=== PATIENT | female | born 1950 | race Caucasian/White ===

== ENCOUNTER → 2017-08-07 07:01 | Outpatient (CLI) | payer MEDICARE, OTHER, SELFPAY ==
[2017-08-07 10:13] LABS: Absolute Lymphocyte Count 1.34 X10^3/ul (0.83-4.51); Absolute Neutrophil Count 2.5 X10^3/uL (2.0-7.7); Eosinophil# 0.11 X10^3/uL; Eosinophils% 2.5 % (0-5); Hematocrit 37.8 % (37-47); Lymphocyte # 1.34 X10^3/ul (4.0); Lymphocyte % 30.6 % (19-41); Mean Corp Hgb Conc 31.7 g/gl (32-36); Mean Corpuscular Hgb 31.1 pg (27.0-32.0); Mean Corpuscular Volume 97.9 fL (81-99); Mean Platelet Vol. 10.4 fl (6.2-12.0); Monocyte# 0.38 X10^3/uL; Monocyte% 8.7 % (0-10); Neutrophil # 2.54 X10^3/uL (2.7-7.7); Platelet Count 283 K/mm3 (150-450); RBC Distribution Width CV 13.1 % (11.6-14.6); RBC Distribution Width SD 46.8 fl (35.1-43.9); Red Blood Count 3.86 M/mm3 (4.2-5.4); White Blood Count 4.4 K/mm3 (4.4-11.0)
[2017-08-07 10:14] LABS: POSITIVE COUNT NO; POSITIVE DIFFERENTIAL NO; POSITIVE MORPHOLOGY NO
[2017-08-07 10:44] LABS: ALB/GLOB Ratio 1.1 RATIO (0.9-2.4); AST(SGOT) 32 U/L (15-37); Alanine Aminotransfer ALT/SGPT 46 U/L (13-56); Albumin, Serum 3.7 g/dL (3.2-5.0); Alkaline Phosphatase 96 U/L (45-117); Anion Gap 9 (5-15); BUN 21 mg/dL (7-18); BUN/Creat Ratio 23.9 RATIO (10-20); Calcium,Total 9.4 mg/dL (8.5-10.1); Chloride 104 mmol/L (98-107); Creatinine, Serum 0.88 mg/dL (0.55-1.02); EST Glomerular Filtration Rate 68 mL/min (>60); Est Glom Filt Rate - Afr Amer 82 mL/min (>60); Globulin 3.4 g/dL (2.2-4.2); Glucose 82 mg/dL (74-106); Potassium 3.5 mmol/L (3.5-5.1); Protein, Total 7.1 g/dL (6.4-8.2); Sodium Level 140 mmol/L (136-145)
== END ==
PROVIDERS: Family Provider Internal Medicine; PCP Internal Medicine; Visit Provider Internal Medicine Rheumatology
DX: M06.4 Inflammatory polyarthropathy (principal); M79.7 Fibromyalgia; M15.9 Polyosteoarthritis, unspecified; K21.0 Gastro-esophageal reflux disease with esophagitis
CPT/HCPCS: 36415; 80053; 85025

== ENCOUNTER → 2018-01-29 07:09 | Outpatient (CLI) | payer MEDICARE, OTHER, SELFPAY ==
[2018-01-29 10:18] LABS: Absolute Lymphocyte Count 1.32 X10^3/ul (0.83-4.51); Absolute Neutrophil Count 1.8 X10^3/uL (2.0-7.7); Eosinophil# 0.22 X10^3/uL; Hemoglobin 11.2 g/dl (12.0-15.0); Lymphocyte # 1.32 X10^3/ul (4.0); Lymphocyte % 35.9 % (19-41); Mean Corpuscular Hgb 30.9 pg (27.0-32.0); Mean Corpuscular Volume 96.7 fL (81-99); Mean Platelet Vol. 10.6 fl (6.2-12.0); Monocyte# 0.39 X10^3/uL; Monocyte% 10.6 % (0-10); Neutrophil # 1.75 X10^3/uL (2.7-7.7); Neutrophil % 47.5 % (47-70); Platelet Count 286 K/mm3 (150-450); RBC Distribution Width CV 13.2 % (11.6-14.6); RBC Distribution Width SD 46.7 fl (35.1-43.9); Red Blood Count 3.62 M/mm3 (4.2-5.4); White Blood Count 3.7 K/mm3 (4.4-11.0)
[2018-01-29 10:29] LABS: POSITIVE COUNT NO; POSITIVE DIFFERENTIAL NO; POSITIVE MORPHOLOGY NO
[2018-01-29 10:30] LABS: ALB/GLOB Ratio 1.2 RATIO (0.9-2.4); AST(SGOT) 39 U/L (15-37); Alanine Aminotransfer ALT/SGPT 47 U/L (13-56); Albumin, Serum 3.9 g/dL (3.2-5.0); Alkaline Phosphatase 79 U/L (45-117); Anion Gap 6 (5-15); BUN 29 mg/dL (7-18); BUN/Creat Ratio 37.3 RATIO (10-20); Calcium,Total 9.2 mg/dL (8.5-10.1); Chloride 109 mmol/L (98-107); Creatinine, Serum 0.78 mg/dL (0.55-1.02); EST Glomerular Filtration Rate 78 mL/min (>60); Est Glom Filt Rate - Afr Amer 95 mL/min (>60); Globulin 3.2 g/dL (2.2-4.2); Glucose 86 mg/dL (74-106); Potassium 3.4 mmol/L (3.5-5.1); Protein, Total 7.1 g/dL (6.4-8.2); Sodium Level 142 mmol/L (136-145)
== END ==
PROVIDERS: Family Provider Internal Medicine; PCP Internal Medicine; Visit Provider Internal Medicine Rheumatology
DX: M06.4 Inflammatory polyarthropathy (principal); M79.7 Fibromyalgia; M15.9 Polyosteoarthritis, unspecified; K21.0 Gastro-esophageal reflux disease with esophagitis
CPT/HCPCS: 36415; 80053; 85025

== ENCOUNTER → 2018-05-26 12:42 | Outpatient (CLI) | payer MEDICARE, OTHER, SELFPAY ==
--- NOTE | 2018-05-26 12:45 | BI_ITS ---
MAMMOGRAPHY - BILATERAL SCREENING REASON FOR EXAM: Female, 67 years old. Routine annual screening examination. PERTINENT HISTORY: Non-contributory. TECHNIQUE: Digital bilateral breast radha (3D mammographic acquisition) in the CC and MLO projections. 2-D mediolateral oblique (MLO) and craniocaudad (CC) views of both breasts were obtained. CAD: Full Field Digital Mammography with Computer Added Detection was performed. COMPARISON: Comparison is made with prior examination dated April 30, 2017 and October 07, 2016. FINDINGS: Breast Composition: There are scattered areas of fibroglandular density. There are no dominant masses or suspicious calcifications. Stable 6.2 mm x 5.6 mm well-defined nodule in the central aspect of the left breast at the plane of the nipple. This is unchanged. Prior sonogram demonstrated this to be a small cyst. No other significant abnormalities are identified. There has been no significant change since the prior study. BI/SCREENING MAMM (CAD), BILAT IMPRESSION: Stable bilateral screening mammogram. Yearly follow-up mammogram recommended. (A) ASSESSMENT CATEGORY: BIRADS Category 2: Benign. A letter regarding these results will be sent to the patient by the facility within 30 days. Approximately 10% of breast cancers are not detected by mammography. A normal mammogram should not delay biopsy of a clinically suspicious abnormality. [id number] Electronically Signed: Marquise Peterson MD at 13:50 EST Tel [phone], Service support ,
--- OUTSIDE RECORDS SUMMARY | 2018-07-21 21:41 | XMS RPT_ITS ---
:1950 Author Organization OHIP Care Team Providers Name Role Phone ASIA GIORDANO Attending Unavailable GANTA, ASIA Referring Unavailable GANTA, ASIA Referring Unavailable GANTA, ASIA Attending Unavailable GANTA, ASIA Referring Unavailable Vellanki, Suzi Attending Unavailable Vellanki, Suzi Referring Unavailable Ganta, Asia Primary Care Unavailable Vellanki, Suzi Attending Unavailable Vellanki, Suzi Referring Unavailable Ganta, Asia Primary Care Unavailable Willem, Graciela Attending Unavailable Ganta, Asia Primary Care Unavailable WillemEmerald coopery Attending Unavailable Ganta, Asia Referring Unavailable PROBLEMS PROBLEMS DATE TYPE CONDITION / CODE ATTENDING STATUS SOURCE 06/03/2018 Unknown Z01.419 - Encounter Graciela Bangura Active [facility] for gynecological Community examination (general) Hospital (routine) without Repository abnormal findings / Z01.419(ICD-10) 02/05/2018 Active Hypokalemia / NA Active Page E87.6(ICD-10) Clinic Main [place] Repository 03/19/2018 Unknown M06.4 - Inflammatory Vellanki, 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 / Community M06.4(ICD-10) Hospital Repository 05/07/2012 Active Vitamin D deficiency, NA Active Page unspecified / Clinic Main E55.9(ICD-10) [place] Repository 10/10/2017 Active Encounter for NA Active [facility] screening for lipoid Clinic Main disorders / [place] Z13.220(ICD-10) Repository PROCEDURES PROCEDURES No Procedure Records FoundRESULTS RESULTS FOUNDATION RELATIONS DIRECTOR OFFICE VISIT Observed: 06/03/2018 Status: F Source: [place] RE[facility] 1:49 PM [facility] REPOSITORY [facility] [address] [place] [address] OFFICE VISIT Date of Service: 06/03/18 MR#: [id number] Acct: [id number] Name: ERNESTINA GANNON Lizette Rep #: [id number] : 1950 Provider: PATRIC Bangura Age/Sex: 68/F Location: [facility] Status: Signed Intake Vital Signs06/03/18 Height 5 ft 1 in 06/03/18 Weight: 153 lb 8 oz 06/03/18 Body Mass Index (BMI) 29.0 06/03/18 Blood Pressure 114/72 Intake Visit Reasons: est annual last seen 04/09/17 Telecom Network Manager Required: No Is patient in pain?: No Allergies Iodinated Contrast- Oral and IV Dye Adverse Reaction (Verified 06/03/18 13:28) sick Medications calcium carbonate 500 mg calcium (1,250 mg) tablet 500 mg PO BID tab 06/03/18 [History Confirmed 06/03/18] gabapentin 100 mg capsule 100 mg PO DAILY 06/03/18 [History Confirmed 06/03/18] hydroxychloroquine 200 mg tablet 200 mg PO BID tab 06/03/18 [History Confirmed 06/03/18] multivitamin tablet 1 tab PO DAILY 06/03/18 [History Confirmed 06/03/18] Is last menstrual period known: No Post menopausal: No Patient : No : No PFSH Social History number of children: 2 current occupational status: employed current occupation: [employer] Smoking Status: Never smoker alcohol intake: never substance use type: does not use seatbelt use: always do you feel safe at home: Yes additional social history: [employer] i on call medical assistant maintenance Pregancy History 3 Elective abortions Hx Para 2 Spontaneous abortions Past Pregnancies Del. DateName GA/Weeks Outcome Route Bth WeighInfant GeLabor LgtAnesthesiDel LocatProvider FOB t n h a n Unknown 1972 Male HPI est annual last seen 04/09/17: Details: ERNESTINA WEBB is a 68 year old who presents for annual exam. History of abnormal PAP: no Last mammogram: 04/2018 History of abnormal mammogram: no Colon cancer screenin ROS Const Constitutional: Denies fatigue, weight gain or weight loss Cardio Card: Denies chest pain Resp Resp: Denies cough or shortness of breath with activity GI GI: Denies abdominal pain, constipation, change in stools, vomiting or bloating : Reports as per HPI; denies urinary frequency, pelvic pain, urinary urgency, vaginal discharge, vaginal itching, urinary incontinence or difficulty urinating Exam Const General: cooperative, healthy appearing, no acute distress, well developed Orientation: alert, oriented to person, oriented to place HENMT Head: normal to inspection Neck Neck: normal visual inspection Thyroid: thyroid normal Lymphatic: no lymphadenopathy noted Chest Breast inspection: normal inspection of the breasts, normal inspection of the axillae Breast palpation: normal palpation of the breasts, normal palpation of the axillae, no axillary lymphadenopathy Resp Effort AND Inspection: normal respiratory effort GI Palpation: soft, nontender, no masses Rectal Exam: deferred External Female Exam: normal external appearance, normal appearance of the urethra Urethra: normal appearance of the urethra, normal palpation Speculum Exam - Vagina: normal appearance of the vagina, normal vaginal discharge Speculum Exam - Cervix: normal appearance of the cervix Bimanual Exam- Vagina AND Uterus: normal bimanual exam, uterine size normal, uterine shape normal, uterus non-tender Bimanual Exam- Adnexa, other: normal adnexae, no adnexal masses, adnexae non-tender, pelvic support normal Pelvic Support: normal Neuro General: alert, oriented x3 Psych Affect: normal affect Assessment AND Plan Problems 1. Encounter for gynecological examination without abnormal finding Z01.419 Plan Completed breast and pelvic exam Reviewed diet and exercise Pap NA Mammogram recent Colonoscopy up to date Bone density scheduled RTO 1 year, prn with problems Graciela Bangura TRAFFIC CONTROL FLAGGER Coding Level of Care Code MC Pelvic/Breast Diagnoses Encounter for gynecological examination without abnormal finding Z01.419 Gynecological examination findings: abnormal findings ABSENT 06/03/18 1349 <Electronically signed by Graciela VALENCIA> Date Graciela VALENCIA Cosigner Signature: Date (if applicable) CC: SCREENING MAMM (CAD), Observed: 05/26/2018 Status: F Source: [facility] 12:45 PM [facility] REPOSITORY [facility] Imaging Services [address] [place] [id number] SCREENING MAMM (CAD), [facility] MR#: [id number] Acct: [id number] Name: ERNESTINA WEBB Rep #: [id number] : 1950 F 67 From: Marquise Peterson MD PCP: Asia Giordano MD Status: REG [facility] Study: SCREENING MAMM (CAD), BIL Date of Exam: 05/26/18 Exam# [id number] Ordering Dr: Graciela Bangura MAMMOGRAPHY - BILATERAL SCREENING REASON FOR EXAM: Female, 67 years old. Routine annual screening examination. PERTINENT HISTORY: Non-contributory. TECHNIQUE: Digital bilateral breast radha (3D mammographic acquisition) in the CC and MLO projections. 2-D mediolateral oblique (MLO) and craniocaudad (CC) views of both breasts were obtained. CAD: Full Field Digital Mammography with Computer Added Detection was performed. COMPARISON: Comparison is made with prior examination dated April 30, 2017 and October 07, 2016. FINDINGS: Breast Composition: There are scattered areas of fibroglandular density. There are no dominant masses or suspicious calcifications. Stable 6.2 mm x 5.6 mm well-defined nodule in the central aspect of the left breast at the plane of the nipple. This is unchanged. Prior sonogram demonstrated this to be a small cyst. No other significant abnormalities are identified. There has been no significant change since the prior study. BI/SCREENING MAMM (CAD), BILAT IMPRESSION: Stable bilateral screening mammogram. Yearly follow-up mammogram recommended. (A) ASSESSMENT CATEGORY: BIRADS Category 2: Benign. A letter regarding these results will be sent to the patient by the facility within 30 days. Approximately 10% of breast cancers are not detected by mammography. A normal mammogram should not delay biopsy of a clinically suspicious abnormality. [id number] Electronically Signed: Marquise Peterson MD at 13:50 EST Tel [phone], Service support , CC: PATRIC Bangura; Asia Giordano MD Nurse Monitoring: Signed PROGRESS Observed: 04/07/2018 Status: COMPLETED Source: [facility] 1:11 PM [facility] REPOSITORY O ID: [id number] Author: Asia Giordano Service: (none) Author Type: Physician Type: Progress Notes Filed: 04/07/2018 8:59 PM Note Text: Reason for Visit Patient presents with: Established Patient: 6 month follow up- questions about vitamin Ernestina Webb is a 67 year old female who presents here today for Above Complaints.. Health Maintenance HEPATITIS C SCREENING PAP EVERY 3 YEARS (65-80 YEARS OLD) MAMMOGRAM HPI Osteoporosis Vit d levels in 2018 were 77, takes calcium 500 cc daily and vit d, weight bearing by exercising daily. Dietary source of calcium is from milk, nuts,cheese. bmd was done in 2015, has osteoporosis in the lumbar spine. Notes that sister took the medication and she did not do very well with it so she does not want to take It, finance seems an issue too. Vitamin d deficiency Vit d levels in 2018 were 77, she is taking supplement. She has poly inflammatory arthritis and fibromyalgia, was dx by rheum. On plaquenil her eye were tested last year , f/u is coming up. Cont the gabapentin, no side effects. Cbc and cmp are normal. Mammogram needs to be done Graciela takes care of her pap and pelvic. Had her cmp done in 2018 and glucose was normal. 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 - PMH - PAST MEDICAL HISTORY OF hx of dehydration - Syncope 07/30/2009 PAST SURGICAL HISTORY Procedure Laterality Date - COLONOSCOP W/ OR W/O BRSH SPEC 12/18/09 - EGD W/O BRSH SPECIMEN W/BX 12/18/09 - REMOVAL GALLBLADDER Cholecystectomy - REMOVAL OF OVARY/TUBE(S) ??RIGHT - IN HER 30'S FAMILY HISTORY Problem Relation Age of Onset - Cancer Mother 55 face - Breast Cancer Maternal Aunt 52 - Hypertension Mother - Stroke Mother plaque - Heart Father - Diabetes Maternal Aunt with amputation - Diabetes Maternal Aunt with amputation Social History Substance Use Topics - Smoking status: Never Smoker - Smokeless tobacco: Never Used - Alcohol use No Past medical history, appointments, medications, allergies reviewed. Pertinent Lab/Diagnostic Studies are reviewed and discussed today Current Outpatient Prescriptions: - VITAMIN D 50,000 unit capsule - gabapentin (NEURONTIN) 100 mg capsule - hydroxychloroquine (PLAQUENIL) 200 mg tablet - OTC NUTRITIONAL SUPPLEMENT - CALCIUM OYSTER SHELL ORAL Review of Systems CONSTITUTIONAL: No fevers, chills night sweats, unintended weight loss CARDIOVASCULAR: No chest pain, dyspnea, palpitations, orthopnea, PND, ankle edema. PULM: No dyspnea, unexplained cough. GI: No dysphagia/odynophagia, problematic reflux, constipation, diarrhea, changes in stool habits, hematochezia, melena. : No new urinary complaints, including dysuria, gross hematuria or pyuria. NEURO: No new balance problems, peripheral weakness/paresthesias or numbness of concern. Physical Exam BP 120/64 (BP Site: Left Arm, BP Position: Sitting, BP Cuff Size: Regular Adult) Pulse 74 Resp 12 Ht 154.9 cm (5' 1) Wt 67.6 kg (149 lb) SpO2 98% BMI 28.15 kg/m? General appearance: Well appearing, alert, in no acute distress, well nourished. Skin: Skin color, texture, turgor normal, no suspicious rashes or lesions Head: Normocephalic, no masses, lesions, tenderness or abnormalities Eyes: Anicteric sclera. Pupils are equally round and reactive to light. Extraocular movements are intact. Hands have a herbedens nodules, in all the distal and proximal phalanges. Lungs: Lungs clear to auscultation. No wheezing, rhonchi, rales Heart: RRR without murmur, gallop, or rubs. Extremities: No deformities, edema, skin discoloration, clubbing or cyanosis. Good capillary refill. ASSESSMENT/PLAN: 1. Breast cancer screening by mammogram - ICD9: V76.12, ICD10: Z12.31 (primary diagnosis) - Follow up for annual exam in one year. - VLADIMIR SCREENING 2. Osteoporosis without current pathological fracture, unspecified osteoporosis type - ICD9: 733.00, ICD10: M81.0 - Reviewed the need for Calcium and Vitamin D supplements and weight bearing exercise as tolerated - DXA-AXIAL SKELETON 3. Vitamin D deficiency - ICD9: 268.9, ICD10: E55.9 Will recheck her levels 4. Hypertriglyceridemia - ICD9: 272.1, ICD10: E78.1 - good control - Continue current medication. - LIPID PANEL BASIC ASIA GIORDANO MD CNOV Observed: 04/07/2018 Status: COMPLETED Source: [facility] 1:00 PM [facility] REPOSITORY Office Visit (INTMWS) ERNESTINA WEBB ([id number]) 1950 F Date Time Provider Department 04/07/18 1:00 PM GANTA, ASIA INTMWS During your visit today, we recorded the following information about you: Pulse Respiration Blood pressure Weight 74/minute 12/minute 120/64 67.6 kg Height 1.549 m ASIA GIORDANO MD 04/07/2018 8:59 PM Signed Reason for Visit Patient presents with: Established Patient: 6 month follow up- questions about vitamin Ernestina Webb is a 67 year old female who presents here today for Above Complaints.. Health Maintenance HEPATITIS C SCREENING PAP EVERY 3 YEARS (65-80 YEARS OLD) MAMMOGRAM HPI Osteoporosis Vit d levels in 2018 were 77, takes calcium 500 cc daily and vit d, weight bearing by exercising daily. Dietary source of calcium is from milk, nuts,cheese. bmd was done in 2015, has osteoporosis in the lumbar spine. Notes that sister took the medication and she did not do very well with it so she does not want to take It, finance seems an issue too. Vitamin d deficiency Vit d levels in 2018 were 77, she is taking supplement. She has poly inflammatory arthritis and fibromyalgia, was dx by rheum. On plaquenil her eye were tested last year , f/u is coming up. Cont the gabapentin, no side effects. Cbc and cmp are normal. Mammogram needs to be done Graciela takes care of her pap and pelvic. Had her cmp done in 2018 and glucose was normal. 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 - PMH - PAST MEDICAL HISTORY OF hx of dehydration - Syncope 07/30/2009 PAST SURGICAL HISTORY Procedure Laterality Date - COLONOSCOP W/ OR W/O BRSH SPEC 12/18/09 - EGD W/O BRSH SPECIMEN W/BX 12/18/09 - REMOVAL GALLBLADDER Cholecystectomy - REMOVAL OF OVARY/TUBE(S) ??RIGHT - IN HER 30'S FAMILY HISTORY Problem Relation Age of Onset - Cancer Mother 55 face - Breast Cancer Maternal Aunt 52 - Hypertension Mother - Stroke Mother plaque - Heart Father - Diabetes Maternal Aunt with amputation - Diabetes Maternal Aunt with amputation Social History Substance Use Topics - Smoking status: Never Smoker - Smokeless tobacco: Never Used - Alcohol use No Past medical history, appointments, medications, allergies reviewed. Pertinent Lab/Diagnostic Studies are reviewed and discussed today Current Outpatient Prescriptions: - VITAMIN D 50,000 unit capsule - gabapentin (NEURONTIN) 100 mg capsule - hydroxychloroquine (PLAQUENIL) 200 mg tablet - OTC NUTRITIONAL SUPPLEMENT - CALCIUM OYSTER SHELL ORAL Review of Systems CONSTITUTIONAL: No fevers, chills night sweats, unintended weight loss CARDIOVASCULAR: No chest pain, dyspnea, palpitations, orthopnea, PND, ankle edema. PULM: No dyspnea, unexplained cough. GI: No dysphagia/odynophagia, problematic reflux, constipation, diarrhea, changes in stool habits, hematochezia, melena. : No new urinary complaints, including dysuria, gross hematuria or pyuria. NEURO: No new balance problems, peripheral weakness/paresthesias or numbness of concern. Physical Exam BP 120/64 (BP Site: Left Arm, BP Position: Sitting, BP Cuff Size: Regular Adult) Pulse 74 Resp 12 Ht 154.9 cm (5' 1) Wt 67.6 kg (149 lb) SpO2 98% BMI 28.15 kg/m? General appearance: Well appearing, alert, in no acute distress, well nourished. Skin: Skin color, texture, turgor normal, no suspicious rashes or lesions Head: Normocephalic, no masses, lesions, tenderness or abnormalities Eyes: Anicteric sclera. Pupils are equally round and reactive to light. Extraocular movements are intact. Hands have a herbedens nodules, in all the distal and proximal phalanges. Lungs: Lungs clear to auscultation. No wheezing, rhonchi, rales Heart: RRR without murmur, gallop, or rubs. Extremities: No deformities, edema, skin discoloration, clubbing or cyanosis. Good capillary refill. ASSESSMENT/PLAN: 1. Breast cancer screening by mammogram - ICD9: V76.12, ICD10: Z12.31 (primary diagnosis) - Follow up for annual exam in one year. - VLADIMIR SCREENING 2. Osteoporosis without current pathological fracture, unspecified osteoporosis type - ICD9: 733.00, ICD10: M81.0 - Reviewed the need for Calcium and Vitamin D supplements and weight bearing exercise as tolerated - DXA-AXIAL SKELETON 3. Vitamin D deficiency - ICD9: 268.9, ICD10: E55.9 Will recheck her levels 4. Hypertriglyceridemia - ICD9: 272.1, ICD10: E78.1 - good control - Continue current medication. - LIPID PANEL BASIC MD ASIA MCKINNON MD 04/07/2018 1:19 PM Edited Vit d levels in 2018 were 77, takes calcium 500 cc daily and vit d, weight bearing by exercising daily. Dietary source of calcium is from milk, nuts,cheese. ASIA GIORDANO MD 04/07/2018 1:18 PM Written Vit d levels in 2018 were 77, she is taking supplement Referring Provider: ASIA GIORDANO [[id number]] Allergies As of Date: 04/07/2018 Noted Allergy Reaction MRI DYE (CONTRAST DYE) 08/21/2009 Date Reviewed: 04/07/2018 Reviewed by: Treva Davila LPN - Fully Assessed Reason for Visit: Established Patient [175] Cmt: 6 month follow up- questions about vitamin Primary Visit Diagnosis:Breast cancer screening by mammogram [Z12.31] Other Visit Diagnoses:Osteoporosis without current pathological fracture, unspecified osteoporosis type [M81.0] Vitamin D deficiency [E55.9] Hypertriglyceridemia [E78.1] Iron deficiency anemia, unspecified iron deficiency anemia type [D50.9] Order(s):DXA-AXIAL SKELETON [[id number]] Order #: [id number] FUTURE VLADIMIR SCREENING [[id number]] Order #: [id number] FUTURE LIPID PANEL BASIC [SQLIPB] Order #: [id number] FUTURE CBC + DIFF [SQCBCDIF] Order #: [id number] FUTURE IRON + TIBC [SQIRON] Order #: [id number] FUTURE FERRITIN BLD [SQFERR] Order #: [id number] FUTURE Prescriptions as of 04/07/2018 Sig: VITAMIN D2 50,000 UNIT CAPSULE TAKE 1 CAPSULE BY MOUTH EACH * GABAPENTIN 100 MG CAPSULE Take 1 capsule by mouth once * HYDROXYCHLOROQUINE 200 MG TAB* Take 1 tablet by mouth twice * * OTC NUTRITIONAL SUPPLEMENT one time only. Alive, Women's* * CALCIUM OYSTER SHELL ORAL Take 500 mg by mouth twice da* Medication notes this encounter GABAPENTIN 100 MG CAPSULE >> Treva Davila LPN 04/07/2018 12:45 PM >> TREVA DAVILA LPN ThuApr 07, 2018 12:45 PM duplicate Problem List As Of Date 04/07/2018 Noted Resolved GERD (Gastroesophageal Reflux Disease) [K21.9] INVALID FOR* More... Anxiety [F41.9] INVALID FOR* Anemia [D64.9] INVALID FOR*05/06/2013 Epigastric pain [R10.13] INVALID FOR*05/12/2012 Syncope [R55] INVALID FOR*05/06/2013 Arthritis [M19.90] INVALID FOR*05/06/2013 Osteoporosis [M81.0] INVALID FOR* More... Vitamin d deficiency [E55.9] INVALID FOR* More... Inflammatory polyarthropathy [M06.4] INVALID FOR* More... Fibromyalgia [M79.7] INVALID FOR* More... [place] node [M15.1] INVALID FOR* More... Chronic bilateral low back pain without sciatic*INVALID FOR* Osteopenia of multiple sites [M85.89] INVALID FOR* More... Medications Discontinued During This Encounter gabapentin (NEURONTIN) 100 mg capsule 90 c* 3 10/05/2017 04/07/2018 Route: ORAL Sig: Take 1 capsule by mouth once daily for 90 days. at bedtime Disc: Reason for discontinue is not on file. pantoprazole DR (PROTONIX) 40 mg tab* 08/11/2016 04/07/2018 Class: Med Update Route: ORAL Sig: Take 1 tablet by mouth once daily as needed. Disc: Reason for discontinue is not on file. Encounter Status:Closed by ASIA GIORDANO MD on 04/07/18 POTASSIUM Collected: 02/05/2018 Status: F Source: [facility] 1:08 PM [facility] REPOSITORY TYPE CODE TESTS RESULT OUT OF REFERENCE UNITS RANGE LAB K 3.7-5.1 mmol/L Potassium 4.1 Performed By: #### K1 #### [facility] [address] [place], [place] [address] CBC W/DIFF, AUTOMATED Collected: 01/29/2018 Status: F Source: [facility] 7:16 AM [facility] REPOSITORY TYPE CODE TESTS RESULT OUT OF RANGE REFERENCE UNITS LAB L100.1000 4.4-11.0 K/mm3 Low WBC 3.7 LAB L100.1200 4.2-5.4 M/mm3 Low RBC 3.62 LAB L100.1300 12.0-15.0 g/dl Low HGB 11.2 LAB L100.1400 37-47 % Low HCT 35.0 LAB L100.1500 81-99 fL Normal MCV 96.7 LAB L100.1600 27.0-32.0 pg Normal MCH 30.9 LAB L100.1700 32-36 g/gl Normal MCHC 32.0 LAB L100.1810 11.6-14.6 % Normal RDW CV 13.2 LAB L100.1820 35.1-43.9 fl High RDW SD 46.7 LAB L100.1900 150-450 K/mm3 Normal PLT 286 LAB L100.2000 6.2-12.0 fl Normal MPV 10.6 LAB L100.2100 47-70 % Normal NEUT% 47.5 LAB L100.2200 19-41 % Normal LY% 35.9 LAB L100.2300 0-10 % High MONO% 10.6 LAB L100.2400 0-5 % High EO% 6.0 LAB L100.2500 0-1 % Normal BASO% 0.0 LAB L100.2550 0.0-0.9 % Normal IM GRAN % 0.000 Result Comment: IG% - Immature Granulocytes (promyelocytes, myelocytes and metamyelocytes) > 1% indicates that a LEFT SHIFT is Present. LAB L100.2620 2.0-7.7 X10 3/uL Low Absolute Neut 1.8 LAB L100.2720 0.83-4.51 X10 3/ul Normal Absolute Lymph 1.32 Performed By: #### L100.0100 #### [facility] [address] [place] [address]. [place], [address] COMPREHENSIVE METABOLIC Collected: 01/29/2018 Status: F Source: [facility] 7:16 AM [facility] REPOSITORY TYPE CODE TESTS RESULT OUT OF RANGE REFERENCE UNITS LAB L501.0100 74-106 mg/dL Normal GLU 86 Result Comment: Please note revised GLUCOSE reference range effective 2017. LAB L501.1000 7-18 mg/dL High BUN 29 LAB L501.1100 0.55-1.02 mg/dL Normal CREAT,SERUM 0.78 Result Comment: The validity of the calculated GFR AND GFRAA in patients over 70 years has not been determined. Clinical correlation is essential. LAB L501.1110 >60 mL/min Normal EST GFR 78 Result Comment: Non- GFR Calc LAB L501.1115 >60 mL/min Normal EST GFR - AA 95 Result Comment: GFR Calc LAB L501.1300 10-20 RATIO High BUN/CRE 37.3 LAB L501.1500 6.4-8.2 g/dL T Normal PROT 7.1 LAB L501.1800 3.2-5.0 g/dL Normal ALB 3.9 LAB L501.1950 2.2-4.2 g/dL Normal GLOB 3.2 LAB L501.2000 0.9-2.4 RATIO Normal A/G 1.2 LAB L501.2200 8.5-10.1 mg/dL CA Normal 9.2 LAB L501.4100 15-37 U/L High AST 39 LAB L501.4305 45-117 U/L Normal ALK P 79 LAB L501.4405 13-56 U/L Normal ALT 47 LAB L501.4600 0.20-1.00 mg/dL T Normal BILI 0.40 LAB L501.5300 136-145 mmol/L NA Normal 142 LAB L501.5600 3.5-5.1 mmol/L Low K 3.4 LAB L501.5900 98-107 mmol/L High CL 109 LAB L501.6100 21.0-32.0 mmol/L Normal CO2 27.0 LAB L501.6200 5-15 Normal GAP 6 Performed By: #### L500.4050 #### [facility] [address] [place], [place], [address] LIPID PANEL, BASIC Collected: 10/10/2017 Status: F Source: [facility] 7:42 AM [facility] REPOSITORY TYPE CODE TESTS RESULT OUT OF REFERENCE UNITS RANGE LAB CHOL <200 mg/dL Cholesterol 198 Result Comment: <200 mg/dL, Desirable 200-239 mg/dL, Borderline high >239 mg/dL, High LAB TRIGLY <150 mg/dL Triglyceride High 176 Result Comment: <150 mg/dL, Normal 150-199 mg/dL, Borderline high 200-499 mg/dL, High >499 mg/dL, Very high LAB HDL >39 mg/dL HDL-Cholesterol 78 Result Comment: 40-59 mg/dL, Acceptable >59 mg/dL, High: Negative risk factor for coronary heart disease <40 mg/dL, Low: Positive risk factor for coronary heart disease LAB LDL <100 mg/dL LDL-Cholesterol 85 Result Comment: <100 mg/dL, Optimal 100-129 mg/dL, Near optimal/above optimal 130-159 mg/dL, Borderline high 160-189 mg/dL, High >189 mg/dL, Very high Secondary prevention optimal LDL Cholesterol levels are recommended to be < 70 mg/dL LAB NONHDL <130 mg/dL Non HDL Cholesterol 120 Result Comment: <130 mg/dL, Optimal 130-159 mg/dL, Near optimal/above optimal 160-189 mg/dL, Borderline high 190-219 mg/dL, High >219 mg/dL, Very high Secondary prevention optimal non HDL Cholesterol levels are recommended to be < 100 mg/dL LAB FT hrs Fasting Time 12 LAB VLDL <30 mg/dL High VLDL Cholesterol 35 LAB TCHDL <5.10 TC:HDL Ratio 2.54 LAB LDLHDL <2.54 LDL:HDL Ratio 1.09 Result Comment: Reference: 1. National Cholesterol Education Program ATP III Guideline At-A-Glance Quick Desk Reference: National Heart, Lung, and Blood Meservey. National Institutes of Health. 2001: NIH Publication No. 01-3305. 2. An International Atherosclerosis Society position paper: global recommendations for the management of dyslipidemia: executive summary, Atherosclerosis. 2014: 232(2):410-413. Performed By: #### LIPB, VITD #### [facility] Scope [address] [place], [place] [address] VITAMIN D 25 HYDROXY Collected: 10/10/2017 Status: F Source: [facility] 7:42 AM [facility] [place] REPOSITORY TYPE CODE TESTS RESULT OUT OF REFERENCE UNITS RANGE LAB VITD 31.0-80.0 ng/mL Vitamin D 25 77.0 Hydroxy Result Comment: Classification of 25 [place] Vitamin D status: Insufficiency/Moderate Deficiency: < or = 30 ng/mL Sufficiency/Optimal Levels: 31 to 80 ng/mL Toxicity: > 100 ng/mL Test performed by chemiluminescent immunoassay. Performed By: #### LIPB, VITD #### [facility] [address] [place], [place] [address] PROGRESS Observed: 10/05/2017 Status: COMPLETED Source: [facility] 2:22 PM [facility] REPOSITORY HNO ID: [id number] Author: Asia Giordano Service: (none) Author Type: Physician Type: Progress Notes Filed: 10/05/2017 5:30 PM Note Text: Reason for Visit No chief complaint on file. Ernestina Webb is a 67 year old female who presents here today for Above Complaints.. Health Maintenance HEPATITIS C SCREENING HPI Her screening glucose is normal. cmp and cbc are normal. Fibro and arthritis is well controlled On plaquenil for poly arthritis and is upto date with her liver and eye monitoring We need to check her lipid and vit d levels. She gets good exercise where ever she works. Once in a while she gets a wooshing sound in the ears, no hearing loss or dizziness No problem-specific Assessment AND Plan notes found for this encounter. PAST MEDICAL HISTORY Diagnosis Date - Abdominal pain, epigastric - Acute gastritis without mention of hemorrhage - Anemia - Fibromyalgia 05/12/2012 - Gastritis - Inflammatory polyarthropathy (HCC) 05/12/2012 - PMH - PAST MEDICAL HISTORY OF hx of dehydration - Syncope 07/30/2009 PAST SURGICAL HISTORY Procedure Laterality Date - COLONOSCOP W/ OR W/O [facility] SPEC 12/18/09 - EGD W/O [facility] SPECIMEN W/BX 12/18/09 - REMOVAL GALLBLADDER Cholecystectomy - REMOVAL OF OVARY/TUBE(S) ??RIGHT - IN HER 30'S FAMILY HISTORY Problem Relation Age of Onset - Cancer Mother 55 face - Breast Cancer Maternal Aunt 52 - Hypertension Mother - Stroke Mother plaque - Heart Father - Diabetes Maternal Aunt with amputation - Diabetes Maternal Aunt with amputation Social History Substance Use Topics - Smoking status: Never Smoker - Smokeless tobacco: Never Used - Alcohol use No Past medical history, appointments, medications, allergies reviewed. Pertinent Lab/Diagnostic Studies are reviewed and discussed today Current Outpatient Prescriptions: - gabapentin (NEURONTIN) 100 mg capsule - ergocalciferol, vitamin D2, (DRISDOL) 50,000 unit capsule - pantoprazole DR (PROTONIX) 40 mg tablet - hydroxychloroquine (PLAQUENIL) 200 mg tablet - OTC NUTRITIONAL SUPPLEMENT - CALCIUM OYSTER SHELL ORAL Review of Systems CONSTITUTIONAL: No fevers, chills night sweats, unintended weight loss CARDIOVASCULAR: No chest pain, dyspnea, palpitations, orthopnea, PND, ankle edema. PULM: No dyspnea, unexplained cough. GI: No dysphagia/odynophagia, problematic reflux, constipation, diarrhea, changes in stool habits, hematochezia, melena. : No new urinary complaints, including dysuria, gross hematuria or pyuria. NEURO: No new balance problems, peripheral weakness/paresthesias or numbness of concern. Physical Exam BP 120/60 (BP Site: Left Arm, BP Position: Sitting, BP Cuff Size: Regular Adult) Pulse 80 Resp 12 Ht 154.9 cm (5' 1) Wt 69.4 kg (153 lb) SpO2 100% BMI 28.91 kg/m2 General appearance: Well appearing, alert, in no acute distress, well nourished. Skin: Skin color, texture, turgor normal, no suspicious rashes or lesions Head: Normocephalic, no masses, lesions, tenderness or abnormalities Eyes: Anicteric sclera. Pupils are equally round and reactive to light. Extraocular movements are intact. Lungs: Lungs clear to auscultation. No wheezing, rhonchi, rales Heart: RRR without murmur, gallop, or rubs. Extremities: No deformities, edema, skin discoloration, clubbing or cyanosis. Good capillary refill. ASSESSMENT/PLAN: 1. Lipid screening - ICD9: V77.91, ICD10: Z13.220 (primary diagnosis) - LIPID PANEL BASIC 2. Inflammatory polyarthropathy (HCC) - ICD9: 714.9, ICD10: M06.4 Getting eye checked next months. - GABAPENTIN 100 MG CAPSULE 3. Fibromyalgia - ICD9: 729.1, ICD10: M79.7 Refilled - GABAPENTIN 100 MG CAPSULE 4. Vitamin D deficiency - ICD9: 268.9, ICD10: E55.9 - VITAMIN D 25 HYDROXY ASIA GIORDANO MD CNOV Observed: 10/05/2017 Status: COMPLETED Source: [place] [facility] 2:00 PM [facility] REPOSITORY Office Visit (INTMWS) ERNESTINA WEBB ([id number]) 1950 F Date Time Provider Department 10/05/17 2:00 PM ASIA GIORDANO During your visit today, we recorded the following information about you: Pulse Respiration Blood pressure Weight 80/minute 12/minute 120/60 69.4 kg Height 1.549 m ASIA GIORDANO MD 10/05/2017 5:30 PM Signed Reason for Visit No chief complaint on file. Ernestina Webb is a 67 year old female who presents here today for Above Complaints.. Health Maintenance HEPATITIS C SCREENING HPI Her screening glucose is normal. cmp and cbc are normal. Fibro and arthritis is well controlled On plaquenil for poly arthritis and is upto date with her liver and eye monitoring We need to check her lipid and vit d levels. She gets good exercise where ever she works. Once in a while she gets a wooshing sound in the ears, no hearing loss or dizziness No problem-specific Assessment ANDamp; Plan notes found for this encounter. PAST MEDICAL HISTORY Diagnosis Date - Abdominal pain, epigastric - Acute gastritis without mention of hemorrhage - Anemia - Fibromyalgia 05/12/2012 - Gastritis - Inflammatory polyarthropathy (HCC) 05/12/2012 - PMH - PAST MEDICAL HISTORY OF hx of dehydration - Syncope 07/30/2009 PAST SURGICAL HISTORY Procedure Laterality Date - COLONOSCOP W/ OR W/O [facility] SPEC 12/18/09 - EGD W/O [facility] SPECIMEN W/BX 12/18/09 - REMOVAL GALLBLADDER Cholecystectomy - REMOVAL OF OVARY/TUBE(S) ??RIGHT - IN HER 30'S FAMILY HISTORY Problem Relation Age of Onset - Cancer Mother 55 face - Breast Cancer Maternal Aunt 52 - Hypertension Mother - Stroke Mother plaque - Heart Father - Diabetes Maternal Aunt with amputation - Diabetes Maternal Aunt with amputation Social History Substance Use Topics - Smoking status: Never Smoker - Smokeless tobacco: Never Used - Alcohol use No Past medical history, appointments, medications, allergies reviewed. Pertinent Lab/Diagnostic Studies are reviewed and discussed today Current Outpatient Prescriptions: - gabapentin (NEURONTIN) 100 mg capsule - ergocalciferol, vitamin D2, (DRISDOL) 50,000 unit capsule - pantoprazole DR (PROTONIX) 40 mg tablet - hydroxychloroquine (PLAQUENIL) 200 mg tablet - OTC NUTRITIONAL SUPPLEMENT - CALCIUM OYSTER SHELL ORAL Review of Systems CONSTITUTIONAL: No fevers, chills night sweats, unintended weight loss CARDIOVASCULAR: No chest pain, dyspnea, palpitations, orthopnea, PND, ankle edema. PULM: No dyspnea, unexplained cough. GI: No dysphagia/odynophagia, problematic reflux, constipation, diarrhea, changes in stool habits, hematochezia, melena. : No new urinary complaints, including dysuria, gross hematuria or pyuria. NEURO: No new balance problems, peripheral weakness/paresthesias or numbness of concern. Physical Exam BP 120/60 (BP Site: Left Arm, BP Position: Sitting, BP Cuff Size: Regular Adult) Pulse 80 Resp 12 Ht 154.9 cm (5' 1ANDquot;) Wt 69.4 kg (153 lb) SpO2 100% BMI 28.91 kg/m2 General appearance: Well appearing, alert, in no acute distress, well nourished. Skin: Skin color, texture, turgor normal, no suspicious rashes or lesions Head: Normocephalic, no masses, lesions, tenderness or abnormalities Eyes: Anicteric sclera. Pupils are equally round and reactive to light. Extraocular movements are intact. Lungs: Lungs clear to auscultation. No wheezing, rhonchi, rales Heart: RRR without murmur, gallop, or rubs. Extremities: No deformities, edema, skin discoloration, clubbing or cyanosis. Good capillary refill. ASSESSMENT/PLAN: 1. Lipid screening - ICD9: V77.91, ICD10: Z13.220 (primary diagnosis) - LIPID PANEL BASIC 2. Inflammatory polyarthropathy (HCC) - ICD9: 714.9, ICD10: M06.4 Getting eye checked next months. - GABAPENTIN 100 MG CAPSULE 3. Fibromyalgia - ICD9: 729.1, ICD10: M79.7 Refilled - GABAPENTIN 100 MG CAPSULE 4. Vitamin D deficiency - ICD9: 268.9, ICD10: E55.9 - VITAMIN D 25 HYDROXY ASIA GIORDANO MD Referring Provider: SELF [200] Allergies As of Date: 10/05/2017 Noted Allergy Reaction MRI DYE (CONTRAST DYE) 08/21/2009 Date Reviewed: 10/05/2017 Reviewed by: Treva Davila LPN - Fully Assessed Primary Visit Diagnosis:Lipid screening [Z13.220] Other Visit Diagnoses:Inflammatory polyarthropathy (HCC) [M06.4] Fibromyalgia [M79.7] Vitamin D deficiency [E55.9] Order(s):gabapentin (NEURONTIN) 100 mg capsuleTake 1 capsule by mouth once daily for 90 days. at bedtimeDisp: 90 capsuleRfl: 3 ergocalciferol, vitamin D2, (DRISDOL) 50,000 unit capsuleTake 1 capsule by mouth once each week. On ThursdayDisp: 12 capsuleRfl: 1 LIPID PANEL BASIC [SQLIPB] Order #: [id number] FUTURE VITAMIN D 25 HYDROXY [SQVITD] Order #: [id number] FUTURE Prescriptions as of 10/05/2017 Sig: GABAPENTIN 100 MG CAPSULE Take 1 capsule by mouth once * ERGOCALCIFEROL (VITAMIN D2) 5* Take 1 capsule by mouth once * PANTOPRAZOLE 40 MG TABLET,DEL* Take 1 tablet by mouth once d* HYDROXYCHLOROQUINE 200 MG TAB* Take 1 tablet by mouth twice * * OTC NUTRITIONAL SUPPLEMENT one time only. Alive, Women's* * CALCIUM OYSTER SHELL ORAL Take 500 mg by mouth twice da* Problem List As Of Date 10/05/2017 Noted Resolved GERD (Gastroesophageal Reflux Disease) [K21.9] INVALID FOR* More... Anxiety [F41.9] INVALID FOR* Anemia [D64.9] INVALID FOR*05/06/2013 Epigastric pain [R10.13] INVALID FOR*05/12/2012 Syncope [R55] INVALID FOR*05/06/2013 Arthritis [M19.90] INVALID FOR*05/06/2013 Osteoporosis [M81.0] INVALID FOR* Vitamin d deficiency [E55.9] INVALID FOR* Inflammatory polyarthropathy [M06.4] INVALID FOR* More... Fibromyalgia [M79.7] INVALID FOR* More... [place] node [M15.1] INVALID FOR* More... Chronic bilateral low back pain without sciatic*INVALID FOR* Osteopenia of multiple sites [M85.89] INVALID FOR* More... Prescriptions ordered this encounter Disp Refills Start End GABAPENTIN 100 MG CAPSULE 90 c* 3 10/05/2017 01/03/2018 Route: ORAL Sig: Take 1 capsule by mouth once daily for 90 days. at bedtime ERGOCALCIFEROL (VITAMIN D2) 50,000 U* 12 c* 1 10/05/2017 Route: ORAL Sig: Take 1 capsule by mouth once each week. On Thursday Medications Discontinued During This Encounter gabapentin (NEURONTIN) 100 mg capsule 90 c* 3 12/10/2016 10/05/2017 Route: ORAL Sig: Take 1 capsule by mouth once daily. at bedtime Disc: Reason for discontinue is not on file. ergocalciferol, vitamin D2, (DRISDOL* 4 ca* 11 12/10/2016 10/05/2017 Route: ORAL Sig: Take 1 capsule by mouth once each week. On Thursday Disc: Reason for discontinue is not on file. Encounter Status:Closed by ASIA GIORDANO MD on 10/05/17 CBC W/DIFF, AUTOMATED Collected: 08/07/2017 Status: F Source: [place] 7:13 AM [facility] REPOSITORY TYPE CODE TESTS RESULT OUT OF RANGE REFERENCE UNITS LAB L100.1000 4.4-11.0 K/mm3 Normal WBC 4.4 LAB L100.1200 4.2-5.4 M/mm3 Low RBC 3.86 LAB L100.1300 12.0-15.0 g/dl Normal HGB 12.0 LAB L100.1400 37-47 % Normal HCT 37.8 LAB L100.1500 81-99 fL Normal MCV 97.9 LAB L100.1600 27.0-32.0 pg Normal MCH 31.1 LAB L100.1700 32-36 g/gl Low MCHC 31.7 LAB L100.1810 11.6-14.6 % Normal RDW CV 13.1 LAB L100.1820 35.1-43.9 fl High RDW SD 46.8 LAB L100.1900 150-450 K/mm3 Normal PLT 283 LAB L100.2000 6.2-12.0 fl Normal MPV 10.4 LAB L100.2100 47-70 % Normal NEUT% 58.0 LAB L100.2200 19-41 % Normal LY% 30.6 LAB L100.2300 0-10 % Normal MONO% 8.7 LAB L100.2400 0-5 % Normal EO% 2.5 LAB L100.2500 0-1 % Normal BASO% 0.0 LAB L100.2550 0.0-0.9 % Normal IM GRAN % 0.200 Result Comment: IG% - Immature Granulocytes (promyelocytes, myelocytes and metamyelocytes) > 1% indicates that a LEFT SHIFT is Present. LAB L100.2620 2.0-7.7 X10 3/uL Normal Absolute Neut 2.5 LAB L100.2720 0.83-4.51 X10 3/ul Normal Absolute Lymph 1.34 Performed By: #### L100.0100 #### [facility] [address] [place], [address] COMPREHENSIVE METABOLIC Collected: 08/07/2017 Status: F Source: [facility] 7:13 AM [facility] REPOSITORY TYPE CODE TESTS RESULT OUT OF RANGE REFERENCE UNITS LAB L501.0100 74-106 mg/dL Normal GLU 82 Result Comment: Please note revised GLUCOSE reference range effective 2017. LAB L501.1000 7-18 mg/dL High BUN 21 LAB L501.1100 0.55-1.02 mg/dL Normal CREAT,SERUM 0.88 Result Comment: The validity of the calculated GFR AND GFRAA in patients over 70 years has not been determined. Clinical correlation is essential. LAB L501.1110 >60 mL/min Normal EST GFR 68 Result Comment: Non- GFR Calc LAB L501.1115 >60 mL/min Normal EST GFR - AA 82 Result Comment: GFR Calc LAB L501.1300 10-20 RATIO High BUN/CRE 23.9 LAB L501.1500 6.4-8.2 g/dL T Normal PROT 7.1 LAB L501.1800 3.2-5.0 g/dL Normal ALB 3.7 LAB L501.1950 2.2-4.2 g/dL Normal GLOB 3.4 LAB L501.2000 0.9-2.4 RATIO Normal A/G 1.1 LAB L501.2200 8.5-10.1 mg/dL CA Normal 9.4 LAB L501.4100 15-37 U/L Normal AST 32 LAB L501.4305 45-117 U/L Normal ALK P 96 LAB L501.4405 13-56 U/L Normal ALT 46 Result Comment: Please note revised ALT reference range effective 2017. LAB L501.4600 0.20-1.00 mg/dL Normal T BILI 0.40 LAB L501.5300 136-145 mmol/L Normal NA 140 LAB L501.5600 3.5-5.1 mmol/L Normal K 3.5 LAB L501.5900 98-107 mmol/L Normal CL 104 LAB L501.6100 21.0-32.0 mmol/L Normal CO2 27.0 LAB L501.6200 5-15 Normal GAP 9 Performed By: #### L500.4050 #### [facility] [address] [place], [address] ALLERGIES ALLERGIES DATE TYPE / CODE NAME / CODE REACTION SEVERITY SOURCE 06/03/2018 Drug Iodinated SICK Unknown [facility] Allergy/[facility]- [facility] [id number](SNOM and IV Repository ED CT) Dye/[id number](R XNORM) 08/21/2009 DRUG CONTRAST DYE [facility] INGREDI/[address] [facility] [id number](SNOM Repository ED CT) ENCOUNTERS ENCOUNTERS ADMIT/DISCHARGE ACCOUNT ADMITTING ENCOUNTER LOCATION SOURCE NUMBER CLASS 06/03/2018/06/03/20 [id number] Ambulatory BMSBuilding:B [place] [address] MD.[facility] Repository 05/26/2018 [id number] Ambulatory [facility] ing:OPBI Repository 04/07/2018/04/08/20 [id number] Ambulatory [address] Repository 02/05/2018/02/06/20 [id number] Ambulatory [address] Repository 01/29/2018 [id number] Ambulatory [facility] ing:MTLAB Repository 10/10/2017/10/11/19 [id number] Ambulatory [address] Repository 10/05/2017/10/07/19 [id number] Ambulatory [address] Repository 08/07/2017 [id number] Ambulatory [facility] ing:MTLAB Repository PAYERS PAYERS ENCOUNTER GUARANTOR PAYER SUBSCRIBER SOURCE 06/03/2018 CHIVO CRUZ: [place] [id number] BACK Insurance[id number] Number: Repository [id number]: [phone] [id number] [phone] (HP) Date:2018-04-13 06/03/2018 Secondary ERNESTINA FATIMAB: [place] Insurance:PHYSICIAN [id number] Number: Repository [id number] Date:0988-53-69[address], [place] [address]DI: 06/03/2018 Tertiary NOT GIVENUNK [place] Insurance:SELF PAY [facility] Number: Effective Repository Date:2018-06-01 05/26/2018 CHIVO Willingham Primary ERNESTINA Bauer ABERDOB: [place] [id number] BACK Insurance:MEDICARE [id number] [place] Number: Repository [id number]: 330 [id number] [phone] (HP) Date:2018-04-13 05/26/2018 Secondary ERNESTINA FATIMAB: [place] Insurance:PHYSICIAN [id number] Number: Repository [id number] Date:4055-82-26II [address] [address]ZN: 05/26/2018 Tertiary NOT GIVENUNK [place] Insurance:SELF PAY [facility] Number: Effective Repository Date:2018-04-13 01/29/2018 CHIVO Willingham Primary ERNESTINA Bauer ABERDOB: [place] [id number] BACK Insurance:MEDICARE [id number] [place] Number: Repository [id number]: 330 [id number] [phone] (HP) Date:2018-01-29 01/29/2018 Secondary ERNESTINA FATIMAB: [place] Insurance:PHYSICIAN [id number] [facility] Center Number: Repository [id number] Date:3803-68-13AY [address] [address]XG: 01/29/2018 Tertiary NOT GIVENUNK [place] Insurance:SELF PAY [facility] Number: Effective Repository Date:2018-01-29 08/07/2017 CHIVO Willingham Primary ERNESTINA FATIMAB: [place] [id number] BACK Insurance:MEDICARE [id number] [facility] [place] Number: Repository [id number]: [phone] [id number] [phone] () Date:2017-08-07 08/07/2017 Secondary ERNESTINA CRUZ: [place] Insurance:PHYSICIAN [id number] Number: Repository [id number] Date:[id number] BOX [facility] [place][note 2]OSBALDO CIPRIANO [address]BG: 08/07/2017 Tertiary NOT GIVENUNK [place] Insurance:SELF PAY [facility] Number: Effective Repository Date:2017-08-07
== END ==
PROVIDERS: Family Provider Internal Medicine; PCP Internal Medicine; Visit Provider Nurse Practitioner Women's Health
DX: Z12.31 Encounter for screening mammogram for malignant neoplasm of breast (principal)
CPT/HCPCS: 77063; 77067

== ENCOUNTER → 2018-07-26 07:19 | Outpatient (CLI) | payer MEDICARE, OTHER, SELFPAY ==
[2018-06-03 13:26] VITALS: BMI 29.0
[2018-07-26 10:18] LABS: Absolute Lymphocyte Count 1.11 X10^3/ul (0.83-4.51); Absolute Neutrophil Count 2.4 X10^3/uL (2.0-7.7); Eosinophil# 0.14 X10^3/uL; Eosinophils% 3.4 % (0-5); Hematocrit 36.7 % (37-47); Hemoglobin 11.7 g/dl (12.0-15.0); Lymphocyte # 1.11 X10^3/ul (4.0); Lymphocyte % 26.9 % (19-41); Mean Corp Hgb Conc 31.9 g/gl (32-36); Mean Corpuscular Hgb 31.3 pg (27.0-32.0); Mean Corpuscular Volume 98.1 fL (81-99); Mean Platelet Vol. 10.3 fl (6.2-12.0); Monocyte# 0.47 X10^3/uL; Monocyte% 11.4 % (0-10); Neutrophil % 58.1 % (47-70); Platelet Count 269 K/mm3 (150-450); RBC Distribution Width CV 13.2 % (11.6-14.6); RBC Distribution Width SD 47.1 fl (35.1-43.9); Red Blood Count 3.74 M/mm3 (4.2-5.4); White Blood Count 4.1 K/mm3 (4.4-11.0)
[2018-07-26 10:20] LABS: POSITIVE COUNT NO; POSITIVE DIFFERENTIAL NO; POSITIVE MORPHOLOGY NO
[2018-07-26 10:53] LABS: ALB/GLOB Ratio 1.2 RATIO (0.9-2.4); AST(SGOT) 28 U/L (15-37); Alanine Aminotransfer ALT/SGPT 41 U/L (13-56); Albumin, Serum 3.8 g/dL (3.2-5.0); Alkaline Phosphatase 97 U/L (45-117); Anion Gap 10 (5-15); BUN 27 mg/dL (7-18); Calcium,Total 9.2 mg/dL (8.5-10.1); Chloride 109 mmol/L (98-107); Creatinine, Serum 0.82 mg/dL (0.55-1.02); EST Glomerular Filtration Rate 74 mL/min (>60); Est Glom Filt Rate - Afr Amer 89 mL/min (>60); Globulin 3.3 g/dL (2.2-4.2); Glucose 83 mg/dL (74-106); Potassium 3.7 mmol/L (3.5-5.1); Protein, Total 7.1 g/dL (6.4-8.2); Sodium Level 144 mmol/L (136-145)
== END ==
PROVIDERS: Family Provider Internal Medicine; PCP Internal Medicine; Referring Provider Internal Medicine Rheumatology; Visit Provider Internal Medicine Rheumatology
DX: M06.4 Inflammatory polyarthropathy (principal); M79.7 Fibromyalgia; M15.9 Polyosteoarthritis, unspecified; K21.0 Gastro-esophageal reflux disease with esophagitis
CPT/HCPCS: 36415; 80053; 85025

== ENCOUNTER → 2019-01-17 07:21 | Outpatient (CLI) | payer MEDICARE, OTHER, SELFPAY ==
[2018-06-03 13:26] VITALS: BMI 29.0
[2019-01-17 09:50] LABS: Absolute Lymphocyte Count 1.19 X10^3/uL (0.83-4.51); Absolute Neutrophil Count 2.2 X10^3/uL (2.0-7.7); Basophil# 0.01 X10^3/uL; Basophil% 0.3 % (0-1); Eosinophil# 0.15 X10^3/uL; Eosinophils% 3.8 % (0-5); Hematocrit 35.6 % (37-47); Hemoglobin 11.7 g/dL (12.0-15.0); Lymphocyte # 1.19 X10^3/ul (4.0); Lymphocyte % 30.5 % (19-41); Mean Corp Hgb Conc 32.9 g/dL (32-36); Mean Corpuscular Volume 97.3 fL (81-99); Mean Platelet Vol. 10.4 fl (6.2-12.0); Monocyte# 0.31 X10^3/uL; Monocyte% 7.9 % (0-10); NRBC Flagged by Analyzer 0 % (0-5); Neutrophil # 2.22 X10^3/uL (2.7-7.7); Platelet Count 264 K/mm3 (150-450); RBC Distribution Width CV 12.5 % (11.6-14.6); RBC Distribution Width SD 44.8 fl (35.1-43.9); Red Blood Count 3.66 M/mm3 (4.2-5.4); White Blood Count 3.9 K/mm3 (4.4-11.0)
[2019-01-17 10:00] LABS: ALB/GLOB Ratio 1.2 RATIO (0.9-2.4); AST(SGOT) 33 U/L (15-37); Alanine Aminotransfer ALT/SGPT 40 U/L (13-56); Albumin, Serum 3.8 g/dL (3.2-5.0); Alkaline Phosphatase 82 U/L (45-117); Anion Gap 8 (5-15); BUN 31 mg/dL (7-18); BUN/Creat Ratio 34.3 RATIO (10-20); Calcium,Total 9.5 mg/dL (8.5-10.1); Chloride 105 mmol/L (98-107); EST Glomerular Filtration Rate 66 mL/min (>60); Est Glom Filt Rate - Afr Amer 79 mL/min (>60); Globulin 3.1 g/dL (2.2-4.2); Glucose 85 mg/dL (74-106); Potassium 3.7 mmol/L (3.5-5.1); Protein, Total 6.9 g/dL (6.4-8.2); Sodium Level 141 mmol/L (136-145)
== END ==
PROVIDERS: Family Provider Internal Medicine; PCP Internal Medicine; Referring Provider Internal Medicine Rheumatology; Visit Provider Internal Medicine Rheumatology
DX: M06.4 Inflammatory polyarthropathy (principal); M79.7 Fibromyalgia; M15.9 Polyosteoarthritis, unspecified; K21.0 Gastro-esophageal reflux disease with esophagitis
CPT/HCPCS: 36415; 80053; 85025

== ENCOUNTER → 2019-06-27 07:37 | Outpatient (CLI) | payer MEDICARE, OTHER, SELFPAY ==
[2018-06-03 13:26] VITALS: BMI 29.0
--- NOTE | 2019-06-27 07:39 | BI_ITS ---
MAMMOGRAPHY - BILATERAL SCREENING 3-D TOMOSYNTHESIS REASON FOR EXAM: Female, 69 years old. FAM HX MAT AUNT AGE 45-50 -- NO SX PERTINENT HISTORY: No significant family history. TECHNIQUE: 2-D mammograms and 3-D Tomosynthesis of the breast (s) were performed. CAD was performed. COMPARISON: May 26, 2018. FINDINGS: The breast composition is composed of scattered fibroglandular density. Scattered benign calcifications are seen. No dense spiculated masses or suspicious microcalcifications are identified. No architectural distortion is identified. There is no skin thickening or retraction. There has been no significant change since the prior study. BI/SCREEN MAMM (CAD) W/MARIO BILAT IMPRESSION: No mammographic signs of malignancy. Routine yearly mammograms recommended. ASSESSMENT CATEGORY: BIRADS Category 2: Benign. A letter regarding these results will be sent to the patient by the facility within 30 days. FOLLOW UP RECOMMENDATION: Yearly follow up mammogram recommended. (A) Approximately 10% of breast cancers are not detected by mammography. A normal mammogram should not delay biopsy of a clinically suspicious abnormality. Electronically Signed: Christiano La MD at 11:14 EST , Service support ,
== END ==
PROVIDERS: Family Provider Internal Medicine; PCP Internal Medicine; Referring Provider Nurse Practitioner Women's Health; Visit Provider Nurse Practitioner Women's Health
DX: Z12.31 Encounter for screening mammogram for malignant neoplasm of breast (principal)
CPT/HCPCS: 77063; 77067

== ENCOUNTER → 2019-07-22 07:39 | Outpatient (CLI) | payer MEDICARE, OTHER, SELFPAY ==
[2018-06-03 13:26] VITALS: BMI 29.0
[2019-07-22 10:19] LABS: Absolute Lymphocyte Count 1.39 X10^3/uL (0.83-4.51); Absolute Neutrophil Count 2.4 X10^3/uL (2.0-7.7); Eosinophil# 0.12 X10^3/uL; Eosinophils% 2.8 % (0-5); Hematocrit 38.1 % (37-47); Lymphocyte # 1.39 X10^3/ul (4.0); Lymphocyte % 32.9 % (19-41); Mean Corp Hgb Conc 31.5 g/dL (32-36); Mean Corpuscular Hgb 31.3 pg (27.0-32.0); Mean Corpuscular Volume 99.2 fL (81-99); Mean Platelet Vol. 10.8 fl (6.2-12.0); Monocyte# 0.35 X10^3/uL; Monocyte% 8.3 % (0-10); NRBC Flagged by Analyzer 0 % (0-5); Neutrophil # 2.36 X10^3/uL (2.7-7.7); Platelet Count 289 K/mm3 (150-450); RBC Distribution Width SD 46.7 fl (35.1-43.9); Red Blood Count 3.84 M/mm3 (4.2-5.4); White Blood Count 4.2 K/mm3 (4.4-11.0)
[2019-07-22 10:40] LABS: ALB/GLOB Ratio 1.2 RATIO (0.9-2.4); AST(SGOT) 32 U/L (15-37); Alanine Aminotransfer ALT/SGPT 45 U/L (13-56); Alkaline Phosphatase 91 U/L (45-117); Anion Gap 3 (5-15); BUN 17 mg/dL (7-18); BUN/Creat Ratio 19.7 RATIO (10-20); Calcium,Total 9.9 mg/dL (8.5-10.1); Chloride 106 mmol/L (98-107); Creatinine, Serum 0.86 mg/dL (0.55-1.02); EST Glomerular Filtration Rate 69 mL/min (>60); Est Glom Filt Rate - Afr Amer 84 mL/min (>60); Globulin 3.4 g/dL (2.2-4.2); Glucose 78 mg/dL (74-106); Potassium 3.8 mmol/L (3.5-5.1); Protein, Total 7.4 g/dL (6.4-8.2); Sodium Level 140 mmol/L (136-145)
== END ==
LOC: MTLAB 07:41
PROVIDERS: PCP Internal Medicine; Referring Provider Internal Medicine Rheumatology; Visit Provider Internal Medicine Rheumatology
DX: M06.4 Inflammatory polyarthropathy (principal); M79.7 Fibromyalgia; M15.9 Polyosteoarthritis, unspecified; K21.0 Gastro-esophageal reflux disease with esophagitis
CPT/HCPCS: 36415; 80053; 85025

== ENCOUNTER → 2019-12-23 07:31 | Outpatient (CLI) | payer MEDICARE, OTHER, SELFPAY ==
[2018-06-03 13:26] VITALS: BMI 29.0
[2019-12-23 09:53] LABS: Absolute Lymphocyte Count 1.32 X10^3/uL (0.83-4.51); Absolute Neutrophil Count 2.8 X10^3/uL (2.0-7.7); Basophil# 0.01 X10^3/uL; Basophil% 0.2 % (0-1); Eosinophil# 0.15 X10^3/uL; Eosinophils% 3.2 % (0-5); Hematocrit 36.9 % (37-47); Hemoglobin 11.7 g/dL (12.0-15.0); Lymphocyte # 1.32 X10^3/ul (4.0); Lymphocyte % 28.4 % (19-41); Mean Corp Hgb Conc 31.7 g/dL (32-36); Mean Corpuscular Hgb 31.9 pg (27.0-32.0); Mean Corpuscular Volume 100.5 fL (81-99); Monocyte% 8.6 % (0-10); NRBC Flagged by Analyzer 0 % (0-5); Neutrophil # 2.76 X10^3/uL (2.7-7.7); Neutrophil % 59.4 % (47-70); Platelet Count 297 K/mm3 (150-450); RBC Distribution Width CV 12.9 % (11.6-14.6); RBC Distribution Width SD 48.1 fl (35.1-43.9); Red Blood Count 3.67 M/mm3 (4.2-5.4); White Blood Count 4.7 K/mm3 (4.4-11.0)
[2019-12-23 10:14] LABS: ALB/GLOB Ratio 1.1 RATIO (0.9-2.4); AST(SGOT) 27 U/L (15-37); Alanine Aminotransfer ALT/SGPT 37 U/L (13-56); Albumin, Serum 3.8 g/dL (3.2-5.0); Alkaline Phosphatase 84 U/L (45-117); Anion Gap 5 (5-15); BUN 21 mg/dL (7-18); BUN/Creat Ratio 24.6 RATIO (10-20); Calcium,Total 9.6 mg/dL (8.5-10.1); Chloride 104 mmol/L (98-107); Creatinine, Serum 0.86 mg/dL (0.55-1.02); EST Glomerular Filtration Rate 70 mL/min (>60); Est Glom Filt Rate - Afr Amer 84 mL/min (>60); Globulin 3.5 g/dL (2.2-4.2); Glucose 86 mg/dL (74-106); Potassium 3.5 mmol/L (3.5-5.1); Protein, Total 7.3 g/dL (6.4-8.2); Sodium Level 137 mmol/L (136-145)
== END ==
PROVIDERS: PCP Internal Medicine; Referring Provider Internal Medicine Rheumatology; Visit Provider Internal Medicine Rheumatology
DX: M06.4 Inflammatory polyarthropathy (principal); M79.7 Fibromyalgia; M15.9 Polyosteoarthritis, unspecified; K21.0 Gastro-esophageal reflux disease with esophagitis
CPT/HCPCS: 36415; 80053; 85025

== ENCOUNTER → 2020-06-18 07:24 | Outpatient (CLI) | payer MEDICARE, OTHER, SELFPAY ==
[2018-06-03 13:26] VITALS: BMI 29.0
[2020-06-18 09:51] LABS: Absolute Lymphocyte Count 1.65 X10^3/uL (0.83-4.51); Absolute Neutrophil Count 2.3 X10^3/uL (2.0-7.7); Basophil# 0.01 X10^3/uL; Basophil% 0.2 % (0-1); Eosinophil# 0.19 X10^3/uL; Eosinophils% 4.2 % (0-5); Hematocrit 37.5 % (37-47); Lymphocyte # 1.65 X10^3/ul (4.0); Lymphocyte % 36.8 % (19-41); Mean Corpuscular Hgb 30.7 pg (27.0-32.0); Mean Corpuscular Volume 95.9 fL (81-99); Mean Platelet Vol. 10.1 fl (6.2-12.0); Monocyte# 0.36 X10^3/uL; NRBC Flagged by Analyzer 0 % (0-5); Neutrophil # 2.26 X10^3/uL (2.7-7.7); Neutrophil % 50.6 % (47-70); Platelet Count 290 K/mm3 (150-450); RBC Distribution Width CV 13.5 % (11.6-14.6); RBC Distribution Width SD 47.2 fl (35.1-43.9); Red Blood Count 3.91 M/mm3 (4.2-5.4); White Blood Count 4.5 K/mm3 (4.4-11.0)
[2020-06-18 10:11] LABS: ALB/GLOB Ratio 1.1 RATIO (0.9-2.4); AST(SGOT) 38 U/L (15-37); Alanine Aminotransfer ALT/SGPT 63 U/L (13-56); Albumin, Serum 3.8 g/dL (3.2-5.0); Alkaline Phosphatase 116 U/L (45-117); Anion Gap 6 (5-15); BUN 16 mg/dL (7-18); BUN/Creat Ratio 18.2 RATIO (10-20); Calcium,Total 9.6 mg/dL (8.5-10.1); Chloride 105 mmol/L (98-107); Creatinine, Serum 0.88 mg/dL (0.55-1.02); EST Glomerular Filtration Rate 68 mL/min (>60); Est Glom Filt Rate - Afr Amer 82 mL/min (>60); Globulin 3.4 g/dL (2.2-4.2); Glucose 80 mg/dL (74-106); Potassium 3.5 mmol/L (3.5-5.1); Protein, Total 7.2 g/dL (6.4-8.2); Sodium Level 139 mmol/L (136-145)
== END ==
PROVIDERS: PCP Internal Medicine; Referring Provider Internal Medicine Rheumatology; Visit Provider Internal Medicine Rheumatology
DX: M06.4 Inflammatory polyarthropathy (principal); M79.7 Fibromyalgia; M15.9 Polyosteoarthritis, unspecified; K21.00 Gastro-esophageal reflux disease with esophagitis, without bleeding
CPT/HCPCS: 36415; 80053; 85025

== ENCOUNTER → 2020-07-11 08:39 | Outpatient (CLI) | payer MEDICARE, OTHER, SELFPAY ==
[2018-06-03 13:26] VITALS: BMI 29.0
--- NOTE | 2020-07-11 08:43 | US_ITS ---
STUDY: ABDOMINAL ULTRASOUND - RIGHT UPPER QUADRANT REASON FOR VISIT: Female, 70 years old ELEVATED LIVER ENZYMES TECHNIQUE: Ultrasound evaluation of the right upper quadrant was performed with real-time and static kern-scale imaging. TECHNICAL QUALITY: Adequate. COMPARISON: None. FINDINGS: Liver: The liver measures 13.4 cm. There is normal echogenicity of the liver. The bile ducts are within normal limits. There is hepatic color flow. The direction of portal flow is hepatopetal. There is no demonstrated mass lesion. Gallbladder: The gallbladder is not visualized. Most likely secondary to prior cholecystectomy. Common Bile Duct (C.B.D.): The common bile duct measures 4 mm. Pancreas: Normal size of the head, body and tail of the pancreas. There is normal echogenicity of the pancreas. There is no demonstrated pancreatic mass or cyst. Right Kidney: Normal size of the right kidney. The right kidney measures 10 cm x 3.8 cm x 4.4 cm. Normal renal cortex. The right cortex measures 1.1 cm. There is no demonstrated renal mass or cyst. The patient has a dual right collecting system. The lower moiety shows evidence of mild renal pelvic dilatation US/Liver IMPRESSION: Nonvisualization of the gallbladder most likely secondary to prior cholecystectomy. Minimal fullness of the right renal pelvis of the lower pole moiety collecting system. Electronically Signed: Marquise Peterson, at 14:33 EST , Service support ,
== END ==
PROVIDERS: PCP Internal Medicine; Referring Provider Internal Medicine Rheumatology; Visit Provider Internal Medicine Rheumatology
DX: M06.4 Inflammatory polyarthropathy (principal); M79.7 Fibromyalgia; M15.9 Polyosteoarthritis, unspecified; K21.00 Gastro-esophageal reflux disease with esophagitis, without bleeding
CPT/HCPCS: 76705

== ENCOUNTER → 2020-10-12 07:09 | Outpatient (CLI) | payer MEDICARE, OTHER, SELFPAY ==
[2018-06-03 13:26] VITALS: BMI 29.0
[2020-10-12 10:04] LABS: Absolute Lymphocyte Count 1.27 X10^3/uL (0.83-4.51); Basophil# 0.01 X10^3/uL; Basophil% 0.3 % (0-1); Eosinophil# 0.16 X10^3/uL; Eosinophils% 4.2 % (0-5); Hematocrit 37.5 % (37-47); Hemoglobin 11.9 g/dL (12.0-15.0); Lymphocyte # 1.27 X10^3/ul (0.83-4.51); Lymphocyte % 33.4 % (19-41); Mean Corp Hgb Conc 31.7 g/dL (32-36); Mean Corpuscular Hgb 31.7 pg (27.0-32.0); Mean Platelet Vol. 10.5 fl (6.2-12.0); Monocyte# 0.36 X10^3/uL; Monocyte% 9.5 % (0-10); NRBC Flagged by Analyzer 0 % (0-5); Neutrophil # 1.99 X10^3/uL (2.7-7.7); Neutrophil % 52.3 % (47-70); Platelet Count 288 K/mm3 (150-450); RBC Distribution Width CV 12.8 % (11.6-14.6); RBC Distribution Width SD 46.7 fl (35.1-43.9); Red Blood Count 3.75 M/mm3 (4.2-5.4); White Blood Count 3.8 K/mm3 (4.4-11.0)
[2020-10-12 10:29] LABS: ALB/GLOB Ratio 1.1 RATIO (0.9-2.4); AST(SGOT) 41 U/L (15-37); Alanine Aminotransfer ALT/SGPT 56 U/L (13-56); Albumin, Serum 3.7 g/dL (3.2-5.0); Alkaline Phosphatase 96 U/L (45-117); Anion Gap 5 (5-15); BUN 17 mg/dL (7-18); Calcium,Total 9.7 mg/dL (8.5-10.1); Chloride 106 mmol/L (98-107); Creatinine, Serum 0.81 mg/dL (0.55-1.02); EST Glomerular Filtration Rate 74 mL/min (>60); Est Glom Filt Rate - Afr Amer 90 mL/min (>60); Globulin 3.5 g/dL (2.2-4.2); Glucose 93 mg/dL (74-106); Potassium 3.7 mmol/L (3.5-5.1); Protein, Total 7.2 g/dL (6.4-8.2); Sodium Level 140 mmol/L (136-145)
== END ==
PROVIDERS: PCP Internal Medicine; Referring Provider Internal Medicine Rheumatology; Visit Provider Internal Medicine Rheumatology
DX: M79.7 Fibromyalgia (principal); M06.4 Inflammatory polyarthropathy; K21.00 Gastro-esophageal reflux disease with esophagitis, without bleeding
CPT/HCPCS: 36415; 80053; 85025

== ENCOUNTER → 2021-02-13 06:59 | Outpatient (CLI) | payer MEDICARE, OTHER, SELFPAY ==
[2018-06-03 13:26] VITALS: BMI 29.0
--- NOTE | 2021-02-13 07:02 | BI_ITS ---
MAMMOGRAPHY - BILATERAL SCREENING REASON FOR EXAM: Female, 70 years old. Routine annual screening examination. PERTINENT HISTORY: Aunt with breast cancer. TECHNIQUE: Digital bilateral breast mario (3D mammographic acquisition) in the CC and MLO projections. 2-D mediolateral oblique (MLO) and craniocaudad (CC) views of both breasts were obtained. CAD: Full Field Digital Mammography with Computer Added Detection was performed. COMPARISON: Comparison is made with prior study dated 06/27/2019 and 05/26/2018. FINDINGS: Breast Composition: There are scattered areas of fibroglandular density. There are no dominant masses or suspicious calcifications. Stable 5 mm x 6 mm well-defined nodule in the central aspect of the left breast. This was demonstrated to be a small cyst on the prior sonogram. Stable benign appearing bilateral axillary lymph nodes. No other significant abnormalities are identified. There has been no significant change since the prior study. BI/SCRN MAMM (CAD)W/MARIO BILAT IMPRESSION: Stable bilateral screening mammogram. Yearly follow-up mammogram recommended. (A) ASSESSMENT CATEGORY: BIRADS Category 2: Benign. A letter regarding these results will be sent to the patient by the facility within 30 days. Approximately 10% of breast cancers are not detected by mammography. A normal mammogram should not delay biopsy of a clinically suspicious abnormality. [id number] Electronically Signed: Marquise Peterson MD at 8:18 EDT , Service support ,
== END ==
PROVIDERS: PCP Internal Medicine; Referring Provider Internal Medicine; Visit Provider Internal Medicine
DX: Z12.31 Encounter for screening mammogram for malignant neoplasm of breast (principal)
CPT/HCPCS: 77063; 77067

== ENCOUNTER → 2021-04-04 07:02 | Outpatient (CLI) | payer MEDICARE, OTHER, SELFPAY ==
[2021-04-04 10:09] LABS: Absolute Lymphocyte Count 1.56 X10^3/uL (0.83-4.51); Absolute Neutrophil Count 2.2 X10^3/uL (2.0-7.7); Basophil# 0.01 X10^3/uL; Basophil% 0.2 % (0-1); Eosinophil# 0.15 X10^3/uL; Eosinophils% 3.5 % (0-5); Hemoglobin 11.9 g/dL (12.0-15.0); Lymphocyte # 1.56 X10^3/ul (0.83-4.51); Lymphocyte % 35.9 % (19-41); Mean Corp Hgb Conc 32.2 g/dL (32-36); Mean Corpuscular Hgb 32.2 pg (27.0-32.0); Mean Platelet Vol. 10.8 fl (6.2-12.0); Monocyte# 0.39 X10^3/uL; NRBC Flagged by Analyzer 0 % (0-5); Neutrophil # 2.22 X10^3/uL (2.7-7.7); Neutrophil % 51.2 % (47-70); Platelet Count 268 K/mm3 (150-450); RBC Distribution Width CV 12.8 % (11.6-14.6); RBC Distribution Width SD 46.8 fl (35.1-43.9); White Blood Count 4.3 K/mm3 (4.4-11.0)
[2021-04-04 10:49] LABS: AST(SGOT) 29 U/L (15-37); Alanine Aminotransfer ALT/SGPT 33 U/L (13-56); Albumin, Serum 3.6 g/dL (3.2-5.0); Alkaline Phosphatase 85 U/L (45-117); Anion Gap 7 (5-15); BUN 16 mg/dL (7-18); BUN/Creat Ratio 18.1 RATIO (10-20); Calcium,Total 9.8 mg/dL (8.5-10.1); Chloride 104 mmol/L (98-107); Creatinine, Serum 0.88 mg/dL (0.55-1.02); EST Glomerular Filtration Rate 67 mL/min (>60); Est Glom Filt Rate - Afr Amer 81 mL/min (>60); Globulin 3.7 g/dL (2.2-4.2); Glucose 86 mg/dL (74-106); Potassium 3.6 mmol/L (3.5-5.1); Protein, Total 7.3 g/dL (6.4-8.2); Sodium Level 139 mmol/L (136-145)
== END ==
PROVIDERS: PCP Internal Medicine; Referring Provider Internal Medicine Rheumatology; Visit Provider Internal Medicine Rheumatology
DX: M06.4 Inflammatory polyarthropathy (principal); M79.7 Fibromyalgia; K21.00 Gastro-esophageal reflux disease with esophagitis, without bleeding; M15.9 Polyosteoarthritis, unspecified
CPT/HCPCS: 36415; 80053; 85025

== ENCOUNTER → 2021-04-25 08:13 | Outpatient (CLI) | payer MEDICARE, OTHER, SELFPAY ==
--- NOTE | 2021-04-25 08:20 | BD_ITS ---
STUDY: DUAL ENERGY X-RAY ABSORPTIOMETRY / DXA REASON FOR EXAM: Female, 70 years old. History of osteopenia, postmenopausal TECHNIQUE: Bone Mineral Density (BMD) measurements of lumbar spine and bilateral hips were obtained. COMPARISON: Comparison is made with prior study dated 04/30/2017. FINDINGS: Lumbar Spine (L1-L4): g/cm2 (0.743) / T-score (-2.5) / Z-score (0.3) Findings are suggestive of osteopenia with a high fracture risk. Left Femur Total: g/cm2 (0.659) / T-score (-2.3) / Z-score (-0.7) Left Femoral Neck: g/cm2 (0.567) / T-score (-2.5) / Z-score (-0.6) Right Femur Total: g/cm2 (0.658) / T-score (-2.3) / Z-score (-0.7) Right Femoral Neck: g/cm2 (0.603) / T-score (-2.2) / Z-score (-0.3) The T-Scores on the most recent prior examination were: Lumbar Spine (L1-L4): There has been worsening of bone density since the previous examination. Left Femur Total: which represents a worsening of 9.5%. Right Femur Total: which represents a worsening of 2.1%. BD/Dexa Bone Density Study IMPRESSION: The patient is considered osteopenic as outlined below according to World Preston Organization (WHO) criteria with a high fracture risk. There has been worsening of bone density since the previous examination. Reference Information: The T-score is the number of standard deviations above or below the standard which is normal for young adults at their peak bone mineral density. The World Health Organization (WHO) interprets the T-scores as follows: Above -1 Normal bone density Between -1 and -2.5 Osteopenia Equal to / or below -2.5 Osteoporosis As a practical clinical guideline, osteopenia may be graded as follows: Mild -1 through -1.5 Moderate -1.6 through -2.0 Severe -2.1 through -2.4 The Z-score is the number of standard deviations above or below age-matched controls. A Z-score of less than -1.5 would be considered abnormal. References: 1. NIH Osteoporosis and Related Bone Diseases www osteo.org 2. International Society for Clinical Densitometry www iscd.org 3. National Osteoporosis Foundation www nof.org Electronically Signed: Marquise Peterson MD at 14:30 EDT , Service support ,
== END ==
PROVIDERS: PCP Internal Medicine; Visit Provider Nurse Practitioner Women's Health
DX: Z78.0 Asymptomatic menopausal state (principal)
CPT/HCPCS: 77080

== ENCOUNTER 2021-10-11 07:09 | Outpatient (CLI) | payer MEDICARE, OTHER, SELFPAY ==
[2021-10-11 10:04] LABS: Absolute Lymphocyte Count 1.47 X10^3/uL (0.83-4.51); Absolute Neutrophil Count 1.6 X10^3/uL (2.0-7.7); Basophil# 0.01 X10^3/uL; Basophil% 0.3 % (0-1); Eosinophil# 0.13 X10^3/uL; Eosinophils% 3.6 % (0-5); Hematocrit 34.7 % (37-47); Hemoglobin 11.4 g/dL (12.0-15.0); Lymphocyte # 1.47 X10^3/ul (0.83-4.51); Lymphocyte % 40.6 % (19-41); Mean Corp Hgb Conc 32.9 g/dL (32-36); Mean Corpuscular Hgb 31.4 pg (27.0-32.0); Mean Corpuscular Volume 95.6 fL (81-99); Mean Platelet Vol. 10.1 fl (6.2-12.0); Monocyte# 0.46 X10^3/uL; Monocyte% 12.7 % (0-10); NRBC Flagged by Analyzer 0 % (0-5); Neutrophil # 1.55 X10^3/uL (2.7-7.7); Neutrophil % 42.8 % (47-70); Platelet Count 263 K/mm3 (150-450); RBC Distribution Width SD 45.8 fl (35.1-43.9); Red Blood Count 3.63 M/mm3 (4.2-5.4); White Blood Count 3.6 K/mm3 (4.4-11.0)
[2021-10-11 10:46] LABS: ALB/GLOB Ratio 1.1 RATIO (0.9-2.4); AST(SGOT) 35 U/L (15-37); Alanine Aminotransfer ALT/SGPT 40 U/L (13-56); Albumin, Serum 3.5 g/dL (3.2-5.0); Alkaline Phosphatase 59 U/L (45-117); Anion Gap 5 (5-15); BUN 18 mg/dL (7-18); BUN/Creat Ratio 20.9 RATIO (10-20); Calcium,Total 8.9 mg/dL (8.5-10.1); Chloride 106 mmol/L (98-107); Creatinine, Serum 0.86 mg/dL (0.55-1.02); EST Glomerular Filtration Rate 69 mL/min (>60); Est Glom Filt Rate - Afr Amer 83 mL/min (>60); Globulin 3.1 g/dL (2.2-4.2); Glucose 88 mg/dL (74-106); Potassium 3.5 mmol/L (3.5-5.1); Protein, Total 6.6 g/dL (6.4-8.2); Sodium Level 139 mmol/L (136-145); Uric Acid 5.3 mg/dL (2.6-6.0)
== END 2021-10-11 23:59 | disposition home or self-care (01) ==
LOC: MTLAB 07:11
PROVIDERS: PCP Internal Medicine; Referring Provider Internal Medicine Rheumatology; Visit Provider Internal Medicine Rheumatology
DX: M06.4 Inflammatory polyarthropathy (principal); M79.7 Fibromyalgia; M15.9 Polyosteoarthritis, unspecified; K21.00 Gastro-esophageal reflux disease with esophagitis, without bleeding
CPT/HCPCS: 36415; 80053; 84550; 85025

== ENCOUNTER → 2022-03-17 | Outpatient (CLI) | payer MEDICARE, OTHER, SELFPAY ==
[2022-03-17 10:08] LABS: Absolute Lymphocyte Count 1.39 X10^3/uL (0.83-4.51); Basophil# 0.01 X10^3/uL; Basophil% 0.2 % (0-1); Eosinophil# 0.09 X10^3/uL; Eosinophils% 1.8 % (0-5); Hematocrit 35.8 % (37-47); Hemoglobin 11.5 g/dL (12.0-15.0); Lymphocyte # 1.39 X10^3/ul (0.83-4.51); Mean Corp Hgb Conc 32.1 g/dL (32-36); Mean Corpuscular Hgb 31.9 pg (27.0-32.0); Mean Corpuscular Volume 99.4 fL (81-99); Mean Platelet Vol. 10.5 fl (6.2-12.0); Monocyte# 0.46 X10^3/uL; Monocyte% 9.3 % (0-10); NRBC Flagged by Analyzer 0 % (0-5); Neutrophil # 3.01 X10^3/uL (2.7-7.7); Neutrophil % 60.5 % (47-70); Platelet Count 289 K/mm3 (150-450); RBC Distribution Width CV 13.4 % (11.6-14.6); RBC Distribution Width SD 49.1 fl (35.1-43.9)
[2022-03-17 10:52] LABS: ALB/GLOB Ratio 1.1 RATIO (0.9-2.4); AST(SGOT) 30 U/L (15-37); Alanine Aminotransfer ALT/SGPT 38 U/L (13-56); Albumin, Serum 3.6 g/dL (3.2-5.0); Alkaline Phosphatase 65 U/L (45-117); Anion Gap 8 (5-15); BUN 21 mg/dL (7-18); BUN/Creat Ratio 27.9 RATIO (10-20); Calcium,Total 9.4 mg/dL (8.5-10.1); Chloride 107 mmol/L (98-107); Creatinine, Serum 0.75 mg/dL (0.55-1.02); EST Glomerular Filtration Rate 80 mL/min (>60); Est Glom Filt Rate - Afr Amer 97 mL/min (>60); Globulin 3.3 g/dL (2.2-4.2); Glucose 87 mg/dL (74-106); Potassium 3.4 mmol/L (3.5-5.1); Protein, Total 6.9 g/dL (6.4-8.2); Sodium Level 142 mmol/L (136-145); Uric Acid 5.5 mg/dL (2.6-6.0)
== END | disposition home or self-care (01) ==
LOC: MTLAB 07:07
PROVIDERS: PCP Internal Medicine; Referring Provider Internal Medicine Rheumatology; Visit Provider Internal Medicine Rheumatology
DX: M06.4 Inflammatory polyarthropathy (principal); M79.7 Fibromyalgia; M15.9 Polyosteoarthritis, unspecified; K21.00 Gastro-esophageal reflux disease with esophagitis, without bleeding
CPT/HCPCS: 36415; 80053; 84550; 85025

== ENCOUNTER → 2022-05-16 | Outpatient (CLI) | payer MEDICARE, OTHER, SELFPAY ==
--- NOTE | 2022-05-16 07:32 | BI_ITS ---
MAMMOGRAPHY - BILATERAL SCREENING REASON FOR EXAM: Female, 71 years old. Routine annual screening examination. PERTINENT HISTORY: Aunt with breast cancer. TECHNIQUE: Digital bilateral breast mario (3D mammographic acquisition) in the CC and MLO projections. 2-D mediolateral oblique (MLO) and craniocaudad (CC) views of both breasts were obtained. CAD: Full Field Digital Mammography with Computer Added Detection was performed. COMPARISON: Comparison is made with prior study 02/13/2021 and 06/27/2019. FINDINGS: Breast Composition: There are scattered areas of fibroglandular density. There are no dominant masses or suspicious calcifications. There is a stable 5 mm x 6 mm well-defined nodule in the central aspect of the left breast. This was demonstrated to be a cyst on prior sonogram. No other significant abnormalities are identified. There has been no significant change since the prior study. BI/SCRN MAMM (CAD)W/MARIO BILAT IMPRESSION: Stable bilateral screening mammogram. Yearly follow-up mammogram recommended. (A) ASSESSMENT CATEGORY: BIRADS Category 2: Benign. A letter regarding these results will be sent to the patient by the facility within 30 days. Approximately 10% of breast cancers are not detected by mammography. A normal mammogram should not delay biopsy of a clinically suspicious abnormality. [id number] Electronically Signed: Marquise Peterson MD at 8:38 EST ,
== END | disposition home or self-care (01) ==
LOC: OPBI 07:32
PROVIDERS: PCP Internal Medicine; Visit Provider Nurse Practitioner Women's Health
DX: Z12.31 Encounter for screening mammogram for malignant neoplasm of breast (principal); Z80.3 Family history of malignant neoplasm of breast
CPT/HCPCS: 77063; 77067

== ENCOUNTER 2022-06-24 07:37 | Day surgery (SDC) | payer MEDICARE, OTHER, SELFPAY ==
--- NOTE | 2022-06-24 07:50 | HP.PCM_ITS ---
[facility] - General General Date of Service: 06/24/22 Chief Complaint: Screening for intestinal cancer [facility] Narrative NIELS WEBB, is a 72 F who presents for screening colonoscopy today. Her previous one was perhaps greater than 10 years ago. She denies any personal history of colon cancer or colon polyps. She denies any abdominal pain. [facility] Medical History (Updated 06/20/22 @ 10:50 by Alexia Pickering) Anemia Anxiety Arthritis Fibromyalgia Gastric reflux [place] node History of edema History of pain when walking Hyperlipidemia Leg cramps Low back pain Non-smoker Osteopenia Osteoporosis Post-menopausal Restless legs Vertigo Vitamin D deficiency Wears glasses Home Medications gabapentin 100 mg capsule 100 mg PO QHS 06/03/18 [History Last Taken Unknown] hydroxychloroquine 200 mg tablet 200 mg PO QHS 06/03/18 [History Last Taken Unknown] calcium carbonate 500 mg calcium (1,250 mg) tablet (Oyster Shell Calcium) 500 mg PO QHS 04/22/21 [History Last Taken Unknown] meloxicam 15 mg tablet 15 mg PO DAILY PRN Pain 04/22/21 [History Last Taken Unknown] furosemide 20 mg tablet (Lasix) 20 mg PO Q OTHER DAY 05/12/22 [History Last Taken Unknown] potassium chloride 10 mEq capsule,extended release 10 meq PO Q OTHER DAY 05/12/22 [History Last Taken Unknown] alendronate 70 mg tablet 70 mg PO ARTHUR 06/05/22 [History Last Taken Unknown] hydroxychloroquine 200 mg tablet (Plaquenil) 100 mg PO DAILY 06/20/22 [History Last Taken Unknown] twjsgkva-[id number]-wxirs acid 80 mcg-herbal no.293 66.7 mg chewable tablet (Alive Premium Women's) 1 tab PO DAILY 06/20/22 [History Last Taken Unknown] Allergy/AdvReac Type Severity Reaction Status Date / Time pneumococcal vaccine Allergy Intermediate Chest Verified 06/20/22 10:31 tightness Iodinated Contrast Media AdvReac sick Verified 06/20/22 10:31 [Iodinated Contrast- Oral and IV Dye] Family History (Updated 06/05/22 @ 09:11 by Khadijah Camacho) Sister Colon polyps Surgical History (Updated 06/20/22 @ 10:50 by Alexia Pickering) History of colonoscopy Hx of cholecystectomy Hx of unilateral oophorectomy Social History number of children: 2 current occupational status: retired Smoking Status: Never smoker alcohol intake: never substance use type: does not use seatbelt use: always do you feel safe at home: Yes 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 Constitutional Constitutional: Reports systems reviewed and no addt'l complaints, except as documented Cardiovascular Cardiovascular: Denies chest pain Respiratory/Chest Respiratory/Chest: Denies shortness of breath at rest Gastrointestinal Gastrointestinal: Denies abdominal pain, change in bowel habits, hematochezia or melena Physical Exam Const alert, oriented x3 and no apparent distress General Appearance: cooperative and comfortable Eyes General Eye: normal appearance of both eyes Neck General: normal visual inspection Chest inspection of chest normal Resp Effort and Inspection: able to speak in complete sentences and symmetric chest movement Auscultation: clear to auscultation bilaterally Cardio regular rate and regular rhythm GI soft to palpation, non-tender and non-distended Extremity no calf tenderness Neuro oriented x3 Psych thought process normal Assessment & Plan Assessment/Plan (1) Encounter for screening for malignant neoplasm of colon: PLAN: 72-year-old female presents for screening colonoscopy today with possible biopsy or polypectomy as indicated. She presents via open access. She has had an opportunity to ask and have questions answered. We will proceed as noted. Hiro Acosta M.D., F.A.C.S.
[2022-06-24] MEDS: Lactated Ringers 1,000 ML 15 ML IV (07:55)
[2022-06-24 08:09] VITALS: BP 133/57; PULSE 81; RESP 16; TEMP 36.7; O2SAT 100; BMI 26.4
--- NOTE | 2022-06-24 09:21 | OP.COLON_ITS ---
Patient Name: Ernestina Lemus Procedure Date: 06/24/2022 8:49 AM Date of : 1950 Age: 72 Procedure: Colonoscopy Indications: Screening for colorectal malignant neoplasm Providers: Hiro Acosta MD Medicines: See the Anesthesia note for documentation of the administered medications Patient Profile: Last Colonoscopy: more than 10 years ago. Complications: No immediate complications. Procedure: Pre-Anesthesia Assessment: - Prior to the procedure, a History and Physical was performed, and patient medications and allergies were reviewed. The patient's tolerance of previous anesthesia was also reviewed. The risks and benefits of the procedure and the sedation options and risks were discussed with the patient. All questions were answered, and informed consent was obtained. Prior Anticoagulants: The patient has taken no previous anticoagulant or antiplatelet agents. ASA Grade Assessment: II - A patient with mild systemic disease. After reviewing the risks and benefits, the patient was deemed in satisfactory condition to undergo the procedure. After I obtained informed consent, the scope was passed under direct vision. Throughout the procedure, the patient's blood pressure, pulse, and oxygen saturations were monitored continuously. The colonoscope was introduced through the anus and advanced to the cecum, identified by appendiceal orifice and ileocecal valve. The colonoscopy was somewhat difficult due to a tortuous colon. The patient tolerated the procedure well. The quality of the bowel preparation was good. The ileocecal valve and the appendiceal orifice were photographed. Scope In: 9:00:21 AM Scope Withdrawal Time 0 hours 6 minutes 44 seconds Scope Out: 9:16:47 AM Total Procedure Duration Time 0 hours 16 minutes 26 seconds Findings: The perianal and digital rectal examinations were normal. The colon (entire examined portion) was moderately tortuous. Advancing the scope required using manual pressure. The exam was otherwise without abnormality. Impression: - Tortuous colon. - The examination was otherwise normal. - No specimens collected. Recommendation: - Discharge patient to home. - Resume previous diet. - Continue present medications. - Repeat colonoscopy is not recommended due to current age (66 years or older) for screening purposes. Procedure Code(s): --- Professional --- 14463, Colonoscopy, flexible; diagnostic, including collection of specimen(s) by brushing or washing, when performed (separate procedure) Diagnosis Code(s): --- Professional --- Z12.11, Encounter for screening for malignant neoplasm of colon Q43.8, Other specified congenital malformations of intestine CPT copyright 2017 [employer]. All rights reserved. The codes documented in this report are preliminary and upon housekeeper/laundry assistant review may be revised to meet current compliance requirements. Hiro Acosta MD 06/24/2022 9:20:51 AM This report has been signed electronically. Number of Addenda: 0 Note Initiated On: 06/24/2022 8:49 AM
--- NOTE | 2022-06-24 09:22 | OP.CCLET_ITS ---
06/24/2022 Asia Rice [id number] [id number] Re : Colonoscopy procedure for Ernestina Lemus Dear Dr. Rice This procedure was performed on Friday, June 24, 2022. My impressions and recommendations are as follows: Impressions : - Tortuous colon. - The examination was otherwise normal. - No specimens collected. Recommendations : - Discharge patient to home. - Resume previous diet. - Continue present medications. - Repeat colonoscopy is not recommended due to current age (66 years or older) for screening purposes. My findings are described in the full procedure note, which is enclosed. If I can be of further assistance, please feel free to contact me at Doctor phone number(s): Work: . Sincerely, Hiro Acosta MD 06/24/2022 9:20:51 AM This report has been signed electronically.
[2022-06-24 09:25] VITALS: BP 102/55; BP 108/53; BP 133/57; PULSE 63; PULSE 66; RESP 16; RESP 18; TEMP 36.2; O2SAT 94; O2SAT 96
[2022-06-24 09:30] VITALS: BP 108/59; BP 133/57; PULSE 70; RESP 16; O2SAT 99
[2022-06-24 09:35] VITALS: BP 111/53; BP 133/57; PULSE 72; RESP 18; O2SAT 100
[2022-06-24 09:39] VITALS: BP 110/58; BP 133/57; PULSE 77; RESP 16; TEMP 36.2; O2SAT 100
[2022-06-24 09:50] VITALS: BP 133/57
== END 2022-06-24 09:59 | disposition home or self-care (01) ==
LOC: EN 07:38 → AC 07:39
PROVIDERS: PCP Internal Medicine; Referring Provider Surgery; Visit Provider Surgery
PROC: 0DJD8ZZ Inspection of Lower Intestinal Tract, Via Natural or Artificial Opening Endoscopic (ICD-10-PCS; CPT 45378; principal; 2022-06-24 08:40)
DX: Z12.11 Encounter for screening for malignant neoplasm of colon (principal); E78.5 Hyperlipidemia, unspecified; Q43.8 Other specified congenital malformations of intestine
CPT/HCPCS: 45378; J7120; J2405

== ENCOUNTER → 2022-08-19 | Outpatient (CLI) | payer MEDICARE, OTHER, SELFPAY ==
[2022-08-19 09:55] LABS: Absolute Lymphocyte Count 1.25 X10^3/uL (0.83-4.51); Basophil# 0.01 X10^3/uL; Basophil% 0.3 % (0-1); Eosinophil# 0.11 X10^3/uL; Eosinophils% 2.9 % (0-5); Hematocrit 38.1 % (37-47); Hemoglobin 12.5 g/dL (12.0-15.0); Lymphocyte # 1.25 X10^3/ul (0.83-4.51); Lymphocyte % 33.2 % (19-41); Mean Corp Hgb Conc 32.8 g/dL (32-36); Mean Corpuscular Hgb 32.3 pg (27.0-32.0); Mean Corpuscular Volume 98.4 fL (81-99); Mean Platelet Vol. 10.2 fl (6.2-12.0); Monocyte# 0.37 X10^3/uL; Monocyte% 9.8 % (0-10); NRBC Flagged by Analyzer 0 % (0-5); Neutrophil # 2.02 X10^3/uL (2.7-7.7); Neutrophil % 53.5 % (47-70); Platelet Count 284 K/mm3 (150-450); RBC Distribution Width SD 46.9 fl (35.1-43.9); Red Blood Count 3.87 M/mm3 (4.2-5.4); White Blood Count 3.8 K/mm3 (4.4-11.0)
[2022-08-19 10:13] LABS: ALB/GLOB Ratio 1.1 RATIO (0.9-2.4); AST(SGOT) 34 U/L (15-37); Alanine Aminotransfer ALT/SGPT 37 U/L (13-56); Albumin, Serum 3.8 g/dL (3.2-5.0); Alkaline Phosphatase 68 U/L (45-117); Anion Gap 7 (5-15); BUN 15 mg/dL (7-18); BUN/Creat Ratio 16.1 RATIO (10-20); Calcium,Total 9.9 mg/dL (8.5-10.1); Chloride 104 mmol/L (98-107); Creatinine, Serum 0.93 mg/dL (0.55-1.02); EST Glomerular Filtration Rate 63 mL/min (>60); Est Glom Filt Rate - Afr Amer 76 mL/min (>60); Globulin 3.4 g/dL (2.2-4.2); Glucose 84 mg/dL (74-106); Potassium 3.7 mmol/L (3.5-5.1); Protein, Total 7.2 g/dL (6.4-8.2); Sodium Level 139 mmol/L (136-145); Uric Acid 5.3 mg/dL (2.6-6.0)
== END | disposition home or self-care (01) ==
LOC: MTLAB 07:08
PROVIDERS: PCP Internal Medicine; Referring Provider Internal Medicine Rheumatology; Visit Provider Internal Medicine Rheumatology
DX: M06.4 Inflammatory polyarthropathy (principal); M79.7 Fibromyalgia; M19.041 Primary osteoarthritis, right hand
CPT/HCPCS: 36415; 80053; 84550; 85025

== ENCOUNTER 2022-08-28 15:13 | Emergency (ER) | payer MEDICARE, OTHER, SELFPAY ==
[2022-08-28 15:13] VITALS: BP 146/80; PULSE 103; RESP 18; TEMP 36.2; O2SAT 99; BMI 29.0
--- NOTE | 2022-08-28 15:20 | EKG12_ITS ---
Test Reason : CP Blood Pressure : / mmHG Vent. Rate : 094 BPM Atrial Rate : 094 BPM P-R Int : 128 ms QRS Dur : 076 ms QT Int : 372 ms P-R-T Axes : 055 023 063 degrees QTc Int : 465 ms Normal sinus rhythm Nonspecific ST and T wave abnormality Abnormal ECG Confirmed by FITO GONSALVES, TIMUR ([id number]), videotape editor LEROY LYLE ([id number]) on 09/01/2022 11:19:08 AM Referred By: BB Confirmed By:TIMUR PAYTON MD
--- NOTE | 2022-08-28 15:34 | RAD_ITS ---
STUDY: X-RAY CHEST REASON FOR EXAM: Female, 72 years old. Chest pain TECHNIQUE: Single AP portable view of the chest. COMPARISON: None. FINDINGS: The lungs are clear and expanded. There is no demonstrated pleural abnormality. Normal size heart. Normal mediastinum and alireza. Normal visualized pulmonary arteries. There is atherosclerotic calcification of the aortic arch with tortuosity. There are degenerative changes of the visualized thoracic spine. Normal visualized ribs, clavicles, and shoulders. There is no demonstrated abnormality of the visualized soft tissue structures of the upper abdomen. RAD/Chest 1 View (Portable) IMPRESSION: No acute abnormality is seen. Electronically Signed: Marquise Peterson MD at 15:44 EST ,
[2022-08-28 15:45] LABS: Absolute Lymphocyte Count 1.52 X10^3/uL (0.83-4.51); Absolute Neutrophil Count 6.3 X10^3/uL (2.0-7.7); Basophil# 0.01 X10^3/uL; Basophil% 0.1 % (0-1); Eosinophil# 0.01 X10^3/uL; Eosinophils% 0.1 % (0-5); Hematocrit 39.7 % (37-47); Hemoglobin 12.9 g/dL (12.0-15.0); Lymphocyte # 1.52 X10^3/ul (0.83-4.51); Lymphocyte % 18.1 % (19-41); Mean Corp Hgb Conc 32.5 g/dL (32-36); Mean Corpuscular Hgb 32.3 pg (27.0-32.0); Mean Corpuscular Volume 99.3 fL (81-99); Mean Platelet Vol. 10.3 fl (6.2-12.0); Monocyte# 0.59 X10^3/uL; NRBC Flagged by Analyzer 0 % (0-5); Neutrophil # 6.26 X10^3/uL (2.7-7.7); Neutrophil % 74.3 % (47-70); Platelet Count 318 K/mm3 (150-450); RBC Distribution Width CV 13.1 % (11.6-14.6); RBC Distribution Width SD 47.8 fl (35.1-43.9); White Blood Count 8.4 K/mm3 (4.4-11.0)
[2022-08-28 16:04] LABS: Anion Gap 10 (5-15); BUN 21 mg/dL (7-18); BUN/Creat Ratio 21.4 RATIO (10-20); Calcium,Total 10.5 mg/dL (8.5-10.1); Chloride 105 mmol/L (98-107); Creatinine, Serum 0.98 mg/dL (0.55-1.02); EST Glomerular Filtration Rate 59 mL/min (>60); Est Glom Filt Rate - Afr Amer 71 mL/min (>60); Estimated Creatinine Clearance 52.61 ml/min; Glucose 83 mg/dL (74-106); Potassium 4.4 mmol/L (3.5-5.1); Sodium Level 140 mmol/L (136-145); Troponin-I HS 7 pg/mL (3.0-54.0)
[2022-08-28 16:21] VITALS: BP 151/79; PULSE 85; RESP 16; O2SAT 99
[2022-08-28 16:26] VITALS: O2SAT 99
[2022-08-28 17:00] VITALS: BP 147/72; PULSE 78; RESP 15; O2SAT 98
--- NOTE | 2022-08-28 17:02 | ED.VIS.CHEST ---
HPI History of Present Illness Chief Complaint: Chest Pain Narrative Narrative: Patient wishes to be evaluated for back pain which has radiated around to her chest. Yesterday she states she woke up with a little bit of pain in the right hip which slowly ascended into the right side of her back and across to the left side of her back. She was not short of breath, lightheaded, weak, nauseous. She states she took 325 mg of aspirin and over the course of the day the pain relieved itself. This morning she woke up with similar symptoms although the pain did not stop on the left side it radiated around to the front of her chest. She still does not have any other symptoms. No cardiac history. No DVT/PE history. Has not had fevers, chills, cough. She does state that she has fibromyalgia. [facility] Medical History Anemia Anxiety Arthritis Fibromyalgia Gastric reflux [place] node History of edema History of pain when walking Hyperlipidemia Leg cramps Low back pain Non-smoker Osteopenia Osteoporosis Post-menopausal Restless legs Vertigo Vitamin D deficiency Wears glasses Home Medications gabapentin 100 mg capsule 100 mg PO QHS 06/03/18 [History Last Taken Unknown] hydroxychloroquine 200 mg tablet 200 mg PO QHS 06/03/18 [History Last Taken Unknown] calcium carbonate 500 mg calcium (1,250 mg) tablet (Oyster Shell Calcium) 500 mg PO QHS 04/22/21 [History Last Taken Unknown] meloxicam 15 mg tablet 15 mg PO DAILY PRN Pain 04/22/21 [History Last Taken Unknown] furosemide 20 mg tablet (Lasix) 20 mg PO Q OTHER DAY 05/12/22 [History Last Taken Unknown] potassium chloride 10 mEq capsule,extended release 10 meq PO Q OTHER DAY 05/12/22 [History Last Taken Unknown] alendronate 70 mg tablet 70 mg PO ARTHUR 06/05/22 [History Last Taken Unknown] hydroxychloroquine 200 mg tablet (Plaquenil) 100 mg PO DAILY 06/20/22 [History Last Taken Unknown] kfsjqfbf-qlby-jhjca acid 80 mcg-herbal no.293 66.7 mg chewable tablet (Alive Premium Women's) 1 tab PO DAILY 06/20/22 [History Last Taken Unknown] Allergy/AdvReac Type Severity Reaction Status Date / Time pneumococcal vaccine Allergy Intermediate Chest Verified 08/28/22 15:16 tightness Iodinated Contrast Media AdvReac sick Verified 08/28/22 15:16 [Iodinated Contrast- Oral and IV Dye] Family History Sister Colon polyps Surgical History History of colonoscopy Hx of cholecystectomy Hx of unilateral oophorectomy Social History number of children: 2 current occupational status: retired Smoking Status: Never smoker alcohol intake: never substance use type: does not use seatbelt use: always do you feel safe at home: Yes 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 ED Constitutional Constitutional ED: Denies chills, fever(s) or sweats Eyes Eyes: Denies blurry vision or change in vision ENT ENT ED: Denies ear pain or sore throat Cardiovascular Cardiovascular: Reports as per HPI; Denies palpitations or racing heartbeat Respiratory/Chest Respiratory/Chest: Denies cough, dyspnea or sputum Gastrointestinal Gastrointestinal: Denies abdominal pain, constipation, diarrhea, nausea or vomiting Genitourinary Genitourinary ED: Denies dysuria, hematuria or urinary frequency Musculoskeletal Musculoskeletal: Reports back pain; Denies arthralgias, myalgias or neck pain Integumentary Denies abscess, Abrasions or rash Neurologic Neurologic: Denies headache(s), paresthesias or weakness Psychiatric Psychiatric: Denies anxiety, depression, suicidal ideation or suicidal thoughts Endocrine Endocrinology: Denies polydipsia or polyuria EXAM Physical Exam Const Vital Signs: 08/28/22 15:13 08/28/22 16:21 08/28/22 16:26 Temperature 97.1 F L Temperature Source Temporal Pulse Rate 103 H 85 Respiratory Rate 18 16 Blood Pressure 146/80 H 151/79 H Blood Pressure Mean 102 103 Pulse Ox 99 99 99 Oxygen Delivery Method Room Air Room Air Room Air 08/28/22 17:00 08/28/22 18:51 Temperature Temperature Source Pulse Rate 78 81 Respiratory Rate 15 18 Blood Pressure 147/72 H 139/75 H Blood Pressure Mean 97 Pulse Ox 98 98 Oxygen Delivery Method Room Air Positive well nourished General Appearance ED: NAD; Negative for pallor HEENT normocephalic and atraumatic Eyes PERRL and EOMs intact bilaterally Chest Wall inspection of chest normal Resp normal respiratory effort and clear to auscultation bilaterally Cardio regular rate and regular rhythm GI normal to inspection, nondistended, normoactive bowel sounds Extremity normal to inspection Neuro oriented x3 and CN's II-XII intact bilaterally Sensorium / Orientation: awake and alert Psych mental status grossly normal Mood & Affect: depressed and anxious Skin no rashes or lesions noted General Skin Exam: Negative for jaundice or pallor Heart Score History: Slightly/Non-Suspicious ECG: Normal Age: >/= 65 years Risk Factors: No Risk Factors Troponin: </= Normal Limit Score: 2 MDM MDM MDM Narrative Medical decision making narrative: 72-year-old female presenting with chest pain. HEART score of 2 which is for age. She does not have any cardiac risk factors. She does not have any PE risk factors. Differential includes but is not limited to ACS, PE, aortic dissection, pneumonia, pneumothorax, muscle strain, costochondritis. Unlikely to be dissection as she is not having ripping tearing pain does not radiate to the back. Her blood pressures not significantly elevated. She is a non-smoker. Patient has equal symmetric breath sounds and chest wall rise unable to suspicion for pneumothorax. The way of this pain that she had in her lower back radiate up to the upper back and to the left makes me think this is more musculoskeletal in nature. We will obtain an EKG, high-sensitivity troponin. Chest x-ray as well. CBC for white blood cell count, liver differential. BMP for renal function electrolytes. D-dimer to rule out PE. EKG on my interpretation is normal sinus rhythm with a ventricular rate of 94 bpm without sign of ischemic change or dysrhythmia. Chest x-ray my interpretation shows no acute cardiopulmonary process. Radiologist are persistent agrees. CBC shows a normal white blood cell count 8.4. Hemoglobin 12.9. Platelets 318. Patient's GFR is slightly lower than previous. Her BUN/creatinine ratio is slightly elevated. She was given a liter of IV fluids. Initial high-sensitivity troponin came back at 7 and her delta troponin is 8. I do not believe this is ACS based on this. D-dimer was negative. Patient is well-appearing. I do believe this is most likely musculoskeletal. I counseled her of such. Patient was given a gram of Tylenol. Return precautions discussed. Impression: 1. Chest pain 2. Back pain 3. History of fibromyalgia Lab Data Attestation: I reviewed the patient's lab results. Labs: Laboratory Results - last 24 hr 08/28/22 08/28/22 08/28/22 15:29 15:29 16:50 WBC 8.4 RBC 4.00 L Hgb 12.9 Hct 39.7 MCV 99.3 H MCH 32.3 H MCHC 32.5 RDW Std Deviation 47.8 H RDW Coeff of Jayne 13.1 Plt Count 318 MPV 10.3 Immature Gran % (Auto) 0.400 Neut % (Auto) 74.3 H Lymph % (Auto) 18.1 L [place] % (Auto) 7.0 Eos % (Auto) 0.1 Baso % (Auto) 0.1 Absolute Neuts (auto) 6.3 Absolute Lymphs (auto) 1.52 Nucleated RBC % 0 D-Dimer Quant (PE/DVT) 0.43 Sodium 140 Potassium 4.4 Chloride 105 Carbon Dioxide 25.0 Anion Gap 10 BUN 21 H Creatinine 0.98 Estim Creat Clear Calc 52.61 Est GFR (MDRD) Af Amer 71 Est GFR (MDRD) Non-Af 59 L BUN/Creatinine Ratio 21.4 H Glucose 83 Calcium 10.5 H Troponin I High Sens 7 08/28/22 17:29 WBC RBC Hgb Hct MCV MCH MCHC RDW Std Deviation RDW Coeff of Jayne Plt Count MPV Immature Gran % (Auto) Neut % (Auto) Lymph % (Auto) [place] % (Auto) Eos % (Auto) Baso % (Auto) Absolute Neuts (auto) Absolute Lymphs (auto) Nucleated RBC % D-Dimer Quant (PE/DVT) Sodium Potassium Chloride Carbon Dioxide Anion Gap BUN Creatinine Estim Creat Clear Calc Est GFR (MDRD) Af Amer Est GFR (MDRD) Non-Af BUN/Creatinine Ratio Glucose Calcium Troponin I High Sens 8 Radiography Diagnostic Testing: Clinical Impression(s) from Imaging Studies Chest X-Ray 08/28/22 15:34 IMPRESSION: No acute abnormality is seen. Electronically Signed: Marquise Peterson MD at 15:44 EST , Discharge Plan Triage Chief Complaint: Chest Pain ED Provider: Alex Benoit Dx/Rx/DC Orders Instructions: ED Chest Pain, Noncardiac Prescriptions: No Action gabapentin 100 mg capsule 100 mg PO QHS hydroxychloroquine 200 mg tablet 200 mg PO QHS calcium carbonate [Oyster Shell Calcium] 500 mg calcium (1,250 mg) tablet 500 mg PO QHS meloxicam 15 mg tablet 15 mg PO DAILY PRN (Reason: Pain) furosemide [Lasix] 20 mg tablet 20 mg PO Q OTHER DAY potassium chloride 10 mEq capsule, extended release 10 meq PO Q OTHER DAY alendronate 70 mg tablet 70 mg PO ARTHUR hydroxychloroquine [Plaquenil] 200 mg Tablet 100 mg PO DAILY Alive Premium Women's 80 mcg- 66.7 mg Tablet,Chewable 1 tab PO DAILY Primary Care Provider: Asia Rice Referrals: Asia Rice MD [Primary Care Provider] - Disposition Disposition: Home, Self Care Discharge Date/Time: 08/28/22 18:56
[2022-08-28] MEDS: Acetaminophen 500 MG Tablet 1000 MG PO (17:06)
[2022-08-28] MEDS: 0.9% Normal Saline 1,000 ML 999 ML IV (17:11)
[2022-08-28 17:16] LABS: D-Dimer Quantitative (DVT/PE) 0.43 FEU/ug/m (0.27-0.49)
[2022-08-28 18:06] LABS: Troponin-I HS 8 pg/mL (3.0-54.0)
[2022-08-28 18:51] VITALS: BP 139/75; PULSE 81; RESP 18; O2SAT 98
== END 2022-08-28 18:56 | disposition home or self-care (01) ==
PROVIDERS: Emergency Provider Student in an Organized Health Care Education/Training Program; PCP Internal Medicine; Visit Provider Student in an Organized Health Care Education/Training Program
DX: R07.9 Chest pain, unspecified (principal); M79.7 Fibromyalgia; E78.5 Hyperlipidemia, unspecified; M54.9 Dorsalgia, unspecified; Z79.82 Long term (current) use of aspirin
CPT/HCPCS: 71045; 80048; 84484; 85025; 85379; 93005; 96360; 99285; J7030; A4216

== ENCOUNTER → 2023-02-17 | Outpatient (CLI) | payer MEDICARE, OTHER, SELFPAY ==
[2023-02-17 10:10] LABS: Absolute Lymphocyte Count 1.44 X10^3/uL (0.83-4.51); Absolute Neutrophil Count 2.5 X10^3/uL (2.0-7.7); Basophil# 0.01 X10^3/uL; Basophil% 0.2 % (0-1); Eosinophil# 0.13 X10^3/uL; Eosinophils% 2.8 % (0-5); Hemoglobin 11.9 g/dL (12.0-15.0); Lymphocyte # 1.44 X10^3/ul (0.83-4.51); Lymphocyte % 31.2 % (19-41); Mean Corp Hgb Conc 32.2 g/dL (32-36); Mean Corpuscular Hgb 31.8 pg (27.0-32.0); Mean Corpuscular Volume 98.9 fL (81-99); Mean Platelet Vol. 10.1 fl (6.2-12.0); Monocyte# 0.49 X10^3/uL; Monocyte% 10.6 % (0-10); NRBC Flagged by Analyzer 0 % (0-5); Neutrophil # 2.54 X10^3/uL (2.7-7.7); Platelet Count 255 K/mm3 (150-450); RBC Distribution Width CV 12.9 % (11.6-14.6); RBC Distribution Width SD 46.6 fl (35.1-43.9); Red Blood Count 3.74 M/mm3 (4.2-5.4); White Blood Count 4.6 K/mm3 (4.4-11.0)
[2023-02-17 11:03] LABS: AST(SGOT) 28 U/L (15-37); Alanine Aminotransfer ALT/SGPT 39 U/L (13-56); Albumin, Serum 3.6 g/dL (3.2-5.0); Alkaline Phosphatase 61 U/L (45-117); Anion Gap 8 (5-15); BUN 28 mg/dL (7-18); BUN/Creat Ratio 30.2 RATIO (10-20); Calcium,Total 9.4 mg/dL (8.5-10.1); Chloride 105 mmol/L (98-107); Creatinine, Serum 0.93 mg/dL (0.55-1.02); EST Glomerular Filtration Rate 63 mL/min (>60); Est Glom Filt Rate - Afr Amer 76 mL/min (>60); Globulin 3.6 g/dL (2.2-4.2); Glucose 92 mg/dL (74-106); Potassium 4.2 mmol/L (3.5-5.1); Protein, Total 7.2 g/dL (6.4-8.2); Sodium Level 138 mmol/L (136-145)
== END | disposition home or self-care (01) ==
LOC: MTLAB 07:17
PROVIDERS: PCP Internal Medicine; Referring Provider Internal Medicine Rheumatology; Visit Provider Internal Medicine Rheumatology
DX: M06.4 Inflammatory polyarthropathy (principal); M79.7 Fibromyalgia
CPT/HCPCS: 36415; 80053; 85025

== ENCOUNTER → 2023-08-11 | Outpatient (CLI) | payer MEDICARE, OTHER, SELFPAY ==
--- OUTSIDE RECORDS SUMMARY | 2023-08-11 07:10 | XMS RPT_ITS | CCD ---
Author Name Unknown Address [address] [place] [address] Organization [facility] Care Team Providers Care Acds Block 1 Operator Name Role Phone Brunson AREA SECRETARY, Graciela S Unavailable FELIX Norman RN, Alba Carrington Unavailable Unavailabl e FELIX Norman RN, Alba Charissa Unavailable Unavailabl e Camp, Bladimiremanuel Xavier Unavailable Vellanki, Suzi L Unavailable Asia Giordano MD Primary Care Provider [place], Bladimir Duc Unavailable Vellanki, Suzi L Unavailable Asia Giordano MD Primary Care Provider [place], Bladimiremanuel Xavier Unavailable Vellanki, Suzi L Unavailable Camp, Bladimir Duc Unavailable Vellanki, Suzi L Unavailable Asia Giordano MD Primary Care Provider [phone] GANTA, ASIA Primary Care Unavailable GANTA, ASIA Referring Unavailable GANTA, ASIA Primary Care Unavailable GANTA, ASIA Referring Unavailable GANTA, ASIA Primary Care Unavailable GANTA, ASIA Attending Unavailable GANTA, ASIA Primary Care Unavailable GANTA, ASIA Attending Unavailable OLDER, KIARA Referring Unavailable GANTA, ASIA Primary Care Unavailable OLDER, KIARA Attending Unavailable GANTA, ASIA Primary Care Unavailable OLDER, KIARA Referring Unavailable GANTA, ASIA Primary Care Unavailable GANTA, ASIA Primary Care Unavailable OLDER, KIARA Referring Unavailable GANTA, ASIA Primary Care Unavailable OLDER, KIARA Attending Unavailable Allergies Allergy Classification Reported Allergen(s) Allergy Type Date of Onset Reaction(s) Facility (5 sources) VACCINE PNEUMONIA 23 drug allergy 04-09-20 17 bad reaction [facility] (5 sources) MRI DYE drug allergy 04-09-20 17 [facility] (20 sources) Contrast media; Translations: [CONTRAST DYE] Propensity to adverse reactions 08-21-19 10 [facility] Work Phone: (20 sources) Streptococcus pneumoniae type 1 capsular polysaccharide antigen / Streptococcus pneumoniae type 10A capsular polysaccharide antigen / Streptococcus pneumoniae type 11A capsular polysaccharide antigen / Streptococcus pneumoniae type 12F capsular polysaccharide antigen / Streptococcus pneumoniae type 14 capsular polysaccharide antigen / Streptococcus pneumoniae type 15B capsular polysaccharide antigen / Streptococcus pneumoniae type 17F capsular polysaccharide antigen / Streptococcus pneumoniae type 18C capsular polysaccharide antigen / Streptococcus pneumoniae type 19A capsular polysaccharide antigen / Streptococcus pneumoniae type 19F capsular polysaccharide antigen / Streptococcus pneumoniae type 2 capsular polysaccharide antigen / Streptococcus pneumoniae type 20 capsular polysaccharide antigen / Streptococcus pneumoniae type 22F capsular polysaccharide antigen / Streptococcus pneumoniae type 23F capsular polysaccharide antigen / Streptococcus pneumoniae type 3 capsular polysaccharide antigen / Streptococcus pneumoniae type 33F capsular polysaccharide antigen / Streptococcus pneumoniae type 4 capsular polysaccharide antigen / Streptococcus pneumoniae type 5 capsular polysaccharide antigen / Streptococcus pneumoniae type 6B capsular polysaccharide antigen / Streptococcus pneumoniae type 7F capsular polysaccharide antigen / Streptococcus pneumoniae type 8 capsular polysaccharide antigen / Streptococcus pneumoniae type 9N capsular polysaccharide antigen / Streptococcus pneumoniae type 9V capsular polysaccharide antigen; Translations: [PNEUMOCOCCAL 23-SUGEY PS VACCINE] Drug Allergy 10-31-19 22 Other: See Comments [facility] Work Phone: Medications Current Medications Medication Drug Class(es) Dates Sig (Normalized) Sig (Original) calcium carbonate 1250 mg oral tablet (20 sources) Start: 07-02-2023 End: 08-05-2023 take 1 tablet by mouth once daily OYSTER SHELL CALCIUM 500 500 mg calcium (1,250 mg) tablet Take 1 tablet by mouth once daily. 90 tablet 3 07/02/2023 08/05/2023 Discontinued Completed/Discontinued Medications Medication Drug Class(es) Dates Sig (Normalized) Sig (Original) alendronic acid 70 mg oral tablet (20 sources) Bisphosphonate Start: 07-02-2023 take 6-8 [oz_av] by mouth every week alendronate (FOSAMAX) 70 mg tablet Indications: Osteoporosis without current pathological fracture, unspecified osteoporosis type take 1 tablet by mouth every week ON AN EMPTY STOMACH WITH 6-8 OZ OF WATER. NO FOOD / MEDS FOR 30 MIN. REMAIN UPRIGHT 12 tablet 3 07/02/2023 Active Problems Active Problems Problem Classification Problem Date Documented Date Episodic/Chronic Anxiety disorders (20 sources) Anxiety; Translations: [Anxiety disorder, unspecified] Onset: 06-09-2009 06-09-2009 Chronic Congestive heart failure; nonhypertensive (7 sources) Acute on chronic diastolic heart failure; Translations: [Acute on chronic diastolic (congestive) heart failure] Onset: 06-09-2023 Chronic Diseases of white blood cells (2 sources) Leukopenia; Translations: [Decreased white blood cell count, unspecified] Onset: 12-10-2022 Chronic Disorders of lipid metabolism (20 sources) Mixed hyperlipidemia; Translations: [Mixed hyperlipidemia] Onset: 03-29-2020 03-29-2020 Chronic Esophageal disorders (20 sources) Gastroesophageal reflux disease; Translations: [Gastro-esophageal reflux disease without esophagitis] Onset: 06-09-2009 06-09-2009 Chronic Immunizations and screening for infectious disease (1 source) Viral screening status; Translations: [Encounter for screening for other viral diseases] Episodic Malaise and fatigue (2 sources) Fatigue; Translations: [Other fatigue] Onset: 06-15-2023 Episodic Nausea and vomiting (1 source) Nausea, vomiting and diarrhea; Translations: [Nausea with vomiting, unspecified] Episodic Nutritional deficiencies (20 sources) Vitamin D deficiency; Translations: [Vitamin D deficiency, unspecified] Onset: 05-07-2012 05-07-2012 Chronic Osteoarthritis (20 sources) Heberden node; 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)] Onset: 10-10-2015 06-24-2021 Chronic Osteoporosis (20 sources) Osteoporosis; Translations: [Age-related osteoporosis without current pathological fracture] Onset: 04-29-2012 04-07-2018 Chronic Other acquired deformities (1 source) Lumbar spondylolisthesis; Translations: [Spondylolisthesis, lumbar region] Episodic Other aftercare (1 source) Follow-up status; Translations: [Encounter for follow-up examination after completed treatment for conditions other than malignant neoplasm] Episodic Other bone disease and musculoskeletal deformities (20 sources) Osteopenia; Translations: [Other specified disorders of bone density and structure, multiple sites] Onset: 05-11-2017 05-11-2017 Episodic Other connective tissue disease (1 source) Pain of left lower leg; Translations: [Pain in left lower leg] Episodic Other connective tissue disease (1 source) Swelling of limb; Translations: [Other specified soft tissue disorders] Episodic Other diseases of veins and lymphatics (1 source) Peripheral venous insufficiency; Translations: [Venous insufficiency (chronic) (peripheral)] Episodic Other lower respiratory disease (2 sources) Dyspnea; Translations: [Shortness of breath] Episodic Other nervous system disorders (1 source) Chronic pain; Translations: [Other chronic pain] Chronic Other non-traumatic joint disorders (2 sources) Hip pain; Translations: [Pain in right hip] Episodic Other nutritional; endocrine; and metabolic disorders (2 sources) Hypercalcemia; Translations: [Hypercalcemia] 06-18-2023 Chronic Other nutritional; endocrine; and metabolic disorders (1 source) Hypercalcemia; Translations: [Hypercalcemia] Onset: 07-23-2023 Chronic Residual codes; unclassified (2 sources) Edema of foot; Translations: [Localized edema] Episodic Residual codes; unclassified (1 source) Edema; Translations: [Edema, unspecified] Episodic Residual codes; unclassified (2 sources) Postmenopausal state; Translations: [Asymptomatic menopausal state] 08-05-2023 Episodic Rheumatoid arthritis and related disease (20 sources) Inflammatory polyarthropathy; Translations: [Inflammatory polyarthropathy] Onset: 05-12-2012 06-24-2021 Chronic Spondylosis; intervertebral disc disorders; other back problems (20 sources) Lumbar spondylosis; Translations: [Spondylosis without myelopathy or radiculopathy, lumbar region] Onset: 12-12-2021 Chronic Unclassified (7 sources) Mammography abnormal; Translations: [Patient encounter status] Onset: 04-30-2017 04-30-2017 Episodic Unclassified (6 sources) Asymptomatic menopausal state; Translations: [Asymptomatic menopausal state] Onset: 04-09-2017 04-09-2017 Episodic Unclassified (5 sources) Screening mammography ; Translations: [Encounter for screening mammogram for malignant neoplasm of breast] Onset: 04-09-2017 04-09-2017 Unclassified (5 sources) Gynecologic examination ; Translations: [Encounter for gynecological examination (general) (routine) without abnormal findings] Onset: 04-09-2017 04-09-2017 Past or Other Problems Problem Classification Problem Date Documented Date Episodic/Chronic Other acquired deformities (20 sources) Spondylolisthesis L5/S1 level; Translations: [Spondylolisthesis, lumbosacral region] Onset: 2 Episodic Other aftercare (1 source) Encounter for follow-up examination after completed treatment for conditions other than malignant neoplasm; Translations: [Follow-up exam] Onset: 3 Episodic Other bone disease and musculoskeletal deformities (1 source) Other specified disorders of bone density and structure, multiple sites; Translations: [Osteopenia of multiple sites] Onset: 7 Episodic Other connective tissue disease (20 sources) Fibromyalgia; Translations: [Fibromyalgia] Onset: 2 06-24-2021 Episodic Other connective tissue disease (20 sources) Trochanteric bursitis; Translations: [Trochanteric bursitis, right hip] Onset: 2 Episodic Other connective tissue disease (1 source) Fibromyalgia; Translations: [Fibromyalgia] Onset: 1 Episodic Spondylosis; intervertebral disc disorders; other back problems (20 sources) Chronic low back pain; Translations: [Chronic bilateral low back pain without sciatica] Onset: 6 03-10-2016 Episodic Results Test Name Value Interpretation Reference Range Facil ity Vital Signs Date Time Vital Sign Value Performing Clinician Facility 08-05-2023 08:09-0500 Body weight 65.77 kg Kiara Older HUNTER GUIDE.MARKETING SECRETARY Work Phone: [facility] 08-05-2023 08:09-0500 Diastolic blood pressure 70 mm[Hg] Kiara Older HUNTER GUIDE.MARKETING SECRETARY Work Phone: [facility] 08-05-2023 08:09-0500 Heart rate 84 /min Kiara Older HUNTER GUIDE.MARKETING SECRETARY Work Phone: [facility] 08-05-2023 08:09-0500 Respiratory rate 16 /min Kiara Older HUNTER GUIDE.MARKETING SECRETARY Work Phone: [facility] 08-05-2023 08:09-0500 SaO2% (BldA) [Mass fraction] 98 % Kiara Older HUNTER GUIDE.MARKETING SECRETARY Work Phone: [facility] 08-05-2023 08:09-0500 Systolic blood pressure 130 mm[Hg] Kiara Mcallister APRN.CNP Work Phone: [facility] 12-10-2022 09:00-0400 Body height 149.9 cm Asia Giordano MD Work Phone: [facility] 12-10-2022 09:00-0400 Body temperature 98.2 [degF] Asia Giordano MD Work Phone: [facility] 12-10-2022 09:00-0400 Body weight 65.77 kg Asia Giordano MD Work Phone: [facility] 12-10-2022 09:00-0400 Diastolic blood pressure 60 mm[Hg] Asia Giordano MD Work Phone: [facility] 12-10-2022 09:00-0400 Heart rate 68 /min Asia Giordano MD Work Phone: [facility] 12-10-2022 09:00-0400 Respiratory rate 12 /min Asia Giordano MD Work Phone: [facility] 12-10-2022 09:00-0400 SaO2% (BldA) [Mass fraction] 100 % Asia Giordano MD Work Phone: [facility] 12-10-2022 09:00-0400 Systolic blood pressure 120 mm[Hg] Asia Giordano MD Work Phone: [facility] 09-03-2022 10:08-0500 Body height 149.9 cm Asia Giordano MD Work Phone: [facility] 09-03-2022 10:08-0500 Body temperature 98.29 [degF] Asia Giordano MD Work Phone: [facility] 09-03-2022 10:08-0500 Body weight 64.86 kg Asia iGordano MD Work Phone: [facility] 09-03-2022 10:08-0500 Diastolic blood pressure 60 mm[Hg] Asia Giordano MD Work Phone: [facility] 09-03-2022 10:08-0500 Heart rate 71 /min Asia Giordano MD Work Phone: [facility] 09-03-2022 10:08-0500 Respiratory rate 12 /min Asia Giordano MD Work Phone: [facility] 09-03-2022 10:08-0500 SaO2% (BldA) [Mass fraction] 99 % Asia Giordano MD Work Phone: [facility] 09-03-2022 10:08-0500 Systolic blood pressure 114 mm[Hg] Asia Giordano MD Work Phone: [facility] 06-11-2022 08:33-0500 Body height 149.9 cm Asia Giordano MD Work Phone: [facility] 06-11-2022 08:33-0500 Body temperature 97.39 [degF] Asia Giordano MD Work Phone: [facility] 06-11-2022 08:33-0500 Body weight 63.5 kg Asia Giordano MD Work Phone: [facility] 06-11-2022 08:33-0500 Diastolic blood pressure 60 mm[Hg] Asia Giordano MD Work Phone: [facility] 06-11-2022 08:33-0500 Heart rate 83 /min Asia Giordano MD Work Phone: [facility] 06-11-2022 08:33-0500 Respiratory rate 12 /min Asia Giordano MD Work Phone: [facility] 06-11-2022 08:33-0500 SaO2% (BldA) [Mass fraction] 98 % Asia Giordano MD Work Phone: [facility] 06-11-2022 08:33-0500 Systolic blood pressure 104 mm[Hg] Asia Giordano MD Work Phone: [facility] 02-03-2022 15:44-0400 Body temperature 97.39 [degF] Kacy Padron APRN.CNP Work Phone: [facility] 02-03-2022 15:44-0400 Body weight 60.78 kg Kacy Vito HUNTER GUIDE.MARKETING SECRETARY Work Phone: [facility] 02-03-2022 15:44-0400 Diastolic blood pressure 70 mm[Hg] Kacy Vito HUNTER GUIDE.MARKETING SECRETARY Work Phone: [facility] 02-03-2022 15:44-0400 Heart rate 103 /min Kacy Vito HUNTER GUIDE.MARKETING SECRETARY Work Phone: [facility] 02-03-2022 15:44-0400 Respiratory rate 16 /min Akcy Vito HUNTER GUIDE.MARKETING SECRETARY Work Phone: [facility] 02-03-2022 15:44-0400 SaO2% (BldA) [Mass fraction] 98 % Kacy Dorank HUNTER GUIDE.MARKETING SECRETARY Work Phone: [facility] 02-03-2022 15:44-0400 Systolic blood pressure 124 mm[Hg] Kacy Vito HUNTER GUIDE.MARKETING SECRETARY Work Phone: [facility] 01-28-2022 08:39-0400 Body height 149.9 cm Asia Giordano MD Work Phone: [facility] 01-28-2022 08:39-0400 Body temperature 97.5 [degF] Asia Giordano MD Work Phone: [facility] 01-28-2022 08:39-0400 Body weight 63.96 kg Asia Giordano MD Work Phone: [facility] 01-28-2022 08:39-0400 Diastolic blood pressure 64 mm[Hg] Asia Giordano MD Work Phone: [facility] 01-28-2022 08:39-0400 Heart rate 71 /min Asia Giordano MD Work Phone: [facility] 01-28-2022 08:39-0400 Respiratory rate 12 /min Asia Giordano MD Work Phone: [facility] 01-28-2022 08:39-0400 SaO2% (BldA) [Mass fraction] 99 % Asia Giordano MD Work Phone: [facility] 01-28-2022 08:39-0400 Systolic blood pressure 114 mm[Hg] Asia Giordano MD Work Phone: [facility] 11-28-2021 09:04-0400 Heart rate 69 /min Venecia Call HUNTER GUIDE.MARKETING SECRETARY Work Phone: [facility] 11-28-2021 09:04-0400 Respiratory rate 16 /min Venecia Call HUNTER GUIDE.MARKETING SECRETARY Work Phone: [facility] 11-28-2021 09:04-0400 SaO2% (BldA) [Mass fraction] 98 % Venecia Call HUNTER GUIDE.MARKETING SECRETARY Work Phone: [facility] 10-30-2021 11:40-0400 Diastolic blood pressure 72 mm[Hg] Asia Giordano MD Work Phone: [facility] 10-30-2021 11:40-0400 Systolic blood pressure 136 mm[Hg] Asia Giordano MD Work Phone: [facility] 10-30-2021 08:15-0400 Body height 149.9 cm Asia Giordano MD Work Phone: [facility] 10-30-2021 08:15-0400 Body temperature 97.11 [degF] Asia Giordano MD Work Phone: [facility] 10-30-2021 08:15-0400 Body weight 69.4 kg Asia Giordano MD Work Phone: [facility] 10-30-2021 08:15-0400 Heart rate 69 /min Asia Giordano MD Work Phone: [facility] 10-30-2021 08:15-0400 Respiratory rate 12 /min Asia Giordano MD Work Phone: [facility] 10-30-2021 08:15-0400 SaO2% (BldA) [Mass fraction] 100 % Asia Giordano MD Work Phone: [facility] 04-09-2017 12:51-0400 BMI (Body Mass Index) 28.04 kg/m2 Graciela Bangura NP [facility] 04-09-2017 12:51-0400 Body Temperature 97.4 [degF] Graciela Bangura NP [facility] 04-09-2017 12:51-0400 BP Diastolic 76 mm[Hg] Graciela Bangura NP [facility] 04-09-2017 12:51-0400 BP Systolic 143 mm[Hg] Graciela Bangura NP [facility] 04-09-2017 12:51-0400 Height 154.94 cm Graciela Bangura NP [facility] 04-09-2017 12:51-0400 Pulse (Heart Rate) 74 /min Graciela Bangura NP [facility] 04-09-2017 12:51-0400 Weight 67.31 kg Graciela Bangura NP [facility] Encounters Encounter Date Encounter Type Care Provider Facility Start: 08-10-2023 End: 08-10-2023 ambulatory KIARA OLDER Facility:[facility] Start: 08-10-2023 End: 08-10-2023 Subsequent hospital visit by physician Bone Density [facility] Work Phone: Radiology Procedures Date Procedure Procedure Detail Performing Clinician Start: 08-10-2023 BD DXA TRABECULAR PARAMJIT NE SCORE (TBS) Kiara Mcallister APRN.MARKETING SECRETARY Work Phone: Start: 08-10-2023 Dxa bone density danica dy 1/> sites axial skel Kiara Mcallister HUNTER GUIDE.MARKETING SECRETARY Work Phone: Start: 06-09-2023 Lipid 1996 panel - S saritha or Plasma Kiara Mcallister HUNTER GUIDE.MARKETING SECRETARY Work Phone: Start: 06-24-2022 Colonoscopy Melva noyola MA Start: 06-11-2022 Lipid 1996 panel - S saritha or Plasma Asia Giordano MD Work Phone: Start: 05-16-2022 Mammography Melva noyola MA Start: 01-30-2022 Echo tthrc r-t 2d w/wom-mode compl spec&colr d Asia Giordano MD Work Phone: Start: 01-06-2022 Radex hip unilateral with pelvis 2-3 views Chio Adler PA-C Work Phone: Start: 11-28-2021 Adult depression scr eening assessment Venecia Call HUNTER GUIDE.MARKETING SECRETARY Work Phone: Start: 02-13-2021 Mammography Asia wynn MD Work Phone: Start: 10-27-2018 Adult depression scr eening assessment Asia Giordano MD Work Phone: Start: 04-09-2017 End: 04-09-2017 Pelvic & Breast Exam (Medicare) Graciela Bangura AREA SECRETARY Work Phone: Start: 12-18-2009 Colonoscopy Asia wynn MD Work Phone: Plan of Treatment Date Care Activity Detail Author Start: 06-09-2028 Lipid panel Lipid Screening [facility] Start: 06-11-2027 Lipid 1996 panel - S saritha or Plasma Lipid Screening [facility] Start: 06-11-2027 LIPID SCREEN LIPID SCREEN [facility] Start: 06-02-2027 LIPID SCREEN LIPID SCREEN [facility] Start: 07-23-2026 [facility]: [facility]-15[facility]26 [facility] Start: 04-01-2026 LIPID SCREEN LIPID SCREEN [facility] Start: 06-11-2025 DIABETES SCREEN DIABETES SCREEN [facility] Start: 06-11-2025 Diabetes Screening Diabetes Screenin g [facility] Start: 02-13-2025 DIABETES SCREEN DIABETES SCREEN [facility] Start: 08-05-2024 Annual PCP Team Training Designer debi Disease Visit Annual PCP Team Chronic Disease Visit [facility] Start: 08-05-2024 Urine microalbumin profile DTa P,Tdap,Td Vaccine (2 - Td or Tdap) [facility] Immunizations Immunization Date Immunization Notes Care Provider Phoenix keene 04-07-2018 influenza virus vacc ine, unspecified formulation Asia Giordano MD Work Phone: [facility] 04-08-2016 pneumococcal polysaccharide vaccine, 23 valent Asia Giordano MD Work Phone: [facility] Work Phone: 02-26-2015 pneumococcal conjuga te vaccine, 13 valent Asia Giordano MD Work Phone: [facility] 06-23-2013 tetanus toxoid, redu nicole diphtheria toxoid, and acellular pertussis vaccine, adsorbed Asia Giordano MD Work Phone: [facility] Payers Date Payer Category Payer Medicare [id number] 2019 Unknown MMO MMO MEDICARE SUPPLEMENT [id number] 2019-Present [phone] [address] [place] [address] Indemnity [id number] 2014 Medicare MEDICARE MEDICAR E A AND B [id number] 2014-Present [phone] [address] [address] [place] [address] Medicare [id number] 2014 Medicare MEDICARE MEDICAR E A AND B [id number] 2014-Present [phone] [address] [address] [place] [address] Medicare [id number] 2014 Medicare [id number] 2010 Unknown [id number] Social History Date Type Detail Facility Start: 04-07-2012 Tobacco smoking stat us [facility] Never smoked tobacco [facility] Work Phone: Start: 10-30-2021 End: 06-15-2023 Alcohol intake Current non-drinker of alcohol (finding) [facility] Start: 1950 Sex Assigned At Not on file [facility] Start: 10-20-2021 End: 02-03-2022 Exposure to SARS-CoV-2 (event) Not sure [facility] Work Phone: Start: 10-22-2021 End: 11-01-2021 Exposure to SARS-CoV-2 (event) Unable to assess [facility] Work Phone: Start: 04-07-2012 Tobacco use and exposure Smokeless tobacco non-user [facility] Work Phone: Start: 12-10-2022 End: 08-05-2023 History of Social function [facility] Work Phone: Start: 12-10-2022 End: 08-05-2023 Tobacco use panel [facility] Work Phone: Adult Depression Screening Assessment 2 [facility] Work Phone: Clinical Notes 02-17-2011 to 08-10-2023 Gerard Perez RT(R) - 08/10/2023 9:00 AM ESTPatient Kiara Cr APRN.MARKETING SECRETARY - 08/05/2023 8:17 AM ESTTelephone David - Rema [place] - 06/18/2023 12:17 PM EST Note Date & Type Note Facility 08-10-2023 Note HNO ID: [id number] Author: GERARD PEREZ RT(R) Service: ? Author Type: Technologist Type: Progress Notes Filed: 08/10/2023 09:06 Note Text: Radiology Service Progress Note PATIENT NAME: Ernestina Webb DATE OF SERVICE: August 10, 2023 TIME: 8:57 AM PATIENT IDENTITY VERIFICATION COMPLETED USING TWO (2) IDENTIFIERS: Name and Date of confirmed by patient verbally. FALL SCREENING: Has the patient had 2 falls in the last year or 1 fall with injury or currently using an Ambulatory Assistive Device (Walker, Cane, Wheelchair, Crutches, etc.)? No PATIENT GENDER DATA: Female. status: : No status: NO. PATIENT RELEVANT IMPLANT DATA REVIEWED: Not Applicable PATIENT PRESENTS WITH AN IMPLANTABLE OR ATTACHED TRAVEL SERVICE CONSULTANT: No RADIOLOGY DEPARTMENT: Bone Density PERIPHERAL IV DATA: Not applicable SIGNED BY: RT Tommy(R) August 10, 2023 8:57 AM [facility] 08-10-2023 History of Present illness Narrative Radiology Service Progress Note PATIENT NAME: Ernestina Webb DATE OF SERVICE: August 10, 2023 TIME: 8:57 AM PATIENT IDENTITY VERIFICATION COMPLETED USING TWO (2) IDENTIFIERS: Name and Date of confirmed by patient verbally. FALL SCREENING: Has the patient had 2 falls in the last year or 1 fall with injury or currently using an Ambulatory Assistive Device (Walker, Cane, Wheelchair, Crutches, etc.)? No PATIENT GENDER DATA: Female. status: : No status: NO. PATIENT RELEVANT IMPLANT DATA REVIEWED: Not Applicable PATIENT PRESENTS WITH AN IMPLANTABLE OR ATTACHED TRAVEL SERVICE CONSULTANT: No RADIOLOGY DEPARTMENT: Bone Density PERIPHERAL IV DATA: Not applicable SIGNED BY: RT Tommy(R) August 10, 2023 8:57 AM documented in this encounter [facility] 08-05-2023 Note HNO ID: [id number] Author: KIARA MCALLISTER APRN.MARKETING SECRETARY Service: ? Author Type: Nurse Practitioner Type: Progress Notes Filed: 08/05/2023 08:42 Note Text: CC: Patient presents with: Recheck: 3 month follow up HPI Ernestina Webb is a 73 year old female who presents today for routine follow up and denies any complaints. CHF: Ms. Webb indicates that she is feeling well and denies any symptoms referable to elevated blood pressure. Specifically denies headache, chest pain, palpitations, dyspnea, and peripheral edema. Patient denies any side effects of her medication(s) and is compliant with their regimen. She does not check BP's generally. Ernestina denies regular aerobic exercise. She watches her diet for sodium, low fat and low cholesterol most of the time. Last ECHO in 2021 and was unremarkable. Prior to that had an elevated BNP and edema and started on Lasix which was effective. Last 3 Encounter BP Readings: Date: BP: 08/05/2023 130/70 06/15/2023 140/72 12/10/2022 120/60 Osteopenia: On fosamax. Denies any fractures and does not drink alcohol or smoke. Vit D and Calcium levels have been high so currently holding supplements. Has not taken the Calcium supplement since May but calcium continues to increase. Does take a womens multivitamin daily Inflammatory Polyarthropathy: Follows with natural resource specialist, Dr. Merino. Well controlled on current treatment REVIEW OF SYSTEMS See HPI Psych: PHQ2 is 0 PAST MEDICAL HISTORY Diagnosis Date Abdominal pain, epigastric Acute gastritis without mention of hemorrhage Anemia Fibromyalgia 05/12/2012 Gastritis Inflammatory polyarthropathy (HCC) 05/12/2012 PMH - PAST MEDICAL HISTORY OF hx of dehydration Syncope 07/30/2009 PAST SURGICAL HISTORY Procedure Laterality Date CHOLECYSTECTOMY Cholecystectomy COLONOSCOPY FLX DX W/COLLJ SPEC WHEN PFRMD 12/18/09 EGD TRANSORAL BIOPSY SINGLE/MULTIPLE 12/18/09 SALPINGO-OOPHORECTOMY COMPL/PRTL UNI/BI SPX ??RIGHT - IN HER 30'S ALLERGIES Mri Dye [Contrast Dye] and Pneumococcal 23-Sugey Ps Vaccine MEDICATIONS potassium chloride ER (KLOR-CON M10) 10 mEq tablet Every other day. furosemide (LASIX) 20 mg tablet Take lasix 20 mgs, every other day alendronate (FOSAMAX) 70 mg tablet take 1 tablet by mouth every week ON AN EMPTY STOMACH WITH 6-8 OZ OF WATER. NO FOOD / MEDS FOR 30 MIN. REMAIN UPRIGHT gabapentin (NEURONTIN) 100 mg capsule Take 1 capsule by mouth daily at bedtime. OYSTER SHELL CALCIUM 500 500 mg calcium (1,250 mg) tablet Take 1 tablet by mouth once daily. hydroxychloroquine (PLAQUENIL) 200 mg tablet Take 1 tablet by mouth twice daily. OTC NUTRITIONAL SUPPLEMENT one time only. Alive, Women's 50+ Multivitamin FAMILY HISTORY Problem Relation Age of Onset Cancer Mother 55 face Breast Cancer Maternal Aunt 52 Hypertension Mother Stroke Mother plaque Heart Father Diabetes Maternal Aunt with amputation Diabetes Maternal Aunt with amputation Social History Tobacco Use Smoking status: Never Smokeless tobacco: Never Vaping Use Vaping Use: Never used Substance Use Topics Alcohol use: No Drug use: No PHYSICAL EXAM BP 130/70 Pulse 84 Resp 16 Wt 65.8 kg (145 lb) SpO2 98% BMI 29.29 kg/m? General Appearance: well appearing, in no acute distress, alert Pysch: mood and affect broad and appropriate Skin: Skin color, texture, turgor normal for age; Eyes: conjunctiva pink and moist, no icterus, sclera white, non-injected Lungs: Lungs clear to auscultation. No wheezing, rhonchi, rales. Heart: RRR without murmur, gallop, or rubs. No ectopy Health maintenance reviewed with patient: Mammogram Screening due on 05/16/2023 DTaP,Tdap,Td Vaccine(2 - Td or Tdap) due on 06/23/2023 Colorectal Cancer Screening due on 06/24/2023 Advance Directive Discussion due on 06/29/2023 Depression Assessment due on 06/29/2023 Influenza Vaccine(1) due on 12/27/2023 RSV Vaccine(1 - 1-dose 60+ series) due on 06/15/2024 Shingrix Vaccine(1 of 2) due on 06/15/2024 Covid-19 Vaccine(1) due on 06/15/2024 Annual PCP Team Chronic Disease Visit due on 06/15/2024 Diabetes Screening due on 07/23/2026 Lipid Screening due on 06/09/2028 Bone Density Screening Completed Hepatitis C Screening Completed Pneumococcal Vaccine: 65+ Completed DATA REVIEWED: Most recent labs ASSESSMENT/PLAN: 1. Inflammatory polyarthropathy (HCC) - ICD9: 714.9, ICD10: M06.4 (primary diagnosis) Controlled with current treatment Continue with recommendations by rheumatology. 2. Congestive heart failure, unspecified HF chronicity, unspecified heart failure type (HCC) - ICD9: 428.0, ICD10: I50.9 - stable and asymptomatic. - Continue current medications - Encouraged sodium restriction - Encouraged daily weights - Recommend regular aerobic exercise 3. Hypercalcemia - ICD9: 275.42, ICD10: E83.52 - hold multivitamin and any supplement containing calcium recheck in 2 weeks - BASIC METABOLIC PNL (more content not included)... [facility] 08-05-2023 Instructions Kiara Mcallister APRN.MARKETING SECRETARY - 08/05/2023 8:31 AM EST BONE MINERAL DENSITY PATIENT INSTRUCTIONS ======== Bone mineral density testing measures the amount of calcium in certain parts of your bones. This information determines how strong your bones are. The test is used to detect osteoporosis, a disease in which the bone's mineral content and density are low, increasing a person's risk of fractures. The lumbar spine (lower back) and the hip are the skeletal sites usually examined. For the test, remember that: 1. You cannot take this test if you are . 2. Eat a normal diet on the day of the test. 3. Take your medications as you normally would. 4. DO NOT take calcium supplements (such as Tums) for 24 hours before the test. 5. On the day of the test, leave valuables (jewelry or credit cards) at home. 6. The test should be performed prior to oral, rectal or IV contrast studies, or at least 7 days after any of these studies. For the test, you may be asked to wear a hospital gown. You will lie on your back, on a padded table, in a comfortable position. Generally, you can resume your usual activities immediately. documented in this encounter [facility] 08-05-2023 History of Present illness Narrative CC: Patient presents with: Recheck: 3 month follow up HPI Ernestina Webb is a 73 year old female who presents today for routine follow up and denies any complaints. CHF: Ms. Webb indicates that she is feeling well and denies any symptoms referable to elevated blood pressure. Specifically denies headache, chest pain, palpitations, dyspnea, and peripheral edema. Patient denies any side effects of her medication(s) and is compliant with their regimen. She does not check BP's generally. Ernestina denies regular aerobic exercise. She watches her diet for sodium, low fat and low cholesterol most of the time. Last ECHO in 2021 and was unremarkable. Prior to that had an elevated BNP and edema and started on Lasix which was effective. Last 3 Encounter BP Readings: Date: BP: 08/05/2023 130/70 06/15/2023 140/72 12/10/2022 120/60 Osteopenia: On fosamax. Denies any fractures and does not drink alcohol or smoke. Vit D and Calcium levels have been high so currently holding supplements. Has not taken the Calcium supplement since May but calcium continues to increase. Does take a womens multivitamin daily Inflammatory Polyarthropathy: Follows with natural resource specialist, Dr. Merino. Well controlled on current treatment REVIEW OF SYSTEMS See HPI Psych: PHQ2 is 0 PAST MEDICAL HISTORY Diagnosis Date Abdominal pain, epigastric Acute gastritis without mention of hemorrhage Anemia Fibromyalgia 05/12/2012 Gastritis Inflammatory polyarthropathy (HCC) 05/12/2012 PMH - PAST MEDICAL HISTORY OF hx of dehydration Syncope 07/30/2009 PAST SURGICAL HISTORY Procedure Laterality Date CHOLECYSTECTOMY Cholecystectomy COLONOSCOPY FLX DX W/COLLJ SPEC WHEN PFRMD 12/18/09 EGD TRANSORAL BIOPSY SINGLE/MULTIPLE 12/18/09 SALPINGO-OOPHORECTOMY COMPL/PRTL UNI/BI SPX ??RIGHT - IN HER 30'S ALLERGIES Mri Dye [Contrast Dye] and Pneumococcal 23-Sugey Ps Vaccine MEDICATIONS potassium chloride ER (KLOR-CON M10) 10 mEq tablet Every other day. furosemide (LASIX) 20 mg tablet Take lasix 20 mgs, every other day alendronate (FOSAMAX) 70 mg tablet take 1 tablet by mouth every week ON AN EMPTY STOMACH WITH 6-8 OZ OF WATER. NO FOOD / MEDS FOR 30 MIN. REMAIN UPRIGHT gabapentin (NEURONTIN) 100 mg capsule Take 1 capsule by mouth daily at bedtime. OYSTER SHELL CALCIUM 500 500 mg calcium (1,250 mg) tablet Take 1 tablet by mouth once daily. hydroxychloroquine (PLAQUENIL) 200 mg tablet Take 1 tablet by mouth twice daily. OTC NUTRITIONAL SUPPLEMENT one time only. Alive, Women's 50+ Multivitamin FAMILY HISTORY Problem Relation Age of Onset Cancer Mother 55 face Breast Cancer Maternal Aunt 52 Hypertension Mother Stroke Mother plaque Heart Father Diabetes Maternal Aunt with amputation Diabetes Maternal Aunt with amputation Social History Tobacco Use Smoking status: Never Smokeless tobacco: Never Vaping Use Vaping Use: Never used Substance Use Topics Alcohol use: No Drug use: No PHYSICAL EXAM BP 130/70 Pulse 84 Resp 16 Wt 65.8 kg (145 lb) SpO2 98% BMI 29.29 kg/m General Appearance: well appearing, in no acute distress, alert Pysch: mood and affect broad and appropriate Skin: Skin color, texture, turgor normal for age; Eyes: conjunctiva pink and moist, no icterus, sclera white, non-injected Lungs: Lungs clear to auscultation. No wheezing, rhonchi, rales. Heart: RRR without murmur, gallop, or rubs. No ectopy Health maintenance reviewed with patient: Mammogram Screening due on 05/16/2023 DTaP,Tdap,Td Vaccine(2 - Td or Tdap) due on 06/23/2023 Colorectal Cancer Screening due on 06/24/2023 Advance Directive Discussion due on 06/29/2023 Depression Assessment due on 06/29/2023 Influenza Vaccine(1) due on 12/27/2023 RSV Vaccine(1 - 1-dose 60+ series) due on 06/15/2024 Shingrix Vaccine(1 of 2) due on 06/15/2024 Covid-19 Vaccine(1) due on 06/15/2024 Annual PCP Team Chronic Disease Visit due on 06/15/2024 Diabetes Screening due on 07/23/2026 Lipid Screening due on 06/09/2028 Bone Density Screening Completed Hepatitis C Screening Completed Pneumococcal Vaccine: 65+ Completed DATA REVIEWED: Most recent labs ASSESSMENT/PLAN: 1. Inflammatory polyarthropathy (HCC) - ICD9: 714.9, ICD10: M06.4 (primary diagnosis) Controlled with current treatment Continue with recommendations by rheumatology. 2. Congestive heart failure, unspecified HF chronicity, unspecified heart failure type (HCC) - ICD9: 428.0, ICD10: I50.9 - stable and asymptomatic. - Continue current medications - Encouraged sodium restriction - Encouraged daily weights - Recommend regular aerobic exercise 3. Hypercalcemia - ICD9: 275.42, ICD10: E83.52 - hold multivitamin and any supplement containing calcium recheck in 2 weeks - BASIC METABOLIC PNL 4. Osteopenia of multiple sites - ICD9: 733.90, ICD10: M85.89 - Reviewed the need for weight bearing exercise as tolerated - VITAMIN D 25 HYDROXY - BASIC METABOLIC PNL - DXA-AXIAL SKELETON - BD DXA TRABECULAR BONE SCORE (TBS) 5. Encounter for screening for osteoporosis - ICD9: V82.81, ICD10: Z13.820 - DXA-AXIAL SKELETON - BD DXA TRABECULAR BONE SCORE (TBS) 6. Asymptomatic postmenopausal status - ICD9: V49.81, ICD10: Z78.0 - DXA-AXIAL SKELETON - BD DXA TRABECULAR BONE SCORE (TBS) Prescription instructions reviewed with patient as applicable. Potential red flag symptoms discussed with the patient. Reviewed appropriate action plan to take if red flag symptoms occur. Patient agreeable to treatment plan. Kiara Mcallister APRN.CNP documented in this encounter [facility] 06-18-2023 Miscellaneous Notes TC to patient who verbalized understanding of below. No further questions at this time. LIBORIO Rogers Continue to hold and we will recheck in 2-4 weeks Thank you Kiara Mcallister APRN.CNP TC to patient who states she was taking 500 mg calcium daily at time of lab draw, but has stopped taking as instructed on 06/15 OV. LIBORIO Rogers ----- Message from Kiara Mcallister APRN.CNP sent at 06/18/2023 6:24 AM EST ----- Calcium is still slightly elevated but stable. How much calcium was she taking when this was drawn? Thank you Kiara Mcallister APRN.CNP documented in this encounter [facility] 06-15-2023 Note HNO ID: [id number] Author: Kiara Mcallister APRN.CNP Service: ? Author Type: Nurse Practitioner Type: Progress Notes Filed: 06/15/2023 4:36 PM Note Text: CC: Patient presents with: F/U 6 months HPI Ernestina Webb is a 73 year old female who presents today for routine follow up. Has dental concerns and dentist did not want to do needed procedure because she is on alendronate for osteopenia with high fracture risk. Sees an oral surgeon in June. Last bone density was in 2020 and that is when fosamax was started. Has slight nausea when she takes the fosamax but resolves on its own. Denies abdominal pain, difficulty swallowing, or heartburn. Vit D was stopped due to elevated Vit D levels. Recent calcium was elevated. Works in [employer], [employer], and house work daily. Gets on the treadmill once every few weeks. Has noticed she is more tired over the past year but thinks she has maybe done too much. Denies snoring, witnessed apnea, or waking up during the night gasping for air. Denies any abnormal change in weight, fever, chills, increase thirst/hunger/urination or recent infection REVIEW OF SYSTEMS General: no fevers, no chills, no night sweats, no recurrent infections, no change in appetite, and no significant changes in weight Respiratory: no cough, no wheezing, no shortness of breath, no hemoptysis Cardiovascular: no chest pain, no chest pressure, no palpitations, and no swelling Endocrine: no cold intolerance, no heat intolerance, no polyuria, no polyphagia, and no polydipsia Neurologic: No headache, weakness, numbness, tingling, dizziness, memory loss, syncope. PAST MEDICAL HISTORY Diagnosis Date Abdominal pain, epigastric Acute gastritis without mention of hemorrhage Anemia Fibromyalgia 05/12/2012 Gastritis Inflammatory polyarthropathy (HCC) 05/12/2012 PMH - PAST MEDICAL HISTORY OF hx of dehydration Syncope 07/30/2009 PAST SURGICAL HISTORY Procedure Laterality Date CHOLECYSTECTOMY Cholecystectomy COLONOSCOPY FLX DX W/COLLJ SPEC WHEN PFRMD 12/18/09 EGD TRANSORAL BIOPSY SINGLE/MULTIPLE 12/18/09 SALPINGO-OOPHORECTOMY COMPL/PRTL UNI/BI SPX ??RIGHT - IN HER 30'S ALLERGIES Mri Dye [Contrast Dye] and Pneumococcal 23-Sugey Ps Vaccine MEDICATIONS potassium chloride ER (KLOR-CON M10) 10 mEq tablet Every other day. furosemide (LASIX) 20 mg tablet Take lasix 20 mgs, every other day alendronate (FOSAMAX) 70 mg tablet take 1 tablet by mouth every week ON AN EMPTY STOMACH WITH 6-8 OZ OF WATER. NO FOOD / MEDS FOR 30 MIN. REMAIN UPRIGHT gabapentin (NEURONTIN) 100 mg capsule Take 1 capsule by mouth daily at bedtime. OYSTER SHELL CALCIUM 500 500 mg calcium (1,250 mg) tablet Take 1 tablet by mouth once daily. cholecalciferol (VITAMIN D3) 5,000 unit tab Take 5,000 Units by mouth once daily. hydroxychloroquine (PLAQUENIL) 200 mg tablet Take 1 tablet by mouth twice daily. OTC NUTRITIONAL SUPPLEMENT one time only. Alive, Women's 50+ Multivitamin FAMILY HISTORY Problem Relation Age of Onset Cancer Mother 55 face Breast Cancer Maternal Aunt 52 Hypertension Mother Stroke Mother plaque Heart Father Diabetes Maternal Aunt with amputation Diabetes Maternal Aunt with amputation Social History Tobacco Use Smoking status: Never Smokeless tobacco: Never Vaping Use Vaping Use: Never used Substance Use Topics Alcohol use: No Drug use: No PHYSICAL EXAM BP 140/72 (BP Site: Left Arm, BP Position: Sitting, BP Cuff Size: Large Adult) Pulse 79 Temp 36.1 ?C (97 ?F) Resp 12 Ht 149.9 cm (4' 11 ) Wt 64 kg (141 lb) SpO2 98% BMI 28.48 kg/m? General Appearance: well appearing, in no acute distress, alert Pysch: mood and affect broad and appropriate Skin: Skin color, texture, turgor normal for age; Eyes: conjunctiva pink and moist, no icterus, sclera white, non-injected Neck: Thyroid normal size and symmetric without palpable nodules, Neck supple, No adenopathy Lymph nodes: No cervical lymphadenopathy and No supraclavicular lymphadenopathy Lungs: Lungs clear to auscultation. No wheezing, rhonchi, rales. Heart: RRR without murmur, gallop, or rubs. No ectopy Health maintenance reviewed with patient: Covid-19 Vaccine(1) Never done Shingrix Vaccine(1 of 2) Never done RSV Vaccine(1 - 1-dose 60+ series) Never done Advance Directive Discussion Never done Influenza Vaccine(1) due on 02/27/2023 Mammogram Screening due on 05/16/2023 DTaP,Tdap,Td Vaccine(2 - Td or Tdap) due on 06/23/2023 Colorectal Cancer Screening due on 06/24/2023 Annual PCP Team Chronic Disease Visit due on 12/11/2023 Diabetes Screening due on 06/09/2026 Lipid Screening due on 06/09/2028 Bone Density Screening Completed Depression Assessment Completed Hepatitis C Screening Completed Pneumococcal Vaccine: 65+ Completed DATA REVIEWED: Most recent labs ASSESSMENT/PLAN: 1. Osteopenia of multiple sites - ICD9: 733.90, ICD10: M85.89 (primary diagnosis) (more content not included)... [facility] 06-02-2023 Note Patient Outreach (IN [facility]) ERNESTINA WEBB ([id number]) 1950 F Date Time Provider Department 06/02/23 ASIA GIORDANO During your visit today, we recorded the following information about you: Allergies As of Date: 06/02/2023 Noted Allergy Reaction MRI DYE (CONTRAST DYE) 08/21/2009 PNEUMOCOCCAL 23-SUGEY PS VACCINE 10/30/2021 14 - Other: See Comments Comments: arm painful, felt like she going to have a heart attack Date Reviewed: 12/10/2022 Reviewed by: Treva Davila LPN - Fully Assessed Visit Diagnoses:Congestive heart failure, unspecified HF chronicity, unspecified heart failure type (HCC) [I50.9] Mixed hyperlipidemia [E78.2] Order(s):BASIC METABOLIC PNL [SQBMP] Order #: [id number] FUTURE LIPID PANEL BASIC [SQLIPB] Order #: [id number] FUTURE Prescriptions as of 06/05/2023 - potassium chloride ER (KLOR-CON M10) 10 mEq tablet Every other day. - furosemide (LASIX) 20 mg tablet Take lasix 20 mgs, every other day - alendronate (FOSAMAX) 70 mg tablet take 1 tablet by mouth every week ON AN EMPTY STOMACH WITH 6-8 OZ OF WATER. NO FOOD / MEDS FOR 30 MIN. REMAIN UPRIGHT - gabapentin (NEURONTIN) 100 mg capsule Take 1 capsule by mouth daily at bedtime. - OYSTER SHELL CALCIUM 500 500 mg calcium (1,250 mg) tablet Take 1 tablet by mouth once daily. - cholecalciferol (VITAMIN D3) 5,000 unit tab Take 5,000 Units by mouth once daily. - hydroxychloroquine (PLAQUENIL) 200 mg tablet Take 1 tablet by mouth twice daily. - OTC NUTRITIONAL SUPPLEMENT one time only. Alive, Women's 50+ Multivitamin Problem List As Of Date 06/02/2023 Noted Resolved GERD (Gastroesophageal Reflux Disease) [K21.9] 06/09/2009 Anxiety [F41.9] 06/09/2009 Anemia [D64.9] 07/30/2009 05/06/2013 Epigastric pain [R10.13] 07/30/2009 05/12/2012 Syncope [R55] 07/30/2009 05/06/2013 Arthritis [M19.90] 02/17/2011 05/06/2013 Osteoporosis [M81.0] 04/29/2012 Vitamin d deficiency [E55.9] 05/07/2012 Inflammatory polyarthropathy (HCC) [M06.4] 05/12/2012 Fibromyalgia [M79.7] 05/12/2012 [place] node [M15.1] 10/10/2015 Chronic bilateral low back pain without sciatic*03/10/2016 Osteopenia of multiple sites [M85.89] 05/11/2017 Mixed hyperlipidemia [E78.2] 03/29/2020 Lumbar spondylosis [M47.816] 12/12/2021 Sacroiliitis (HCC) [M46.1] 12/12/2021 Greater trochanteric bursitis of both hips [M70*12/12/2021 Spondylolisthesis at L5-S1 level [M43.17] 01/28/2022 Hip arthritis [M16.10] 01/28/2022 Encounter Status:Closed by MIGUEL ANGEL QUIROZ on 06/05/23 [facility] 12-15-2022 Miscellaneous Notes Noted. Kiara Mcallister APRN.CNP Patient notified, states that PCP instructed patient to stop taking Vit D at last appointment. ----- Message from Kiara Mcallister APRN.MARKETING SECRETARY sent at 12/12/2022 12:59 PM EDT ----- Lab work overall within acceptable ranges. Vit D still high. Can take 2000 units of Vit D daily verus the reported 5000 units daily. Thank you Kiara Mcallsiter APRN.MARKETING SECRETARY documented in this encounter [facility] 12-10-2022 Note HNO ID: [id number] Author: Asia Giordano MD Service: ? Author Type: Physician Type: Progress Notes Filed: 12/10/2022 11:28 AM Note Text: Medicare Yearly Visit Medical B eligibilty date 64 Date of last exam none in the past year PAST MEDICAL HISTORY Diagnosis Date Abdominal pain, epigastric Acute gastritis without mention of hemorrhage Anemia Fibromyalgia 05/12/2012 Gastritis Inflammatory polyarthropathy (HCC) 05/12/2012 PMH - PAST MEDICAL HISTORY OF hx of dehydration Syncope 07/30/2009 PAST SURGICAL HISTORY Procedure Laterality Date CHOLECYSTECTOMY Cholecystectomy COLONOSCOPY FLX DX W/COLLJ SPEC WHEN PFRMD 12/18/09 EGD TRANSORAL BIOPSY SINGLE/MULTIPLE 12/18/09 SALPINGO-OOPHORECTOMY COMPL/PRTL UNI/BI SPX ??RIGHT - IN HER 30'S ALLERGIES: Mri Dye [Contrast Dye] and Pneumococcal 23-Sugey Ps Vaccine Medications reviewed: Yes FAMILY HISTORY Problem Relation Age of Onset Cancer Mother 55 face Breast Cancer Maternal Aunt 52 Hypertension Mother Stroke Mother plaque Heart Father Diabetes Maternal Aunt with amputation Diabetes Maternal Aunt with amputation SOCIAL HISTORY: Social History Tobacco Use Smoking status: Never Smokeless tobacco: Never Vaping Use Vaping Use: Never used Substance Use Topics Alcohol use: No Drug use: No Ernestina denies regular aerobic exercise. She watches her diet for sodium, low fat and low cholesterol most of the time. List of current specialists seen: End of Live Planning discussed including patients advanced directive wishes: Yes I am willing to follow Ernestina's advanced directives. PHQ-2 / Depression screen She in the past two weeks denies having felt down, depressed, hopeless, or with little interest or pleasure in doing things. Functional Ability/Safety Screen 1. Was the patient's timed Up and Go test unsteady or longer than 30 seconds? No 2. Does the patient need help with the phone, transportation, shopping,preparing meals, housework, laundry, medications or managing money? No 3. Does your home have rugs in the hallway, lack of grab bars in the bathroom, lack of handrails on the stairs or have poor lighting? No Hearing Evaluation: within normal limits and normal PHYSICAL EXAM BP 120/60 (BP Site: Left Arm, BP Position: Sitting, BP Cuff Size: Regular Adult) Pulse 68 Temp 36.8 ?C (98.2 ?F) Resp 12 Ht 149.9 cm (4' 11 ) Wt 65.8 kg (145 lb) SpO2 100% BMI 29.29 kg/m? Alert and oriented X 3: YES Body mass index is 29.29 kg/m?. ASSESSMENT/PLAN: 72 year old female The following prevention plan was discussed during the office visit and provided to the patient: - Glaucoma screening Asia Giordano MD Health Maintenance SHINGRIX VACCINE(1 of 2) ADVANCE DIRECTIVE DISCUSSION HPI Main issues today are the Left hip and knee pain , they are worse than the right, she does have OA on both sides but the left is worse than the right. She is doing their exercises as much as possible. Sometimes she has so much stuff she does. Has been active in the garden and flower beds and needs to stretch after that. She would benefit from an injection to the SI joint if it gets worse and also to see ortho as needed. Gabapentin helps with the back and the hip pain. Reviewed her recent xrays, they Continues the lasix and bp is good, has to take potassium. Echo was showing normal heart and valves with no diastolic dysfunction. She is on plaquenil- Dr avendano. Which She needs a bone density towards the end of 2022. Usually Graciela guevaras does it for her along with the breast exam. Vit d was high so she was asked to stop taking them No problem-specific Assessment AND Plan notes found for this encounter. PAST MEDICAL HISTORY Diagnosis Date Abdominal pain, epigastric Acute gastritis without mention of hemorrhage Anemia Fibromyalgia 05/12/2012 Gastritis Inflammatory polyarthropathy (HCC) 05/12/2012 PMH - PAST MEDICAL HISTORY OF hx of dehydration Syncope 07/30/2009 PAST SURGICAL HISTORY Procedure Laterality Date CHOLECYSTECTOMY Cholecystectomy COLONOSCOPY FLX DX W/COLLJ SPEC WHEN PFRMD 12/18/09 EGD TRANSORAL BIOPSY SINGLE/MULTIPLE 12/18/09 SALPINGO-OOPHORECTOMY COMPL/PRTL UNI/BI SPX ??RIGHT - IN HER 30'S FAMILY HISTORY Problem Relation Age of Onset Cancer Mother 55 face Breast Cancer Maternal Aunt 52 Hypertension Mother Stroke Mother plaque Heart Father Diabetes Maternal Aunt with amputation Diabetes Maternal Aunt with amputation Social History Tobacco Use Smoking status: Never Smokeless tobacco: Never Vaping Use Vaping Use: Never used Substance Use Topics Alcohol use: No Drug use: No Past medical history, appointments, medications, allergies reviewed. Pertinent Lab/Diagnostic Studies are reviewed and discussed today Current Outpatient Medications: gabapentin (NEURONTIN) 100 mg capsule alendronate (FOSAMAX) 70 mg tablet OYSTER SHELL (more content not included)... [facility] 12-10-2022 History of Present illness Narrative Medicare Yearly Visit Medical B eligibilty date 64 Date of last exam none in the past year PAST MEDICAL HISTORY Diagnosis Date Abdominal pain, epigastric Acute gastritis without mention of hemorrhage Anemia Fibromyalgia 05/12/2012 Gastritis Inflammatory polyarthropathy (HCC) 05/12/2012 PMH - PAST MEDICAL HISTORY OF hx of dehydration Syncope 07/30/2009 PAST SURGICAL HISTORY Procedure Laterality Date CHOLECYSTECTOMY Cholecystectomy COLONOSCOPY FLX DX W/COLLJ SPEC WHEN PFRMD 12/18/09 EGD TRANSORAL BIOPSY SINGLE/MULTIPLE 12/18/09 SALPINGO-OOPHORECTOMY COMPL/PRTL UNI/BI SPX ??RIGHT - IN HER 30'S ALLERGIES: Mri Dye [Contrast Dye] and Pneumococcal 23-Sugey Ps Vaccine Medications reviewed: Yes FAMILY HISTORY Problem Relation Age of Onset Cancer Mother 55 face Breast Cancer Maternal Aunt 52 Hypertension Mother Stroke Mother plaque Heart Father Diabetes Maternal Aunt with amputation Diabetes Maternal Aunt with amputation SOCIAL HISTORY: Social History Tobacco Use Smoking status: Never Smokeless tobacco: Never Vaping Use Vaping Use: Never used Substance Use Topics Alcohol use: No Drug use: No Ernestina denies regular aerobic exercise. She watches her diet for sodium, low fat and low cholesterol most of the time. List of current specialists seen: End of Live Planning discussed including patients advanced directive wishes: Yes I am willing to follow Ernestina's advanced directives. PHQ-2 / Depression screen She in the past two weeks denies having felt down, depressed, hopeless, or with little interest or pleasure in doing things. Functional Ability/Safety Screen 1. Was the patient's timed Up and Go test unsteady or longer than 30 seconds? No 2. Does the patient need help with the phone, transportation, shopping,preparing meals, housework, laundry, medications or managing money? No 3. Does your home have rugs in the hallway, lack of grab bars in the bathroom, lack of handrails on the stairs or have poor lighting? No Hearing Evaluation: within normal limits and normal PHYSICAL EXAM BP 120/60 (BP Site: Left Arm, BP Position: Sitting, BP Cuff Size: Regular Adult) Pulse 68 Temp 36.8 C (98.2 F) Resp 12 Ht 149.9 cm (4' 11 ) Wt 65.8 kg (145 lb) SpO2 100% BMI 29.29 kg/m Alert and oriented X 3: YES Body mass index is 29.29 kg/m . ASSESSMENT/PLAN: 72 year old female The following prevention plan was discussed during the office visit and provided to the patient: - Glaucoma screening Asia Giordano MD Health Maintenance SHINGRIX VACCINE(1 of 2) ADVANCE DIRECTIVE DISCUSSION HPI Main issues today are the Left hip and knee pain , they are worse than the right, she does have OA on both sides but the left is worse than the right. She is doing their exercises as much as possible. Sometimes she has so much stuff she does. Has been active in the garden and flower beds and needs to stretch after that. She would benefit from an injection to the SI joint if it gets worse and also to see ortho as needed. Gabapentin helps with the back and the hip pain. Reviewed her recent xrays, they Continues the lasix and bp is good, has to take potassium. Echo was showing normal heart and valves with no diastolic dysfunction. She is on plaquenil- Dr avendano. Which She needs a bone density towards the end of 2022. Usually Graciela guevaras does it for her along with the breast exam. Vit d was high so she was asked to stop taking them No problem-specific Assessment & Plan notes found for this encounter. PAST MEDICAL HISTORY Diagnosis Date Abdominal pain, epigastric Acute gastritis without mention of hemorrhage Anemia Fibromyalgia 05/12/2012 Gastritis Inflammatory polyarthropathy (HCC) 05/12/2012 PMH - PAST MEDICAL HISTORY OF hx of dehydration Syncope 07/30/2009 PAST SURGICAL HISTORY Procedure Laterality Date CHOLECYSTECTOMY Cholecystectomy COLONOSCOPY FLX DX W/COLLJ SPEC WHEN PFRMD 12/18/09 EGD TRANSORAL BIOPSY SINGLE/MULTIPLE 12/18/09 SALPINGO-OOPHORECTOMY COMPL/PRTL UNI/BI SPX ??RIGHT - IN HER 30'S FAMILY HISTORY Problem Relation Age of Onset Cancer Mother 55 face Breast Cancer Maternal Aunt 52 Hypertension Mother Stroke Mother plaque Heart Father Diabetes Maternal Aunt with amputation Diabetes Maternal Aunt with amputation Social History Tobacco Use Smoking status: Never Smokeless tobacco: Never Vaping Use Vaping Use: Never used Substance Use Topics Alcohol use: No Drug use: No Past medical history, appointments, medications, allergies reviewed. Pertinent Lab/Diagnostic Studies are reviewed and discussed today Current Outpatient Medications: gabapentin (NEURONTIN) 100 mg capsule alendronate (FOSAMAX) 70 mg tablet OYSTER SHELL CALCIUM 500 500 mg calcium (1,250 mg) tablet furosemide (LASIX) 20 mg tablet potassium chloride ER (K-DUR, KLOR-CON) 10 mEq tablet cholecalciferol (VITAMIN D3) 5,000 unit tab hydroxychloroquine (PLAQUENIL) 200 mg tablet OTC NUTRITIONAL SUPPLEMENT Current Facility-Administered Medications: perflutren lipid microspheres 1.3 mL in NaCl (PF) 0.9% 10 mL injection (DEFINITY) sodium chloride 0.9 % (flush) 10 mL (BD POSIFLUSH) Review of Systems CONSTITUTIONAL: No fevers, chills [...] Sitting, BP Cuff Size: Regular Adult) Pulse 68 Temp 36.8 C (98.2 F) Resp 12 Ht 149.9 cm (4' 11 ) Wt 65.8 kg (145 lb) SpO2 100% BMI 29.29 kg/m General appearance: Well appearing, alert, in no [...] or cyanosis. Good capillary refill. ASSESSMENT/PLAN: 1. Medicare annual wellness visit, subsequent - ICD9: V70.0, ICD10: Z00.00 (primary diagnosis) - Counseled on healthy diet and regular exercise - Calcium intake with supplements or by diet of 1000 mg/day for under 50, 6114-5031 mg/day for 50+ 2. Inflammatory polyarthropathy (HCC) - ICD9: 714.9, ICD10: M06.4 - GABAPENTIN 100 MG CAPSULE 3. Fibromyalgia - ICD9: 729.1, ICD10: M79.7 - GABAPENTIN 100 MG CAPSULE 4. Mixed hyperlipidemia - ICD9: 272.2, ICD10: E78.2 - Controlled - Counseled on healthy diet and regular exercise 5. Chronic venous insufficiency - ICD9: 459.81, ICD10: I87.2 The lasix is working well for the patient 6. Sacroiliitis (HCC) - ICD9: 720.2, ICD10: M46.1 May need injection later if her symptoms dont improve 7. Hip arthritis - ICD9: 716.95, ICD10: M16.10 She has decrease cartilage, and calcification of what is left of her cartilage. Which is suggestive of pseudgout., she is on plaquenil, to cont 8. Age-related osteoporosis without current pathological fracture - ICD9: 733.01, ICD10: M81.0 - Reviewed the need for Calcium and Vitamin D supplements and weight bearing exercise as tolerated - VITAMIN D 25 HYDROXY 9. Leukopenia, unspecified type - ICD9: 288.50, ICD10: D72.819 - CBC + DIFF Asia Giordano MD documented in this encounter [facility] 10-06-2022 Miscellaneous Notes Patient has been identified by name and date of : No Patient phones for refill(s): Requested Prescriptions Pending Prescriptions Disp Refills alendronate (FOSAMAX) 70 mg tablet [Pharmacy Med Name: ALENDRONATE SODIUM 70 MG TAB] 4 tablet 4 Sig: take 1 tablet by mouth every week ON AN EMPTY STOMACH WITH 6-8 OZ OF WATER. NO FOOD / MEDS FOR 30 MIN. REMAIN UPRIGHT Date of last office visit in primary care: 09/03/22 Last 2 Encounter Wt Readings: Date: Wt: 09/03/2022 64.9 kg (143 lb) 06/11/2022 63.5 kg (140 lb) Previous labs/tests for medication: Not applicable Please advise. Thank you. Treva Davila LPN documented in this encounter [facility] 09-03-2022 Note HNO ID: [id number] Author: Asia Giordano MD Service: ? Author Type: Physician Type: Progress Notes Filed: 09/03/2022 1:08 PM Note Text: Reason for Visit Patient presents with: ED Follow-up: non cardiac chest pain per ER Ernestina Webb is a 72 year old female who presents here today for Above Complaints.. Health Maintenance SHINGRIX VACCINE(1 of 2) ADVANCE DIRECTIVE DISCUSSION DEPRESSION ASSESSMENT HPI Patient had been to the er 6 days ago, for pain that was in the hips that went up to the lower back and the middle of her back, she felt her back was on fire. Patient was told it was inflammatory. She had some fibro. Patient did feel a little sick in her belly and it did go away. In the er all the tests she did was negative, the ekg, the ddimer, chest xr, labs. Patient did not give her any thing for pain only tylenol,. She has not had the pain since, No pain when she takes a deep breath. Patient notes she feels ok right now except a little soreness. Patient is stressed with paper work for [employer]. No problem-specific Assessment AND Plan notes found for this encounter. PAST MEDICAL HISTORY Diagnosis Date Abdominal pain, epigastric Acute gastritis without mention of hemorrhage Anemia Fibromyalgia 05/12/2012 Gastritis Inflammatory polyarthropathy (HCC) 05/12/2012 PMH - PAST MEDICAL HISTORY OF hx of dehydration Syncope 07/30/2009 PAST SURGICAL HISTORY Procedure Laterality Date CHOLECYSTECTOMY Cholecystectomy COLONOSCOPY FLX DX W/COLLJ SPEC WHEN PFRMD 12/18/09 EGD TRANSORAL BIOPSY SINGLE/MULTIPLE 12/18/09 SALPINGO-OOPHORECTOMY COMPL/PRTL UNI/BI SPX ??RIGHT - IN HER 30'S FAMILY HISTORY Problem Relation Age of Onset Cancer Mother 55 face Breast Cancer Maternal Aunt 52 Hypertension Mother Stroke Mother plaque Heart Father Diabetes Maternal Aunt with amputation Diabetes Maternal Aunt with amputation Social History Tobacco Use Smoking status: Never Smokeless tobacco: Never Vaping Use Vaping Use: Never used Substance Use Topics Alcohol use: No Drug use: No Past medical history, appointments, medications, allergies reviewed. Pertinent Lab/Diagnostic Studies are reviewed and discussed today Current Outpatient Medications: alendronate (FOSAMAX) 70 mg tablet furosemide (LASIX) 20 mg tablet potassium chloride ER (K-DUR, KLOR-CON) 10 mEq tablet OYSTER SHELL CALCIUM 500 500 mg calcium (1,250 mg) tablet gabapentin (NEURONTIN) 100 mg capsule cholecalciferol (VITAMIN D3) 5,000 unit tab hydroxychloroquine (PLAQUENIL) 200 mg tablet OTC NUTRITIONAL SUPPLEMENT Current Facility-Administered Medications: perflutren lipid microspheres 1.3 mL in NaCl (PF) 0.9% 10 mL injection (DEFINITY) sodium chloride 0.9 % (flush) 10 mL (BD POSIFLUSH) Review of Systems CONSTITUTIONAL: No fevers, chills [...] or numbness of concern. Physical Exam BP 114/60 (BP Site: Left Arm, BP Position: Sitting, BP Cuff Size: Large Adult) Pulse 71 Temp 36.8 ?C (98.3 ?F) Resp 12 Ht 149.9 cm (4' 11 ) Wt 64.9 kg (143 lb) SpO2 99% BMI 28.88 kg/m? General appearance: Well appearing, alert, in [...] or cyanosis. Good capillary refill. ASSESSMENT/PLAN: 1. Follow-up exam - ICD9: V67.9, ICD10: Z09 (primary diagnosis) Unclear cause of symptoms. To report with any more or new symptoms 2. Inflammatory polyarthropathy (HCC) - ICD9: 714.9, ICD10: M06.4 - GABAPENTIN 100 MG CAPSULE 3. Fibromyalgia - ICD9: 729.1, ICD10: M79.7 - GABAPENTIN 100 MG CAPSULE Asia Giordano MD [facility] 09-03-2022 History of Present illness Narrative Reason for Visit Patient presents with: ED Follow-up: non cardiac chest pain per ER Ernestina Webb is a 72 year old female who presents here today for Above Complaints.. Health Maintenance SHINGRIX VACCINE(1 of 2) ADVANCE DIRECTIVE DISCUSSION DEPRESSION ASSESSMENT HPI Patient had been to the er 6 days ago, for pain that was in the hips that went up to the lower back and the middle of her back, she felt her back was on fire. Patient was told it was inflammatory. She had some fibro. Patient did feel a little sick in her belly and it did go away. In the er all the tests she did was negative, the ekg, the ddimer, chest xr, labs. Patient did not give her any thing for pain only tylenol,. She has not had the pain since, No pain when she takes a deep breath. Patient notes she feels ok right now except a little soreness. Patient is stressed with paper work for [employer]. No problem-specific Assessment & Plan notes found for this encounter. PAST MEDICAL HISTORY Diagnosis Date Abdominal pain, epigastric Acute gastritis without mention of hemorrhage Anemia Fibromyalgia 05/12/2012 Gastritis Inflammatory polyarthropathy (HCC) 05/12/2012 PMH - PAST MEDICAL HISTORY OF hx of dehydration Syncope 07/30/2009 PAST SURGICAL HISTORY Procedure Laterality Date CHOLECYSTECTOMY Cholecystectomy COLONOSCOPY FLX DX W/COLLJ SPEC WHEN PFRMD 12/18/09 EGD TRANSORAL BIOPSY SINGLE/MULTIPLE 12/18/09 SALPINGO-OOPHORECTOMY COMPL/PRTL UNI/BI SPX ??RIGHT - IN HER 30'S FAMILY HISTORY Problem Relation Age of Onset Cancer Mother 55 face Breast Cancer Maternal Aunt 52 Hypertension Mother Stroke Mother plaque Heart Father Diabetes Maternal Aunt with amputation Diabetes Maternal Aunt with amputation Social History Tobacco Use Smoking status: Never Smokeless tobacco: Never Vaping Use Vaping Use: Never used Substance Use Topics Alcohol use: No Drug use: No Past medical history, appointments, medications, allergies reviewed. Pertinent Lab/Diagnostic Studies are reviewed and discussed today Current Outpatient Medications: alendronate (FOSAMAX) 70 mg tablet furosemide (LASIX) 20 mg tablet potassium chloride ER (K-DUR, KLOR-CON) 10 mEq tablet OYSTER SHELL CALCIUM 500 500 mg calcium (1,250 mg) tablet gabapentin (NEURONTIN) 100 mg capsule cholecalciferol (VITAMIN D3) 5,000 unit tab hydroxychloroquine (PLAQUENIL) 200 mg tablet OTC NUTRITIONAL SUPPLEMENT Current Facility-Administered Medications: perflutren lipid microspheres 1.3 mL in NaCl (PF) 0.9% 10 mL injection (DEFINITY) sodium chloride 0.9 % (flush) 10 mL (BD POSIFLUSH) Review of Systems CONSTITUTIONAL: No fevers, chills [...] or numbness of concern. Physical Exam BP 114/60 (BP Site: Left Arm, BP Position: Sitting, BP Cuff Size: Large Adult) Pulse 71 Temp 36.8 C (98.3 F) Resp 12 Ht 149.9 cm (4' 11 ) Wt 64.9 kg (143 lb) SpO2 99% BMI 28.88 kg/m General appearance: Well appearing, alert, in no [...] or cyanosis. Good capillary refill. ASSESSMENT/PLAN: 1. Follow-up exam - ICD9: V67.9, ICD10: Z09 (primary diagnosis) Unclear cause of symptoms. To report with any more or new symptoms 2. Inflammatory polyarthropathy (HCC) - ICD9: 714.9, ICD10: M06.4 - GABAPENTIN 100 MG CAPSULE 3. Fibromyalgia - ICD9: 729.1, ICD10: M79.7 - GABAPENTIN 100 MG CAPSULE Asia Giordano MD documented in this encounter [facility] 07-07-2022 History of Present illness Narrative POPULATION HEALTH NAVIGATION OUTREACH Action/PRETTYI WANDA Spoke with Ernestina, colonoscopy was completed on 06-24-22 Dr.R Acosta Mammogram updated in MEDICARE WELLNESS EXAM APPT 12-10-22 COLORECTAL CANCER SCREENING DONE AT [facility] uodated ADVANCE DIRECTIVE DISCUSSION Never done MYCHART ACTIVATION DECLINED Pt identified by name and : YES, via phone Outreach Outcome/Action Spoke to patient or caregiver: No action required (information or reminder only) Did you use a PCP flex slot to schedule this appointment? N/A Reason for Outreach Care Gap or Scheduling/Wellness visits Payer: Payor: MEDICARE / Plan: MEDICARE A AND B / Product Type: Medicare / Care Gap Reviewed:: Annual Wellness visit Colorectal Cancer Screening Reminder: Reminder note to check Health Maintenance for items below Health Maintenance items due: SHINGRIX VACCINE(1 of 2) Never done COLORECTAL CANCER SCREENING due on 02/16/2021 ADVANCE DIRECTIVE DISCUSSION Never done DEPRESSION ASSESSMENT due on 06/29/2022 Navigation Signature: Melva Waters MA July 07, 2022 7:54 AM documented in this encounter [facility] 06-12-2022 Miscellaneous Notes Patient notified. ----- Message from Asia Giordano MD sent at 06/12/2022 1:38 PM EST ----- Hold the vit d for 3 months it is too high. Regards, Asia Giordano MD documented in this encounter [facility] 06-11-2022 History of Present illness Narrative Reason for Visit Patient presents with: Follow Up: 4 month follow up- discuss vitamin D Ernestina Webb is a 72 year old female who presents here today for Above Complaints.. Health Maintenance HEPATITIS C SCREENING SHINGRIX VACCINE(1 of 2) COLORECTAL CANCER SCREENING ADVANCE DIRECTIVE DISCUSSION DEPRESSION ASSESSMENT MAMMOGRAM HPI Hip arthritis and spondylolisthesis: she was in to see the ANTONIA for the back and is seeing Dr De La Cruz for eval soon has apt next year. For hips she may benefit from the shots, if Physical Therapy she is doing now does not work. Over all she notes she is at a much better place right now with the Physical Therapy and as the edema is decrased in the legs, she is feeling much much better. Having her colonoscopy, completed her pap smear and breast exam Pedal edema: with lasix she is doing much better, her bnpt was elevated, we will do an echo on her right now. She is taking lasix every other day. Her blood pressure currently is very Good. HPL: Reviewed test results with patient , takes medications regularly , does not report side effects. Conscious to avoid red meats, full fat dairy and its by products. Exercising 3 to 5 times a week. She takes the gabapentin for the fibromyalgia. She is taking fosamax weekly, has no major issues with it, takes it with a big glass of water Her ldl was mildly elevated, she has been eating more cheese, and milk. Also eats red meat regularly. Patient had been exercising on the treadmill. The 10-year ASCVD risk score (Najma PIZARRO, et al., 2019) is: 8.7% Values used to calculate the score: Age: 72 years Sex: Female Is Non- : No Diabetic: No Tobacco smoker: No Systolic Blood Pressure: 104 mmHg Is BP treated: No HDL Cholesterol: 87 mg/dL Total Cholesterol: 218 mg/dL No problem-specific Assessment & Plan notes found for this encounter. Next year we will do bone density PAST MEDICAL HISTORY Diagnosis Date Abdominal pain, epigastric Acute gastritis without mention of hemorrhage Anemia Fibromyalgia 05/12/2012 Gastritis Inflammatory polyarthropathy (HCC) 05/12/2012 PMH - PAST MEDICAL HISTORY OF hx of dehydration Syncope 07/30/2009 PAST SURGICAL HISTORY Procedure Laterality Date CHOLECYSTECTOMY Cholecystectomy COLONOSCOPY FLX DX W/COLLJ SPEC WHEN PFRMD 12/18/09 EGD TRANSORAL BIOPSY SINGLE/MULTIPLE 12/18/09 SALPINGO-OOPHORECTOMY COMPL/PRTL UNI/BI SPX ??RIGHT - IN HER 30'S FAMILY HISTORY Problem Relation Age of Onset Cancer Mother 55 face Breast Cancer Maternal Aunt 52 Hypertension Mother Stroke Mother plaque Heart Father Diabetes Maternal Aunt with amputation Diabetes Maternal Aunt with amputation Social History Tobacco Use Smoking status: Never Smokeless tobacco: Never Vaping Use Vaping Use: Never used Substance Use Topics Alcohol use: No Drug use: No Past medical history, appointments, medications, allergies reviewed. Pertinent Lab/Diagnostic Studies are reviewed and discussed today Current Outpatient Medications: alendronate (FOSAMAX) 70 mg tablet metoclopramide HCl (REGLAN) 10 mg tablet furosemide (LASIX) 20 mg tablet potassium chloride ER (K-DUR, KLOR-CON) 10 mEq tablet OYSTER SHELL CALCIUM 500 500 mg calcium (1,250 mg) tablet gabapentin (NEURONTIN) 100 mg capsule meloxicam (MOBIC) 15 mg tablet cholecalciferol (VITAMIN D3) 5,000 unit tab VITAMIN D 50,000 unit capsule hydroxychloroquine (PLAQUENIL) 200 mg tablet OTC NUTRITIONAL SUPPLEMENT CALCIUM OYSTER SHELL ORAL Current Facility-Administered Medications: perflutren lipid microspheres 1.3 mL in NaCl (PF) 0.9% 10 mL injection (DEFINITY) sodium chloride 0.9 % (flush) 10 mL (BD POSIFLUSH) Review of Systems CONSTITUTIONAL: No fevers, chills [...] or numbness of concern. Physical Exam BP 104/60 (BP Site: Right Arm, BP Position: Sitting, BP Cuff Size: Large Adult) Pulse 83 Temp 36.3 C (97.4 F) Resp 12 Ht 149.9 cm (4' 11 ) Wt 63.5 kg (140 lb) SpO2 98% BMI 28.28 kg/m General appearance: Well appearing, alert, in no [...] or cyanosis. Good capillary refill. ASSESSMENT/PLAN: 1. Pedal edema - ICD9: 782.3, ICD10: R60.0 (primary diagnosis) - BASIC METABOLIC PNL 2. Special screening examination for viral disease - ICD9: V73.99, ICD10: Z11.59 - HEP C AB IA W/CONF SCRN 3. Mixed hyperlipidemia - ICD9: 272.2, ICD10: E78.2 - good control - Continue current medication. - LIPID PANEL BASIC 4. Inflammatory polyarthropathy (HCC) - ICD9: 714.9, ICD10: M06.4 - CBC + DIFF - COMP METABOLIC PANEL 5. Fibromyalgia - ICD9: 729.1, ICD10: M79.7 The gabapentin works for her 6. Age-related osteoporosis without current pathological fracture - ICD9: 733.01, ICD10: M81.0 - Reviewed the need for Calcium and Vitamin D supplements and weight bearing exercise as tolerated - VITAMIN D 25 HYDROXY Asia Giordano MD documented in this encounter [facility] 05-19-2022 History of Present illness Narrative POPULATION HEALTH NAVIGATION OUTREACH Action/FYI lvm ANNUAL MEDICARE WELLNESS EXAM COLORECTAL CANCER SCREENING due on 02/16/2021 ADVANCE DIRECTIVE DISCUSSION Never done DEPRESSION ASSESSMENT Never done MAMMOGRAM due on 02/13/2022 INFLUENZA(1) due on 02/27/2022 Pt identified by name and : NO Outreach Outcome/Action Unable to reach patient: Left message Did you use a PCP flex slot to schedule this appointment? N/A Reason for Outreach Care Gap or Scheduling/Wellness visits Payer: Payor: MEDICARE / Plan: MEDICARE A AND B / Product Type: Medicare / Care Gap Reviewed:: Annual Wellness visit Breast Cancer screening Controlling Blood Pressure Flu vaccine Reminder: Reminder note to check Health Maintenance for items below Health Maintenance items due: HEPATITIS C SCREENING Never done SHINGRIX VACCINE(1 of 2) Never done COLORECTAL CANCER SCREENING due on 02/16/2021 ADVANCE DIRECTIVE DISCUSSION Never done DEPRESSION ASSESSMENT Never done MAMMOGRAM due on 02/13/2022 INFLUENZA(1) due on 02/27/2022 Message Sent to Practice: No Navigation Signature: Melva Waters MA May 19, 2022 2:37 PM documented in this encounter [facility] 02-14-2022 Miscellaneous Notes Patient returned call and went over results, notes from Kiara Mcallister [employer] Tour Guide with understanding. Left message for return call. ----- Message from Kiara Mcallister APRN.MARKETING SECRETARY sent at 02/14/2022 12:48 PM EDT ----- Please let patient know that lab work including kidney function and electrolyte levels were within acceptable ranges. Thank you Kiara Mcallister APRN.MARKETING SECRETARY documented in this encounter [facility] 02-13-2022 Miscellaneous Notes Refills remain at pharmacy. Pharmacy contacted and filling rx now. OYSTER SHELL CALCIUM 500 500 mg calcium (1,250 mg) tablet 90 tablet 3 07/31/2021 Sig: Take 1 tablet by mouth once daily. Patient would like this sent to [facility]. Cindy Hollis Pss documented in this encounter [facility] 02-04-2022 Miscellaneous Notes Phone call placed patient advised (see prior provider encounter) Patient verbalized understanding, agreed with plan of care, reported nausea still present, denied changes to urination, agreeable to report to Emergency Room with changes to symptoms (see 02/03/22 encounter) Zoe Hollis LPN Positive for covid quarantine for 5 days. Mask for 5 days follow up if symptoms worsen. Thank you documented in this encounter [facility] 02-03-2022 History of Present illness Narrative Phone call transferred to [facility] spoke to patients reported nausea/vomiting continued after taking Reglan one hour prior. Patients advised (see prior provider encounter, AVS advised report to local Emergency Room. Patients verbalized understanding, agreed with plan of care. Zoe Hollis LPN Subjective The history is provided by a relative and the spouse. HPI Ernestina Webb is a 71 year old female who presents today for CC of nausea, vomiting and body aches, she has been exposed to covid Symptoms include: Fever (?100.4F): No or Chills: Yes Cough: No Shortness of breath: No or Difficulty breathing: No Fatigue: Yes Muscle aches: Yes Headache: Yes New loss of smell or taste: No Sore throat: No Nasal congestion: No or Rhinorrhea: No Nausea: Yes or Vomiting: Yes Diarrhea: Yes OTC meds/remedies that patient has tried: acetaminophen. High risk category assessment Age > 60 years old Exposures: Sick contacts? Yes Family or close contacts with confirmed/probable COVID-19 in last 14 days? Yes BP 124/70 Pulse 103 Temp 36.3 C (97.4 F) Resp 16 Wt 60.8 kg (134 lb) SpO2 98% BMI 27.06 kg/m Social History Tobacco Use Smoking status: Never Smokeless tobacco: Never Vaping Use Vaping Use: Never used Substance Use Topics Alcohol use: No Drug use: No PAST MEDICAL HISTORY Diagnosis Date Abdominal pain, epigastric Acute gastritis without mention of hemorrhage Anemia Fibromyalgia 05/12/2012 Gastritis Inflammatory polyarthropathy (HCC) 05/12/2012 PMH - PAST MEDICAL HISTORY OF hx of dehydration Syncope 07/30/2009 I have confirmed and edited as necessary, the [facility] Review of Systems Constitutional: Positive for malaise/fatigue. Negative for chills and fever. HENT: Negative for congestion, ear pain, sinus pain and sore throat. Respiratory: Negative for cough, sputum production, shortness of breath and wheezing. Cardiovascular: Negative for chest pain. Gastrointestinal: Positive for abdominal pain (cramping), diarrhea, nausea and vomiting. Musculoskeletal: Positive for myalgias. Neurological: Positive for headaches. Objective Physical Exam Vitals and nursing note reviewed. Constitutional: Appearance: Normal appearance. HENT: Head: Normocephalic and atraumatic. Right Ear: Tympanic membrane, ear canal and external ear normal. Left Ear: Tympanic membrane, ear canal and external ear normal. Nose: No mucosal edema, congestion or rhinorrhea. Mouth/Throat: Pharynx: Uvula midline. No oropharyngeal exudate or posterior oropharyngeal erythema. Cardiovascular: Rate and Rhythm: Normal rate and regular rhythm. Heart sounds: Normal heart sounds. Pulmonary: Effort: Pulmonary effort is normal. Breath sounds: Normal breath sounds. Abdominal: General: Bowel sounds are normal. There is no abdominal bruit. Palpations: Abdomen is not rigid. There is no mass or pulsatile mass. Tenderness: There is no abdominal tenderness. There is no guarding or rebound. Negative signs include Mendoza's sign and McBurney's sign. Lymphadenopathy: Head: Right side of head: No submental, submandibular or tonsillar adenopathy. Left side of head: No submental, submandibular or tonsillar adenopathy. Cervical: No cervical adenopathy. Skin: General: Skin is warm and dry. Neurological: Mental Status: She is alert and oriented to person, place, and time. Psychiatric: Mood and Affect: Affect normal. Appears to be hydrated ASSESSMENT/PLAN: 1. Nausea vomiting and diarrhea - ICD9: 787.91, 787.01, ICD10: R11.2, R19.7 (primary diagnosis) Small frequent meals Reglan as needed for nausea, vomiting Unable to take zofran or phenergan due to drug drug interaction Precautions given on when to go to ED. 2. Fatigue, unspecified type - ICD9: 780.79, ICD10: R53.83 Rest, hydrate Diagnosis and treatment plan were discussed and questions were answered to the patient's satisfaction. Pt acknowledged understanding of concepts and follow up plan. Specific signs and symptoms that would indicate the need for higher level of care were discussed in detail warranting prompt ER evaluation. Kacy Padron APRN.JOSUÉ documented in this encounter [facility] 02-03-2022 Miscellaneous Notes Addended by: CLARK WILDER on: 02/03/2022 07:46 PM Modules accepted: Orders documented in this encounter [facility] 02-03-2022 Instructions Kacy Padron APRN.CNP - 02/03/2022 4:16 PM EDT Reglan as needed for nausea vomiting 4 times a day prn covid test ordered You will be notified in 24 -48 hours, results available on [facility] Home isolation until covid results are back Rest, increase water intake Tylenol as needed for fever or pain. Salt water gargles, chloraseptic spray or lozenges as needed for sore throat. Warm beverages, honey. Nasal saline spray as needed * Seek medical care immediately, call 911, go to ER if you have chest pain, difficulty breathing, shortness of breath, inability to swallow. To ER for worsening symptoms, increased pain, fevers, vomiting, decreased urine output, blood in her urine blood in her stools or dark tarry stools. documented in this encounter [facility] 02-03-2022 History of Present illness Narrative Patient notified. documented in this encounter [facility] 01-28-2022 History of Present illness Narrative Reason for Visit Patient presents with: Established Patient: 6 month follow up Ernestina Webb is a 71 year old female who presents here today for Above Complaints.. Health Maintenance HEPATITIS C SCREENING SHINGRIX VACCINE(1 of 2) COLORECTAL CANCER SCREENING ADVANCE DIRECTIVE DISCUSSION MAMMOGRAM HPI Hip arthritis and spondylolisthesis: she was in to see the [facility] for the back and is seeing Dr De La Cruz for eval soon. For hips she may benefit from the shots, if Physical Therapy she is doing now does not work. Over all she notes she is at a much better place right now with the Physical Therapy and as the edema is decrased in the legs, she is feeling much much better. Pedal edema: with lasix she is doing much better, her bnpt was elevated, we will do an echo on her right now. She is taking lasix every other day. Her blood pressure currently is very Good. HPL: Reviewed test results with patient , takes medications regularly , does not report side effects. Conscious to avoid red meats, full fat dairy and its by products. Exercising 3 to 5 times a week. She takes the gabapentin for the fibromyalgia. She is taking fosamax weekly, has no major issues with it, takes it with a big glass of water No problem-specific Assessment & Plan notes found for this encounter. PAST MEDICAL HISTORY Diagnosis Date Abdominal pain, epigastric Acute gastritis without mention of hemorrhage Anemia Fibromyalgia 05/12/2012 Gastritis Inflammatory polyarthropathy (HCC) 05/12/2012 PMH - PAST MEDICAL HISTORY OF hx of dehydration Syncope 07/30/2009 PAST SURGICAL HISTORY Procedure Laterality Date CHOLECYSTECTOMY Cholecystectomy COLONOSCOPY FLX DX W/COLLJ SPEC WHEN PFRMD 12/18/09 EGD TRANSORAL BIOPSY SINGLE/MULTIPLE 12/18/09 SALPINGO-OOPHORECTOMY COMPL/PRTL UNI/BI SPX ??RIGHT - IN HER 30'S FAMILY HISTORY Problem Relation Age of Onset Cancer Mother 55 face Breast Cancer Maternal Aunt 52 Hypertension Mother Stroke Mother plaque Heart Father Diabetes Maternal Aunt with amputation Diabetes Maternal Aunt with amputation Social History Tobacco Use Smoking status: Never Smoker Smokeless tobacco: Never Used Vaping Use Vaping Use: Never used Substance Use Topics Alcohol use: No Drug use: No Past medical history, appointments, medications, allergies reviewed. Pertinent Lab/Diagnostic Studies are reviewed and discussed today Current Outpatient Medications: alendronate (FOSAMAX) 70 mg tablet furosemide (LASIX) 20 mg tablet potassium chloride ER (K-DUR, KLOR-CON) 10 mEq tablet OYSTER SHELL CALCIUM 500 500 mg calcium (1,250 mg) tablet gabapentin (NEURONTIN) 100 mg capsule cholecalciferol (VITAMIN D-3) 5,000 unit tab hydroxychloroquine (PLAQUENIL) 200 mg tablet OTC NUTRITIONAL SUPPLEMENT meloxicam (MOBIC) 15 mg tablet VITAMIN D 50,000 unit capsule CALCIUM OYSTER SHELL ORAL Review of Systems [...] or numbness of concern. Physical Exam BP 114/64 (BP Site: Right Arm, BP Position: Sitting, BP Cuff Size: Large Adult) Pulse 71 Temp 36.4 C (97.5 F) Resp 12 Ht 149.9 cm (4' 11 ) Wt 64 kg (141 lb) SpO2 99% BMI 28.48 kg/m General appearance: Well appearing, alert, in no [...] or cyanosis. Good capillary refill. ASSESSMENT/PLAN: 1. Inflammatory polyarthropathy (HCC) - ICD9: 714.9, ICD10: M06.4 (primary diagnosis) Cont plaquenil 2. Congestive heart failure, unspecified HF chronicity, unspecified heart failure type (HCC) - ICD9: 428.0, ICD10: I50.9 Since her bnpt was elevated we are thinking of this otherwise we would not be - FUROSEMIDE 20 MG TABLET - POTASSIUM CHLORIDE ER 10 MEQ TABLET,EXTENDED RELEASE(PART/CRYST) - BASIC METABOLIC PNL 3. Fibromyalgia - ICD9: 729.1, ICD10: M79.7 Cont gabapentin 4. Spondylolisthesis at L5-S1 level - ICD9: 756.12, ICD10: M43.17 See hpi 5. Age-related osteoporosis without current pathological fracture - ICD9: 733.01, ICD10: M81.0 - Reviewed the need for Calcium and Vitamin D supplements and weight bearing exercise as tolerated 6. Hip arthritis - ICD9: 716.95, ICD10: M16.10 Much better after Physical Therapy Asia Giordano MD documented in this encounter [facility] 01-06-2022 History of Present illness Narrative Radiology Service Progress Note PATIENT NAME: Ernestina Webb DATE OF SERVICE: January 06, 2022 TIME: 9:19 AM PATIENT IDENTITY VERIFICATION COMPLETED USING TWO (2) IDENTIFIERS: Name and Date of confirmed by patient verbally. FALL SCREENING: Has the patient had 2 falls in the last year or 1 fall with injury or currently using an Ambulatory Assistive Device (Walker, Cane, Wheelchair, Crutches, etc.)? No PATIENT GENDER DATA: Female. status: : No status: NO. PATIENT RELEVANT IMPLANT DATA REVIEWED: Not Applicable RADIOLOGY DEPARTMENT: General X-ray: Exam(s) Completed: Pelvis X-Ray: Pelvis with Hip Bilateral PERIPHERAL IV DATA: Not applicable SIGNED BY: RT Rebecca(R) January 06, 2022 9:19 AM documented in this encounter [facility] 12-26-2021 History of Present illness Narrative Episode Visit Count: 2 Therapist That Will Oversee The Plan Of Care: Catracho Murillo Start of Care Date: 12/12/21 Onset Date: 06/29/03 Plan of Care Certification Date: 12/12/21 Next Certification Due Date: 01/16/22 Patient Identified by Name and Date of : Yes REHABILITATION AND SPORTS THERAPY PHYSICAL THERAPY TREATMENT NOTE ASSESSMENT: Ernestina Webb tolerated the session with some cramping in the hamstring at various times of the session. She demonstrated better form with the HEP this session. The patient will continue to benefit from ongoing skilled physical therapy to progress toward set goals. PLAN FOR NEXT VISIT: Continue to strengthen gluteals and HS SUBJECTIVE: Patient Reason for Visit: Pt states that since she has been on the medicine and exercises things have been getting better. Exercises due not cause pain but some soreness. Pain: Pain Pain Level: 0 Pain Location: Low Back/Lumbar Spine - Left;Low Back/Lumbar Spine - Right Post Treatment Pain Post Treatment Pain Location: Low Back/Lumbar Spine - Left;Low Back/Lumbar Spine - Right OBJECTIVE MEASURES WITH LEVEL OF FUNCTION: Lumbar Spine AROM Lumbar Flexion: Normal Lumbar Extension: Minimal limitation Lumbar R Side-Bend: Normal Lumbar L Side-Bend: Normal Lumbar R Rotation: Normal Lumbar L Rotation: Normal LE Flexibility Flexibility: Hamstring Flexibility R Hamstring Flexibility: WNL L Hamstring Flexibility: WNL More difficulty with RLE S/L hip abd compared to the LLE TREATMENT: Therapeutic Exercise: 1: S/L hip abd 2 x 10 each side (VC's for correct form) 2: Hooklying bridge x 10 3: Hooklying bridge x 12 reps 4: Hooklying crunch x 15 reps 5: Prone knee flexion 2# x 10 each leg 6: Prone knee flexion 3# x 10 each leg Skilled Intervention: Patient was educated in proper exercise technique and purpose for exercises. Provided written instruction for home exercise program to facilitate proper performance and compliance. Correct performance of therapeutic exercises was facilitated with verbal and visual cuing. Billing Therapeutic Exercise Treatment Minutes: 44 Total Treatment Time Minutes (timed/untimed): 44 Catracho Murillo PT documented in this encounter [facility] 12-20-2021 Miscellaneous Notes Patient has been identified by name and date of : Yes Patient phones for refill(s): Pending Prescriptions Disp Refills ALENDRONATE 70 MG TABLET 4 tablet 4 Sig: take 1 tablet by mouth every week ON AN EMPTY STOMACH WITH 6-8 OZ OF WATER. NO FOOD / MEDS FOR 30 MIN. REMAIN UPRIGHT SOHAN: Yes Date of last office visit in primary care: 10/30/21 Last 2 Encounter Wt Readings: Date: Wt: 10/30/2021 69.4 kg (153 lb) 07/31/2021 67.6 kg (149 lb) Previous labs/tests for medication: Not applicable Please advise. Thank you. Rakel Choi Ma documented in this encounter [facility] 12-12-2021 History of Present illness Narrative Episode Visit Count: 1 Therapist That Will Oversee The Plan Of Care: Catracho Murillo Start of Care Date: 12/12/21 Onset Date: 06/29/03 Plan of Care Certification Date: 12/12/21 Next Certification Due Date: 01/16/22 Patient Identified by Name and Date of : Yes REHABILITATION AND SPORTS THERAPY PHYSICAL THERAPY EVALUATION PLAN OF CARE: Assessment: Ernestina Webb presents with chief complaint of Lower back and bilat hip pain that interferes with bending (gardening) . She presents with impairments in independence in exercise, overall function and strength. Prognosis for therapy is Good due to: current objective clinical presentation . Pt demonstrates some mild L buttock pain with lumbar AROM. It is hard to determine a pattern of pain for this patient. She will benefit from skilled therapy services to meet the goals established for this plan of care as noted below. Goals for Episode of Care: created on 12/12/21 through 02/06/22 Pt will demo gluteal strength of 4+/5 or better to improve lumbopelvic stability Pt will demo Lumbar AROM that is WNL and pain-free in 8 weeks or less Pt will report overall improvement of symptoms by 70% or better in 8 weeks or less [place] in home exercise program. Patient Goals: Wants to alleviate pain Planned Interventions, Frequency, and Duration: Current Frequency: 1x every other week Duration: 4 weeks Total Number of Visits Planned: 2 Planned Treatment Interventions: Therapeutic exercise (45283);Manual therapy (42702);Self-penitentiary management ([id number]);Patient/Family/Caregiver Education PLAN FOR NEXT VISIT: Assess reaction to HEP. Progress gluteal strengthening as tolerated Patient demonstrates good understanding of plan of care and treatment. The above goals and plan of care were discussed and agreed upon by patient/family. SUBJECTIVE: Ernestina Webb is a 71 year old female seen today for Low back and hip pain bilat. Fell at [place] and that when all of this gradually kept going . Pain can travel into the calves bilat. Walking may put the pain into the legs. Pain goes up and down. Bending and getting down is painful Patient Goals: Wants to alleviate pain Functional Limitations: bending (gardening) Prior Level of Function: Independent without limitations Relevant History Preferred Language: Occitan Intake Information: Prescription present Previous Treatment: Pain meds Falls Interview: No positive findings with falls interview Red Flags Vertebral Fracture Red Flags: Female;Age >70 Vertebral Fracture Clinical Reasoning: Proceed with caution due to the above (1-2) risk factors Abdominal Aortic Aneurysm Red Flags: Age >60 Abdominal Aortic Aneurysm Clinical Reasoning: Proceed with caution Cancer Red Flags: Age >50 or <20 Cancer Clinical Reasoning: Proceed with caution Infection Clinical Reasoning: No identified risk factors. Cauda Equina Syndrome Clinical Reasoning: No identified risk factors. Red Flags - Cervical Cancer Red Flags: Age >50 or <20 Cancer Clinical Reasoning: Proceed with caution Infection Clinical Reasoning: No identified risk factors. Spine History Symptoms Location at Onset: Back Symptoms Since Onset: Improving Pain is Worse Always: Bending;Walking Pain: Pain Pain Level: 0 (10/10 at worst) Pain Location: Low Back/Lumbar Spine - Left;Low Back/Lumbar Spine - Right Post Treatment Pain Post Treatment Pain Level: No Change Post Treatment Pain Location: Low Back/Lumbar Spine - Left;Low Back/Lumbar Spine - Right PROMIS Scales T-scores: mean of general population = 50. 5 points is clinically meaningfully difference Percentiles provide an indication of how the patient's score ranks in relation to the general population. Higher percentile rankings indicate better function/quality of life. 50th percentile is the average of the general population and indicates half of respondents had a worse score. T-scores: mean of general population = 50. 5 points is clinically meaningfully difference Percentiles provide an indication of how the patient's score ranks in relation to the general population. Higher percentile rankings indicate better function/quality of life. 50th percentile is the average of the general population and indicates half of respondents had a worse score. OBJECTIVE MEASURES WITH LEVEL OF FUNCTION: Lumbar Spine AROM Lumbar Flexion: Normal Lumbar Extension: Minimal limitation Lumbar R Side-Bend: Normal;Increased pain (L buttock but very light pain) Lumbar L Side-Bend: Normal Lumbar R Rotation: Normal Lumbar L Rotation: Normal LE AROM Tested?: Yes LE AROM R LE AROM: WNL L LE AROM: WNL LE Flexibility Flexibility: Hip Flexor Flexibility R Hip Flexor Flexibility: WNL L Hip Flexor Flexibility: WNL Spine Joint Mobility Spine Joint Mobility : Lumbar/Thoracic Joint Mobility - T12: WNL Joint Mobility - L1: WNL Joint Mobility - L2: WNL Joint Mobility - L3: WNL Joint Mobility - L4: WNL Joint Mobility - L5: WNL LE Strength R Hip Extension: 3+/5 R Hip Flexion (L2): 4/5 R Hip ABduction: 3+/5 L Hip Extension: 3+/5 L Hip Flexion (L2): 4-/5 L Hip ABduction: 3+/5 Special Tests - Hip and Spine Hip and Spine Special Tests: SLR Test SLR Test: Right Negative;Left Negative Gait Gait Observation: Slight Trendelenberg on the L Education: Education Learning Preferences: Demonstration;Explanation;Perform ance;Printed Materials Barriers: None Learning/educational needs: Home exercise program;Plan of Care Education Provided: Yes, see treatment interventions for education provided Education Provided To: Patient Education Mode/Type: Demonstration;Explanation/Discuss ion;Literature/Printed Materials;Performance Response to Education/Teach Back: States/Identifies;Return Demonstration TREATMENT: PT Treatment Interventions: Therapeutic Exercise Evaluation Therapeutic Exercise: 1: Discussed therapy goals and exam findings. Discussed possible benefits from hip strengthening on current symptoms. 2: Hooklying bridge x 10 3: S/L hip abd x 10 Skilled Intervention: Patient was educated in proper exercise technique and purpose for exercises. Skilled judgment was provided in selection of appropriate interventions. Provided written instruction for home exercise program to facilitate proper performance and compliance. Correct performance of therapeutic exercises was facilitated with verbal and visual cuing. Billing * Evaluation Low Complexity: 1 Unit Therapeutic Exercise Treatment Minutes: 25 Total Treatment Time Minutes (timed/untimed): 45 Catracho Murillo PT documented in this encounter [facility] 11-28-2021 Note HNO ID: [id number] Author: Venecia Call APRN.MARKETING SECRETARY Service: ? Author Type: Nurse Practitioner Type: Progress Notes Filed: 11/28/2021 9:48 AM Note Text: [facility] [place] [facility] Today's Date: 11/28/2021 Last Visit: N/A Name: Ernestina Webb : 1950 Purpose: New Patient Evaluation Chief complaint: Low Back and Leg Pain Interval History: N/A Initial HPI: (Obtained on 11/28/2021) Ernestina Webb is a 71 year old year-old female; PMH significant for HPL, FM, GERD, Inflammatory polyarthropathy, osteopenia, anxiety and Vit D deficiency; who presents having been referred by Asia Giordano for evaluation and management of the above-mentioned chief complaint. - This has been present since 2003. The onset of symptoms was gradual onset and was without associated trauma. She does note she worked for [employer] and did have a fall in 2003 and after this she developed pain. She did have a [facility] consult, but this is not a [facility] claim. - Treatments to date include the following: Medications (See below), Chiropractic Manipulation and Home Exercise Program . - Pain Description: o Timing: constant o Character: Sharp, Aching and Dull o Primary Location: Low back o Radiation: bilateral hips and legs, numbness to her feet o Exacerbating factors: forward flexion, lifting and physical activity o Relieving factors: lying down and medications o Interferes with: physical activity o The patient reports difficulty falling asleep due to her leg pain, but states since starting the gabapentin and lasix this does help o The patient denies difficulty with bowel or bladder control, unintentional weight loss, fevers, chills, or night sweats and arm or leg weakness. 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 Current Status: INTAKE PAIN ASSESSMENT 10/30/2021 11/28/2021 Are you having pain associated with your visit today? No Yes, Provider notified Pain Scales - Verbal (Numeric Rating or Visual Analog Scale) Pain Level - 5 Pain Location - Back-Lower Description - Tightness;Aching Duration Amount of Time - - Duration Units - Years Frequency - Continuous Intervention/Comfort measure - Medication Current Pain Medications: o Opioids: None o NSAIDS: Meloxicam 15mg daily prn o Anti-depressants: None o Anti-convulsants: Gabapentin 100mg at HS o Muscle relaxants: None o Others: OTC Tylenol prn - Analgesia: adequate Current Anti-Coagulant Use: No Allergies: ALLERGIES Allergen Reactions - Mri Dye [Contrast D* - Pneumococcal 23-Sugey* Other: See Comments arm painful, felt like she going to have a heart attack Data Reviewed: - Reviewed personally on today's date 11/28/2021 Relevant Imaging: MRI Spine Report No resulted procedures found. Doppler US B/L LE 10/30/21: IMPRESSION : RIGHT SIDE - DEEP VEINS Spontaneous and respirophasic flow noted in the common femoral vein. ? LEFT SIDE - DEEP VEINS Negative for acute deep vein thrombosis. ? LEFT SIDE - SUPERFICIAL VEINS Negative for superficial thrombophlebitis in the great saphenous vein and small saphenous vein. XR LEFT Hip 10/27/18: IMPRESSION: 1. ?Possible osteitis pubis 2. ?Marked narrowing of both hip joints 3. ?Extensive and severe degenerative changes throughout the spine XR Lumbar Spine 10/27/18: Findings: Lumbar spine: Extensive degenerative changes throughout the disc spaces and posterior elements. ?Grade 1 spondylolisthesis of L4 on L5. No other fractures or dislocations are seen. Pelvis and LEFT hip: Severe narrowing of both hip joints. ?Sacroiliac joints are patent. ?Sclerotic changes in the pubic bones suggesting osteitis pubis. No fractures or dislocations are seen. Electrodiagnostic Study (EMG): None Recent labs: Creatinine Date Value Ref Range Status 05/01/2021 0.80 0.58 - 0.96 mg/dL Final @lastegfr(gfr)@ No results found for: PCGLUCOSE Pain Procedures: DATE PROCEDURE IMPROVEMENT None to date at this practice Compliance: PDMP website checked and validated. All prescriptions have been APPROPRIATELY filled. No suspicious activity was identified. 11/28/2021 by Venecia Call APRN.MARKETING SECRETARY Last Drug screen: Not Applicable appropriate. Risk Assessment: ASHLEE-7: No flowsheet data found.(0-4) minimal anxiety, (5-9) mild anxiety, (10-14) moderate anxiety, (15-21) severe anxiety PHQ-9: PHQ-9 11/28/2021 Score 3 (0-4) minimal depression, (5-9) mild depression, (10-14) moderate depression, (15-19) moderately severe depression, (20-27) severe depression Opioid Risk Tool: Family History of Substance Abuse: 0 - No Personal History of Substance Abuse: 0 - No Age between 16-45: 0 - No History of Pre-Adolescence Sexual Abuse: 0 - No Psychological Disease: 0 - No Risk Total: 0 (0-3, low risk or no risk; 4-7, moderate risk, 8+, high risk) Current Medications, Past Medical His (more content not included)... [facility] 11-28-2021 Note HNO ID: [id number] Author: Anjali Colon MA Service: ? Author Type: Inside Sales Agent Type: Progress Notes Filed: 11/28/2021 9:48 AM Note Text: Review of Systems Constitutional: Negative for activity change, chills, fever and unexpected weight change. Gastrointestinal: Negative for bowel retention or incontinence Genitourinary: Negative for difficulty urinating. Negative for bladder retention or incontinence Musculoskeletal: Positive for arthralgias, back pain, gait problem, joint swelling, myalgias, neck pain and neck stiffness. Neurological: Positive for numbness. Negative for weakness and headaches. Psychiatric/Behavioral: Positive for sleep disturbance. Negative for dysphoric mood and suicidal ideas. The patient is not nervous/anxious. [facility] 11-28-2021 Instructions Venecia Call APRN.JOSUÉ - 11/28/2021 9:37 AM EDT Activity as tolerated Use Ice and/or heat as tolerated as needed documented in this encounter [facility] 11-28-2021 History of Present illness Narrative [facility] Today's Date: 11/28/2021 Last Visit: N/A Name: Ernestina Webb : 1950 Purpose: New Patient Evaluation Chief complaint: Low Back and Leg Pain Interval History: N/A Initial HPI: (Obtained on 11/28/2021) Ernestina Webb is a 71 year old year-old female; PMH significant for HPL, FM, GERD, Inflammatory polyarthropathy, osteopenia, anxiety and Vit D deficiency; who presents having been referred by Asia Giordano, for evaluation and management of the above-mentioned chief complaint. This has been present since 2003. The onset of symptoms was gradual onset and was without associated trauma. She does note she worked for [employer] and did have a fall in 2003 and after this she developed pain. She did have a [facility] consult, but this is not a [facility] claim. Treatments to date include the following: Medications (See below), Chiropractic Manipulation and Home Exercise Program . Pain Description: o Timing: constant o Character: Sharp, Aching and Dull o Primary Location: Low back o Radiation: bilateral hips and legs, numbness to her feet o Exacerbating factors: forward flexion, lifting and physical activity o Relieving factors: lying down and medications o Interferes with: physical activity o The patient reports difficulty falling asleep due to her leg pain, but states since starting the gabapentin and lasix this does help o The patient denies difficulty with bowel or bladder control, unintentional weight loss, fevers, chills, or night sweats and arm or leg weakness. 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 Current Status: INTAKE PAIN ASSESSMENT 10/30/2021 11/28/2021 Are you having pain associated with your visit today? No Yes, Provider notified Pain Scales - Verbal (Numeric Rating or Visual Analog Scale) Pain Level - 5 Pain Location - Back-Lower Description - Tightness;Aching Duration Amount of Time - - Duration Units - Years Frequency - Continuous Intervention/Comfort measure - Medication Current Pain Medications: o Opioids: None o NSAIDS: Meloxicam 15mg daily prn o Anti-depressants: None o Anti-convulsants: Gabapentin 100mg at HS o Muscle relaxants: None o Others: OTC Tylenol prn Analgesia: adequate Current Anti-Coagulant Use: No Allergies: ALLERGIES Allergen Reactions Mri Dye [Contrast D* Pneumococcal 23-Sugey* Other: See Comments arm painful, felt like she going to have a heart attack Data Reviewed: Reviewed personally on today's date 11/28/2021 Relevant Imaging: MRI Spine Report No resulted procedures found. Doppler US B/L LE 10/30/21: IMPRESSION : RIGHT SIDE - DEEP VEINS Spontaneous and respirophasic flow noted in the common femoral vein. LEFT SIDE - DEEP VEINS Negative for acute deep vein thrombosis. LEFT SIDE - SUPERFICIAL VEINS Negative for superficial thrombophlebitis in the great saphenous vein and small saphenous vein. XR LEFT Hip 10/27/18: IMPRESSION: 1. Possible osteitis pubis 2. Marked narrowing of both hip joints 3. Extensive and severe degenerative changes throughout the spine XR Lumbar Spine 10/27/18: Findings: Lumbar spine: Extensive degenerative changes throughout the disc spaces and posterior elements. Grade 1 spondylolisthesis of L4 on L5. No other fractures or dislocations are seen. Pelvis and LEFT hip: Severe narrowing of both hip joints. Sacroiliac joints are patent. Sclerotic changes in the pubic bones suggesting osteitis pubis. No fractures or dislocations are seen. Electrodiagnostic Study (EMG): None Recent labs: Creatinine Date Value Ref Range Status 05/01/2021 0.80 0.58 - 0.96 mg/dL Final @lastegfr(gfr)@ No results found for: PCGLUCOSE Pain Procedures: DATE PROCEDURE IMPROVEMENT None to date at this practice Compliance: PDMP website checked and validated. All prescriptions have been APPROPRIATELY filled. No suspicious activity was identified. 11/28/2021 by Venecia M Bomont, HUNTER GUIDE.MARKETING SECRETARY Last Drug screen: Not Applicable appropriate. Risk Assessment: ASHLEE-7: No flowsheet data found.(0-4) minimal anxiety, (5-9) mild anxiety, (10-14) moderate anxiety, (15-21) severe anxiety PHQ-9: PHQ-9 11/28/2021 Score 3 (0-4) minimal depression, (5-9) mild depression, (10-14) moderate depression, (15-19) moderately severe depression, (20-27) severe depression Opioid Risk Tool: Family History of Substance Abuse: 0 - No Personal History of Substance Abuse: 0 - No Age between 16-45: 0 - No History of Pre-Adolescence Sexual Abuse: 0 - No Psychological Disease: 0 - No Risk Total: 0 (0-3, low risk or no risk; 4-7, moderate risk, 8+, high risk) Current Medications, Past Medical History, Past Surgical History, Family History, Social History and Review of Systems: On today's date, 11/28/2021, noted above, I have confirmed and edited as necessary, the PFSH and ROS obtained by others. Physical Exam: 11/28/21 0904 Pulse: 69 Resp: 16 SpO2: 98% Constitutional:obese HEENT: Normal Cephalic, Atraumatic, Non-icteric sclera Eyes: Conjunctiva clear. No discharge from eyes Cardiovascular: Appears well perfused Lymphatic: No visible regional lymphadenopathy Skin: No visible rashes or ecchymosis Psychiatric: Full affect, Alert, Pleasant LUMBAR MUSCULOSKELETAL/NEURO EXAM Inspection: - Symmetric without atrophy Posture: Normal intact spinal curves Gait: Antalgic, ambulates unassisted Spine Range of Motion: - Flexion: Limited with pain - Extension: Limited with pain -Rotation: Limited with pain Palpation: - Lumbar Paraspinal Tenderness: Concordant in the Bilateral lumbar paraspinals - Paraspinal Spasms: None - Facet Loading: Right-positive; Left-positive - Greater Trochanter: Concordant tenderness Bilateral Strength: LEFT RIGHT Iliopsoas (L2) 5 5 Quadriceps (L3) 5 5 Anterior Tibialis (L4): 5 5 Exten Hallucis Longus (L5) 5 5 Gastrocnemius (S1): 5 5 Muscle Tone: - Normal and symmetric Neural Tension Signs: -Straight Leg Exam Negative Bilateral lower limb(s) -Contralateral Straight Leg Raise Negative Bilateral lower limb(s) Sensation: - intact to light touch in the L2-S2 Bilateral lower limb dermatomes Reflexes: LEFT RIGHT Patellar (L4) Normal 2+ Normal 2+ Achilles (S1) Normal 2+ Normal 2+ Clonus Negative Negative Hip Range of Motion: - Decreased 25% with None pain at end range internal rotation - Decreased 25% with None pain at end range external rotation Sacroiliac Maneuvers: - SIJ tenderness: Positive Bilateral - Denver's: positive for concordant pain referred over the superior sacral sulcus - Pelvic Distraction: positive for concordant pain referred over the superior sacral sulcus - Sacral Thrust (compression): positive for concordant pain referred over the superior sacral sulcus Aaliyah's Signs: Deferred Diagnoses: (M47.816) Lumbar spondylosis (primary encounter diagnosis) (G89.29) Other chronic pain (M46.1) Sacroiliitis (HCC) (M70.61, M70.62) Greater trochanteric bursitis of both hips Impression & Plan: 71 year old female with significant past medical history for HPL, FM, GERD, Inflammatory polyarthropathy, osteopenia, anxiety and Vit D deficiency, who presents with complaint(s) of low back and leg pain. XR of the lumbar and hip from 2019 were reviewed. She has advanced degenerative changes of her hips and lumbar spine bilaterally. Grade I-II spondylolisthesis L4/5 is noted with facet hypertrophy. States she has had back since 2004, gradual worsening over time. States she is still able to care for her brother with no difficulty, she is very active at home. Patient today is primarily facet generated axial pain and SIJ pain as well. She has provocative testing of her lumbar facets, SIJ as well as her GTB bilaterally, LEFT more so then the RIGHT Ernestina Webb would benefit from the following to decrease pain, improve function and/or work participation, and improve quality of life: Interventional Procedure(s): None today Medications: Refill: Continue Gabapentin 100mg at HS and Meloxicam as needed (she typically only takes 1/2 tab prn, uses sparingly) No medications selected for refill. ASHLEE-7/PHQ-2, and ORT: 11/28/2021 Completed and reviewed, low risk Functional Restorationist: Physical Therapy (Land-based) Additional Studies: None Referrals: None Additional: We had a long conversation regarding her current symptoms and underlying pathology. She has degenerative changes noted throughout her lumbar spine with a spondylolisthesis at L4-5, facet hypertrophy, she has moderate to severe degenerative changes of bilateral hips although she has no complaints of groin pain today. She also has a component of sacroiliitis bilaterally as well as inflammation of the greater trochanteric bursa primarily on her left side. We discussed the risk versus benefits of injection therapy for management of her current pain conditions, she expresses that she is not interested in pursuing any injection therapy at this time. 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 I did note that it was okay for home exercise program these are certainly understandable concerns that she has. She notes good relief with meloxicam on a as needed basis, she typically only takes 7.5 mg and uses this very sparingly. Encourage she continue to utilize this as long as her primary care doctor is okay with this given her heart failure history. She also notes good relief with the recent addition of Lasix by her PCP as well as gabapentin at bedtime. Recommend she continue this current treatment regimen. We also discussed encouraged the importance of activity modification heat and rest therapy as needed. We reviewed the expected prognosis of her current conditions as well as realistic activity tolerances. Patient is happy and agreeable with this plan. All questions were answered and patient verbalized understanding. Depending on response to the above plan, consider: TBD Follow-up: 6-8 weeks for evaluation of response to treatment plan and optimization Attribution: In addition to reviewing the information noted above, some elements copied from my most recent clinical note(s), including the physical exam (completed in entirety today), and the impression and plan sections, have been updated where appropriate. All reflect current medical decision making from today's date. Venecia Call APRN.JOSUÉ [facility] Review of Systems Constitutional: Negative for activity change, chills, fever and unexpected weight change. Gastrointestinal: Negative for bowel retention or incontinence Genitourinary: Negative for difficulty urinating. Negative for bladder retention or incontinence Musculoskeletal: Positive for arthralgias, back pain, gait problem, joint swelling, myalgias, neck pain and neck stiffness. Neurological: Positive for numbness. Negative for weakness and headaches. Psychiatric/Behavioral: Positive for sleep disturbance. Negative for dysphoric mood and suicidal ideas. The patient is not nervous/anxious. documented in this encounter [facility] 11-04-2021 Miscellaneous Notes Patient calls and notified of provider instructions. Patient voiced understanding. Laura Martin RN Left a message for pt to call the office and ask to speak to a triage nurse. Latasha Hollis LPN Suggestion for blood work was based on her lab results. It is hard for me to explain what a proBNP T is but I think she will benefit from Lasix. She can take the Lasix and she will have to take potassium along with that and she has to take them every other day today. Pt called and is notified of providers results and instructions. Pt voices understanding. Pt reports she is willing to try Lasix please send to [facility] in [place]. Pt was also asking about blood work that came back. Please call and advise. Pt was put through to scheduling to make an appointment with Ortho. Vira Bernal RN Left message for return call, please see other TE as well as this one. ----- Message from Asia Giordano MD sent at 10/31/2021 3:13 PM EDT ----- Ernestina, Your pedal edema may get better with lasix. Regards, Asia Giordano MD documented in this encounter [facility] 10-31-2021 Miscellaneous Notes Left message for return call. Please see other TE for patient as well as this one. ----- Message from Asia Giordano MD sent at 10/31/2021 2:45 PM EDT ----- US leg is does not show any dvt Regards, Asia Giordano MD documented in this encounter [facility] 10-30-2021 History of Present illness Narrative Reason for Visit Patient presents with: Established Patient: 3 month follow up Ernestina Webb is a 71 year old female who presents here today for Above Complaints.. Health Maintenance COVID-19 VACCINE(1) HEPATITIS C SCREENING SHINGRIX VACCINE(1 of 2) DEPRESSION SCREENING COLORECTAL CANCER SCREENING ADVANCE DIRECTIVE DISCUSSION HPI Swelling in the lower legs: the swelling has been going on for a while now. In the morning they are normal and slowly during the day they get swollen, glory the more she is on her feet , the more it is swollen. Many many years ago she fell on the concrete and hurt her left buttock and posterior thigh area and since then she has more swelling and issues on the left side than the right side. She is on gabapentin. Denies having trouble breathing, or orthopnea. She also has hip, back and leg pain. xr from the past 2 years is as below: Lumbar spine: Extensive degenerative changes throughout the disc spaces and posterior elements. Grade 1 spondylolisthesis of L4 on L5. No other fractures or dislocations are seen. Pelvis and LEFT hip: Severe narrowing of both hip joints. Sacroiliac joints are patent. Sclerotic changes in the pubic bones suggesting osteitis pubis. No fractures or dislocations are seen. Sometimes her toes will get numb and she is concerned about it , she also have significant hip arthritis. bp has been high today but she has kept a log and most of her numbers are in the range of 117 to 130 No problem-specific Assessment & Plan notes found for this encounter. PAST MEDICAL HISTORY Diagnosis Date Abdominal pain, epigastric Acute gastritis without mention of hemorrhage Anemia Fibromyalgia 05/12/2012 Gastritis Inflammatory polyarthropathy (HCC) 05/12/2012 PMH - PAST MEDICAL HISTORY OF hx of dehydration Syncope 07/30/2009 PAST SURGICAL HISTORY Procedure Laterality Date CHOLECYSTECTOMY Cholecystectomy COLONOSCOPY FLX DX W/COLLJ SPEC WHEN PFRMD 12/18/09 EGD TRANSORAL BIOPSY SINGLE/MULTIPLE 12/18/09 SALPINGO-OOPHORECTOMY COMPL/PRTL UNI/BI SPX ??RIGHT - IN HER 30'S FAMILY HISTORY Problem Relation Age of Onset Cancer Mother 55 face Breast Cancer Maternal Aunt 52 Hypertension Mother Stroke Mother plaque Heart Father Diabetes Maternal Aunt with amputation Diabetes Maternal Aunt with amputation Social History Tobacco Use Smoking status: Never Smoker Smokeless tobacco: Never Used Substance Use Topics Alcohol use: No Drug use: No Past medical history, appointments, medications, allergies reviewed. Pertinent Lab/Diagnostic Studies are reviewed and discussed today Current Outpatient Medications: alendronate (FOSAMAX) 70 mg tablet OYSTER SHELL CALCIUM 500 500 mg calcium (1,250 mg) tablet gabapentin (NEURONTIN) 100 mg capsule meloxicam (MOBIC) 15 mg tablet cholecalciferol (VITAMIN D-3) 5,000 unit tab VITAMIN D 50,000 unit capsule hydroxychloroquine (PLAQUENIL) 200 mg tablet OTC NUTRITIONAL SUPPLEMENT CALCIUM OYSTER SHELL ORAL Review of Systems [...] or numbness of concern. Physical Exam BP 140/68 (BP Site: Right Arm, BP Position: Sitting, BP Cuff Size: Large Adult) Pulse 69 Temp 36.2 C (97.1 F) Resp 12 Ht 149.9 cm (4' 11 ) Wt 69.4 kg (153 lb) SpO2 100% BMI 30.90 kg/m General appearance: Well appearing, alert, in no [...] or cyanosis. Good capillary refill. ASSESSMENT/PLAN: 1. Acute on chronic diastolic congestive heart failure (HCC) - ICD9: 428.33, 428.0, ICD10: I50.33 (primary diagnosis) - NT PRO BNP 2. Pedal edema - ICD9: 782.3, ICD10: R60.0 3. Pain of left lower leg - ICD9: 729.5, ICD10: M79.662 - US LEG VEIN DVT UNL VAS LAB 4. Swelling of limb - ICD9: 729.81, ICD10: M79.89 - US LEG VEIN DVT UNL VAS LAB - CONSULT TO ORTHOPAEDICS - CONSULT TO PAIN MGT 5. Edema, unspecified type - ICD9: 782.3, ICD10: R60.9 - US LEG VEIN DVT UNL VAS LAB - CONSULT TO PAIN MGT 6. Spondylolisthesis at L4-L5 level - ICD9: 756.12, ICD10: M43.16 We discussed taking time for herself, and to prioritize herself. That she needs to attend to her body along with caring for her loved ones - CONSULT TO PAIN MGT Asia Giordano MD documented in this encounter [facility] documented as of this encounter (statuses as of 10/30/2021) [facility] History of Past illness Narrative* Problem Noted Date Resolved Date Arthritis 02/17/2011 05/06/2013 Anemia 07/30/2009 05/06/2013 Epigastric pain 07/30/2009 05/12/2012 Syncope 07/30/2009 05/06/2013 documented as of this encounter (statuses as of 11/04/2021) [address] History of Past illness Narrative* Problem Noted Date Resolved Date Arthritis 02/17/2011 05/06/2013 Anemia 07/30/2009 05/06/2013 Epigastric pain 07/30/2009 05/12/2012 Syncope 07/30/2009 05/06/2013 documented as of this encounter (statuses as of 11/28/2021) [address] History of Past illness Narrative* Problem Noted Date Resolved Date Arthritis 02/17/2011 05/06/2013 Anemia 07/30/2009 05/06/2013 Epigastric pain 07/30/2009 05/12/2012 Syncope 07/30/2009 05/06/2013 documented as of this encounter (statuses as of 12/12/2021) [address]2011 History of Past illness Narrative* Problem Noted Date Resolved Date Arthritis 02/17/2011 05/06/2013 Anemia 07/30/2009 05/06/2013 Epigastric pain 07/30/2009 05/12/2012 Syncope 07/30/2009 05/06/2013 documented as of this encounter (statuses as of 12/20/2021) [address]2011 History of Past illness Narrative* Problem Noted Date Resolved Date Arthritis 02/17/2011 05/06/2013 Anemia 07/30/2009 05/06/2013 Epigastric pain 07/30/2009 05/12/2012 Syncope 07/30/2009 05/06/2013 documented as of this encounter (statuses as of 12/26/2021) [address]2011 History of Past illness Narrative* Problem Noted Date Resolved Date Arthritis 02/17/2011 05/06/2013 Anemia 07/30/2009 05/06/2013 Epigastric pain 07/30/2009 05/12/2012 Syncope 07/30/2009 05/06/2013 documented as of this encounter (statuses as of 01/01/2022) [address]2011 History of Past illness Narrative* Problem Noted Date Resolved Date Arthritis 02/17/2011 05/06/2013 Anemia 07/30/2009 05/06/2013 Epigastric pain 07/30/2009 05/12/2012 Syncope 07/30/2009 05/06/2013 documented as of this encounter (statuses as of 01/07/2022) [address] History of Past illness Narrative* Problem Noted Date Resolved Date Arthritis 02/17/2011 05/06/2013 Anemia 07/30/2009 05/06/2013 Epigastric pain 07/30/2009 05/12/2012 Syncope 07/30/2009 05/06/2013 documented as of this encounter (statuses as of 01/28/2022) [address] History of Past illness Narrative* Problem Noted Date Resolved Date Arthritis 02/17/2011 05/06/2013 Anemia 07/30/2009 05/06/2013 Epigastric pain 07/30/2009 05/12/2012 Syncope 07/30/2009 05/06/2013 documented as of this encounter (statuses as of 02/03/2022) [place] [address] History of Past illness Narrative* Problem Noted Date Resolved Date Arthritis 02/17/2011 05/06/2013 Anemia 07/30/2009 05/06/2013 Epigastric pain 07/30/2009 05/12/2012 Syncope 07/30/2009 05/06/2013 documented as of this encounter (statuses as of 02/03/2022) [address] History of Past illness Narrative* Problem Noted Date Resolved Date Arthritis 02/17/2011 05/06/2013 Anemia 07/30/2009 05/06/2013 Epigastric pain 07/30/2009 05/12/2012 Syncope 07/30/2009 05/06/2013 documented as of this encounter (statuses as of 02/04/2022) [address] History of Past illness Narrative* Problem Noted Date Resolved Date Arthritis 02/17/2011 05/06/2013 Anemia 07/30/2009 05/06/2013 Epigastric pain 07/30/2009 05/12/2012 Syncope 07/30/2009 05/06/2013 documented as of this encounter (statuses as of 02/13/2022) [address] History of Past illness Narrative* Problem Noted Date Resolved Date Arthritis 02/17/2011 05/06/2013 Anemia 07/30/2009 05/06/2013 Epigastric pain 07/30/2009 05/12/2012 Syncope 07/30/2009 05/06/2013 documented as of this encounter (statuses as of 02/14/2022) [address] History of Past illness Narrative* Problem Noted Date Resolved Date Arthritis 02/17/2011 05/06/2013 Anemia 07/30/2009 05/06/2013 Epigastric pain 07/30/2009 05/12/2012 Syncope 07/30/2009 05/06/2013 documented as of this encounter (statuses as of 04/07/2022) [address] History of Past illness Narrative* Problem Noted Date Resolved Date Arthritis 02/17/2011 05/06/2013 Anemia 07/30/2009 05/06/2013 Epigastric pain 07/30/2009 05/12/2012 Syncope 07/30/2009 05/06/2013 documented as of this encounter (statuses as of 05/19/2022) [address] History of Past illness Narrative* Problem Noted Date Resolved Date Arthritis 02/17/2011 05/06/2013 Anemia 07/30/2009 05/06/2013 Epigastric pain 07/30/2009 05/12/2012 Syncope 07/30/2009 05/06/2013 documented as of this encounter (statuses as of 2022) [address] History of Past illness Narrative* Problem Noted Date Resolved Date Arthritis 02/17/2011 05/06/2013 Anemia 07/30/2009 05/06/2013 Epigastric pain 07/30/2009 05/12/2012 Syncope 07/30/2009 05/06/2013 documented as of this encounter (statuses as of 06/11/2022) [address] History of Past illness Narrative* Problem Noted Date Resolved Date Arthritis 02/17/2011 05/06/2013 Anemia 07/30/2009 05/06/2013 Epigastric pain 07/30/2009 05/12/2012 Syncope 07/30/2009 05/06/2013 documented as of this encounter (statuses as of 06/12/2022) [address] History of Past illness Narrative* Problem Noted Date Resolved Date Arthritis 02/17/2011 05/06/2013 Anemia 07/30/2009 05/06/2013 Epigastric pain 07/30/2009 05/12/2012 Syncope 07/30/2009 05/06/2013 documented as of this encounter (statuses as of 07/07/2022) [address] History of Past illness Narrative* Problem Noted Date Resolved Date Arthritis 02/17/2011 05/06/2013 Anemia 07/30/2009 05/06/2013 Epigastric pain 07/30/2009 05/12/2012 Syncope 07/30/2009 05/06/2013 documented as of this encounter (statuses as of 09/03/2022) [address] History of Past illness Narrative* Problem Noted Date Resolved Date Arthritis 02/17/2011 05/06/2013 Anemia 07/30/2009 05/06/2013 Epigastric pain 07/30/2009 05/12/2012 Syncope 07/30/2009 05/06/2013 documented as of this encounter (statuses as of 10/07/2022) [address] History of Past illness Narrative* Problem Noted Date Resolved Date Arthritis 02/17/2011 05/06/2013 Anemia 07/30/2009 05/06/2013 Epigastric pain 07/30/2009 05/12/2012 Syncope 07/30/2009 05/06/2013 documented as of this encounter (statuses as of 10/16/2022) [address] History of Past illness Narrative* Problem Noted Date Resolved Date Arthritis 02/17/2011 05/06/2013 Anemia 07/30/2009 05/06/2013 Epigastric pain 07/30/2009 05/12/2012 Syncope 07/30/2009 05/06/2013 documented as of this encounter (statuses as of 12/10/2022) [address] History of Past illness Narrative* Problem Noted Date Resolved Date Arthritis 02/17/2011 05/06/2013 Anemia 07/30/2009 05/06/2013 Epigastric pain 07/30/2009 05/12/2012 Syncope 07/30/2009 05/06/2013 documented as of this encounter (statuses as of 12/15/2022) [address] History of Past illness Narrative* Problem Noted Date Diagnosed Date Resolved Date Arthritis 02/17/2011 05/06/2013 Anemia 07/30/2009 05/06/2013 Epigastric pain 07/30/2009 05/12/2012 Syncope 07/30/2009 05/06/2013 documented as of this encounter (statuses as of 06/05/2023) [address] History of Past illness Narrative* Problem Noted Date Diagnosed Date Resolved Date Arthritis 02/17/2011 05/06/2013 Anemia 07/30/2009 05/06/2013 Epigastric pain 07/30/2009 05/12/2012 Syncope 07/30/2009 05/06/2013 documented as of this encounter (statuses as of 06/19/2023) [address]22-2011 History of Past illness Narrative* Problem Noted Date Diagnosed Date Resolved Date Arthritis 02/17/2011 05/06/2013 Anemia 07/30/2009 05/06/2013 Epigastric pain 07/30/2009 05/12/2012 Syncope 07/30/2009 05/06/2013 documented as of this encounter (statuses as of 08/05/2023) [address]22-2011 History of Past illness Narrative* Problem Noted Date Diagnosed Date Resolved Date Arthritis 02/17/2011 05/06/2013 Anemia 07/30/2009 05/06/2013 Epigastric pain 07/30/2009 05/12/2012 Syncope 07/30/2009 05/06/2013 documented as of this encounter (statuses as of 08/11/2023) [facility] note* Diagnosis Acute on chronic diastolic congestive heart failure (HCC)- Primary Acute on chronic diastolic heart failure Pedal edema Edema Pain of left lower leg Pain in limb Swelling of limb Edema, unspecified type Spondylolisthesis at L4-L5 level documented in this encounter [facility]* Diagnosis Congestive heart failure, unspecified HF chronicity, unspecified heart failure type (HCC)- Primary [facility]* Diagnosis Lumbar spondylosis- Primary Lumbosacral spondylosis without myelopathy Other chronic pain Sacroiliitis (HCC) Sacroiliitis, not elsewhere classified Greater trochanteric bursitis of both hips Enthesopathy of hip region [facility]* Diagnosis Lumbar spondylosis Lumbosacral spondylosis without myelopathy Sacroiliitis (HCC) Sacroiliitis, not elsewhere classified Greater trochanteric bursitis of both hips Enthesopathy of hip region [facility]* Diagnosis Osteoporosis without current pathological fracture, unspecified osteoporosis type documented in this encounter [facility] note* Diagnosis Lumbar spondylosis- Primary Lumbosacral spondylosis without myelopathy Greater trochanteric bursitis of both hips Enthesopathy of hip region Chronic bilateral low back pain without sciatica documented in this encounter [facility] note* Diagnosis Bilateral hip pain- Primary Pain in joint, pelvic region and thigh documented in this encounter [facility]* Diagnosis Bilateral hip pain Pain in joint, pelvic region and thigh [facility]* Diagnosis Inflammatory polyarthropathy (HCC)- Primary Unspecified inflammatory polyarthropathy Congestive heart failure, unspecified HF chronicity, unspecified heart failure type (HCC) Fibromyalgia Mylagia and myositis, unspecified Spondylolisthesis at L5-S1 level Congenital spondylolisthesis Age-related osteoporosis without current pathological fracture Senile osteoporosis Hip arthritis Unspecified arthropathy, pelvic region and thigh Shortness of breath documented in this encounter [facility] note* Diagnosis Congestive heart failure, unspecified HF chronicity, unspecified heart failure type (HCC) Shortness of breath [facility]* Diagnosis Nausea vomiting and diarrhea- Primary Diarrhea Fatigue, unspecified type documented [facility]* Diagnosis Encounter for screening mammogram for breast cancer documented [facility] this [facility]* Diagnosis Mixed hyperlipidemia documented [facility]* Diagnosis Pedal edema- Primary Edema Special screening examination for viral disease Special screening examination for unspecified viral disease Mixed hyperlipidemia Inflammatory polyarthropathy (HCC) Unspecified inflammatory polyarthropathy Fibromyalgia Mylagia and myositis, unspecified Age-related osteoporosis without current pathological fracture Senile osteoporosis documented in this encounter [facility]* Diagnosis Follow-up exam- Primary Unspecified follow-up examination Inflammatory polyarthropathy (HCC) Unspecified inflammatory polyarthropathy Fibromyalgia Mylagia and myositis, unspecified documented [facility] this [facility]* Diagnosis Osteoporosis without current pathological fracture, unspecified osteoporosis type documented [facility] this [facility]* Diagnosis Medicare annual wellness visit, subsequent- Primary Routine general medical examination at a health care facility Inflammatory polyarthropathy (HCC) Unspecified inflammatory polyarthropathy Fibromyalgia Mylagia and myositis, unspecified Mixed hyperlipidemia Chronic venous insufficiency Unspecified venous (peripheral) insufficiency Sacroiliitis (HCC) Sacroiliitis, not elsewhere classified Hip arthritis Unspecified arthropathy, pelvic region and thigh Age-related osteoporosis without current pathological fracture Senile osteoporosis Leukopenia, unspecified type documented in this encounter [facility] note* Diagnosis Congestive heart failure, unspecified HF chronicity, unspecified heart failure type (HCC) Mixed hyperlipidemia documented in this encounter [facility] note* Diagnosis Hypercalcemia- Primary documented in this encounter [facility] note* Diagnosis Inflammatory polyarthropathy (HCC)- Primary Unspecified inflammatory polyarthropathy Congestive heart failure, unspecified HF chronicity, unspecified heart failure type (HCC) Hypercalcemia Osteopenia of multiple sites Encounter for screening for osteoporosis Special screening for osteoporosis Asymptomatic postmenopausal status documented in this encounter [facility] note* Diagnosis Osteopenia of multiple sites Encounter for screening for osteoporosis Special screening for osteoporosis Asymptomatic postmenopausal status documented in this encounter [facility] for referral (narrative)* - Authorized Specialty Diagnoses / Procedures Referred By Contac t Referred To Contact Physical Therapy Diagnoses Lumbar spondylosis Sacroiliitis (HCC) Greater trochanteric bursitis of both hips Procedures CONSULT TO PHYSICAL THERAPY Venecia Call, HUNTER GUIDE.MARKETING SECRETARY [address] [place] [address] Referral ID Status Reason Start Date Expiration Date V isits Requested Visits Authorized [id number] Authorized 11/28/2021 02/26/2022 99 99 [facility] for referral (narrative)* Diagnostic Procedure Only (Routine) - Pending Review Specialty Diagnoses / Procedures Referred By Contac t Referred To Contact XR IMAGING Diagnoses Bilateral hip pain Procedures XR HIP GENERAL 3V PELV/AP/LAT RIGHT RADEX HIP UNILATERAL WITH PELVIS 2-3 VIEWS Chio Adler PA-C [address] [place] [address] Xr Imaging Referral ID Status Reason Start Date Expiration Date Visits Requested Visits Authorized [id number] Pending Review Auto-Generat ed Referral 01/01/2022 01/31/2023 1 1 * Diagnostic Procedure Only (Routine) - Pending Review Specialty Diagnoses / Procedures Referred By Contac t Referred To Contact XR IMAGING Diagnoses Bilateral hip pain Procedures XR HIP GENERAL 3V PELV/AP/LAT LEFT RADEX HIP UNILATERAL WITH PELVIS 2-3 VIEWS Chio Adler PA-C [address] [place] [address] Xr Imaging Referral ID Status Reason Start Date Expiration Date Visits Requested Visits Authorized [id number] Pending Review Auto-Generat ed Referral 01/01/2022 01/31/2023 1 1 [facility] for referral (narrative)* Diagnostic Procedure Only (Routine) - Closed Specialty Diagnoses / Procedures Referred By Contac t Referred To Contact XR IMAGING Diagnoses Bilateral hip pain Procedures XR HIP GENERAL 3V PELV/AP/LAT RIGHT RADEX HIP UNILATERAL WITH PELVIS 2-3 VIEWS Chio Adler PA-C [address] [place] [address] Xr Imaging Referral ID Status Reason Start Date Expiration Date V isits Requested Visits Authorized [id number] Closed Auto-Generate d Referral 01/01/2022 01/31/2023 1 1 * Diagnostic Procedure Only (Routine) - Closed Specialty Diagnoses / Procedures Referred By Contac t Referred To Contact XR IMAGING Diagnoses Bilateral hip pain Procedures XR HIP GENERAL 3V PELV/AP/LAT LEFT RADEX HIP UNILATERAL WITH PELVIS 2-3 VIEWS Chio Adler PA-C [address] [place] [address] Xr Imaging Referral ID Status Reason Start Date Expiration Date V isits Requested Visits Authorized [id number] Closed Auto-Generate d Referral 01/01/2022 01/31/2023 1 1 [facility] for referral (narrative)* Outpatient Procedure (Routine) - Authorized Specialty Diagnoses / Procedures Referred By Won mares Referred To Contact [facility] Diagnoses Congestive heart failure, unspecified HF chronicity, unspecified heart failure type (HCC) Shortness of breath Procedures ECHO ECHO TTHRC R-T 2D W/WOM-MODE COMPL SPEC&COLR D Asia Giordano MD [address] [place] [address] [facility] [place] [address] [place] [address] Referral ID Status Reason Start Date Expiration Date Visits Requested Visits Authorized [id number] Authorized Auto-Generat ed Referral 01/28/2022 01/28/2023 1 1 [facility] for referral (narrative)* Diagnostic Procedure Only (Routine) - Pending Review Specialty Diagnoses / Procedures Referred By Won mares Referred To Contact BR IMAGING Diagnoses Encounter for screening mammogram for breast cancer Procedures VLADIMIR SCREENING SCREENING MAMMOGRAPHY BI 2-VIEW BREAST INC CAD Asia Giordano MD [address] [place] [address] [facility] [address] [place] [id number] Referral ID Status Reason Start Date Expiration Date Visits Requested Visits Authorized [id number] Pending Review Auto-Generat ed Referral 04/02/2022 05/02/2023 1 1 [facility] for visit Narrative* Diagnostic Procedure Only (Routine) - Closed Specialty Diagnoses / Procedures Referred By Won mares Referred To Contact XR IMAGING Diagnoses Bilateral hip pain Procedures XR HIP GENERAL 3V PELV/AP/LAT RIGHT RADEX HIP UNILATERAL WITH PELVIS 2-3 VIEWS Chio Adler PA-C [address] [place] [address] Xr Imaging Referral ID Status Reason Start Date Expiration Date V isits Requested Visits Authorized [id number] Closed Auto-Generate d Referral 01/01/2022 01/31/2023 1 1 [facility] Out[facility] Procedure (Routine) - Closed Specialty Diagnoses / Procedures Referred By Contac t Referred To Contact [facility] Diagnoses Congestive heart failure, unspecified HF chronicity, unspecified heart failure type (HCC) Shortness of breath Procedures ECHO ECHO TTHRC R-T 2D W/WOM-MODE COMPL SPEC&COLR D Asia Giordano MD [address] [place] [id number] [facility] [address] [address] Referral ID Status Reason Start Date Expiration Date V isits Requested Visits Authorized [id number] Closed Auto-Generate d Referral 01/28/2022 01/28/2023 1 1 [facility] Reason for Referral Specialty Diagnoses / Procedures Referred By Contac t Referred To Contact Pain Management Diagnoses Swelling of limb Edema, unspecified type Spondylolisthesis at L4-L5 level Procedures CONSULT TO PAIN MGT OFFICE/OUTPATIENT [facility] 60-74 MINUTES Asia Giordano MD [address] [place] [id number] Referral ID Status Reason Start Date Expiration Date Visits Requested Visits Authorized [id number] Authorized PCP Requested Referral 10/30/2021 01/28/2022 1 1 Specialty Diagnoses / Procedures Referred By Contac t Referred To Contact Orthopedics Diagnoses Swelling of limb Procedures CONSULT TO ORTHOPAEDICS OFFICE/OUTPATIENT [facility] MDM 60-74 MINUTES Asia Giordano MD [address] [place] [id number] Referral ID Status Reason Start Date Expiration Date Visits Requested Visits Authorized [id number] Authorized PCP Requested Referral 10/30/2021 10/30/2022 1 1 Specialty Diagnoses / Procedures Referred By Contac t Referred To Contact HEART [facility] [place] Diagnoses Pain of left lower leg Swelling of limb Edema, unspecified type Procedures US LEG VEIN DVT UNL VAS LAB DUP-SCAN XTR VEINS UNILATERAL/LIMITED STUDY Asia Giordano MD [address] [place] [id number] [facility] [place] [address] [place] [address] Referral ID Status Reason Start Date Expiration Date V isits Requested Visits Authorized [id number] Closed Auto-Generate d Referral 10/30/2021 10/30/2022 1 1 Summary Purpose Family History No Family History Records FoundNo Family History Records Found Advance Directives No Advanced Directives Records FoundNo Advanced Directives Records Found Health Concerns Infection Onset Date Last Indicated Resolved Time COVID-19 Rule-Out 02/03/2022 02/03/2022 Infection Onset Date Last Indicated Resolved Time COVID-19 Rule-Out 02/03/2022 02/03/2022 02/04/2022 6:12 AM EDT COVID-19 Confirmed 02/03/2022 02/03/2022 Infection Onset Date Last Indicated Resolved Time COVID-19 Confirmed 02/03/2022 02/03/2022 Infection Onset Date Last Indicated Resolved Time COVID-19 Rule-Out 02/03/2022 02/03/2022 02/04/2022 6:12 AM EDT COVID-19 Confirmed 02/03/2022 02/03/2022 8:53 PM EDT Additional Source Comments Source Comments (unrecognize d section and content) In the event this informatio n is protected by the Federal Confidentiality of Alcohol and Drug Abuse Patient Records regulations: The Federal rules restrict any use of the information to criminally investigate or prosecute any alcohol or drug abuse patient.[facility] event this information is protected by the Federal Confidentiality of Alcohol and Drug Abuse Patient Records regulations: The Federal rules restrict any use of the information to criminally investigate or prosecute any alcohol or drug abuse patient.[facility] the event this information is protected by the Federal Confidentiality of Alcohol and Drug Abuse Patient Records regulations: The Federal rules restrict any use of the information to criminally investigate or prosecute any alcohol or drug abuse patient.[facility] the event this information is protected by the Federal Confidentiality of Alcohol and Drug Abuse Patient Records regulations: The Federal rules restrict any use of the information to criminally investigate or prosecute any alcohol or drug abuse patient.[facility] the event this information is protected by the Federal Confidentiality of Alcohol and Drug Abuse Patient Records regulations: The Federal rules restrict any use of the information to criminally investigate or prosecute any alcohol or drug abuse patient.[facility] the event this information is protected by the Federal Confidentiality of Alcohol and Drug Abuse Patient Records regulations: The Federal rules restrict any use of the information to criminally investigate or prosecute any alcohol or drug abuse patient.[facility] the event this information is protected by the Federal Confidentiality of Alcohol and Drug Abuse Patient Records regulations: The Federal rules restrict any use of the information to criminally investigate or prosecute any alcohol or drug abuse patient.[facility] the event this information is protected by the Federal Confidentiality of Alcohol and Drug Abuse Patient Records regulations: The Federal rules restrict any use of the information to criminally investigate or prosecute any alcohol or drug abuse patient.[facility] the event this information is protected by the Federal Confidentiality of Alcohol and Drug Abuse Patient Records regulations: The Federal rules restrict any use of the information to criminally investigate or prosecute any alcohol or drug abuse patient.[facility] the event this information is protected by the Federal Confidentiality of Alcohol and Drug Abuse Patient Records regulations: The Federal rules restrict any use of the information to criminally investigate or prosecute any alcohol or drug abuse patient.[facility] the event this information is protected by the Federal Confidentiality of Alcohol and Drug Abuse Patient Records regulations: The Federal rules restrict any use of the information to criminally investigate or prosecute any alcohol or drug abuse patient.[facility] the event this information is protected by the Federal Confidentiality of Alcohol and Drug Abuse Patient Records regulations: The Federal rules restrict any use of the information to criminally investigate or prosecute any alcohol or drug abuse patient.[facility] the event this information is protected by the Federal Confidentiality of Alcohol and Drug Abuse Patient Records regulations: The Federal rules restrict any use of the information to criminally investigate or prosecute any alcohol or drug abuse patient.[facility] the event this information is protected by the Federal Confidentiality of Alcohol and Drug Abuse Patient Records regulations: The Federal rules restrict any use of the information to criminally investigate or prosecute any alcohol or drug abuse patient.[facility] the event this information is protected by the Federal Confidentiality of Alcohol and Drug Abuse Patient Records regulations: The Federal rules restrict any use of the information to criminally investigate or prosecute any alcohol or drug abuse patient.[facility] the event this information is protected by the Federal Confidentiality of Alcohol and Drug Abuse Patient Records regulations: The Federal rules restrict any use of the information to criminally investigate or prosecute any alcohol or drug abuse patient.[facility] the event this information is protected by the Federal Confidentiality of Alcohol and Drug Abuse Patient Records regulations: The Federal rules restrict any use of the information to criminally investigate or prosecute any alcohol or drug abuse patient.[facility] the event this information is protected by the Federal Confidentiality of Alcohol and Drug Abuse Patient Records regulations: The Federal rules restrict any use of the information to criminally investigate or prosecute any alcohol or drug abuse patient.[facility] the event this information is protected by the Federal Confidentiality of Alcohol and Drug Abuse Patient Records regulations: The Federal rules restrict any use of the information to criminally investigate or prosecute any alcohol or drug abuse patient.[facility] the event this information is protected by the Federal Confidentiality of Alcohol and Drug Abuse Patient Records regulations: The Federal rules restrict any use of the information to criminally investigate or prosecute any alcohol or drug abuse patient.[facility] the event this information is protected by the Federal Confidentiality of Alcohol and Drug Abuse Patient Records regulations: The Federal rules restrict any use of the information to criminally investigate or prosecute any alcohol or drug abuse patient.[facility] the event this information is protected by the Federal Confidentiality of Alcohol and Drug Abuse Patient Records regulations: The Federal rules restrict any use of the information to criminally investigate or prosecute any alcohol or drug abuse patient.[facility] Hospital[facility] the event this information is protected by the Federal Confidentiality of Alcohol and Drug Abuse Patient Records regulations: The Federal rules restrict any use of the information to criminally investigate or prosecute any alcohol or drug abuse patient.[facility] the event this information is protected by the Federal Confidentiality of Alcohol and Drug Abuse Patient Records regulations: The Federal rules restrict any use of the information to criminally investigate or prosecute any alcohol or drug abuse patient.[facility] the event this information is protected by the Federal Confidentiality of Alcohol and Drug Abuse Patient Records regulations: The Federal rules restrict any use of the information to criminally investigate or prosecute any alcohol or drug abuse patient.[facility] Hospital[facility] the event this information is protected by the Federal Confidentiality of Alcohol and Drug Abuse Patient Records regulations: The Federal rules restrict any use of the information to criminally investigate or prosecute any alcohol or drug abuse patient.[facility] Hospital[facility] the event this information is protected by the Federal Confidentiality of Alcohol and Drug Abuse Patient Records regulations: The Federal rules restrict any use of the information to criminally investigate or prosecute any alcohol or drug abuse patient.[facility] Hospital[facility] the event this information is protected by the Federal Confidentiality of Alcohol and Drug Abuse Patient Records regulations: The Federal rules restrict any use of the information to criminally investigate or prosecute any alcohol or drug abuse patient.[facility] HospitalIn the event this information is protected by the Federal Confidentiality of Alcohol and Drug Abuse Patient Records regulations: The Federal rules restrict any use of the information to criminally investigate or prosecute any alcohol or drug abuse patient.[facility] Reason for Visit (unrecogniz ed section and content) Specialty Diagnoses / Procedures Referred By Won mares Referred To Contact Physical Therapy Diagnoses Lumbar spondylosis Sacroiliitis (HCC) Greater trochanteric bursitis of both hips Procedures CONSULT TO PHYSICAL THERAPY Venecia Call, ANTONIA.MARKETING SECRETARY [address] [place] [address] Referral ID Status Reason Start Date Expiration Date V isits Requested Visits Authorized [id number] Authorized 11/28/2021 02/26/2022 99 99 Reason Comments Established Patient 3 month follow up Reason Comments Results Reason Comments New Patient Evaluation Reason Comments PT Eval Reason Comments Refill Request Reason Comments Established Patient 6 month follow up Reason Comments Nausea & Vomiting Pt reported +Covid e xposure, c/o fever, fatigue, N/V, fatigue Reason Onset Date Comments Population Health Navigation Outreach 05/19/2022 [facility] Reason Comments Follow Up 4 month follow up- d iscuss vitamin D Reason Onset Date Comments Population Health Navigation Outreach 07/07/2022 [facility] Reason Comments ED Follow-up non cardiac chest pa in per ER Reason Comments Medicare Wellness Exam Reason Comments Recheck 3 month follow up Care Teams (unrecognized sec tion and content) Acds Block 1 Operator Relationship Specialty Start Date End Date Asia Giordano MD [address] [place], [place] [address] PCP - General Internal Medicine 08/11/16 [place] [address] Chiropractor 03/04/16 Suzi Merino Rheumatology 03/04/16 [employer] 1 Operator Relationship Specialty Start Date End Date Asia Giordano MD [address] [place], [place] [id number] PCP - General Internal Medicine 08/11/16 [place] [address] Chiropractor 03/04/16 Suzi Merino L Rheumatology 03/04/16 [employer] 1 Operator Relationship Specialty Start Date End Date Asia Giordano MD [address] [place] [address] PCP - General Internal Medicine 08/11/16 [place] [address] Chiropractor 03/04/16 Celia Merinoma L Rheumatology 03/04/16 [employer] 1 Operator Relationship Specialty Start Date End Date Asia Giordano MD [address] [place] [address] PCP - General Internal Medicine 08/11/16 [place] [phone] Chiropractor 03/04/16 Celia Merinoma L Rheumatology 03/04/16 [employer] 1 Operator Relationship Specialty Start Date End Date Asia Giordano MD [address] [place] [address] PCP - General Internal Medicine 08/11/16 [place] [phone] Chiropractor 03/04/16 Celia Merinoma L Rheumatology 03/04/16 [employer] 1 Operator Relationship Specialty Start Date End Date Asia Giordano MD [address] [place] [address] PCP - General Internal Medicine 08/11/16 [place] [phone] Chiropractor 03/04/16 Wilber Suzi L Rheumatology 03/04/16 [employer] 1 Operator Relationship Specialty Start Date End Date Asia Giordano MD [address] [place] [address] PCP - General Internal Medicine 08/11/16 [place] [phone] Chiropractor 03/04/16 Wilber, Suzi L Rheumatology 03/04/16 [employer] 1 Operator Relationship Specialty Start Date End Date Asia Giordano MD [address] [place] [address] PCP - General Internal Medicine 08/11/16 [place] [phone] Chiropractor 03/04/16 Wilber Suzi L Rheumatology 03/04/16 [employer] 1 Operator Relationship Specialty Start Date End Date Asia Giordano MD [address] [place] [address] PCP - General Internal Medicine 08/11/16 [place] [phone] Chiropractor 03/04/16 Suzi Merino Rheumatology 03/04/16 [employer] 1 Operator Relationship Specialty Start Date End Date Asia Giordano MD [address] [place] [address] PCP - General Internal Medicine 08/11/16 [place] [phone] Chiropractor 03/04/16 Suzi Merino Rheumatology 03/04/16 [employer] 1 Operator Relationship Specialty Start Date End Date Asia Giordano MD [address] [place] [address] PCP - General Internal Medicine 08/11/16 [address] [place] [phone] Chiropractor 03/04/16 Suzi Merino Rheumatology 03/04/16 [employer] 1 Operator Relationship Specialty Start Date End Date Asia Giordano MD [address] [place] [address] PCP - General Internal Medicine 08/11/16 [place] [phone] Chiropractor 03/04/16 Suzi Merino [address] [place] [phone] Rheumatology 03/04/16 [employer] 1 Operator Relationship Specialty Start Date End Date Asia Giordano MD [address] [place] [address] PCP - General Internal Medicine 08/11/16 [place], [place] [phone] Chiropractor 03/04/16 Celia Merinoma L [address] [place] [address] Rheumatology 03/04/16 [employer] 1 Operator Relationship Specialty Start Date End Date Asia Giordano MD [address] [place] [address] PCP - General Internal Medicine 08/11/16 [place], Bladimir Xavier [address] [place] [phone] Chiropractor 03/04/16 Celia Merionma L [address] [place] [phone] Rheumatology 03/04/16 [employer] 1 Operator Relationship Specialty Start Date End Date Asia Giordano MD [address] [place] [address] PCP - General Internal Medicine 08/11/16 [place] [phone] Chiropractor 03/04/16 Celia Merinoma L [address] [place] [address] Rheumatology 03/04/16 [employer] 1 Operator Relationship Specialty Start Date End Date Asia Giordano MD [address] [place] [address] PCP - General Internal Medicine 08/11/16 [place], [place] [phone] Chiropractor 03/04/16 Suzi Merino L [address] [place] [address] Rheumatology 03/04/16 [employer] 1 Operator Relationship Specialty Start Date End Date Asia Giordano MD [address] [place] [address] PCP - General Internal Medicine 08/11/16 [place] [phone] Chiropractor 03/04/16 Suzi Merino L [address] [place] [address] Rheumatology 03/04/16 [employer] 1 Operator Relationship Specialty Start Date End Date Asia Giordano MD [address] [place] [address] PCP - General Internal Medicine 08/11/[address] [place] [phone] Chiropractor 03/04/16 Suzi Merino [address] [place] [address] Rheumatology 03/04/16 Ac[employer] 1 Operator Relationship Specialty Start Date End Date Asia Giordano MD [address] [place] [address] PCP - General Internal Medicine 08/11/[address] [place] [phone] Chiropractor 03/04/16 Suzi Merino [address] [place] [phone] Rheumatology 03/04/16 [employer] 1 Operator Relationship Specialty Start Date End Date Asia Giordano MD [address] [place] [address] PCP - General Internal Medicine 08/11/16 Bladimir Wilkins [address] [place] [phone] Chiropractor 03/04/16 Suzi Merino [address] [place] [phone] Rheumatology 03/04/16 [employer] 1 Operator Relationship Specialty Start Date End Date Asia Giordano MD [address] [place], [place] [id number] PCP - General Internal Medicine 08/11/16 Bladimir Wilkins [address] [place] [phone] Chiropractor 03/04/16 Suzi Merino [address] [place] [phone] Rheumatology 03/04/16 [employer] 1 Operator Relationship Specialty Start Date End Date Asia Giordano MD [address] [place] [address] PCP - General Internal Medicine 08/11/16 Bladimir Wilkins [address] [place] [phone] Chiropractor 03/04/16 Suzi Merino [address] [place] [phone] Rheumatology 03/04/16 [employer] 1 Operator Relationship Specialty Start Date End Date Asia Giordano MD [address] [place] [address] PCP - General Internal Medicine 08/11/16 Bladimir Wilkins [address] [place] [phone] Chiropractor 03/04/16 Suzi Merino [address] [place] [phone] Rheumatology 03/04/16 [employer] 1 Operator Relationship Specialty Start Date End Date Asia Giordano MD [address] [place] [address] PCP - General Internal Medicine 08/11/16 Bladimir Wilkins [address] [place] [phone] Chiropractor 03/04/16 Suzi Merino [address] [place] [phone] Rheumatology 03/04/16 INFORMATION SOURCE (unrecogn ized section and content) DATE CREATED AUTHOR AUTHOR'S ORGANIZ ATION 08/10/2023 [facility] FOR RECORDS PERTAINING TO PATIENTS WHO ARE OR HAVE BEEN ENROLLED IN A CHEMICAL DEPENDENCY/SUBSTANCEABUSE PROGRAM, SOME INFORMATION MAY BE OMITTED. This clinical summary was aggregated from multiple sources. Caution should be exercised in using it in the provision of clinical care. This summary normalizes information from multiple sources, and as a consequence, information in this document may materially change the coding, format and clinical context of patient data. In addition, data may be omitted in some cases. CLINICAL DECISIONS SHOULD BE BASED ON THE PRIMARY CLINICAL RECORDS. [facility] provides no warranty or guarantee of the accuracy or completeness of information in this document.
[2023-08-11 10:17] LABS: Absolute Lymphocyte Count 1.26 X10^3/uL (0.83-4.51); Absolute Neutrophil Count 2.7 X10^3/uL (2.0-7.7); Eosinophils% 2.3 % (0-5); Hemoglobin 11.6 g/dL (12.0-15.0); Lymphocyte # 1.26 X10^3/ul (0.83-4.51); Lymphocyte % 28.6 % (19-41); Mean Corp Hgb Conc 32.2 g/dL (32-36); Mean Corpuscular Hgb 31.9 pg (27.0-32.0); Mean Corpuscular Volume 98.9 fL (81-99); Mean Platelet Vol. 10.2 fl (6.2-12.0); Monocyte# 0.36 X10^3/uL; Monocyte% 8.2 % (0-10); NRBC Flagged by Analyzer 0 % (0-5); Neutrophil # 2.67 X10^3/uL (2.7-7.7); Neutrophil % 60.7 % (47-70); Platelet Count 276 K/mm3 (150-450); RBC Distribution Width CV 12.7 % (11.6-14.6); RBC Distribution Width SD 45.9 fl (35.1-43.9); Red Blood Count 3.64 M/mm3 (4.2-5.4); White Blood Count 4.4 K/mm3 (4.4-11.0)
[2023-08-11 10:44] LABS: ALB/GLOB Ratio 1.1 RATIO (0.9-2.4); AST(SGOT) 30 U/L (15-37); Alanine Aminotransfer ALT/SGPT 34 U/L (13-56); Albumin, Serum 3.6 g/dL (3.2-5.0); Alkaline Phosphatase 73 U/L (45-117); Anion Gap 7 (5-15); BUN 14 mg/dL (7-18); BUN/Creat Ratio 17.1 RATIO (10-20); Calcium,Total 9.5 mg/dL (8.5-10.1); Chloride 108 mmol/L (98-107); Creatinine, Serum 0.82 mg/dL (0.55-1.02); EST Glomerular Filtration Rate 73 mL/min (>60); Est Glom Filt Rate - Afr Amer 88 mL/min (>60); Globulin 3.3 g/dL (2.2-4.2); Glucose 89 mg/dL (74-106); Potassium 3.7 mmol/L (3.5-5.1); Protein, Total 6.9 g/dL (6.4-8.2); Sodium Level 141 mmol/L (136-145)
== END | disposition home or self-care (01) ==
LOC: MTLAB 07:07
PROVIDERS: PCP Internal Medicine; Referring Provider Internal Medicine Rheumatology; Visit Provider Internal Medicine Rheumatology
DX: M06.4 Inflammatory polyarthropathy (principal); M79.7 Fibromyalgia
CPT/HCPCS: 36415; 80053; 85025

== ENCOUNTER → 2024-02-01 | Outpatient (CLI) | payer MEDICARE, OTHER, SELFPAY ==
[2024-02-01 10:04] LABS: Absolute Lymphocyte Count 1.46 X10^3/uL (0.83-4.51); Absolute Neutrophil Count 2.1 X10^3/uL (2.0-7.7); Basophil# 0.01 X10^3/uL; Basophil% 0.2 % (0-1); Eosinophil# 0.14 X10^3/uL; Eosinophils% 3.4 % (0-5); Hematocrit 36.5 % (37-47); Hemoglobin 11.6 g/dL (12.0-15.0); Lymphocyte # 1.46 X10^3/ul (0.83-4.51); Lymphocyte % 35.5 % (19-41); Mean Corp Hgb Conc 31.8 g/dL (32-36); Mean Corpuscular Hgb 29.9 pg (27.0-32.0); Mean Corpuscular Volume 94.1 fL (81-99); Mean Platelet Vol. 9.8 fl (6.2-12.0); Monocyte# 0.38 X10^3/uL; Monocyte% 9.2 % (0-10); NRBC Flagged by Analyzer 0 % (0-5); Neutrophil # 2.11 X10^3/uL (2.7-7.7); Neutrophil % 51.5 % (47-70); Platelet Count 281 K/mm3 (150-450); RBC Distribution Width CV 12.7 % (11.6-14.6); RBC Distribution Width SD 44.1 fl (35.1-43.9); Red Blood Count 3.88 M/mm3 (4.2-5.4); White Blood Count 4.1 K/mm3 (4.4-11.0)
[2024-02-01 10:17] LABS: AST(SGOT) 31 U/L (15-37); Alanine Aminotransfer ALT/SGPT 27 U/L (13-56); Albumin, Serum 3.5 g/dL (3.2-5.0); Alkaline Phosphatase 74 U/L (45-117); Anion Gap 8 (5-15); BUN 13 mg/dL (7-18); BUN/Creat Ratio 13.9 RATIO (10-20); Calcium,Total 9.2 mg/dL (8.5-10.1); Chloride 106 mmol/L (98-107); Creatinine, Serum 0.93 mg/dL (0.55-1.02); EST Glomerular Filtration Rate 62 mL/min (>60); Est Glom Filt Rate - Afr Amer 75 mL/min (>60); Globulin 3.6 g/dL (2.2-4.2); Glucose 85 mg/dL (74-106); Potassium 3.6 mmol/L (3.5-5.1); Protein, Total 7.1 g/dL (6.4-8.2); Sodium Level 141 mmol/L (136-145)
== END | disposition home or self-care (01) ==
LOC: MTLAB 07:05
PROVIDERS: PCP Nurse Practitioner; Referring Provider Internal Medicine Rheumatology; Visit Provider Internal Medicine Rheumatology
DX: M06.4 Inflammatory polyarthropathy (principal); M79.7 Fibromyalgia
CPT/HCPCS: 36415; 80053; 85025

== ENCOUNTER → 2024-07-26 | Outpatient (CLI) | payer MEDICARE, OTHER, SELFPAY ==
[2024-07-26 10:09] LABS: Absolute Lymphocyte Count 1.43 X10^3/uL (0.83-4.51); Absolute Neutrophil Count 2.4 X10^3/uL (2.0-7.7); Basophil# 0.01 X10^3/uL; Basophil% 0.2 % (0-1); Eosinophil# 0.13 X10^3/uL; Eosinophils% 2.9 % (0-5); Hematocrit 36.8 % (37-47); Hemoglobin 11.7 g/dL (12.0-15.0); Lymphocyte # 1.43 X10^3/ul (0.83-4.51); Lymphocyte % 32.4 % (19-41); Mean Corp Hgb Conc 31.8 g/dL (32-36); Mean Corpuscular Hgb 29.8 pg (27.0-32.0); Mean Corpuscular Volume 93.9 fL (81-99); Mean Platelet Vol. 10.1 fl (6.2-12.0); Monocyte# 0.39 X10^3/uL; Monocyte% 8.8 % (0-10); NRBC Flagged by Analyzer 0 % (0-5); Neutrophil # 2.44 X10^3/uL (2.7-7.7); Neutrophil % 55.2 % (47-70); Platelet Count 271 K/mm3 (150-450); RBC Distribution Width CV 13.5 % (11.6-14.6); RBC Distribution Width SD 46.1 fl (35.1-43.9); Red Blood Count 3.92 M/mm3 (4.2-5.4); White Blood Count 4.4 K/mm3 (4.4-11.0)
[2024-07-26 10:40] LABS: AST(SGOT) 26 U/L (15-37); Alanine Aminotransfer ALT/SGPT 27 U/L (13-56); Albumin, Serum 3.6 g/dL (3.2-5.0); Alkaline Phosphatase 76 U/L (45-117); Anion Gap 5 (5-15); BUN 18 mg/dL (7-18); BUN/Creat Ratio 19.1 RATIO (10-20); Calcium,Total 9.6 mg/dL (8.5-10.1); Chloride 107 mmol/L (98-107); Creatinine, Serum 0.94 mg/dL (0.55-1.02); EST Glomerular Filtration Rate 61 mL/min (>60); Est Glom Filt Rate - Afr Amer 74 mL/min (>60); Globulin 3.5 g/dL (2.2-4.2); Glucose 85 mg/dL (74-106); Potassium 3.6 mmol/L (3.5-5.1); Protein, Total 7.1 g/dL (6.4-8.2); Sodium Level 140 mmol/L (136-145)
== END | disposition home or self-care (01) ==
LOC: MTLAB 07:03
PROVIDERS: PCP Nurse Practitioner; Referring Provider Internal Medicine Rheumatology; Visit Provider Internal Medicine Rheumatology
DX: M06.4 Inflammatory polyarthropathy (principal); M79.7 Fibromyalgia; M19.041 Primary osteoarthritis, right hand; K21.00 Gastro-esophageal reflux disease with esophagitis, without bleeding
CPT/HCPCS: 36415; 80053; 85025

== ENCOUNTER → 2025-01-16 | Outpatient (CLI) | payer MEDICARE, OTHER, SELFPAY ==
--- OUTSIDE RECORDS SUMMARY | 2025-01-16 07:07 | XMS RPT_ITS | CCD ---
Author Organization [facility] Care Team Providers Care Wildlife Policy Professional Name Role Phone Jessica ELECTROCARDIOGRAPHIC TECHNICIAN, Graciela S Unavailable FELIX Norman RN, Alba Carrington Unavailable Unavailabl e FELIX Norman RN, Alba A Unavailable Unavailabl e Bladimir Wilkins Unavailable Wilber, Suzi L Unavailable Glenn Giordano MD Primary Care Provider Franky, Bladimir Xavier Unavailable eClia Merinoma L Unavailable Glenn Giordano MD Primary Care Provider Franky, Bladimir Xavier Unavailable Wilber, Suzi L Unavailable Hatfield, Bladimir Xavier Unavailable Wilber Suzi L Unavailable Glenn Giordano MD Primary Care Provider Dr. Glenn Giordano Primary Care Provider Dr. Glenn Giordano Referring Provider Jessica ELECTROCARDIOGRAPHIC TECHNICIAN, ELECTROCARDIOGRAPHIC TECHNICIAN-C Graciela Attending Provider hKadijah Camacho Attending Provider Unavailable Dr. Hiro Acosta Attending Provider [phone] Dr. Hiro Acosta Referring Provider Dr. Hiro Acosta Other Provider Glenn Giordano MD Primary Care Provider Abby VILLAC, Janene Atkinson Unavailable [phone] Older RN PROGRESSIVE CARE UNIT.STUD DRIVER, Kiara Unavailable Amrita Quiroga PA-C Unavailable OLDER, KIARA Primary Care Unavailable Vellanki, Suzi Referring Unavailable Vellanki, Suzi Attending Unavailable Wilber, Suzi Attending Unavailable OLDERKIARA Primary Care Unavailable Vellanki, Suzi Referring Unavailable Abby CARTER, Janene Atkinson Unavailable Amrita Quiroga PA-C Unavailable GANTA, GLENN Primary Care Unavailable SELF Referring Unavailable OLDER, KIARA Attending Unavailable GANTA, GLENN Attending Unavailable GANTA, GLENN Primary Care Unavailable GANTA, GLENN Primary Care Unavailable GANTA, GLENN Attending Unavailable GANTA, GLENN Primary Care Unavailable OLDER, KIARA Attending Unavailable GANTA, GLENN Primary Care Unavailable OLDER, KIARA Referring Unavailable Allergies Allergy Classification Reported Allergen(s) Allergy Type Date of Onset Reaction(s) Facility (5 sources) VACCINE PNEUMONIA 23 drug allergy 04-09-20 17 bad reaction [facility] (5 sources) MRI DYE drug allergy 04-09-20 17 [facility] (9 sources) Iodinated Contrast Media; Translations: [Iodinated Contrast Media] Propensity to adverse reactions 04-22-20 21 sick [facility] (3 sources) pneumonia injection Allergy to substance 04-22-20 21 Chest tightness [facility] Work Phone: (20 sources) Contrast media; Translations: [CONTRAST DYE] Propensity to adverse reactions 08-21-19 10 [facility] Work Phone: (20 sources) Streptococcus pneumoniae [...] type 9V capsular polysaccharide antigen; Translations: [PNEUMOCOCCAL 23-MIKE PS VACCINE] Drug Allergy 10-31-19 22 Other: See Comments [facility] Work Phone: (5 sources) Pneumococcal vaccine Drug Allergy 06-20-20 Chest tightness [facility] (1 source) Pneumococcal vaccine Drug Allergy 08-29-19 23 [facility] Repository Medications Current Medications Medication Drug Class(es) Dates Sig (Normalized) Sig (Original) alendronic acid 70 mg oral tablet (20 sources) Bisphosphonate Start: 07-02-2023 End: 07-25-2024 take 6-8 [oz_av] by mouth every week alendronate (FOSAMAX) 70 mg tablet Indications: Osteoporosis without current pathological fracture, unspecified osteoporosis type take 1 tablet by mouth every week ON AN EMPTY STOMACH WITH 6-8 OZ OF WATER. NO FOOD / MEDS FOR 30 MIN. REMAIN UPRIGHT 12 tablet 3 07/25/2024 Active Start: 05-21-2022 End: 10-06-2022 take 6-8 [oz_av] by mouth every week alendronate (FOSAMAX) 70 mg tablet Indications: Osteoporosis without current pathological fracture, unspecified osteoporosis type take 1 tablet by mouth every week ON AN EMPTY STOMACH WITH 6-8 OZ OF WATER. NO FOOD / MEDS FOR 30 MIN. REMAIN UPRIGHT 12 tablet 3 02/16/2023 Active Start: 08-21-2021 End: 12-20-2021 take 6-8 [oz_av] by mouth every week alendronate (FOSAMAX) 70 mg tablet Indications: Osteoporosis without current pathological fracture, unspecified osteoporosis type take 1 tablet by mouth every week ON AN EMPTY STOMACH WITH 6-8 OZ OF WATER. NO FOOD / MEDS FOR 30 MIN. REMAIN UPRIGHT 4 tablet 4 12/20/2021 Active Comment on above: Take 1 tablet by cathleen th one time a week. Take with a full glass of water, on an empty stomach; do NOT lie down for 30minutes. take 1 tablet by cathleen th every week ON AN EMPTY STOMACH WITH 6-8 OZ OF WATER. NO FOOD / MEDS FOR 30 MIN. REMAIN UPRIGHT bifidobacterium infantis 10.5 mg chewable tablet (3 sources) Start: 08-15-19 End: 10-15-19 take 1 capsule by mouth once daily Bifidobacterium infantis (ALIGN, B.INFANTIS,) 10.5 mg (10 million cell) chew Indications: Acute gastritis, presence of bleeding unspecified, unspecified gastritis type Take 1 capsule by mouth once daily. 30 tablet 1 08/15/2024 Active calcium carbonate 1250 mg oral tablet (20 sources) Start: 04-22-20 End: 08-05-19 take 1 tablet by mouth once daily OYSTER SHELL CALCIUM 500 500 mg calcium (1,250 mg) tablet Take 1 tablet by mouth once daily. 90 tablet 3 07/02/2023 08/05/2023 Discontinued Start: 06-03-2018 End: 04-22-2021 take 1 tablet by mouth twice daily Calcium Carbonate (Oyster Shell Calcium) 500 mg calcium (1,250 mg) tablet Discontinued 500 MG PO TWICE A DAY June 03, 2018 12:00am April 22, 2021 9:41am Comment on above: Take 1 tablet by cathleen once daily. cholecalciferol 0.125 mg oral capsule (20 sources) Vitamin D Start: take 125 ug by mouth once daily Cholecalciferol (Vitamin D3) Active 125 MCG PO DAILY April 21, 2021 11:00pm take 1 tablet by mouth once adilia y cholecalciferol (VITAMIN D3) 5,000 unit tab Take 5,000 Units by mouth once daily. 0 Active Comment on above: Take 5,000 Units by mouth once daily. furosemide 20 mg oral tablet (20 sources) Loop Diuretic Start: 05-12-2022 End: 07-25-2024 furosemide (LASIX) 20 mg tablet Indications: Congestive heart failure, unspecified HF chronicity, unspecified heart failure type (HCC) Take lasix 20 mgs, every other day 90 tablet 3 07/25/2024 Active Start: 11-01-2021 End: 01-28-2022 furosemide (LASIX) 20 mg tab let Indications: Congestive heart failure, unspecified HF chronicity, unspecified heart failure type (HCC) Take lasix 20 mgs, every other day 90 tablet 3 01/28/2022 Active Comment on above: Take lasix 20 mgs, e very other day gabapentin 100 mg oral capsule (20 sources) Anti-epileptic Agent Start: 06-03-2018 End: 07-25-2025 take 1 capsule by mouth once daily at bedtime gabapentin (NEURONTIN) 100 mg capsule Indications: Inflammatory polyarthropathy (HCC) , Fibromyalgia Take 1 capsule by mouth daily at bedtime. 90 capsule 3 07/25/2024 07/25/2025 Active Start: 04-09-2017 GABAPENTIN 100 MG CAPS 1 tablet once a day GABAPENTIN [id number] Graciela Bangura ELECTROCARDIOGRAPHIC TECHNICIAN Comment on above: Take 1 capsule by mo ut daily at bedtime for 30 days. Take 1 capsule by mo uth daily at bedtime. hydroxychloroquine sulfate 200 mg oral tablet (20 sources) Antirheumatic Agent Start: 06-20-20 Hydroxychloroquine (Plaquenil) 200 mg Tablet Active 100 MG PO DAILY June 20, 2022 12:00am Start: 03-04-2016 take 1 tablet by cathleen th twice daily hydroxychloroquine (PLAQUENIL) 200 mg tablet Take 1 tablet by mouth twice daily. 03/04/2016 Active Comment on above: Take 1 tablet by cathleen th twice daily. meloxicam 15 mg oral tablet (20 sources) Nonsteroidal Anti-inflammatory Drug Start: 10-04-2020 End: 06-11-2022 take 15 mg by mouth once daily Meloxicam Active 15 MG PO DAILY April 21, 2021 11:00pm Comment on above: Take 1 tablet by cathleen th once daily. for pain. Take with food. Tqmacrpp-Jyi-Mqkru Acid-Hzv245 (Alive Premium Women's) 80 mcg- 66.7 mg Tablet,Chewable (5 sources) Start: 06-20-2022 take 1 tablet by mouth once daily Rnbbuwqf-Fjr-Fvplf Acid-Tzz659 (Alive Premium Women's) 80 mcg- 66.7 mg Tablet,Chewable Active 1 TABLET PO DAILY June 20, 2022 1:00am Start: 06-20-2022 take 1 tablet by cathleen th once daily Rfurfnqy-Utg-Bpqac Acid-Naj228 (Alive Premium Women's) 80 mcg- 66.7 mg Tablet,Chewable Active 1 TABLET PO DAILY June 20, 2022 12:00am OTC NUTRITIONAL SUPPLEMENT (20 sources) End: 08-05-2023 OTC NUTRITIONAL SUPPLEMENT o ne time only. Alive, Women's 50+ Multivitamin 0 08/05/2023 Discontinued OTC NUTRITIONAL SUPPLEMENT one time only. Alive, Women's 50+ Multivitamin 0 Active Comment on above: one time only. Alive , Women's 50+ Multivitamin perflutren lipid microspheres 1.3 mL in NaCl (PF) 0.9% 10 mL injection (DEFINITY) (16 sources) Start: 01-28-2022 End: 04-29-2023 perflutren lipid microspheres 1.3 mL in NaCl (PF) 0.9% 10 mL injection (DEFINITY) microencapsulated potassium chloride 10 meq extended release oral tablet (20 sources) Start: 07-02-2023 End: 03-17-2024 potassium chloride ER (KLOR-CON M10) 10 mEq tablet Indications: Congestive heart failure, unspecified HF chronicity, unspecified heart failure type (HCC) Every other day. 90 tablet 3 03/17/2024 Active Start: 03-17-2023 potassium chlo ride ER (KLOR-CON M10) 10 mEq tablet Indications: Congestive heart failure, unspecified HF chronicity, unspecified heart failure type (HCC) Every other day. 90 tablet 3 03/17/2023 Active Start: 05-12-2022 take 10 mEq by mouth every other day Potassium Chloride Active 10 MEQ PO every other day May 12, 2022 12:00am Start: 01-28-2022 potassium chlo ride ER (K-DUR, KLOR-CON) 10 mEq tablet Indications: Congestive heart failure, unspecified HF chronicity, unspecified heart failure type (HCC) Every other day. 90 tablet 3 01/28/2022 Active Start: 11-01-2021 End: 01-28-2022 potassium chloride ER (K-DUR , KLOR-CON) 10 mEq tablet Indications: Congestive heart failure, unspecified HF chronicity, unspecified heart failure type (HCC) Every other day. 30 tablet 2 11/01/2021 01/28/2022 Discontinued Comment on above: Every other day. 125 ml sodium chloride 9 mg/ml prefilled syringe (16 sources) Start: 01-28-2022 End: 04-29-2023 sodium chloride 0.9 % (flush) 10 mL (BD POSIFLUSH) triamcinolone acetonide 1 mg/ml topical cream (2 sources) Corticosteroid Start: 11-22-2024 triamcinolone acetonide (KENALOG) 0.1 % cream Indications: Osteoporosis, unspecified osteoporosis type, unspecified pathological fracture presence Apply 1 application to affected area three times a day. Apply to affected area. 80 g 1 11/22/2024 Active Completed/Discontinued Medications Medication Drug Class(es) Dates Sig (Normalized) Sig (Original) CALCIUM OYSTER SHELL ORAL (18 sources) End: 06-11-2022 take 500 mg by mouth twice daily CALCIUM OYSTER SHELL ORAL Take 500 mg by mouth twice daily. 0 06/11/2022 Discontinued take 500 mg by mouth twice daily CALCIUM OYSTER SHELL ORAL Take 500 mg by mouth twice daily. 0 Active Comment on above: Take 500 mg by mouth twice daily. ergocalciferol 1.25 mg oral capsule (20 sources) Provitamin D2 Compound Start: 03-15-20 End: 06-11-20 take 1 capsule by mouth every week VITAMIN D 50,000 unit capsule TAKE 1 CAPSULE BY MOUTH EACH WEEK ON THURSDAY 12 capsule 1 03/15/2018 06/11/2022 Discontinued Start: 04-09-2017 ERGOCALCIFEROL [id number] UNIT CAPS ERGOCALCIFEROL [id number] Graciela Bangura ELECTROCARDIOGRAPHIC TECHNICIAN Comment on above: TAKE 1 CAPSULE BY MO UTH EACH WEEK ON THURSDAY metoclopramide 10 mg oral tablet (8 sources) Dopamine-2 Receptor Antagonist Start: 02-04-20 End: 06-11-20 22 take 1 tablet by mouth at bedtime metoclopramide HCl (REGLAN) 10 mg tablet Take 1 tablet by mouth before meals and at bedtime. 30min before meals. 20 tablet 0 02/03/2022 06/11/2022 Discontinued Comment on above: Take 1 tablet by cathleen th before meals and at bedtime. 30min before meals. multivitamin tablet (8 sources) Start: 06-03-20 18 End: 04-22-20 21 take 1 tablet by mouth once daily multivitamin tablet Discontinued 1 TABLET PO DAILY June 03, 2018 2:30pm April 22, 2021 10:41am Start: 06-03-2018 End: 04-22-2021 take 1 tablet by mouth once daily multivitamin tablet Discontinued 1 TABLET PO DAILY June 03, 2018 12:00am April 22, 2021 9:41am Start: 06-03-2018 End: 04-22-2021 take 1 tablet by mouth once daily multivitamin tablet Discontinued 1 TABLET PO DAILY June 03, 2018 1:00am April 22, 2021 10:41am OYSTER SHELL (5 sources) Start: 04-09-2017 CALCIUM OYSTER SHELL 500 MG TABS 1 twice a day OYSTER SHELL [id number] Graciela Bangura ELECTROCARDIOGRAPHIC TECHNICIAN pantoprazole 20 mg delayed release oral tablet (2 sources) Proton Pump Inhibitor Start: 08-15-2024 End: 11-22-2024 take 1 tablet by mouth once daily before breakfast pantoprazole DR (PROTONIX) 20 mg tablet Take 1 tablet by mouth once daily. Half hour before breakfast 60 tablet 08/15/2024 11/22/2024 Discontinued Problems Active Problems Problem Classification Problem Date Documented Date Episodic/Chronic Allergic reactions (2 sources) Atopic dermatitis; Translations: [Atopic dermatitis, unspecified] Onset: 11-22-2024 11-22-2024 Chronic Anxiety disorders (20 sources) Anxiety; Translations: [Anxiety disorder, unspecified] Onset: 06-09-2009 06-09-2009 Chronic Congestive heart failure; nonhypertensive (20 sources) Acute on chronic diastolic heart failure; Translations: [Acute on chronic diastolic (congestive) heart failure] Onset: 02-03-2024 Resolved: 08-11-2024 Chronic Diseases of white blood cells (1 source) Leukopenia; Translations: [Decreased white blood cell count, unspecified] Chronic Disorders of lipid metabolism (20 sources) Mixed hyperlipidemia; Translations: [Mixed hyperlipidemia] Onset: 03-29-2020 03-29-2020 Chronic Esophageal disorders (20 sources) Gastroesophageal reflux disease; Translations: [Gastro-esophageal reflux disease without esophagitis] Onset: 06-09-2009 06-09-2009 Chronic Essential hypertension (2 sources) Essential hypertension; Translations: [Essential (primary) hypertension] Onset: 11-22-2024 11-22-2024 Chronic Gastritis and duodenitis (1 source) Acute gastritis; Translations: [Acute gastritis without bleeding] 08-15-2024 Episodic Immunizations and screening for infectious disease (1 source) Viral screening status; Translations: [Encounter for screening for other viral diseases] Episodic Malaise and fatigue (1 source) Fatigue; Translations: [Other fatigue] Episodic Menopausal disorders (10 sources) Atrophic vaginitis; Translations: [Postmenopausal atrophic vaginitis] Chronic Nausea and vomiting (1 source) Nausea, vomiting and diarrhea; Translations: [Nausea with vomiting, unspecified] Episodic Nutritional deficiencies (20 sources) Vitamin D deficiency; Translations: [Vitamin D deficiency, unspecified] Onset: 05-07-2012 05-07-2012 Chronic Osteoarthritis (20 sources) Heberden node; 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)] Onset: 02-17-2011 Resolved: 05-06-2013 06-24-2021 Chronic Osteoporosis (20 sources) Osteoporosis; Translations: [Age-related osteoporosis without current pathological fracture] Onset: 04-29-2012 04-07-2018 Chronic Other acquired deformities (1 source) Lumbar spondylolisthesis; Translations: [Spondylolisthesis, lumbar region] Episodic Other aftercare (1 source) Follow-up status; Translations: [Encounter for follow-up examination after completed treatment for conditions other than malignant neoplasm] Episodic Other circulatory disease (1 source) Elevated blood pressure; Translations: [Elevated blood-pressure reading, without diagnosis of hypertension] 08-11-2024 Episodic Other connective tissue disease (1 source) [...] nutritional; endocrine; and metabolic disorders (1 source) Weight decreased; Translations: [Abnormal weight loss] 11-22-2024 Episodic Other nutritional; endocrine; and metabolic disorders (1 source) Abnormal weight loss; Translations: [Weight loss] Onset: 11-22-2024 Episodic Residual codes; unclassified (2 sources) Edema of foot; Translations: [Localized edema] Episodic Residual codes; unclassified (1 source) Edema; Translations: [Edema, unspecified] Episodic Residual codes; unclassified (2 sources) Postmenopausal state; Translations: [Asymptomatic menopausal state] 08-05-2023 Episodic Rheumatoid arthritis and related disease (20 sources) Inflammatory polyarthropathy; Translations: [Inflammatory polyarthropathy] Onset: 05-12-2012 06-24-2021 Chronic Screening and history of mental health and substance abuse codes (1 source) Patient encounter status; Translations: [Encounter for screening for depression] 08-11-2024 Episodic Spondylosis; intervertebral disc disorders; other back problems (20 sources) Lumbar spondylosis; Translations: [Spondylosis without myelopathy or radiculopathy, lumbar region] Onset: 12-12-2021 Chronic Unclassified (15 sources) Mammography abnormal; Translations: [Patient encounter status] Onset: 04-30-2017 04-30-2017 Episodic Unclassified (5 sources) Screening mammography ; Translations: [Encounter for screening mammogram for malignant neoplasm of breast] Onset: 04-09-2017 04-09-2017 Unclassified (5 sources) Gynecologic examination ; Translations: [Encounter for gynecological examination (general) (routine) without abnormal findings] Onset: 04-09-2017 04-09-2017 Past or Other Problems Problem Classification Problem Date Documented Date Episodic/Chronic Abdominal pain (10 sources) Epigastric pain; Translations: [Epigastric pain] Onset: 0 Resolved: 2 05-12-2012 Episodic Deficiency and other anemia (10 sources) Anemia; Translations: [Anemia, unspecified] Onset: 0 Resolved: 3 05-06-2013 Episodic Other acquired deformities (20 sources) Spondylolisthesis L5/S1 level; Translations: [Spondylolisthesis, lumbosacral region] Onset: 2 Episodic Other bone disease and musculoskeletal deformities (20 sources) Osteopenia; Translations: [Other specified disorders of bone density and structure, unspecified site] Onset: 7 05-11-2017 Episodic Other connective tissue disease (20 sources) [...] pain without sciatica] Onset: 6 03-10-2016 Episodic Syncope (10 sources) Syncope; Translations: [Syncope and collapse] Onset: 0 Resolved: 3 05-06-2013 Episodic Unclassified (5 sources) Asymptomatic menopausal state; Translations: [Asymptomatic menopausal state] Onset: 7 04-09-2017 Episodic Results Test Name Value Interpretation Reference Range Facility [facility] 11-23-[address] [facility] Telephone (4CQ) ERNESTINA LEMUS ([id number]) 1950 F Date Time Provider Department 11/23/24 GLENN GIORDANO 4CQ During your visit today, we recorded the following information about you: Varsha Boyd 11/23/2024 9:17 AM Signed Pt is asking if she can schedule her bone density test this year in April as she wants her copay to be for this year. If that is ok please change order as current order will not allow to schedule till Jul Basilia Garcia, FELIX 11/23/2024 9:55 AM Signed Called and explained to pt that insurance companies usually require 2 years between BDS so her 2 year would not be up until 08/10/2025. Pt verbalizes understanding and will keep appt she has on 08/17/25 Allergies As of Date: 11/23/2024 Noted Allergy Reaction MRI DYE (CONTRAST DYE) 08/21/2009 PNEUMOCOCCAL 23-MIKE PS VACCINE 10/30/2021 14 - Other: See Comments Comments: arm painful, felt like she going to have a heart attack Date Reviewed: 11/22/2024 Reviewed by: Mariella Alvarado LPN - Fully Assessed Reason for Visit: Orders [681] Prescriptions as of 11/23/2024 - triamcinolone acetonide (KENALOG) 0.1 % cream Apply 1 application to affected area three times a day. Apply to affected area. - Bifidobacterium infantis (ALIGN, B.INFANTIS,) 10.5 mg (10 million cell) chew Take 1 capsule by mouth once daily. - gabapentin (NEURONTIN) 100 mg capsule Take 1 capsule by mouth daily at bedtime. - furosemide (LASIX) 20 mg tablet Take lasix 20 mgs, every other day - alendronate (FOSAMAX) 70 mg tablet take 1 tablet by mouth every week ON AN EMPTY STOMACH WITH 6-8 OZ OF WATER. NO FOOD / MEDS FOR 30 MIN. REMAIN UPRIGHT - potassium chloride ER (KLOR-CON M10) 10 mEq tablet Every other day. - hydroxychloroquine (PLAQUENIL) 200 mg tablet Take 1 tablet by mouth twice daily. Problem List As Of Date 11/23/2024 Noted Resolved GERD (Gastroesophageal Reflux Disease) [K21.9] [...] level [M43.17] 01/28/2022 Hip arthritis [M16.10] 01/28/2022 Acute on chronic diastolic congestive heart edelmira*02/03/2024 08/11/2024 Encounter Status:Closed by BASILIA GARCIA on 11/23/24 Normal [facility] CNOVon 11-22-2024 CNOV Office Visit (INTMWS ) MARIAHERNESTINA Bauer ([id number]) 1950 F Date Time Provider Department 11/22/24 9:00 AM GLENN GIORDANO INTMWS During your visit today, we recorded the following information about you: Pulse Blood pressure Weight Height 75/minute 134/74 65.6 kg 1.499 m Glenn Giordano MD 11/22/2024 1:09 PM Signed Reason for Visit Follow up HPI Ernestina is a 74-year-old female with a history of inflammatory polyarthropathy, fibromyalgia, and hypercholesterolemia, presenting for follow-up. Ernestina reports intermittent epigastric discomfort triggered by specific foods, such as puffed corn and spaghetti sauce. She completed a course of Protonix, which provided relief, but currently manages symptoms with Maalox as needed. She denies the need for ongoing Protonix therapy. 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 The pruritus has improved but persists in certain areas. She also notes a small pruritic spot in her ear. Ernestina has experienced an 8 lb weight loss since July, attributed to dietary changes. She denies significant meat consumption but occasionally eats hamburgers due to a history of anemia. She reports increased physical activity with the onset of summer and denies fatigue. She is currently taking Plaquenil 200 mg, 1/2 tablet in the morning and 1 tablet at night, for inflammatory polyarthropathy, and gabapentin 1 tablet at night for fibromyalgia. She also takes Lasix and potassium every other day. She reports improvement in joint symptoms with Plaquenil and undergoes regular ophthalmologic evaluations every 6 months. She mentions upcoming cataract surgery. Ernestina expresses feelings of depression related to recent dental extractions and ill-fitting dentures, which cause gagging after 5 hours of wear. She is awaiting a new pair of dentures. She has a family history of cardiovascular events, with her mother having had a stroke and both parents having heart problems. She declines cholesterol-lowering medication at this time. Social History Tobacco Use Smoking status: Never Smokeless tobacco: Never Vaping Use Vaping status: Never Used Substance Use Topics Alcohol use: No Drug use: No Past medical history, appointments, medications, allergies reviewed. Pertinent Lab/Diagnostic Studies are reviewed and discussed today Current Outpatient Medications: gabapentin (NEURONTIN) 100 mg capsule furosemide (LASIX) 20 mg tablet alendronate (FOSAMAX) 70 mg tablet potassium chloride ER (KLOR-CON M10) 10 mEq tablet hydroxychloroquine (PLAQUENIL) 200 mg tablet triamcinolone acetonide (KENALOG) 0.1 % cream Bifidobacterium infantis (ALIGN, B.INFANTIS,) 10.5 mg (10 million cell) chew Health Maintenance There are no preventive care reminders to display for this patient.@ Review Of Systems Constitutional: (+) weight loss Ears/Nose/Mouth/Throa t: (+) gagging Gastrointestinal: (+) dyspepsia Skin: (+) pruritus Psychiatric: (+) depression Physical Exam BP 134/74 Pulse 75 Ht 149.9 cm (4' 11) Wt 65.6 kg (144 lb 10 oz) SpO2 98% BMI 29.21 kg/m? GENERAL: NAD, alert and oriented. SKIN: Mild dry patch lesions on the right knuckle area and the back. No rash or skin lesions. HEAD: Normocephalic. EYES: PERRLA, EOMI, conjunctiva clear. EARS: External ears normal, canals clear, TM's normal. NOSE/SINUSES: Nares normal. Septum midline. OROPHARYNX: Lips, mucosa, and tongue normal, good dentition. No oral lesions noted. NECK: Supple, no lymphadenopathy, normal thyroid, no carotid bruits. LUNGS: Clear to auscultation bilaterally, no wheezes/rhonchi/rales . HEART: Regular rate and rhythm, no murmurs. No ectopy. EXTREMITIES: Normal, no deformities, no skin discoloration, no edema. NEURO: Awake, alert and oriented x3, cranial nerves II-XII grossly intact, normal gait, no involuntary motions. Labs: - (July) Lipid Panel: - LDL: Slightly elevated - HDL: Elevated - Total Cholesterol: Slightly elevated - Triglycerides: Normal Imaging: - (Last year) DEXA Scan: Significant increase in bone density in the total right hip and left hip. Assessment and Plan 1. Osteoporosis, unspecified osteoporosis type, unspecified pathological fracture presence (M81.0) Bone density has significantly increased in both hips since last year. - Continue Alendronate therapy. - Ordered bone density test for 08/14/2025. 2. 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 Patient reports improvement in joint symptoms. - Continue Plaquenil therapy. - Ensure ophthalmologic evaluations every 6 months. 3. Mixed hyperlipidemia (E78.2) LDL slightly elevated, but HDL levels are high, providing a favorable lipid profi (more content not included)... Normal [facility] CNOVon 08-15-2024 CNOV Office Visit (INTMWS ) ERNESTINA LEMUS ([id number]) 1950 F Date Time Provider Department 08/15/24 11:00 AM GLENN GIORDANO INTMWS During your visit today, we recorded the following information about you: Pulse Respiration Blood pressure Weight 84/minute 16/minute 158/77 67.6 kg Glenn Giordano MD 08/15/2024 6:02 PM Signed Reason for Visit Ernestina Lemus is a 74 year oldfemale who presents here Patient presents with: Follow up for abdominal pain: OV 08/11/24 Health Maintenance There are no preventive care reminders to display for this patient. HPI Thursday patient got very very sick to the stomach, she had pain in the epigastric area and in lower abdomen. she was put on amox and metronidazole for 24 days by dentist for dental related issues, and since then she has been having these symptoms. She wakes up in the morning feeling sick, she does have some pain, she feels very gassy. Her Bms changed, she was doing a lot of light color stools. She still has a lot of gas The pain and discomfort changes a little with food. When she took the pepcid she was better. No problem-specific Assessment AND Plan notes found [...] Never Smokeless tobacco: Never Vaping Use Vaping status: Never Used Substance Use Topics Alcohol use: No Drug use: No Past medical history, appointments, medications, allergies reviewed. Pertinent Lab/Diagnostic Studies are reviewed and discussed today Current Outpatient Medications: gabapentin (NEURONTIN) 100 mg capsule furosemide (LASIX) 20 mg tablet alendronate (FOSAMAX) 70 mg tablet potassium chloride ER (KLOR-CON M10) 10 mEq tablet hydroxychloroquine (PLAQUENIL) [address] (PROTONIX) 20 mg tablet Bifidobacterium infantis (ALIGN, B.INFANTIS,) 10.5 mg (10 million cell) chew Review of Systems CONSTITUTIONAL: No fevers, chills night sweats, unintended weight loss CARDIOVASCULAR: No chest pain, dyspnea, palpitations, orthopnea, PND, ankle edema. PULM: No dyspnea, unexplained cough. GI: No dysphagia/odynophagia , problematic reflux, constipation, diarrhea, changes in stool habits, hematochezia, melena. : No new urinary complaints, including dysuria, gross hematuria or pyuria. NEURO: No new balance problems, peripheral weakness/paresthesias or numbness of concern. Physical Exam BP 158/77 Pulse 84 Resp 16 Wt 67.6 kg (149 lb) SpO2 97% BMI 30.09 kg/m? General appearance: Well appearing, alert, in no acute distress, well nourished. Skin: Skin color, texture, turgor normal, no suspicious rashes or lesions Head: Normocephalic, no masses, lesions, tenderness or abnormalities Eyes: Anicteric sclera. Pupils are equally round and reactive to light. Extraocular movements are intact. Lungs:Normal breathing efforts, Lungs clear to auscultation. No wheezing, rhonchi, rales Heart: RRR without murmur, gallop, or rubs. Abdomen: some tenderness in the epigastric area, and periumbilical, negative Bradford sign. ASSESSMENT/PLAN: 1. Acute gastritis, presence of bleeding unspecified, unspecified gastritis type - ICD9: 535.00, ICD10: K29.00 - symptoms are likely gastritis from abx, trial of ppi and probiotics, if not better then EGD. - ALIGN (B.INFANTIS) 10.5 MG (10 MILLION CELL) CHEWABLE TABLET Glenn Giordano MD Voice recognition software was used to compose this office note. Please excuse any unintended typographical errors. Glenn Giordano MD 08/15/2024 11:48 AM Signed Take the protonix empty stomach first thing in the morning half before breakfast. Take the rest of the pills after breakfast Take the probiotic in the evening Allergies As of Date: 08/15/2024 Noted Allergy Reaction MRI DYE (CONTRAST DYE) 08/21/2009 PNEUMOCOCCAL 23-MIKE PS VACCINE 10/30/2021 14 - Other: See Comments Comments: arm painful, felt like she going to have a heart attack Date Reviewed: 08/15/2024 Reviewed by: Marguerite Quevedo MA - Fully Assessed Reason for Visit: Follow up for abdominal pain [Other] Cmt: OV 2/13/25 Primary Visit Diagnosi (more content not included)... [facility]INTMWS[facility] ERNESTINA LEMUS ([id number]) 1950 F Date Time Provider Department 08/13/24 GLENN GIORDANO INTMWS During your visit today, we recorded the following information about you: Sarah Goyal RN 08/13/2024 10:16 AM Signed Spouse (Jan) calls to report that patient is having upper abdominal pain not relieved by Mylanta or Maalox. Patient recently on an antibiotic for dental infection but was completed. Patient did have diarrhea but that seems to have subsided. Asked spouse patients level of pain and he reports it must be pretty severe if she is asking me to call the doctor. Notified spouse that if patient is having severe abdominal pain the recommendation would be to take her to the ER. Spouse verbalizes understanding. FELIX Landry Krystle, RN 08/13/2024 10:22 AM Signed Spouse (Chivo) calls back. Pain is not severe. Patient has been having it for several weeks and doesn't feel she needs to go to ER. Patient not available to triage. Appt scheduled for ThursdayAugust 15 and reviewed red flag symptoms to go to ER with prior to that appt with verbalized understanding. Chivo reports if patient changes her mind and goes to ER they will let us know to cancel appt. Sarah Goyal RN Allergies As of Date: 08/13/2024 Noted Allergy Reaction MRI DYE (CONTRAST DYE) 08/21/2009 PNEUMOCOCCAL 23-MIKE PS VACCINE 10/30/2021 14 - Other: See Comments Comments: arm painful, felt like she going to have a heart attack Date Reviewed: 08/11/2024 Reviewed by: Kiara Taylor APRN.STUD DRIVER - Fully Assessed Reason for Visit: Patient Update [1234] Prescriptions as of 08/13/2024 - gabapentin (NEURONTIN) 100 mg capsule Take 1 capsule by mouth daily at bedtime. - furosemide (LASIX) 20 mg tablet Take lasix 20 mgs, every other day - alendronate (FOSAMAX) 70 mg tablet take 1 tablet by mouth every week ON AN EMPTY STOMACH WITH 6-8 OZ OF WATER. NO FOOD / MEDS FOR 30 MIN. REMAIN UPRIGHT - potassium chloride ER (KLOR-CON M10) 10 mEq tablet Every other day. - hydroxychloroquine (PLAQUENIL) 200 mg tablet Take 1 tablet by mouth twice daily. Problem List As Of Date 08/13/2024 Noted Resolved GERD (Gastroesophageal Reflux Disease) [K21.9] [...] level [M43.17] 01/28/2022 Hip arthritis [M16.10] 01/28/2022 Acute on chronic diastolic congestive heart edelmira*02/03/2024 08/11/2024 Encounter Status:Closed by SARAH GOYAL on 08/13/24 [facility] CNOVon 08-11-2024 CNOV Office Visit (INTMWS ) ERNESTINA LEMUS ([id number]) 1950 F Date Time Provider Department 08/11/24 8:00 AM KIARA TAYLOR INTCHERYLE During your visit today, we recorded the following information about you: Pulse Respiration Blood pressure Weight 77/minute 16/minute 142/74 68.9 kg Kiara Taylor APRN.STUD DRIVER 08/11/2024 8:44 AM Signed Ernestina Lemus is a 74 year old female here for a Medicare wellness visit. Medicare Health Risk Assessment General Health Good Exercise: Minutes/Day Currently not exercising Exercise: Days/Week Currently not exercising Alcohol: Daily Use Does not drink alcohol Alcohol: Drinks/Day Does not drink alcohol Alcohol: 6 or more drinks Does not drink alcohol Feel off balance denies Concerns: Teeth/Dentures Has difficulty getting used to top dentures and working with her dentist Concerns: Sexual function denies Troubled by feelings Denies - has large amount of stress with the paperwork caring for brother Frequency: Eating healthy diet 50% of the time ADLs requiring help denies Safety precautions in home/vehicle Always wears seat belt in car, no steps without a handrail, has grab bars in the bathroom, floors are clutter free Smoke, vape, chews tobacco never Difficulty hearing denies Difficulty seeing Wears glasses/needs cataract removal Current Providers Specialists: I have reviewed specialist-related care of the patient in the medical record. Ophthalmology Dr. Linda sees multiple times yearly Medical/Family history review Reviewed and updated problem list, medical/surgical/fami ly/social history, medications, and allergies. Opioid use review Opioid Medications (last 90 days) No data to display Anxiety/Depression screening PHQ-2 Score: 2 (Lower risk for depression) ASHLEE - 2 Score: 2 Recommendation: no further intervention at this time Cognitive screening Cognitive screening reviewed and No further action needed (score 3-5). Functional Observation Was the patient's Timed Up AND Go test unsteady or >= 12 seconds? No Advance Care Planning Patient was not able to provide a surrogate decision maker or written advance directives Measurements BP 142/74 Pulse 77 Resp 16 Wt 68.9 kg (152 lb) SpO2 99% BMI 30.70 kg/m? Vision Screening: Follows with optometry/ophthalmolo gy Assessment/Plan Medicare annual wellness visit, subsequent (Z00.00) - Counseled on healthy diet and regular exercise - Fall avoidance information provided - Personalized prevention plan provided - Discussed need for and benefit of weight loss. BMI 30.70 kg/(m2) CC: Patient presents with: Medicare Wellness Exam: Annual Medicare wellness HPI Ernestina Lemus is a 74 year old female who presents today for medicare wellness. Also with elevated blood pressure and HLD. Elevated Blood Pressure, CHF and HLD: Has had left leg swelling for years which she takes lasix every other day for. Will get some tingling to her feet as well. Elevating her legs will help with the tingling and the swelling. No increase in this or change in this.Denies chest pain, shortness of breath, fatigue or headaches. Took her lasix today. She does not check BP's generally. Last 3 Encounter BP Readings: Date: BP: 08/11/2024 152/90 - 142/74 02/03/2024 132/74 08/05/2023 130/70 REVIEW OF SYSTEMS See HPI PAST MEDICAL HISTORY Diagnosis Date Abdominal pain, [...] ALLERGIES Mri Dye [Contrast Dye] and Pneumococcal 23-Mike Ps Vaccine MEDICATIONS gabapentin (NEURONTIN) 100 mg capsule Take 1 capsule by mouth daily at bedtime. furosemide (LASIX) 20 mg tablet Take lasix 20 mgs, every other day alendronate (FOSAMAX) 70 mg tablet take 1 tablet by mouth every week ON AN EMPTY STOMACH WITH 6-8 OZ OF WATER. NO FOOD / MEDS FOR 30 MIN. REMAIN UPRIGHT potassium chloride ER (KLOR-CON M10) 10 mEq tablet Every other day. hydroxychloroquine (PLAQUENIL) 200 mg tablet Take 1 tablet by mouth twice daily. FAMILY HISTORY Problem Relation Age of Onset Cancer Mother 55 face Breast Cancer Maternal Aunt 52 Hypertension Mother Stroke Mother plaque Heart Father Diabetes Maternal Aunt with amputation Diabetes Maternal Aunt with amputation Social History Tobacco Use Smoking status: Never Smokeless tobacco: Never Vaping Use Vaping status: Never Used Substance Use Topics Alcohol use: No Drug use: No PHYSICAL EXAM BP 142/74 Pulse 77 Resp 16 Wt (more content not included)... Normal [facility] CBC panel Auto (Bld)on 08-01 Erythrocyte distribution width (RBC) [Ratio] 13.3 % Normal 11.5-15.0 [facility] Comment on above: Order Comment: Trista camarillo Type: BLOOD SPECIMEN Ordering Facility: [facility] Address: [address] [place] [address] Performed By: #### 2 4323-8, 46480-7 #### [facility] CLIA [id number] [address] [place] [address] [place] Hematocrit (Bld) [Volume fraction] 38.6 % Normal 36.0-46.0 [facility] Comment on above: Order Comment: Trista camarillo Type: BLOOD SPECIMEN Ordering Facility: [facility] Address: [address] [place] [address] Performed By: #### 2 4323-8, 43856-6 #### [facility] CLIA [id number] [address] [place] [address] [place] Hemoglobin (Bld) [Mass/Vol] 11.9 g/dL Normal 11.5-15.5 [facility] Comment on above: Order Comment: Trista camarillo Type: BLOOD SPECIMEN Ordering Facility: [facility] Address: [address] [place] [address] Performed By: #### 2 4323-8, 46783-8 #### [facility] CLIA [id number] [address] [place] [address] [place] MCH (RBC) [Entitic mass] 30.1 pg Normal 26.0-34.0 [facility] Comment on above: Order Comment: Speci men Type: BLOOD SPECIMEN Ordering Facility: [facility] Address: [address] [place] [address] Performed By: #### 2 4323-8, 49878-6 #### [facility] CLIA [id number] [address] [place] [address] [place] MCHC (RBC) [Mass/Vol] 30.8 g/dL Normal 30.5-36.0 [facility] Comment on above: Order Comment: Speci men Type: BLOOD SPECIMEN Ordering Facility: [facility] Address: [address] [place] [address] Performed By: #### 2 4323-8, 40592-4 #### [facility] CLIA [id number] [address] [place] [address] [place] MCV (RBC) [Entitic vol] 97.5 fL Normal 80.0-100.0 [facility] Comment on above: Order Comment: Speci men Type: BLOOD SPECIMEN Ordering Facility: [facility] Address: [address] [place] [address] Performed By: #### 2 4323-8, 25179-2 #### [facility] CLIA [id number] [address] [place] [address] [place] Nucleated RBC (Bld) [#/Vol] 10*3/uL Normal <0.01 [facility] Comment on above: Order Comment: Speci men Type: BLOOD SPECIMEN Ordering Facility: [facility] Address: [address] [place] [address] Performed By: #### 2 4323-8, 87693-2 #### [facility] CLIA [id number] [address] [place] [address] [place] Platelet mean volume (Bld) [Entitic vol] 10.9 fL Normal 9.0-12.7 [facility] Comment on above: Order Comment: Speci men Type: BLOOD SPECIMEN Ordering Facility: [facility] Address: [address] [place] [address] Performed By: #### 2 4323-8, 20101-9 #### [facility] CLIA [id number] [address] [place] [address] [place] Platelets (Bld) [#/Vol] 315 10*3/uL Normal 150-400 [facility] Comment on above: Order Comment: Speci men Type: BLOOD SPECIMEN Ordering Facility: [facility] Address: [address] [place] [address] Performed By: #### 2 4323-8, 63863-5 #### [facility] CLIA [id number] [address] [place] [address] [place] RBC (Bld) [#/Vol] 3.96 10*6/uL Normal 3.90-5.20 [facility] Comment on above: Order Comment: Speci men Type: BLOOD SPECIMEN Ordering Facility: [facility] Address: [address] [place] [address] Performed By: #### 2 4323-8, 96321-3 #### [facility] CLIA [id number] [address] [place] [address] [place] WBC (Bld) [#/Vol] 5.22 10*3/uL Normal 3.70-11.00 [facility] Comment on above: Order Comment: Speci men Type: BLOOD SPECIMEN Ordering Facility: [facility] Address: [address] [place] [address] Performed By: #### 2 4323-8, 37797-1 #### [facility] CLIA [id number] [address] [place] [address] [place] Comprehensive metabolic 2000 panelon 08-01-2024 Albumin [Mass/Vol] 4.4 g/dL Normal 3.9-4.9 [facility] Comment on above: Order Comment: Speci men Type: BLOOD SPECIMEN Ordering Facility: [facility] Address: [address] [id number] Performed By: #### 2 4323-8, 08226-6 #### [facility] CLIA [id number] [address] [place] [address] [place] ALP [Catalytic activity/Vol] 80 U/L Normal 34-123 [facility] Comment on above: Order Comment: Speci men Type: BLOOD SPECIMEN Ordering Facility: [facility] Address: [address] [place] [address] Performed By: #### 2 4323-8, 71906-9 #### [facility] CLIA [id number] [address] [place] [address] [place] ALT [Catalytic activity/Vol] 19 U/L Normal 7-38 [facility] Comment on above: Order Comment: Speci men Type: BLOOD SPECIMEN Ordering Facility: [facility] Address: [address] [id number] Performed By: #### 2 4323-8, 96826-0 #### [facility] CLIA [id number] [address] [place] [address] [place] Anion gap [Moles/Vol] 10 mmol/L Normal 8-15 [facility] Comment on above: Order Comment: Speci men Type: BLOOD SPECIMEN Ordering Facility: [facility] Address: [address] [id number] Performed By: #### 2 4323-8, 76693-6 #### [facility] CLIA [id number] [address] [place] [address] [place] AST [Catalytic activity/Vol] 30 U/L Normal 13-35 [facility] Comment on above: Order Comment: Speci men Type: BLOOD SPECIMEN Ordering Facility: [facility] Address: [address] [id number] Performed By: #### 2 4323-8, 96680-4 #### [facility] CLIA [id number] [address] [place] [address] [place] Bilirubin [Mass/Vol] 0.3 mg/dL Normal 0.2-1.3 [facility] Comment on above: Order Comment: Speci men Type: BLOOD SPECIMEN Ordering Facility: [facility] Address: [address] [place] [address] Performed By: #### 2 4323-8, 23859-8 #### [facility] CLIA [id number] [address] [place] [address] [place] Calcium [Mass/Vol] 9.6 mg/dL Normal 8.5-10.2 [facility] Comment on above: Order Comment: Speci men Type: BLOOD SPECIMEN Ordering Facility: [facility] Address: [address] [place] [address] Performed By: #### 2 4323-8, 65157-4 #### [facility] CLIA [id number] [address] [place] [address] [place] Chloride [Moles/Vol] 103 mmol/L Normal 98-107 [facility] Comment on above: Order Comment: Speci men Type: BLOOD SPECIMEN Ordering Facility: [facility] Address: [address] [place] [address] Performed By: #### 2 4323-8, 22913-3 #### [facility] CLIA [id number] [address] [place] [address] [place] CO2 [Moles/Vol] 26 mmol/L Normal 22-30 [facility] Comment on above: Order Comment: Speci men Type: BLOOD SPECIMEN Ordering Facility: [facility] Address: [address] [place] [address] Performed By: #### 2 4323-8, 78969-6 #### [facility] CLIA [id number] [address] [place] [address] [place] Creatinine [Mass/Vol] 0.89 mg/dL Normal 0.58-0.96 [facility] Comment on above: Order Comment: Trista camarillo Type: BLOOD SPECIMEN Ordering Facility: [facility] Address: [address] [place] [address] Performed By: #### 2 4323-8, 49190-9 #### [facility] CLIA [id number] [address] [place] [address] OF [facility] Creatinine and Glomerular filtration rate.predicted panel (S/P/Bld) 68 mL/min/1.73m??? Normal >=60 [facility] Comment on above: Order Comment: Trista camarillo Type: BLOOD SPECIMEN Ordering Facility: [facility] Address: [address] [place] [address] Result Comment: Torrie mated Glomerular Filtration Rate (eGFR) is calculated using the 2020 CKD-EPI creatinine equation. This equation utilizes serum creatinine, sex, and age as parameters. The creatinine assay has traceable calibration to isotope dilution-mass spectrometry. Refer to KDIGO guidelines for clinical interpretation. In patients with unstable renal function, e.g. those with acute kidney injury, the eGFR may not accurately reflect actual GFR. Performed By: #### 2 4323-8, 24216-9 #### [facility] CLIA [id number] [address] [place] [address] [place] Glucose [Mass/Vol] 75 mg/dL Normal 74-99 [facility] Comment on above: Order Comment: Trista camarillo Type: BLOOD SPECIMEN Ordering Facility: [facility] Address: [address] [place] [address] Result Comment: The [place] [employer] (ADA) provides guidance for cutoff values for fasting glucose and random glucose. The ADA defines fasting as no caloric intake for at least 8 hours. Fasting plasma glucose results between 100 to 125 mg/dL indicate increased risk for diabetes (prediabetes). Fasting plasma glucose results greater than or equal to 126 mg/dL meet the criteria for diagnosis of diabetes. In the absence of unequivocal hyperglycemia, results should be confirmed by repeat testing. In a patient with classic symptoms of hyperglycemia or hyperglycemic crisis, random plasma glucose results greater than or equal to 200 mg/dL meet the criteria for diagnosis of diabetes. Reference: Standards of Medical Care in Diabetes 2016, [place] [employer]. Diabetes Care. 2016.39(Suppl 1). Performed By: #### 2 4323-8, 13299-8 #### [facility] CLIA [id number] [address] [place] [address] [place] Potassium [Moles/Vol] 4.1 mmol/L Normal 3.7-5.1 [facility] Comment on above: Order Comment: Speci men Type: BLOOD SPECIMEN Ordering Facility: [facility] Address: [address] [place] [address] Performed By: #### 2 4323-8, 93113-7 #### [facility] CLIA [id number] [address] [place] [address] [place] Protein [Mass/Vol] 7.1 g/dL Normal 6.3-8.0 [facility] Comment on above: Order Comment: Speci men Type: BLOOD SPECIMEN Ordering Facility: [facility] Address: [address] [place] [address] Performed By: #### 2 4323-8, 56616-6 #### [facility] CLIA [id number] [address] [place] [address] [place] Sodium [Moles/Vol] 139 mmol/L Normal 136-144 [facility] Comment on above: Order Comment: Speci men Type: BLOOD SPECIMEN Ordering Facility: [facility] Address: [address] [place] [address] Performed By: #### 2 4323-8, 64021-0 #### [facility] CLIA [id number] [address] [place] [address] [place] Urea nitrogen [Mass/Vol] 16 mg/dL Normal 7-21 [facility] Comment on above: Order Comment: Speci men Type: BLOOD SPECIMEN Ordering Facility: [facility] Address: [address] [place] [address] Performed By: #### 2 4323-8, 71558-1 #### [facility] CLIA [id number] [address] [place] [address] [place] Lipid 1996 panelon 5 Cholesterol [Mass/Vol] 224 mg/dL High <200 [facility] Comment on above: Order Comment: Speci men Type: BLOOD SPECIMEN Ordering Facility: [facility] Address: [address] [place] [address] Result Comment: <200 mg/dL, Desirable 200-239 mg/dL, Borderline high >239 mg/dL, High Performed By: #### 2 4323-8, 66633-5 #### [facility] CLIA [id number] [address] [place] [address] [place] Cholesterol in HDL [Mass/Vol] 92 mg/dL Normal >39 [facility] Comment on above: Order Comment: Speci men Type: BLOOD SPECIMEN Ordering Facility: [facility] Address: [address] [place] [address] Result Comment: 40-5 9 mg/dL, Acceptable >59 mg/dL, High: Negative risk factor for coronary heart disease <40 mg/dL, Low: Positive risk factor for coronary heart disease Performed By: #### 2 4323-8, 56729-4 #### [facility] CLIA [id number] [address] [place] [address] [place] Cholesterol in LDL [Mass/Vol] 117 mg/dL High <100 [facility] Comment on above: Order Comment: Speci men Type: BLOOD SPECIMEN Ordering Facility: [facility] Address: [address] [place] [address] Result Comment: <100 mg/dL, Optimal 100-129 mg/dL, Near optimal/above optimal 130-159 mg/dL, Borderline high 160-189 mg/dL, High >189 mg/dL, Very high Secondary prevention optimal LDL Cholesterol levels are recommended to be < 70 mg/dL Performed By: #### 2 4323-8, 04112-6 #### [facility] CLIA [id number] [address] [place] [address] [place] Cholesterol in LDL/Cholesterol in HDL [Mass ratio] 1.27 {ratio} Normal <2.54 [facility] Comment on above: Order Comment: Trista camarillo Type: BLOOD SPECIMEN Ordering Facility: [facility] Address: [address] [place] [address] Result Comment: Dania bradyce: 1. National Cholesterol Education Program ATP III Guideline At-A-Glance Quick Desk Reference: National Heart, Lung, and Blood [place]. National Institutes of Health. 2001: NIH Publication No. 01-3305. 2. An International Atherosclerosis Society position paper: global recommendations for the management of dyslipidemia: executive summary, Atherosclerosis. 2014: 232(2):410-413. Performed By: #### 2 4323-8, 77951-0 #### [facility] CLIA [id number] [address] [place] [address] [place] Cholesterol in VLDL [Mass/Vol] 15 mg/dL Normal <30 [facility] Comment on above: Order Comment: Trista camar[place] Type: BLOOD SPECIMEN Ordering Facility: [facility] Address: [address] [place] [address] Performed By: #### 2 4323-8, 15307-8 #### [facility] CLIA [id number] [address] [place] [address] [place] Cholesterol non HDL [Mass/Vol] 132 mg/dL High <130 [facility] Comment on above: Order Comment: Trista camar[place] Type: BLOOD SPECIMEN Ordering Facility: [facility] Address: [address] [place] [address] Result Comment: <130 mg/dL, Optimal 130-159 mg/dL, Near optimal/above optimal 160-189 mg/dL, Borderline high 190-219 mg/dL, High >219 mg/dL, Very high Secondary prevention optimal non HDL Cholesterol levels are recommended to be <100 mg/dL Performed By: #### 2 4323-8, 14274-4 #### [facility] CLIA [id number] [address] [place] [address] [place] Cholesterol.total/Cho lesterol in HDL [Mass ratio] 2.43 {ratio} Normal <5.10 [facility] Comment on above: Order Comment: Speci men Type: BLOOD SPECIMEN Ordering Facility: [facility] Address: [address] [place] [address] Performed By: #### 2 4323-8, 73630-8 #### [facility] CLIA [id number] [address] [place] [address] [place] FASTING TIME 12 hrs Normal [facility] Comment on above: Order Comment: Speci men Type: BLOOD SPECIMEN Ordering Facility: [facility] Address: [address] [place] [address] Performed By: #### 2 4323-8, 01317-6 #### [facility] CLIA [id number] [address] [place] [address] [place] Triglyceride [Mass/Vol] 76 mg/dL Normal <150 [facility] Comment on above: Order Comment: Speci men Type: BLOOD SPECIMEN Ordering Facility: [facility] Address: [address] [place] [address] Result Comment: <150 mg/dL, Normal 150-199 mg/dL, Borderline high 200-499 mg/dL, High >499 mg/dL, Very high Performed By: #### 2 4323-8, 53224-4 #### [facility] CLIA [id number] [address] [place] [address] [place] CBC W/Diff, Automatedon 06-30 Absolute Lymph 1.43 X10 3/uL Normal 0.83-4.51 [facility] Comment on above: Performed By: #### L 500.4050, L100.0100 #### [facility] [address] [place], [address] Absolute Neut 2.4 X10 3/uL Normal 2.0-7.7 [facility] Comment on above: Performed By: #### L 500.4050, L100.0100 #### [facility] [address] [place], [address] Basophils/100 WBC (Bld) 0.2 % Normal 0-1 [facility] Comment on above: Performed By: #### L 500.4050, L100.0100 #### [facility] [address] [place], [address] Eosinophils/100 WBC (Bld) 2.9 % Normal 0-5 [facility] Comment on above: Performed By: #### L 500.4050, L100.0100 #### [facility] [address] [place], [address] Erythrocyte distribution width (RBC) [Ratio] 13.5 % Normal 11.6-14.6 [facility] Comment on above: Performed By: #### L 500.4050, L100.0100 #### [facility] [address] [place], [address] Hematocrit (Bld) [Volume fraction] 36.8 % Low 37-47 [facility] Comment on above: Performed By: #### L 500.4050, L100.0100 #### [facility] [address] [place], [address] Hemoglobin (Bld) [Mass/Vol] 11.7 g/dL Low 12.0-15.0 [facility] Comment on above: Performed By: #### L 500.4050, L100.0100 #### [facility] [address] [place], [address] IG% 0.500 Normal 0.0-0.9 [facility] Comment on above: Result Comment: IG% - Immature Granulocytes (promyelocytes, myelocytes and metamyelocytes) > 1% indicates that a LEFT SHIFT is Present. Performed By: #### L 500.4050, L100.0100 #### [facility] [address] [place], [address] Lymphocytes/100 WBC (Bld) 32.4 % Normal 19-41 [facility] Comment on above: Performed By: #### L 500.4050, L100.0100 #### [facility] [address] [place], [address] MCH (RBC) [Entitic mass] 29.8 pg Normal 27.0-32.0 [facility] Comment on above: Performed By: #### L 500.4050, L100.0100 #### [facility] [address] [place], [address] MCHC (RBC) [Mass/Vol] 31.8 g/dL Low 32-36 [facility] Comment on above: Performed By: #### L 500.4050, L100.0100 #### [facility] [address] [place], [address] MCV (RBC) [Entitic vol] 93.9 fL Normal 81-99 [facility] Comment on above: Performed By: #### L 500.4050, L100.0100 #### [facility] [address] [place], [address] Monocytes/100 WBC (Bld) 8.8 % Normal 0-10 [facility] Comment on above: Performed By: #### L 500.4050, L100.0100 #### [facility] [address] [place], [address] Neutrophils/100 WBC (Bld) 55.2 % Normal 47-70 [facility] Comment on above: Performed By: #### L 500.4050, L100.0100 #### [facility] [address] [place], [address] Nucleated RBC (Bld) [#/Vol] 0 10*3/uL Normal 0-5 [facility] Comment on above: Performed By: #### L 500.4050, L100.0100 #### [facility] [address] [place], [address] Platelet mean volume (Bld) [Entitic vol] 10.1 fL Normal 6.2-12.0 [facility] Comment on above: Performed By: #### L 500.4050, L100.0100 #### [facility] [address] [place], [address] Platelets (Bld) [#/Vol] 271 10*3/uL Normal 150-450 [facility] Comment on above: Performed By: #### L 500.4050, L100.0100 #### [facility] [address] [place], [address] RBC (Bld) [#/Vol] 3.92 10*6/uL Low 4.2-5.4 [facility] Comment on above: Performed By: #### L 500.4050, L100.0100 #### [facility] [address] [place], [address] RDW SD 46.1 fl High 35.1-43.9 [facility] Comment on above: Performed By: #### L 500.4050, L100.0100 #### [facility] [address] [place], [address] WBC (Bld) [#/Vol] 4.4 10*3/uL Normal 4.4-11.0 [facility] Comment on above: Performed By: #### L 500.4050, L100.0100 #### [facility] [address] [place], [address] Comprehensive Metabolic Prof [facility] 01-28-2025 Albumin [Mass/Vol] 3.6 g/dL Normal 3.2-5.0 [facility] Comment on above: Performed By: #### L 500.4050, L100.0100 #### [facility] [address] [place], [address] Albumin/Globulin [Mass ratio] 1.0 {ratio} Normal 0.9-2.4 [facility] Comment on above: Performed By: #### L 500.4050, L100.0100 #### [facility] [address] [place], [address] ALK P 76 U/L Normal 45-117 [facility] Comment on above: Performed By: #### L 500.4050, L100.0100 #### [facility] [address] [place], [address] ALT [Catalytic activity/Vol] 27 U/L Normal 13-56 [facility] Comment on above: Performed By: #### L 500.4050, L100.0100 #### [facility] [address] [place], [address] AST [Catalytic activity/Vol] 26 U/L Normal 15-37 [facility] Comment on above: Performed By: #### L 500.4050, L100.0100 #### [facility] [address] [place], [address] Bilirubin [Mass/Vol] 0.40 mg/dL Normal 0.20-1.00 [facility] Comment on above: Result Comment: For patients on eltrombopag therapy, use of Dimension [place] TBIL is not recommended. Performed By: #### L 500.4050, L100.0100 #### [facility] [address] [place], [address] BUN/CRE 19.1 RATIO Normal 10-20 [facility] Comment on above: Performed By: #### L 500.4050, L100.0100 #### [facility] [address] [place], [address] CA,Total 9.6 mg/dL Normal 8.5-10.1 [facility] Comment on above: Performed By: #### L 500.4050, L100.0100 #### [facility] [address] [place], [address] Chloride [Moles/Vol] 107 mmol/L Normal 98-107 [facility] Comment on above: Performed By: #### L 500.4050, L100.0100 #### [facility] [address] [place], [address] CO2 [Moles/Vol] 27.0 mmol/L Normal 21.0-32.0 [facility] Comment on above: Performed By: #### L 500.4050, L100.0100 #### [facility] [address] [place], [address] Creatinine [Mass/Vol] 0.94 mg/dL Normal 0.55-1.02 [facility] Comment on above: Result Comment: The validity of the calculated GFR GFRAA in patients over 70 years has not been determined. Clinical correlation is essential. Performed By: #### L 500.4050, L100.0100 #### [facility] [address] [place], [address] EST GFR - AA 74 mL/min Normal >60 [facility] Comment on above: Result Comment: Afri can [place] GFR Calc Performed By: #### L 500.4050, L100.0100 #### [facility] [address] [place], [address] GAP 5 Normal 5-15 [facility] Comment on above: Performed By: #### L 500.4050, L100.0100 #### [facility] [address] [place], [address] GFR/1.73 sq M.predicted among non-blacks MDRD (S/P/Bld) [Vol rate/Area] 61 mL/min/{1.73_m2} Normal >60 [facility] Comment on above: Result Comment: Non- GFR Calc Performed By: #### L 500.4050, L100.0100 #### [facility] [address] [place], [address] Globulin (S) [Mass/Vol] 3.5 g/dL Normal 2.2-4.2 [facility] Comment on above: Performed By: #### L 500.4050, L100.0100 #### [facility] [address] [place], [address] Glucose [Mass/Vol] 85 mg/dL Normal 74-106 [facility] Comment on above: Performed By: #### L 500.4050, L100.0100 #### [facility] [address] [place], [address] Potassium [Moles/Vol] 3.6 mmol/L Normal 3.5-5.1 [facility] Comment on above: Performed By: #### L 500.4050, L100.0100 #### [facility] [address] [place], [address] Sodium [Moles/Vol] 140 mmol/L Normal 136-145 [facility] Comment on above: Performed By: #### L 500.4050, L100.0100 #### [facility] [address] [place], [address] T PROT 7.1 g/dL Normal 6.4-8.2 [facility] Comment on above: Performed By: #### L 500.4050, L100.0100 #### [facility] [address] [place], [address] Urea nitrogen [Mass/Vol] 18 mg/dL Normal 7-18 [facility] Comment on above: Performed By: #### L 500.4050, L100.0100 #### [facility] [place], [address] CNOVon 02-03-2024 CNOV Office Visit (INTMWS ) ERNESTINA LEMUS ([id number]) 1950 F Date Time Provider Department 02/03/24 9:00 AM KIARA TAYLOR INTCHERYLE During your visit today, we recorded the following information about you: Pulse Respiration Blood pressure Weight 72/minute 16/minute 132/74 63.5 kg Kiara Taylor APRN.STUD DRIVER 02/03/2024 10:40 AM Signed CC: Patient presents with: Recheck: 6 month follow up HPI Ernestina Lemus is a 73 year old female who presents today for routine follow up. CHF: Takes lasix and potassium every other day as ordered. Denies any chest pain, shortness of breath, headaches, edema, or palpitations. She does not check BP's generally. Ernestina denies regular aerobic exercise but cares for her brother which is very physical. She watches her diet for sodium, low fat and low cholesterol most of the time. Last 3 Encounter BP Readings: Date: BP: 02/03/2024 132/74 08/05/2023 130/70 06/15/2023 140/72 Fibromyalgia: Symptoms controlled with gabapentin as ordered. Continues to follow with Dr. Merino for her inflammatory joint pain. REVIEW OF SYSTEMS See HPI PAST MEDICAL HISTORY No date: Abdominal pain, epigastric No date: Acute gastritis without mention of hemorrhage No date: Anemia 05/12/2012: Fibromyalgia No date: Gastritis 05/12/2012: Inflammatory polyarthropathy (HCC) No date: PMH - PAST MEDICAL HISTORY OF Comment: hx of dehydration 07/30/2009: Syncope PAST SURGICAL HISTORY No date: CHOLECYSTECTOMY Comment: Cholecystectomy 12/18/09: COLONOSCOPY FLX DX W/COLLJ SPEC WHEN PFRMD 12/18/09: EGD TRANSORAL BIOPSY SINGLE/MULTIPLE No date: SALPINGO-OOPHORECTOMY COMPL/PRTL UNI/BI SPX Comment: ??RIGHT - IN HER 30'S ALLERGIES Mri Dye [Contrast Dye] and Pneumococcal 23-Mike Ps Vaccine MEDICATIONS hydroxychloroquine (PLAQUENIL) 200 mg tablet Take 1 tablet by mouth twice daily. potassium chloride ER (KLOR-CON M10) 10 mEq [...] 1 capsule by mouth daily at bedtime. FAMILY HISTORY Problem Relation Age of Onset Cancer Mother 55 face Breast Cancer Maternal Aunt 52 Hypertension Mother Stroke Mother plaque Heart Father Diabetes Maternal Aunt with amputation Diabetes Maternal Aunt with amputation Social History Tobacco Use Smoking status: Never Smokeless tobacco: Never Vaping Use Vaping Use: Never used Substance Use Topics Alcohol use: No Drug use: No PHYSICAL EXAM BP 132/74 Pulse 72 Resp 16 Wt 63.5 kg (140 lb) SpO2 96% BMI 28.28 kg/m? General Appearance: well appearing, in no acute distress, alert Eyes: conjunctiva pink and moist, no icterus, sclera white, non-injected Lungs: Lungs clear to auscultation. No wheezing, rhonchi, rales. Heart: RRR without murmur, gallop, or rubs. No ectopy Health maintenance reviewed with patient: Depression Screening Never done Mammogram Screening due on 05/16/2023 Colorectal Cancer Screening due on 02/08/2024 RSV Vaccine(1 - 1-dose 60+ series) due on 06/15/2024 Shingrix Vaccine(1 of 2) due on 06/15/2024 Covid-19 Vaccine( - 2022- season) due on 06/15/2024 DTaP,Tdap,Td Vaccine(2 - Td or Tdap) due on 08/05/2024 Influenza Vaccine(1) due on 02/28/2024 Bone Density Screening due on 08/10/2025 Diabetes Screening due on 08/19/2026 Lipid Screening due on 06/09/2028 Advance Directive Discussion Completed Hepatitis C Screening Completed Pneumococcal Vaccine: 65+ Completed DATA REVIEWED: Most recent labs ASSESSMENT/PLAN: 1. Chronic diastolic congestive heart failure (HCC) - ICD9: 428.32, 428.0, ICD10: I50.32 (primary diagnosis) Stable and asymptomatic - Continue current medications - Encouraged daily weights - Recommend regular aerobic exercise 2. Fibromyalgia - ICD9: 729.1, ICD10: M79.7 Controlled with current treatment 3. Annual physical exam - ICD9: V70.0, ICD10: Z00.00 - not reviewed today. Blood work ordered to be reviewed at follow up appointment - LIPID PANEL BASIC - COMPLETE BLOOD COUNT - COMPREHENSIVE METABOLIC PANEL Prescription instructions reviewed with patient as applicable. Potential red flag symptoms discussed with the patient. Reviewed appropriate action plan to take if red flag symptoms occur. Patient agreeable to treatment plan. JOCELYN Ceja Joy, APRN.CNP 02/03/2024 9:15 AM Signed Many foods contain potassium. All meats (red meat and chicken) and fish such as salmon, cod, flounder, and sardines are good sources of potassium. Soy products and veggie burgers are also good sources of potassium. Vegetables including broccoli, peas, morales beans, tomatoes, potatoes (especially their skins), sweet potatoes, (more content not included)... Normal [facility] CBC W/Diff, Automatedon 08-0 Absolute Lymph 1.46 X10 3/uL Normal 0.83-4.51 [facility] Comment on above: Performed By: #### L 500.4050, L100.0100 #### [facility] [address] [place], [address] Absolute Neut 2.1 X10 3/uL Normal 2.0-7.7 [facility] Comment on above: Performed By: #### L 500.4050, L100.0100 #### [facility] [address] [place], [address] Basophils/100 WBC (Bld) 0.2 % Normal 0-1 [facility] Comment on above: Performed By: #### L 500.4050, L100.0100 #### [facility] [address] [place], [address] Eosinophils/100 WBC (Bld) 3.4 % Normal 0-5 [facility] Comment on above: Performed By: #### L 500.4050, L100.0100 #### [facility] [address] [place], [address] Erythrocyte distribution width (RBC) [Ratio] 12.7 % Normal 11.6-14.6 [facility] Comment on above: Performed By: #### L 500.4050, L100.0100 #### [facility] [address] [place], [address] Hematocrit (Bld) [Volume fraction] 36.5 % Low 37-47 [facility] Comment on above: Performed By: #### L 500.4050, L100.0100 #### [facility] [address] [place], [address] Hemoglobin (Bld) [Mass/Vol] 11.6 g/dL Low 12.0-15.0 [facility] Comment on above: Performed By: #### L 500.4050, L100.0100 #### [facility] [address] [place], [address] IG% 0.200 Normal 0.0-0.9 [facility] Comment on above: Result Comment: IG% - Immature Granulocytes (promyelocytes, myelocytes and metamyelocytes) > 1% indicates that a LEFT SHIFT is Present. Performed By: #### L 500.4050, L100.0100 #### [facility] [address] [place], [address] Lymphocytes/100 WBC (Bld) 35.5 % Normal 19-41 [facility] Comment on above: Performed By: #### L 500.4050, L100.0100 #### [facility] [address] [place], [address] MCH (RBC) [Entitic mass] 29.9 pg Normal 27.0-32.0 [facility] Comment on above: Performed By: #### L 500.4050, L100.0100 #### [facility] [address] [place], [address] MCHC (RBC) [Mass/Vol] 31.8 g/dL Low 32-36 [facility] Comment on above: Performed By: #### L 500.4050, L100.0100 #### [facility] [address] [place], [address] MCV (RBC) [Entitic vol] 94.1 fL Normal 81-99 [facility] Comment on above: Performed By: #### L 500.4050, L100.0100 #### [facility] [address] [place], [address] Monocytes/100 WBC (Bld) 9.2 % Normal 0-10 [facility] Comment on above: Performed By: #### L 500.4050, L100.0100 #### [facility] [address] [place], [address] Neutrophils/100 WBC (Bld) 51.5 % Normal 47-70 [facility] Comment on above: Performed By: #### L 500.4050, L100.0100 #### [facility] [address] [place], [address] Nucleated RBC (Bld) [#/Vol] 0 10*3/uL Normal 0-5 [facility] Comment on above: Performed By: #### L 500.4050, L100.0100 #### [facility] [address] [place], [address] Platelet mean volume (Bld) [Entitic vol] 9.8 fL Normal 6.2-12.0 [facility] Comment on above: Performed By: #### L 500.4050, L100.0100 #### [facility] [address] [place], [address] Platelets (Bld) [#/Vol] 281 10*3/uL Normal 150-450 [facility] Comment on above: Performed By: #### L 500.4050, L100.0100 #### [facility] [address] [place], [address] RBC (Bld) [#/Vol] 3.88 10*6/uL Low 4.2-5.4 [facility] Comment on above: Performed By: #### L 500.4050, L100.0100 #### [facility] [address] [place], [address] RDW SD 44.1 fl High 35.1-43.9 [facility] Comment on above: Performed By: #### L 500.4050, L100.0100 #### [facility] [address] [place], [address] WBC (Bld) [#/Vol] 4.1 10*3/uL Low 4.4-11.0 [facility] Comment on above: Performed By: #### L 500.4050, L100.0100 #### [facility] [address] [place], [address] Comprehensive Metabolic Prof ilon 02-01-2024 Albumin [Mass/Vol] 3.5 g/dL Normal 3.2-5.0 [facility] Comment on above: Performed By: #### L [id number], L100.0100 #### [facility] [address] [place], [address] Albumin/Globulin [Mass ratio] 1.0 {ratio} Normal 0.9-2.4 [facility] Comment on above: Performed By: #### L 500.4050, L100.0100 #### [facility] [address] [place], [address] ALK P 74 U/L Normal 45-117 [facility] Comment on above: Performed By: #### L [id number], L100.0100 #### [facility] [address] [place], [address] ALT [Catalytic activity/Vol] 27 U/L Normal 13-56 [facility] Comment on above: Performed By: #### L [id number], L100.0100 #### [facility] [address] [place], [address] AST [Catalytic activity/Vol] 31 U/L Normal 15-37 [facility] Comment on above: Performed By: #### L [id number], L100.0100 #### [facility] [address] [place], [address] Bilirubin [Mass/Vol] 0.40 mg/dL Normal 0.20-1.00 [facility] Comment on above: Result Comment: For patients on eltrombopag therapy, use of Dimension [place] TBIL is not recommended. Performed By: #### L 500.4050, L100.0100 #### [facility] [address] [place], [address] BUN/CRE 13.9 RATIO Normal 10-20 [facility] Comment on above: Performed By: #### L 500.4050, L100.0100 #### [facility] [address] [place], [address] CA,Total 9.2 mg/dL Normal 8.5-10.1 [facility] Comment on above: Performed By: #### L [id number], L100.0100 #### [facility] [address] [place], [address] Chloride [Moles/Vol] 106 mmol/L Normal 98-107 [facility] Comment on above: Performed By: #### L 500.4050, L100.0100 #### [facility] [address] [place], [address] CO2 [Moles/Vol] 27.0 mmol/L Normal 21.0-32.0 [facility] Comment on above: Performed By: #### L 500.4050, L100.0100 #### [facility] [address] [place], [address] Creatinine [Mass/Vol] 0.93 mg/dL Normal 0.55-1.02 [facility] Comment on above: Result Comment: The validity of the calculated GFR GFRAA in patients over 70 years has not been determined. Clinical correlation is essential. Performed By: #### L 500.4050, L100.0100 #### [facility] [address] [place], [address] EST GFR - AA 75 mL/min Normal >60 [facility] Comment on above: Result Comment: Afri can [place] GFR Calc Performed By: #### L [id number], L100.0100 #### [facility] [address] [place], [address] GAP 8 Normal 5-15 [facility] Comment on above: Performed By: #### L 500.4050, L100.0100 #### [facility] [address] [place], [address] GFR/1.73 sq M.predicted among non-blacks MDRD (S/P/Bld) [Vol rate/Area] 62 mL/min/{1.73_m2} Normal >60 [facility] Comment on above: Result Comment: Non- GFR Calc Performed By: #### L 500.4050, L100.0100 #### [facility] [address] [place], [address] Globulin (S) [Mass/Vol] 3.6 g/dL Normal 2.2-4.2 [facility] Comment on above: Performed By: #### L [id number], L100.0100 #### [facility] [address] [place], [address] Glucose [Mass/Vol] 85 mg/dL Normal 74-106 [facility] Comment on above: Performed By: #### L [id number], L100.0100 #### [facility] [address] [place], [address] Potassium [Moles/Vol] 3.6 mmol/L Normal 3.5-5.1 [facility] Comment on above: Performed By: #### L [id number], L100.0100 #### [facility] [address] [place], [address] Sodium [Moles/Vol] 141 mmol/L Normal 136-145 [facility] Comment on above: Performed By: #### L 500.4050, L100.0100 #### [facility] [address] [place], [address] T PROT 7.1 g/dL Normal 6.4-8.2 [facility] Comment on above: Performed By: #### L [id number], L100.0100 #### [facility] [address] [place], [address] Urea nitrogen [Mass/Vol] 13 mg/dL Normal 7-18 [facility] Comment on above: Performed By: #### L [id number], L100.0100 #### [facility] [address] [place], [address] Absolute lymphocyte countOrd ered By: Suzi Merino on 02-13-2024 Lymphocytes Auto (Unsp spec) [#/Vol] 1.26 10*3/uL 0.83-4.51 [facility] Automated lymphocyte count a s percentage of total leukocytesOrdered By: Suzi Merino on 08-11-2023 Lymphocytes/100 WBC Auto (Unsp spec) 28.6 % 19-41 [facility] Basophil percentageOrdered B y: Suzi Merino on 08-11-2023 Basophils/100 WBC (Bld) 0.0 % 0-1 [facility] Bilirubin [Mass/Vol] 0.50 mg/dL 0.20-1.00 [facility] Comment on above: For patients on eltr ombopag therapy, use of Dimension [place] TBIL is not recommended. Chloride [Moles/Vol] 108 mmol/L 98-107 [facility] Eosinophils/100 WBC (Bld) 2.3 % 0-5 [facility] Glucose [Mass/Vol] 89 mg/dL 74-106 [facility] Hemoglobin (Bld) [Mass/Vol] 11.6 g/dL 12.0-15.0 [facility] Monocytes/100 WBC (Bld) 8.2 % 0-10 [facility] Neutrophils (Bld) [#/Vol] 2.7 10*3/uL 2.0-7.7 [facility] Neutrophils/100 WBC (Bld) 60.7 % 47-70 [facility] Potassium [Moles/Vol] 3.7 mmol/L 3.5-5.1 [facility] Protein [Mass/Vol] 6.9 g/dL 6.4-8.2 [facility] Sodium [Moles/Vol] 141 mmol/L 136-145 [facility] WBC (Bld) [#/Vol] 4.4 10*3/uL 4.4-11.0 [facility] Determination of erythrocyte mean corpuscular volume (MCV)Ordered By: Suzi Merino on 08-11-2023 MCV (RBC) [Entitic vol] 98.9 fL 81-99 [facility] Erythrocyte distribution wid th ratioOrdered By: Suzi Merino on 08-11-2023 Erythrocyte distribution width (RBC) [Ratio] 12.7 % 11.6-14.6 [facility] Erythrocyte distribution wid th standard deviationOrdered By: Suzi Merino on 08-11-2023 Erythrocyte distribution width (RBC) [Entitic vol] 45.9 fL 35.1-43.9 [facility] Hematocrit Auto (Bld) [Volum e fraction]Ordered By: Suzi Merino on 08-11-2023 Hematocrit (Bld) [Volume fraction] 36.0 % 37-47 [facility] Immature granulocytes/100 WB C Auto (Bld)Ordered By: Suziprice Merino on 08-11-2023 Immature granulocytes/100 WBC (Bld) 0.200 % 0.0-0.9 [facility] Comment on above: IG% - Immature Granu locytes (promyelocytes, myelocytes and metamyelocytes) > 1% indicates that a LEFT SHIFT is Present. Laboratory - Chemistry and C hemistry - challengeOrdered By: [facility] Wilber on 08-11-2023 Albumin/Globulin [Mass ratio] 1.1 {ratio} 0.9-2.4 [facility] ALP [Catalytic activity/Vol] 73 U/L 45-117 [facility] ALT [Catalytic activity/Vol] 34 U/L 13-56 [facility] CO2 [Moles/Vol] 26.0 mmol/L 21.0-32.0 [facility] Globulin (S) [Mass/Vol] 3.3 g/dL 2.2-4.2 [facility] Urea nitrogen/Creatinine [Mass ratio] 17.1 mg/mg 10-20 [facility] - Hematology and Cell countsOrdered By: Suzi Merino on 08-11-2023 MCH (RBC) [Entitic mass] 31.9 pg 27.0-32.0 [facility] MCHC (RBC) [Mass/Vol] 32.2 g/dL 32-36 [facility] Nucleated RBC/100 WBC (Bld) [Ratio] 0 % 0-5 [facility] Platelet mean volume (Bld) [Entitic vol] 10.2 fL 6.2-12.0 [facility] Platelets (Bld) [#/Vol] 276 10*3/uL 150-450 [facility] No Panel InformationOrdered By: Suzi Merino on 08-11-2023 Estimated GFR (MDRD) Amer 88 mL/min >60 [facility] Comment on above: GFR Calc Estimated GFR (MDRD) Non-Af Amer 73 mL/min >60 [facility] Comment on above: Non- GFR Calc RBC Auto (Bld) [#/Vol]Ordere d By: Suzi Merino on 08-11-2023 RBC (Bld) [#/Vol] 3.64 10*6/uL 4.2-5.4 [facility] Serum or plasma calcium yaritza urement (mass/volume)Ordered By: Suzi Merino on 08-11-2023 Calcium [Mass/Vol] 9.5 mg/dL 8.5-10.1 [facility] Serum or plasma creatinine m easurement (mass/volume)Ordered By: Suzi Merino on 08-11-2023 Creatinine [Mass/Vol] 0.82 mg/dL 0.55-1.02 [facility] Comment on above: The validity of the calculated GFR & GFRAA in patients over 70 years has not been determined. Clinical correlation is essential. Serum or plasma urea nitroge n measurement (mass/volume)Ordered By: Suzi Merino on 08-11-2023 Urea nitrogen [Mass/Vol] 14 mg/dL 7-18 [facility] Thin prep Papanicolaou smear with manual screeningOrdered By: Suzi Merino on 08-11-2023 Thin prep Papanicolaou smear with manual screening 3.6 g/dL 3.2-5.0 [facility] Thin prep Papanicolaou smear with manual screening 30 U/L 15-37 [facility] Thin prep Papanicolaou smear with manual screening 7 5-15 [facility] No Panel Informationon 08-10 LOWEST T-SCORE -2.2 [facility] Absolute lymphocyte countOrd ered By: Suzi Merino on 02-17-2023 Lymphocytes Auto (Unsp spec) [#/Vol] 1.44 10*3/uL 0.83-4.51 [facility] Basophil percentageOrdered B y: Suzi Merino on 02-17-2023 Basophils/100 WBC (Bld) 0.2 % 0-1 [facility] Bilirubin [Mass/Vol] 0.30 mg/dL 0.20-1.00 [facility] Comment on above: For patients on eltr ombopag therapy, use of Dimension [place] TBIL is not recommended. Chloride [Moles/Vol] 105 mmol/L 98-107 [facility] Eosinophils/100 WBC (Bld) 2.8 % 0-5 [facility] Glucose [Mass/Vol] 92 mg/dL 74-106 [facility] Neutrophils (Bld) [#/Vol] 2.5 10*3/uL 2.0-7.7 [facility] Neutrophils/100 WBC (Bld) 55.0 % 47-70 [facility] Potassium [Moles/Vol] 4.2 mmol/L 3.5-5.1 [facility] Protein [Mass/Vol] 7.2 g/dL 6.4-8.2 [facility] Sodium [Moles/Vol] 138 mmol/L 136-145 [facility] WBC (Bld) [#/Vol] 4.6 10*3/uL 4.4-11.0 [facility] Blood erythrocytes count (nu mber/volume)Ordered By: Suzi Merino on 02-17-2023 RBC (Bld) [#/Vol] 3.74 10*6/uL 4.2-5.4 [facility] Blood hemoglobin measurement (mass/volume)Ordered By: Suzi Merino on 02-17-2023 Hemoglobin (Bld) [Mass/Vol] 11.9 g/dL 12.0-15.0 [facility] Blood lymphocytes/100 leukoc ytesOrdered By: Suzi Merino on 02-17-2023 Lymphocytes/100 WBC (Bld) 31.2 % 19-41 [facility] Blood monocytes/100 leukocyt esOrdered By: Suzi Merino on 02-17-2023 Monocytes/100 WBC (Bld) 10.6 % 0-10 [facility] Blood platelet mean volumeOr dered By: Suzi Merino on 02-17-2023 Platelet mean volume (Bld) [Entitic vol] 10.1 fL 6.2-12.0 [facility] Determination of erythrocyte mean corpuscular volume (MCV)Ordered By: Suzi Merino on 02-17-2023 MCV (RBC) [Entitic vol] 98.9 fL 81-99 [facility] Hematocrit Auto (Bld) [Volum e fraction]Ordered By: Suzi Merino on 02-17-2023 Hematocrit (Bld) [Volume fraction] 37.0 % 37-47 [facility] - Chemistry and C hemistry - challengeOrdered By: Suzi Merino on 02-17-2023 ALP [Catalytic activity/Vol] 61 U/L 45-117 [facility] ALT [Catalytic activity/Vol] 39 U/L 13-56 [facility] CO2 [Moles/Vol] 25.0 mmol/L 21.0-32.0 [facility] Globulin (S) [Mass/Vol] 3.6 g/dL 2.2-4.2 [facility] Urea nitrogen/Creatinine [Mass ratio] 30.2 mg/mg 10-20 [facility] - Hematology and Cell countsOrdered By: Suzi Merino on 02-17-2023 Erythrocyte distribution width (RBC) [Entitic vol] 46.6 fL 35.1-43.9 [facility] Erythrocyte distribution width (RBC) [Ratio] 12.9 % 11.6-14.6 [facility] Immature granulocytes/100 WBC (Bld) 0.200 % 0.0-0.9 [facility] Comment on above: IG% - Immature Granu locytes (promyelocytes, myelocytes and metamyelocytes) > 1% indicates that a LEFT SHIFT is Present. MCH (RBC) [Entitic mass] 31.8 pg 27.0-32.0 [facility] Nucleated RBC/100 WBC (Bld) [Ratio] 0 % 0-5 [facility] MCHC Auto (RBC) [Mass/Vol]Or dered By: Suzi Merino on 02-17-2023 MCHC (RBC) [Mass/Vol] 32.2 g/dL 32-36 [facility] No Panel InformationOrdered By: Suzi Merino on 02-17-2023 Estimated GFR (MDRD) Amer 76 mL/min >60 [facility] Comment on above: GFR Calc Estimated GFR (MDRD) Non-Af Amer 63 mL/min >60 [facility] Comment on above: Non- GFR Calc Platelets bldOrdered By: Celia Merino on 02-17-2023 Platelets (Bld) [#/Vol] 255 10*3/uL 150-450 [facility] Serum or plasma albumin yaritza urement (mass/volume)Ordered By: Suzi Merino on 02-17-2023 Albumin [Mass/Vol] 3.6 g/dL 3.2-5.0 [facility] Serum or plasma albumin/glob ulin mass ratioOrdered By: Suzi Merino on 02-17-2023 Albumin/Globulin [Mass ratio] 1.0 {ratio} 0.9-2.4 [facility] Serum or plasma calcium yaritza urement (mass/volume)Ordered By: Suzi Merino on 02-17-2023 Calcium [Mass/Vol] 9.4 mg/dL 8.5-10.1 [facility] Serum or plasma creatinine m easurement (mass/volume)Ordered By: Suzi Merino on 02-17-2023 Creatinine [Mass/Vol] 0.93 mg/dL 0.55-1.02 [facility] Comment on above: The validity of the calculated GFR & GFRAA in patients over 70 years has not been determined. Clinical correlation is essential. Serum or plasma urea nitroge n measurement (mass/volume)Ordered By: Suzi Merino on 02-17-2023 Urea nitrogen [Mass/Vol] 28 mg/dL 7-18 [facility] Thin prep Papanicolaou smear with manual screeningOrdered By: Suzi Merino on 02-17-2023 Thin prep Papanicolaou smear with manual screening 28 U/L 15-37 [facility] Thin prep Papanicolaou smear with manual screening 8 5-15 [facility] CBC W Auto Differential pane l (Bld)on 12-10-2022 Basophils (Bld) [#/Vol] <0.11 k/uL [facility] Basophils/100 WBC (Bld) 0.2 % [facility] Differential cell count method Nom (Bld) Auto [facility] Eosinophils (Bld) [#/Vol] 0.09 10*3/uL <0.46 k/uL [facility] Eosinophils/100 WBC (Bld) 1.8 % [facility] Erythrocyte distribution width (RBC) [Ratio] 13.2 % 11.5 - 15.0 % [facility] Hematocrit (Bld) [Volume fraction] 37.4 % 36.0 - 46.0 % [facility] Hemoglobin (Bld) [Mass/Vol] 12.5 g/dL 11.5 - 15.5 g/dL [facility] Immature granulocytes (Bld) [#/Vol] <0.10 k/uL [facility] Immature granulocytes/100 WBC (Bld) 0.2 % [facility] Lymphocytes (Bld) [#/Vol] 1.79 10*3/uL 1.00 - 4.00 k/uL [facility] Lymphocytes/100 WBC (Bld) 36.7 % [facility] MCH (RBC) [Entitic mass] 32.5 pg 26.0 - 34.0 pg [facility] MCHC (RBC) [Mass/Vol] 33.4 g/dL 30.5 - 36.0 g/dL [facility] MCV (RBC) [Entitic vol] 97.1 fL 80.0 - 100.0 fL [facility] Monocytes (Bld) [#/Vol] 0.40 10*3/uL <0.87 k/uL [facility] Monocytes/100 WBC (Bld) 8.2 % [facility] Neutrophils (Bld) [#/Vol] 2.58 10*3/uL 1.45 - 7.50 k/uL [facility] Neutrophils/100 WBC (Bld) 52.9 % [facility] Nucleated RBC (Bld) [#/Vol] <0.01 k/uL [facility] Nucleated RBC/100 WBC (Bld) [Ratio] 0.0 /100 WBC [facility] Platelet mean volume (Bld) [Entitic vol] 10.7 fL 9.0 - 12.7 fL [facility] Platelets (Bld) [#/Vol] 314 10*3/uL 150 - 400 k/uL [facility] RBC (Bld) [#/Vol] 3.85 10*6/uL Low 3.90 - 5.2 0 m/uL [facility] WBC (Bld) [#/Vol] 4.88 10*3/uL 3.70 - 11. 00 k/uL [facility] VITAMIN D 25 HYDROXYon 12-10 25-hydroxyvitamin D3 [Mass/Vol] 81.7 ng/mL High 31.0 - 80.0 ng/mL [facility] Absolute lymphocyte countOrd ered By: ED PROVIDER on 08-28-2022 Lymphocytes Auto (Unsp spec) [#/Vol] 1.52 10*3/uL 0.83-4.51 [facility] Basophil percentageOrdered B y: ED PROVIDER on 08-28-2022 Basophils/100 WBC (Bld) 0.1 % 0-1 [facility] Chloride [Moles/Vol] 105 mmol/L 98-107 [facility] Eosinophils/100 WBC (Bld) 0.1 % 0-5 [facility] Glucose [Mass/Vol] 83 mg/dL 74-106 [facility] Neutrophils (Bld) [#/Vol] 6.3 10*3/uL 2.0-7.7 [facility] Neutrophils/100 WBC (Bld) 74.3 % 47-70 [facility] Potassium [Moles/Vol] 4.4 mmol/L 3.5-5.1 [facility] Comment on above: Moderate Hemolysis, Result may be falsely increased. Sodium [Moles/Vol] 140 mmol/L 136-145 [facility] WBC (Bld) [#/Vol] 8.4 10*3/uL 4.4-11.0 [facility] Blood erythrocytes count (nu mber/volume)Ordered By: ED PROVIDER on 08-28-2022 RBC (Bld) [#/Vol] 4.00 10*6/uL 4.2-5.4 [facility] Blood hemoglobin measurement (mass/volume)Ordered By: ED PROVIDER on 08-28-2022 Hemoglobin (Bld) [Mass/Vol] 12.9 g/dL 12.0-15.0 [facility] Blood lymphocytes/100 leukoc ytesOrdered By: ED PROVIDER on 08-28-2022 Lymphocytes/100 WBC (Bld) 18.1 % 19-41 [facility] Blood monocytes/100 leukocyt esOrdered By: ED PROVIDER on 08-28-2022 Monocytes/100 WBC (Bld) 7.0 % 0-10 [facility] Blood platelet mean volumeOr dered By: ED PROVIDER on 08-28-2022 Platelet mean volume (Bld) [Entitic vol] 10.3 fL 6.2-12.0 [facility] Determination of erythrocyte mean corpuscular volume (MCV)Ordered By: ED PROVIDER on 08-28-2022 MCV (RBC) [Entitic vol] 99.3 fL 81-99 [facility] Hematocrit Auto (Bld) [Volum e fraction]Ordered By: ED PROVIDER on 08-28-2022 Hematocrit (Bld) [Volume fraction] 39.7 % 37-47 [facility] Laboratory - Chemistry and C hemistry - challengeOrdered By: ED PROVIDER on 08-28-2022 CO2 [Moles/Vol] 25.0 mmol/L 21.0-32.0 [facility] Urea nitrogen/Creatinine [Mass ratio] 21.4 mg/mg 10-20 [facility] - Hematology and Cell countsOrdered By: ED PROVIDER on 08-28-2022 Erythrocyte distribution width (RBC) [Entitic vol] 47.8 fL 35.1-43.9 [facility] Erythrocyte distribution width (RBC) [Ratio] 13.1 % 11.6-14.6 [facility] Immature granulocytes/100 WBC (Bld) 0.400 % 0.0-0.9 [facility] Comment on above: IG% - Immature Granu locytes (promyelocytes, myelocytes and metamyelocytes) > 1% indicates that a LEFT SHIFT is Present. MCH (RBC) [Entitic mass] 32.3 pg 27.0-32.0 [facility] Nucleated RBC/100 WBC (Bld) [Ratio] 0 % 0-5 [facility] MCHC Auto (RBC) [Mass/Vol]Or dered By: ED PROVIDER on 08-28-2022 MCHC (RBC) [Mass/Vol] 32.5 g/dL 32-36 [facility] No Panel InformationOrdered By: Dr. Benoit on 08-28-2022 Troponin I High Sensitivity 8 pg/mL 3.0-54.0 [facility] Comment on above: Please Note: New [place] t Units and Gender Specific Reference Ranges. For more information see Policy Stat Procedure [place] High Sensitivity Troponin (TNIH) and attachments. D-Dimer Quantitative (PE/DVT) 0.43 FEU/ug/m 0.27-0.49 [facility] Comment on above: NORMAL D-Dimer level (<0.50) indicates no DVT or PE. No Panel InformationOrdered By: ED PROVIDER on 08-28-2022 Estimated Creatinine Clearance Calc 52.61 ml/min [facility] Estimated GFR (MDRD) Amer 71 mL/min >60 [facility] Comment on above: GFR Calc Estimated GFR (MDRD) Non-Af Amer 59 mL/min >60 [facility] Comment on above: Non- GFR Calc Platelets bldOrdered By: ED PROVIDER on 08-28-2022 Platelets (Bld) [#/Vol] 318 10*3/uL 150-450 [facility] Serum or plasma calcium yaritza urement (mass/volume)Ordered By: ED PROVIDER on 08-28-2022 Calcium [Mass/Vol] 10.5 mg/dL 8.5-10.1 [facility] Serum or plasma creatinine m easurement (mass/volume)Ordered By: ED PROVIDER on 08-28-2022 Creatinine [Mass/Vol] 0.98 mg/dL 0.55-1.02 [facility] Comment on above: The validity of the calculated GFR & GFRAA in patients over 70 years has not been determined. Clinical correlation is essential. Serum or plasma urea nitroge n measurement (mass/volume)Ordered By: ED PROVIDER on 08-28-2022 Urea nitrogen [Mass/Vol] 21 mg/dL 7-18 [facility] Thin prep Papanicolaou smear with manual screeningOrdered By: ED PROVIDER on 08-28-2022 Thin prep Papanicolaou smear with manual screening 10 5-15 [facility] Absolute lymphocyte countOrd ered By: Dr. Merino on 08-19-2022 Lymphocytes Auto (Unsp spec) [#/Vol] 1.25 10*3/uL 0.83-4.51 [facility] Basophil percentageOrdered B y: Dr. Merino on 08-19-2022 Basophils/100 WBC (Bld) 0.3 % 0-1 [facility] Bilirubin [Mass/Vol] 0.50 mg/dL 0.20-1.00 [facility] Comment on above: For patients on eltr ombopag therapy, use of Dimension [place] TBIL is not recommended. Chloride [Moles/Vol] 104 mmol/L 98-107 [facility] Eosinophils/100 WBC (Bld) 2.9 % 0-5 [facility] Glucose [Mass/Vol] 84 mg/dL 74-106 [facility] Neutrophils (Bld) [#/Vol] 2.0 10*3/uL 2.0-7.7 [facility] Neutrophils/100 WBC (Bld) 53.5 % 47-70 [facility] Potassium [Moles/Vol] 3.7 mmol/L 3.5-5.1 [facility] Protein [Mass/Vol] 7.2 g/dL 6.4-8.2 [facility] Sodium [Moles/Vol] 139 mmol/L 136-145 [facility] WBC (Bld) [#/Vol] 3.8 10*3/uL 4.4-11.0 [facility] Blood erythrocytes count (nu mber/volume)Ordered By: Dr. Merino on 08-19-2022 RBC (Bld) [#/Vol] 3.87 10*6/uL 4.2-5.4 [facility] Blood hemoglobin measurement (mass/volume)Ordered By: Dr. Merino on 08-19-2022 Hemoglobin (Bld) [Mass/Vol] 12.5 g/dL 12.0-15.0 [facility] Blood lymphocytes/100 leukoc ytesOrdered By: Dr. Merino on 08-19-2022 Lymphocytes/100 WBC (Bld) 33.2 % 19-41 [facility] Blood monocytes/100 leukocyt esOrdered By: Dr. Merino on 08-19-2022 Monocytes/100 WBC (Bld) 9.8 % 0-10 [facility] Blood platelet mean volumeOr dered By: Dr. Merino on 08-19-2022 Platelet mean volume (Bld) [Entitic vol] 10.2 fL 6.2-12.0 [facility] Determination of erythrocyte mean corpuscular volume (MCV)Ordered By: Dr. Merino on 08-19-2022 MCV (RBC) [Entitic vol] 98.4 fL 81-99 [facility] Hematocrit Auto (Bld) [Volum e fraction]Ordered By: Dr. Merino on 08-19-2022 Hematocrit (Bld) [Volume fraction] 38.1 % 37-47 [facility] Laboratory - Chemistry and C hemistry - challengeOrdered By: Dr. Merino on 08-19-2022 ALP [Catalytic activity/Vol] 68 U/L 45-117 [facility] ALT [Catalytic activity/Vol] 37 U/L 13-56 [facility] CO2 [Moles/Vol] 28.0 mmol/L 21.0-32.0 [facility] Globulin (S) [Mass/Vol] 3.4 g/dL 2.2-4.2 [facility] Urea nitrogen/Creatinine [Mass ratio] 16.1 mg/mg 10-20 [facility] Laboratory - Hematology and Cell countsOrdered By: Dr. Merino on 08-19-2022 Erythrocyte distribution width (RBC) [Entitic vol] 46.9 fL 35.1-43.9 [facility] Erythrocyte distribution width (RBC) [Ratio] 13.0 % 11.6-14.6 [facility] Immature granulocytes/100 WBC (Bld) 0.300 % 0.0-0.9 [facility] Comment on above: IG% - Immature Granu locytes (promyelocytes, myelocytes and metamyelocytes) > 1% indicates that a LEFT SHIFT is Present. MCH (RBC) [Entitic mass] 32.3 pg 27.0-32.0 [facility] Nucleated RBC/100 WBC (Bld) [Ratio] 0 % 0-5 [facility] MCHC Auto (RBC) [Mass/Vol]Or dered By: Dr. Merino on 08-19-2022 MCHC (RBC) [Mass/Vol] 32.8 g/dL 32-36 [facility] No Panel InformationOrdered By: Dr. Merino on 08-19-2022 Estimated GFR (MDRD) Amer 76 mL/min >60 [facility] Comment on above: GFR Calc Estimated GFR (MDRD) Non-Af Amer 63 mL/min >60 [facility] Comment on above: Non- GFR Calc Platelets bldOrdered By: Dr. Merino on 08-19-2022 Platelets (Bld) [#/Vol] 284 10*3/uL 150-450 [facility] Serum or plasma albumin yaritza urement (mass/volume)Ordered By: Dr. Merino on 08-19-2022 Albumin [Mass/Vol] 3.8 g/dL 3.2-5.0 [facility] Serum or plasma albumin/glob ulin mass ratioOrdered By: Dr. Merino on 08-19-2022 Albumin/Globulin [Mass ratio] 1.1 {ratio} 0.9-2.4 [facility] Serum or plasma calcium yaritza urement (mass/volume)Ordered By: Dr. Merino on 08-19-2022 Calcium [Mass/Vol] 9.9 mg/dL 8.5-10.1 [facility] Serum or plasma creatinine m easurement (mass/volume)Ordered By: Dr. Merino on 08-19-2022 Creatinine [Mass/Vol] 0.93 mg/dL 0.55-1.02 [facility] Comment on above: The validity of the calculated GFR & GFRAA in patients over 70 years has not been determined. Clinical correlation is essential. Serum or plasma urea nitroge n measurement (mass/volume)Ordered By: Dr. Merino on 08-19-2022 Urea nitrogen [Mass/Vol] 15 mg/dL 7-18 [facility] Serum or plasma uric acid me asurement (mass/volume)Ordered By: Dr. Merino on 08-19-2022 Urate [Mass/Vol] 5.3 mg/dL 2.6-6.0 [facility] Comment on above: The drugs N-Acetylcy steine and Metamizole may falsely depress this assay. Thin prep Papanicolaou smear with manual screeningOrdered By: Dr. Merino on 08-19-2022 Thin prep Papanicolaou smear with manual screening 34 U/L 15-37 [facility] Thin prep Papanicolaou smear with manual screening 7 5-15 [facility] Absolute lymphocyte counton 03-17-2022 Lymphocytes Auto (Unsp spec) [#/Vol] 1.39 10*3/uL 0.83-4.51 [facility] Work Phone: Basophil percentageon 2021 Basophils/100 WBC (Bld) 0.2 % 0-1 [facility] Work Phone: Bilirubin [Mass/Vol] 0.40 mg/dL 0.20-1.00 [facility] Work Phone: Comment on above: For patients on eltr ombopag therapy, use of Dimension [place] TBIL is not recommended. Chloride [Moles/Vol] 107 mmol/L 98-107 [facility] Work Phone: Eosinophils/100 WBC (Bld) 1.8 % 0-5 [facility] Work Phone: Glucose [Mass/Vol] 87 mg/dL 74-106 [facility] Work Phone: Neutrophils (Bld) [#/Vol] 3.0 10*3/uL 2.0-7.7 [facility] Work Phone: Neutrophils/100 WBC (Bld) 60.5 % 47-70 [facility] Work Phone: Potassium [Moles/Vol] 3.4 mmol/L 3.5-5.1 [facility] Work Phone: Protein [Mass/Vol] 6.9 g/dL 6.4-8.2 [facility] Work Phone: Sodium [Moles/Vol] 142 mmol/L 136-145 [facility] Work Phone: WBC (Bld) [#/Vol] 5.0 10*3/uL 4.4-11.0 [facility] Work Phone: Blood erythrocytes count (nu mber/volume)on 03-17-2022 RBC (Bld) [#/Vol] 3.60 10*6/uL 4.2-5.4 [facility] Work Phone: Blood hemoglobin measurement (mass/volume)on 03-17-2022 Hemoglobin (Bld) [Mass/Vol] 11.5 g/dL 12.0-15.0 [facility] Work Phone: Blood lymphocytes/100 leukoc yteson 03-17-2022 Lymphocytes/100 WBC (Bld) 28.0 % 19-41 [facility] Work Phone: Blood monocytes/100 leukocyt eson 03-17-2022 Monocytes/100 WBC (Bld) 9.3 % 0-10 [facility] Work Phone: Blood platelet mean volumeon 03-17-2022 Platelet mean volume (Bld) [Entitic vol] 10.5 fL 6.2-12.0 [facility] Work Phone: Determination of erythrocyte mean corpuscular volume (MCV)on 03-17-2022 MCV (RBC) [Entitic vol] 99.4 fL 81-99 [facility] Work Phone: Hematocrit Auto (Bld) [Volum e fraction]on 03-17-2022 Hematocrit (Bld) [Volume fraction] 35.8 % 37-47 [facility] Work Phone: Laboratory - Chemistry and C hemistry - challengeon 03-17-2022 ALP [Catalytic activity/Vol] 65 U/L 45-117 [facility] Work Phone: ALT [Catalytic activity/Vol] 38 U/L 13-56 [facility] Work Phone: CO2 [Moles/Vol] 27.0 mmol/L 21.0-32.0 [facility] Work Phone: Globulin (S) [Mass/Vol] 3.3 g/dL 2.2-4.2 [facility] Work Phone: Urea nitrogen/Creatinine [Mass ratio] 27.9 mg/mg 10-20 [facility] Work Phone: Laboratory - Hematology and Cell countson 03-17-2022 Erythrocyte distribution width (RBC) [Entitic vol] 49.1 fL 35.1-43.9 [facility] Work Phone: Erythrocyte distribution width (RBC) [Ratio] 13.4 % 11.6-14.6 [facility] Work Phone: Immature granulocytes/100 WBC (Bld) 0.200 % 0.0-0.9 [facility] Work Phone: Comment on above: IG% - Immature Granu locytes (promyelocytes, myelocytes and metamyelocytes) > 1% indicates that a LEFT SHIFT is Present. MCH (RBC) [Entitic mass] 31.9 pg 27.0-32.0 [facility] Work Phone: Nucleated RBC/100 WBC (Bld) [Ratio] 0 % 0-5 [facility] Work Phone: MCHC Auto (RBC) [Mass/Vol]on 03-17-2022 MCHC (RBC) [Mass/Vol] 32.1 g/dL 32-36 [facility] Work Phone: No Panel Informationon 03-17 Estimated GFR (MDRD) Amer 97 mL/min >60 [facility] Work Phone: Comment on above: GFR Calc Estimated GFR (MDRD) Non-Af Amer 80 mL/min >60 [facility] Work Phone: Comment on above: Non- GFR Calc Platelets bldon 03-17-2022 Platelets (Bld) [#/Vol] 289 10*3/uL 150-450 [facility] Work Phone: Serum or plasma albumin yaritza urement (mass/volume)on 03-17-2022 Albumin [Mass/Vol] 3.6 g/dL 3.2-5.0 [facility] Work Phone: Serum or plasma albumin/glob ulin mass ratioon 03-17-2022 Albumin/Globulin [Mass ratio] 1.1 {ratio} 0.9-2.4 [facility] Work Phone: Serum or plasma calcium yaritza urement (mass/volume)on 03-17-2022 Calcium [Mass/Vol] 9.4 mg/dL 8.5-10.1 [facility] Work Phone: Serum or plasma creatinine m easurement (mass/volume)on 03-17-2022 Creatinine [Mass/Vol] 0.75 mg/dL 0.55-1.02 [facility] Work Phone: Comment on above: The validity of the calculated GFR & GFRAA in patients over 70 years has not been determined. Clinical correlation is essential. Serum or plasma urea nitroge n measurement (mass/volume)on 03-17-2022 Urea nitrogen [Mass/Vol] 21 mg/dL 7-18 [facility] Work Phone: Serum or plasma uric acid me asurement (mass/volume)on 03-17-2022 Urate [Mass/Vol] 5.5 mg/dL 2.6-6.0 [facility] Work Phone: Comment on above: The drugs N-Acetylcy steine and Metamizole may falsely depress this assay. Thin prep Papanicolaou smear with manual screeningon 03-17-2022 Thin prep Papanicolaou smear with manual screening 30 U/L 15-37 [facility] Work Phone: Thin prep Papanicolaou smear with manual screening 8 5-15 [facility] Work Phone: ECHOon 01-30-2022 [facility] No Panel Informationon 01-06 [facility] CNOVon 11-28-2021 CNOV Office Visit (SPAG[facility] ) ERNESTINA LEMUS ([id number]) 1950 F Date Time Provider Department 11/28/21 9:15 AM [facility]OM[facility] CALL [facility] During your visit today, we recorded the following information about you: Pulse Respiration Normal [facility] Absolute lymphocyte counton 10-11-2021 Lymphocytes Auto (Unsp spec) [#/Vol] 1.47 10*3/uL 0.83-4.51 [facility] Work Phone: Basophil percentageon 2021 Basophils/100 WBC (Bld) 0.3 % 0-1 [facility] Work Phone: Bilirubin [Mass/Vol] 0.50 mg/dL 0.20-1.00 [facility] Work Phone: Comment on above: For patients on eltr ombopag therapy, use of Dimension [place] TBIL is not recommended. Chloride [Moles/Vol] 106 mmol/L 98-107 [facility] Work Phone: Eosinophils/100 WBC (Bld) 3.6 % 0-5 [facility] Work Phone: Glucose [Mass/Vol] 88 mg/dL 74-106 [facility] Work Phone: Neutrophils (Bld) [#/Vol] 1.6 10*3/uL 2.0-7.7 [facility] Work Phone: Neutrophils/100 WBC (Bld) 42.8 % 47-70 [facility] Work Phone: Potassium [Moles/Vol] 3.5 mmol/L 3.5-5.1 [facility] Work Phone: Protein [Mass/Vol] 6.6 g/dL 6.4-8.2 [facility] Work Phone: Sodium [Moles/Vol] 139 mmol/L 136-145 [facility] Work Phone: WBC (Bld) [#/Vol] 3.6 10*3/uL 4.4-11.0 [facility] Work Phone: Blood erythrocytes count (nu mber/volume)on 10-11-2021 RBC (Bld) [#/Vol] 3.63 10*6/uL 4.2-5.4 [facility] Work Phone: Blood hemoglobin measurement (mass/volume)on 10-11-2021 Hemoglobin (Bld) [Mass/Vol] 11.4 g/dL 12.0-15.0 [facility] Work Phone: Blood lymphocytes/100 leukoc yteson 10-11-2021 Lymphocytes/100 WBC (Bld) 40.6 % 19-41 [facility] Work Phone: Blood monocytes/100 leukocyt eson 10-11-2021 Monocytes/100 WBC (Bld) 12.7 % 0-10 [facility] Work Phone: Blood platelet mean volumeon 10-11-2021 Platelet mean volume (Bld) [Entitic vol] 10.1 fL 6.2-12.0 [facility] Work Phone: Determination of erythrocyte mean corpuscular volume (MCV)on 10-11-2021 MCV (RBC) [Entitic vol] 95.6 fL 81-99 [facility] Work Phone: Hematocrit Auto (Bld) [Volum e fraction]on 10-11-2021 Hematocrit (Bld) [Volume fraction] 34.7 % 37-47 [facility] Work Phone: Laboratory - Chemistry and C hemistry - challengeon 10-11-2021 ALP [Catalytic activity/Vol] 59 U/L 45-117 [facility] Work Phone: ALT [Catalytic activity/Vol] 40 U/L 13-56 [facility] Work Phone: CO2 [Moles/Vol] 28.0 mmol/L 21.0-32.0 [facility] Work Phone: Globulin (S) [Mass/Vol] 3.1 g/dL 2.2-4.2 [facility] Work Phone: Urea nitrogen/Creatinine [Mass ratio] 20.9 mg/mg 10-20 [facility] Work Phone: Laboratory - Hematology and Cell countson 10-11-2021 Erythrocyte distribution width (RBC) [Entitic vol] 45.8 fL 35.1-43.9 [facility] Work Phone: Erythrocyte distribution width (RBC) [Ratio] 13.0 % 11.6-14.6 [facility] Work Phone: Immature granulocytes/100 WBC (Bld) 0.000 % 0.0-0.9 [facility] Work Phone: Comment on above: IG% - Immature Granu locytes (promyelocytes, myelocytes and metamyelocytes) > 1% indicates that a LEFT SHIFT is Present. MCH (RBC) [Entitic mass] 31.4 pg 27.0-32.0 [facility] Work Phone: Nucleated RBC/100 WBC (Bld) [Ratio] 0 % 0-5 [facility] Work Phone: MCHC Auto (RBC) [Mass/Vol]on 10-11-2021 MCHC (RBC) [Mass/Vol] 32.9 g/dL 32-36 [facility] Work Phone: No Panel Informationon 10-11 Estimated GFR (MDRD) Amer 83 mL/min >60 [facility] Work Phone: Comment on above: GFR Calc Estimated GFR (MDRD) Non-Af Amer 69 mL/min >60 [facility] Work Phone: Comment on above: Non- GFR Calc Platelets bldon 10-11-2021 Platelets (Bld) [#/Vol] 263 10*3/uL 150-450 [facility] Work Phone: Serum or plasma albumin yaritza urement (mass/volume)on 10-11-2021 Albumin [Mass/Vol] 3.5 g/dL 3.2-5.0 [facility] Work Phone: Serum or plasma albumin/glob ulin mass ratioon 10-11-2021 Albumin/Globulin [Mass ratio] 1.1 {ratio} 0.9-2.4 [facility] Work Phone: Serum or plasma calcium yaritza urement (mass/volume)on 10-11-2021 Calcium [Mass/Vol] 8.9 mg/dL 8.5-10.1 [facility] Work Phone: Serum or plasma creatinine m easurement (mass/volume)on 10-11-2021 Creatinine [Mass/Vol] 0.86 mg/dL 0.55-1.02 [facility] Work Phone: Comment on above: The validity of the calculated GFR & GFRAA in patients over 70 years has not been determined. Clinical correlation is essential. Serum or plasma urea nitroge n measurement (mass/volume)on 10-11-2021 Urea nitrogen [Mass/Vol] 18 mg/dL 7-18 [facility] Work Phone: Serum or plasma uric acid me asurement (mass/volume)on 10-11-2021 Urate [Mass/Vol] 5.3 mg/dL 2.6-6.0 [facility] Work Phone: Comment on above: The drugs N-Acetylcy steine and Metamizole may falsely depress this assay. Thin prep Papanicolaou smear with manual screeningon 10-11-2021 Thin prep Papanicolaou smear with manual screening 35 U/L 15-37 [facility] Work Phone: Thin prep Papanicolaou smear with manual screening 5 5-15 [facility] Work Phone: Office Visit: annualon 04-09 Documentation of current medications (procedure) Done Invalid Interpretation Code [facility] Tobacco smoking status NHIS Never Invalid Interpretation Code [facility] Tobacco use CPHS Never smoker Invalid Interpretation Code [facility] Office Visit: annualon 06-29 General categories [Interpretation] of Cervical or vaginal smear or scraping by Cyto stain Normal Invalid Interpretation Code [facility] Vital Signs Date Time Vital Sign Value Performing Clinician Facility 11-22-2024 08:55-0400 Body height 149.9 cm Glenn Giordano MD Work Phone: [facility] 11-22-2024 08:55-0400 Body mass index (BMI) [Ratio] 29.21 kg/m2 Glenn Giordano MD Work Phone: [facility] 11-22-2024 08:55-0400 Body weight 65.6 kg Glenn Giordano MD Work Phone: [facility] 11-22-2024 08:55-0400 Diastolic blood pressure 74 mm[Hg] Glenn Giordano MD Work Phone: [facility] 11-22-2024 08:55-0400 Heart rate 75 /min Glenn Giordano MD Work Phone: [facility] 11-22-2024 08:55-0400 SaO2% (BldA) [Mass fraction] 98 % Glenn Giordano MD Work Phone: [facility] 11-22-2024 08:55-0400 Systolic blood pressure 134 mm[Hg] Glenn Giordano MD Work Phone: [facility] 08-15-2024 11:09-0500 Body mass index (BMI) [Ratio] 30.09 kg/m2 Glenn Giordano MD Work Phone: [facility] 08-15-2024 11:09-0500 Body weight 67.59 kg Glenn Giordano MD Work Phone: [facility] 08-15-2024 11:09-0500 Diastolic blood pressure 77 mm[Hg] Glenn Giordano MD Work Phone: [facility] 08-15-2024 11:09-0500 Heart rate 84 /min Glenn Giordano MD Work Phone: [facility] 08-15-2024 11:09-0500 Respiratory rate 16 /min Glenn Giordano MD Work Phone: [facility] 08-15-2024 11:09-0500 SaO2% (BldA) [Mass fraction] 97 % Glenn Giordano MD Work Phone: [facility] 08-15-2024 11:09-0500 Systolic blood pressure 158 mm[Hg] Glenn Giordano MD Work Phone: [facility] 08-11-2024 08:30-0500 Diastolic blood pressure 74 mm[Hg] Kiara Taylor APRN.CNP Work Phone: [facility] 08-11-2024 08:30-0500 Systolic blood pressure 142 mm[Hg] Kiara Older RN [employer].STUD DRIVER Work Phone: [facility] 08-11-2024 07:50-0500 Body mass index (BMI) [Ratio] 30.7 kg/m2 Kiara Older RN [employer].STUD [employer]IVER Work Phone: [facility] 08-11-2024 07:50-0500 Body weight 68.95 kg Kiara Older RN [employer].STUD DRIVER Work Phone: [facility] 08-11-2024 07:50-0500 Heart rate 77 /min Kiara Older RN [employer].STUD DRIVER Work Phone: [facility] 08-11-2024 07:50-0500 Respiratory rate 16 /min Kiara Older RN [employer].STUD DRIVER Work Phone: [facility] 08-11-2024 07:50-0500 SaO2% (BldA) [Mass fraction] 99 % Kiara Older RN [employer].STUD DRIVER Work Phone: [facility] 02-03-2024 08:59-0400 Body mass index (BMI) [Ratio] 28.28 kg/m2 Kiara Older RN [employer].STUD DRIVER Work Phone: [facility] 02-03-2024 08:59-0400 Body weight 63.5 kg Kiara Older RN [employer].STUD DRIVER Work Phone: [facility] 02-03-2024 08:59-0400 Diastolic blood pressure 74 mm[Hg] Kiara Older RN [employer].STUD DRIVER Work Phone: [facility] 02-03-2024 08:59-0400 Heart rate 72 /min Kiara Older RN [employer].STUD DRIVER Work Phone: [facility] 02-03-2024 08:59-0400 Respiratory rate 16 /min Kiara Older RN [employer].STUD DRIVER Work Phone: [facility] 02-03-2024 08:59-0400 SaO2% (BldA) [Mass fraction] 96 % Kiara Older RN [employer].STUD DRIVER Work Phone: [facility] 02-03-2024 08:59-0400 Systolic blood pressure 132 mm[Hg] Kiara Older RN [employer].STUD DRIVER Work Phone: [facility] 08-05-2023 08:09-0500 Body weight 65.77 kg Kiara Older RN [employer].STUD DRIVER Work Phone: [facility] 08-05-2023 08:09-0500 Diastolic blood pressure 70 mm[Hg] Kiara Older RN [employer].STUD DRIVER Work Phone: [facility] 08-05-2023 08:09-0500 Heart rate 84 /min Kiara Older RN [employer].STUD DRIVER Work Phone: [facility] 08-05-2023 08:09-0500 Respiratory rate 16 /min Kiara Older RN [employer].STUD DRIVER Work Phone: [facility] 08-05-2023 08:09-0500 SaO2% (BldA) [Mass fraction] 98 % Kiara Older RN [employer].STUD DRIVER Work Phone: [facility] 08-05-2023 08:09-0500 Systolic blood pressure 130 mm[Hg] Kiara Older RN [employer].STUD DRIVER Work Phone: [facility] 12-10-2022 09:00-0400 Body height 149.9 cm Glenn Giordano MD Work Phone: [facility] 12-10-2022 09:00-0400 Body temperature 98.2 [degF] Glenn Giordano MD Work Phone: [facility] 12-10-2022 09:00-0400 Body weight 65.77 kg Glenn Giordano MD Work Phone: [facility] 12-10-2022 09:00-0400 Diastolic blood pressure 60 mm[Hg] Glenn Giordano MD Work Phone: [facility] 12-10-2022 09:00-0400 Heart rate 68 /min Glenn Giordano MD Work Phone: [facility] 12-10-2022 09:00-0400 Respiratory rate 12 /min Glenn Giordano MD Work Phone: [facility] 12-10-2022 09:00-0400 SaO2% (BldA) [Mass fraction] 100 % Glenn Giordano MD Work Phone: [facility] 12-10-2022 09:00-0400 Systolic blood pressure 120 mm[Hg] Glenn Giordano MD Work Phone: [facility] 09-03-2022 10:08-0500 Body height 149.9 cm Glenn Giordano MD Work Phone: [facility] 09-03-2022 10:08-0500 Body temperature 98.29 [degF] Glenn Giordano MD Work Phone: [facility] 09-03-2022 10:08-0500 Body weight 64.86 kg Glenn Giordano MD Work Phone: [facility] 09-03-2022 10:08-0500 Diastolic blood pressure 60 mm[Hg] Glenn Giordano MD Work Phone: [facility] 09-03-2022 10:08-0500 Heart rate 71 /min Glenn Giordano MD Work Phone: [facility] 09-03-2022 10:08-0500 Respiratory rate 12 /min Glenn Giordano MD Work Phone: [facility] 09-03-2022 10:08-0500 SaO2% (BldA) [Mass fraction] 99 % Glenn Giordano MD Work Phone: [facility] 09-03-2022 10:08-0500 Systolic blood pressure 114 mm[Hg] Glenn Giordano MD Work Phone: [facility] 08-28-2022 18:51-0500 Diastolic blood pressure 75 mm[Hg] Dr. Glenn Giordano Work Phone: [facility] 08-28-2022 18:51-0500 Heart rate 81 /min Dr. Glenn Giordano Work Phone: [facility] 08-28-2022 18:51-0500 Respiratory rate 18 /min Dr. Glenn Giordano Work Phone: [phone](911)[phone] [address] 08-28-2022 18:51-0500 SaO2% (BldA) [Mass fraction] 98 % Dr. Glenn Giordano Work Phone: 5([phone])[phone] [place] [address] 08-28-2022 18:51-0500 Systolic blood pressure 139 mm[Hg] Dr. Glenn Giordano Work Phone: 4(251)[phone] [place] [address] 08-28-2022 15:13-0500 Body height 149.[address] Glenn Giordano Work Phone: 6(790)[phone] [place] [address] 08-28-2022 15:13-0500 Body mass index (BMI) [Ratio] 29 kg/m2 Dr. Glenn Giordano Work Phone: 6(193)[phone] [place] [address] 08-28-2022 15:13-0500 Body temperature 97.1 [degF] Dr. Glenn Giordano Work Phone: 2(648)[phone] [place] [address] 08-28-2022 15:13-0500 Body weight 65.[address] Glenn Giordano Work Phone: 5([phone])[phone] [place] [address] 06-24-2022 09:39-0500 Body temperature 97.2 [degF] Dr. Glenn Giordano Work Phone: 6([phone] [place] [address] 06-24-2022 09:39-0500 Diastolic blood pressure 58 mm[Hg] Dr. Glenn Giordano Work Phone: 1(440)[phone] [place] [address] 06-24-2022 09:39-0500 Heart rate 77 /min Dr. Glenn Giordano Work Phone: [phone] [address] [place] [address] 06-24-2022 09:39-0500 Respiratory rate 16 /min Dr. Glenn Giordano Work Phone: [phone] [place] [address] 06-24-2022 09:39-0500 SaO2% (BldA) [Mass fraction] 100 % Dr. Glenn Giordano Work Phone: [phone] [place] [address] 06-24-2022 09:39-0500 Systolic blood pressure 110 mm[Hg] Dr. Glenn Giordano Work Phone: [phone] [place] [address] 06-24-2022 08:09-0500 Body height 151.[address] Glenn Giordano Work Phone: [facility] Work Phone: 06-24-2022 08:09-0500 Body mass index (BMI) [Ratio] 26.4 kg/m2 Dr. Glenn Giordano Work Phone: [facility] 06-24-2022 08:09-0500 Body weight 61.[address] Glenn Giordano Work Phone: [facility] 06-11-2022 08:33-0500 Body height 149.9 cm Glenn Giordano MD Work Phone: [facility] 06-11-2022 08:33-0500 Body temperature 97.39 [degF] Glenn Giordano MD Work Phone: [facility] 06-11-2022 08:33-0500 Body weight 63.5 kg Glenn Giordano MD Work Phone: [facility] 06-11-2022 08:33-0500 Diastolic blood pressure 60 mm[Hg] Glenn Giordano MD Work Phone: [facility] 06-11-2022 08:33-0500 Heart rate 83 /min Glenn Giordano MD Work Phone: [facility] 06-11-2022 08:33-0500 Respiratory rate 12 /min Glenn Giordano MD Work Phone: [facility] 06-11-2022 08:33-0500 SaO2% (BldA) [Mass fraction] 98 % Glenn Giordano MD Work Phone: [facility] 06-11-2022 08:33-0500 Systolic blood pressure 104 mm[Hg] Glenn Giordano MD Work Phone: [facility] 06-05-2022 09:16-0500 Body mass index (BMI) [Ratio] 27.1 kg/m2 Dr. Glenn Giordano Work Phone: [facility] 06-05-2022 09:16-0500 Body weight 63.[address] Glenn Giordano Work Phone: [facility] 05-12-2022 09:48-0500 Body height 152.[address] Glenn Giordano Work Phone: [facility] Work Phone: 05-12-2022 09:41-0500 Body mass index (BMI) [Ratio] 27.2 kg/m2 Dr. Glenn Giordano Work Phone: [facility] 05-12-2022 09:41-0500 Body weight 63.[address] Glenn Giordano Work Phone: [facility] 05-12-2022 09:41-0500 Diastolic blood pressure 76 mm[Hg] Dr. Glenn Giordano Work Phone: [facility] 05-12-2022 09:41-0500 Systolic blood pressure 134 mm[Hg] Dr. Glenn Giordano Work Phone: [facility] 02-03-2022 15:44-0400 Body temperature 97.39 [degF] Kacy Vito RN PROGRESSIVE CARE UNIT.STUD DRIVER Work Phone: [facility] 02-03-2022 15:44-0400 Body weight 60.78 kg Kacy Ivto RN PROGRESSIVE CARE UNIT.STUD DRIVER Work Phone: [facility] 02-03-2022 15:44-0400 Diastolic blood pressure 70 mm[Hg] Kacy Vito RN PROGRESSIVE CARE UNIT.STUD DRIVER Work Phone: [facility] 02-03-2022 15:44-0400 Heart rate 103 /min Kacy Vito RN PROGRESSIVE CARE UNIT.STUD DRIVER Work Phone: [facility] 02-03-2022 15:44-0400 Respiratory rate 16 /min Kacy Vito RN PROGRESSIVE CARE UNIT.STUD DRIVER Work Phone: [facility] 02-03-2022 15:44-0400 SaO2% (BldA) [Mass fraction] 98 % Kacy Vito RN PROGRESSIVE CARE UNIT.STUD DRIVER Work Phone: [facility] 02-03-2022 15:44-0400 Systolic blood pressure 124 mm[Hg] Kacy Padron RN PROGRESSIVE CARE UNIT.STUD DRIVER Work Phone: [facility] 01-28-2022 08:39-0400 Body height 149.9 cm Glenn Giordano MD Work Phone: [facility] 01-28-2022 08:39-0400 Body temperature 97.5 [degF] Glenn Giordano MD Work Phone: [facility] 01-28-2022 08:39-0400 Body weight 63.96 kg Glenn Giordano MD Work Phone: [facility] 01-28-2022 08:39-0400 Diastolic blood pressure 64 mm[Hg] Glenn Giordano MD Work Phone: [facility] 01-28-2022 08:39-0400 Heart rate 71 /min Glenn Giordano MD Work Phone: [facility] 01-28-2022 08:39-0400 Respiratory rate 12 /min Glenn Giordano MD Work Phone: [facility] 01-28-2022 08:39-0400 SaO2% (BldA) [Mass fraction] 99 % Glenn Giordano MD Work Phone: [facility] 01-28-2022 08:39-0400 Systolic blood pressure 114 mm[Hg] Glenn Giordano MD Work Phone: [facility] 11-28-2021 09:04-0400 Heart rate 69 /min Xiomara Call RN PROGRESSIVE CARE UNIT.STUD DRIVER Work Phone: [facility] 11-28-2021 09:04-0400 Respiratory rate 16 /min Xiomara Call RN PROGRESSIVE CARE UNIT.STUD DRIVER Work Phone: [facility] 11-28-2021 09:04-0400 SaO2% (BldA) [Mass fraction] 98 % Xiomara Call RN PROGRESSIVE CARE UNIT.STUD DRIVER Work Phone: [facility] 10-30-2021 11:40-0400 Diastolic blood pressure 72 mm[Hg] Glenn Giordano MD Work Phone: [facility] 10-30-2021 11:40-0400 Systolic blood pressure 136 mm[Hg] Glenn Giordano MD Work Phone: [facility] 10-30-2021 08:15-0400 Body height 149.9 cm Glenn Giordano MD Work Phone: [facility] 10-30-2021 08:15-0400 Body temperature 97.11 [degF] Glenn Giordano MD Work Phone: [facility] 10-30-2021 08:15-0400 Body weight 69.4 kg Glenn Giordano MD Work Phone: [facility] 10-30-2021 08:15-0400 Heart rate 69 /min Glenn Giordano MD Work Phone: [facility] 10-30-2021 08:15-0400 Respiratory rate 12 /min Glenn Giordano MD Work Phone: [facility] 10-30-2021 08:15-0400 SaO2% (BldA) [Mass fraction] 100 % Glenn Giordano MD Work Phone: [facility] 04-09-2017 12:51-0400 BMI (Body Mass Index) 28.04 kg/m2 Graciela Bangura NP [facility] [place] 04-09-2017 12:51-0400 Body Temperature 97.4 [degF] Graciela Bangura NP [facility] 04-09-2017 12:51-0400 BP Diastolic 76 mm[Hg] Graciela Bangura NP [facility] 04-09-2017 12:51-0400 BP Systolic 143 mm[Hg] Graciela Bangura NP [facility] 04-09-2017 12:51-0400 Height 154.94 cm Graciela Bangura NP [facility] 04-09-2017 12:51-0400 Pulse (Heart Rate) 74 /min Graciela Bangura NP [facility] 04-09-2017 12:51-0400 Weight 67.31 kg Graciela Bangura NP [facility] Encounters Encounter Date Encounter Type Care Provider Facility Start: 11-23-2024 End: 11-23-2024 Telephone encounter Glenn Giordano MD Work Phone: [address] [place] [address] Comment on above: Orders Start: 11-22-2024 End: 11-22-2024 Office outpatient visit 25 minutes Glenn Giordano MD Work Phone: [facility] [place] Comment on above: Osteoporosis, unspec ified osteoporosis type, unspecified pathological fracture presence (Primary Dx); Inflammatory polyarthropathy (HCC); Mixed hyperlipidemia; Weight loss; Atopic dermatitis, unspecified type; Fibromyalgia; Essential (primary) hypertension Start: 11-22-2024 End: 11-22-2024 [facility] Facility:[facility] Start: 08-15-2024 End: 08-15-2024 [facility] Facility:[facility] Start: 08-15-2024 End: 08-15-2024 Office outpatient visit 25 minutes Glenn Giordano MD Work Phone: [facility] [place] Comment on above: Acute gastritis, pre sence of bleeding unspecified, unspecified gastritis type (Primary Dx) Start: 08-13-2024 End: 08-13-2024 Telephone encounter Glenn Giordano MD Work Phone: [facility] [place] Comment on above: Patient Update Start: 08-11-2024 End: 08-11-2024 ambulatory [facility] Facility:[facility] Start: 08-11-2024 End: 08-11-2024 Patient encounter procedure Kiara Taylor APRN.STUD DRIVER Work Phone: [facility] [place] Comment on above: Medicare annual well ness visit, subsequent (Primary Dx); Elevated blood pressure reading; Chronic diastolic congestive heart failure (HCC); Mixed hyperlipidemia; Screening for depression Start: 08-10-2024 End: 10-10-2024 Follow-up encounter Kaira Taylor APRN.STUD DRIVER Work Phone: [facility] [place] Start: 08-01-2024 End: 08-01-2024 ambulatory [facility] Facility:[facility] Start: 07-25-2024 End: 07-26-2024 Refill Glenn Giordano MD Work Phone: Internal [facility] Comment on above: Refill Request Start: 06-01-2024 End: 06-06-2024 ambulatory Glenn Giordano MD Work Phone: [facility] [place] Start: 03-17-2024 End: 03-17-2024 Refill Glenn Giordano MD Work Phone: Internal [facility] Comment on above: Refill Request Start: 02-03-2024 End: 02-03-2024 ambulatory GLENN GIORDANO Facility:[facility] Start: 02-03-2024 End: 02-03-2024 Patient encounter procedure Kiara Taylor APRN.STUD DRIVER Work Phone: Internal [facility] Comment on above: Chronic diastolic co ngestive heart failure (HCC) (Primary Dx); Fibromyalgia; Annual physical exam Start: 02-01-2024 End: 02-01-2024 ambulatory KIARA TAYLOR Facility:[facility] Start: 08-12-2023 Telephone encounter Kiara Taylor APRN.STUD DRIVER Work Phone: [facility] Comment on above: Results Start: 08-11-2023 End: 08-11-2023 ambulatory [facility] Work Phone: Start: 08-11-2023 End: 08-11-2023 Patient encounter procedure [facility] Work Phone: Start: 08-10-2023 End: 08-10-2023 Subsequent hospital visit by physician Bone Density [facility] Work Phone: Radiology Comment on above: Osteopenia of multip le sites [M85.89] Start: 08-05-2023 End: 08-05-2023 Patient encounter procedure Kiara Taylor APRN.STUD DRIVER Work Phone: [facility] [place] Comment on above: Inflammatory polyart hropathy (HCC) (Primary Dx); Congestive heart failure, unspecified HF chronicity, unspecified heart failure type (HCC); Hypercalcemia; Osteopenia of multiple sites; Encounter for screening for osteoporosis; Asymptomatic postmenopausal status Start: 06-18-2023 Telephone encounter Kiara Taylor APRN.STUD DRIVER Work Phone: [facility] [place] Comment on above: Results Start: 06-02-2023 ambulatory Glenn Roldan Work Phone: [facility] [place] Start: 02-17-2023 End: 02-17-2023 ambulatory [facility] Work Phone: Start: 02-17-2023 End: 02-17-2023 Patient encounter procedure [facility] Work Phone: Start: 12-12-2022 Telephone encounter Kiara Taylor APRN.STUD DRIVER Work Phone: [facility] [place] Comment on above: Results Start: 12-10-2022 End: 12-10-2022 Patient encounter procedure Glenn Giordano MD Work Phone: [facility] [place] Comment on above: Medicare annual well [facility] visit, subsequent (Primary Dx); Inflammatory polyarthropathy (HCC); Fibromyalgia; Mixed hyperlipidemia; Chronic venous insufficiency; Sacroiliitis (HCC); Hip arthritis; Age-related osteoporosis without current pathological fracture; Leukopenia, unspecified type Start: 10-04-2022 Refill Kiara WashingtonSTUD DRIVER Work Phone: [facility] [place] Comment on above: Refill Request Start: 09-03-2022 End: 09-03-2022 Patient encounter procedure Glenn Giordano MD Work Phone: Internal [facility] Comment on above: Follow-up exam (Prim miles Dx); Inflammatory polyarthropathy (HCC); Fibromyalgia Start: 08-28-2022 End: 08-28-2022 Emergency department patient visit Dr. Glenn Giordano Work Phone: [facility]-Emergency Department Start: 08-19-2022 End: 08-19-[address] Glenn Giordano Work Phone: [facility] Work Phone: Start: 08-19-2022 End: 08-19-[address] [facility] Start: 07-07-2022 ambulatory Melva Waters [facility] [place] Comment on above: Population Health [facility] ([facility]) Start: 06-24-2022 Non-patient / Non-visit Dr. Silvana Giordano Work Phone: [facility] Start: 06-24-2022 End: 06-24-2022 Admission to same day surgery center Dr. Glenn Giordano Work Phone: [facility]-Endoscopy Start: 06-24-2022 End: 06-24-[address] Glenn Giordano Work Phone: [facility] Work Phone: Start: 06-12-2022 Telephone encounter Glenn wynn MD Work Phone: [facility] [place] Comment on above: Results Start: 06-11-2022 End: 06-11-2022 Patient encounter procedure Glenn Giordano MD Work Phone: [facility] [place] Comment on above: Pedal edema (Primary Dx); Special screening examination for viral disease; Mixed hyperlipidemia; Inflammatory polyarthropathy (HCC); Fibromyalgia; Age-related osteoporosis without current pathological fracture Start: 06-05-2022 Non-patient / Non-visit Dr. Silvana Giordano Work Phone: [facility] Start: 05-27-2022 ambulatory Glenn Roldan Work Phone: [facility] [place] Start: 05-19-2022 ambulatory [facility] [place] Comment on above: Population Health [facility] ([facility] ) Start: 05-16-2022 End: 05-16-[address] Glenn Giordano Work Phone: [facility] Work Phone: Start: 05-16-2022 End: 05-16-[address] Glenn Giordano Work Phone: [facility]-Outpatient Breast Imaging Start: 05-12-2022 End: 05-12-[address] Glenn Giordano Work Phone: [facility] Start: 04-02-2022 ambulatory Glenn Roldan Work Phone: Internal Medicine [facility] Start: 03-17-2022 End: 03-17-2022 ambulatory [facility] Work Phone: Start: 03-17-2022 End: 03-17-2022 Patient encounter procedure [facility] Start: 02-14-2022 Telephone encounter Glenn wynn MD Work Phone: [facility] [place] Comment on above: Results Start: 02-13-2022 Telephone encounter Glenn wynn MD Work Phone: [facility] [place] Comment on above: Refill Request Start: 02-04-2022 Telephone encounter Lsi Waldrop APRN.STUD DRIVER Work Phone: [facility] Comment on above: Results Start: 02-03-2022 End: 02-03-2022 Office outpatient new 30 minutes Kacy Padron APRN.STUD DRIVER Work Phone: [facility] Comment on above: Nausea vomiting and diarrhea (Primary Dx); Fatigue, unspecified type Start: 01-30-2022 End: 01-30-2022 Patient encounter procedure [facility] Work Phone: Cardiology Comment on above: Congestive heart edelmira lure, unspecified HF chronicity, unspecified heart failure type (HCC); Shortness of breath Start: 01-28-2022 End: 01-28-2022 Patient encounter procedure Glenn Giordano MD Work Phone: [facility] [place] Comment on above: Inflammatory polyart hropathy (HCC) (Primary Dx); Congestive heart failure, unspecified HF chronicity, unspecified heart failure type (HCC); Fibromyalgia; Spondylolisthesis at L5-S1 level; Age-related osteoporosis without current pathological fracture; Hip arthritis; Shortness of breath Start: 01-06-2022 End: 01-06-2022 Subsequent hospital visit by physician Xr [facility] Tamar Colvin Work Phone: Radiology Comment on above: Bilateral hip pain [ M25.551, M25.552] Start: 01-01-2022 Orders Only Chio Haro tiffanie CARTER Work Phone: Orthopaedics Comment on above: Bilateral hip pain ( Primary Dx) Start: 12-26-2021 End: 12-26-2021 ambulatory Catracho Murillo PT [facility] Comment on above: Lumbar spondylosis ( Primary Dx); Greater trochanteric bursitis of both hips; Chronic bilateral low back pain without sciatica Start: 12-20-2021 Refill Kiara WashingtonSTUD DRIVER Work Phone: [facility] [place] Comment on above: Refill Request Start: 12-12-2021 End: 12-12-2021 ambulatory Catracho Murillo PT [facility] Comment on above: Lumbar spondylosis; Sacroiliitis (HCC); Greater trochanteric bursitis of both hips Start: 11-28-2021 End: 11-28-2021 Patient encounter procedure Xiomara Call APRN.STUD DRIVER Work Phone: [facility] Comment on above: Lumbar spondylosis ( Primary Dx); Other chronic pain; Sacroiliitis (HCC); Greater trochanteric bursitis of both hips Start: 10-31-2021 Telephone encounter Glenn wynn MD Work Phone: [facility] [place] Comment on above: Results Start: 10-30-2021 End: 10-30-2021 Patient encounter procedure Glenn Giordano MD Work Phone: [facility] [place] Comment on above: Acute on chronic katharine stolic congestive heart failure (HCC) (Primary Dx); Pedal edema; Pain of left lower leg; Swelling of limb; Edema, unspecified type; Spondylolisthesis at L4-L5 level Start: 10-11-2021 End: 10-11-2021 Patient encounter procedure [facility] Procedures Date Procedure Procedure Detail Performing Clinician Start: 08-11-2024 Adult depression scr eening assessment Kiara Older RN PROGRESSIVE CARE UNIT.STUD DRIVER Work Phone: Start: 08-01-2024 Lipid 1996 panel - S saritha or Plasma Kiara Older RN PROGRESSIVE CARE UNIT.STUD DRIVER Work Phone: Start: 08-10-2023 BD DXA TRABECULAR PARAMJIT NE SCORE (TBS) Kiara Older RN PROGRESSIVE CARE UNIT.STUD DRIVER Work Phone: Start: 08-10-2023 Dxa bone density danica dy 1/> sites axial skel Kiara Older RN PROGRESSIVE CARE UNIT.STUD DRIVER Work Phone: Start: 06-09-2023 Lipid 1996 panel - S saritha or Plasma Kiara Older RN PROGRESSIVE CARE UNIT.STUD DRIVER Work Phone: Start: 08-28-2022 Plain chest X-ray Dr. Rajan Giordano Work Phone: Start: 06-24-2022 End: 06-24-[address] Glenn Giordano Work Phone: Start: 06-11-2022 Lipid 1996 panel - S saritha or Plasma Glenn Giordano MD Work Phone: Start: 05-16-2022 End: 05-16-[address] Glenn Giordano Work Phone: Start: 01-30-2022 Echo tthrc r-t 2d w/wom-mode compl spec&colr d Glenn Giordano MD Work Phone: Start: 01-06-2022 Radex hip unilateral with pelvis 2-3 views Chio Adler PA-C Work Phone: Start: 11-28-2021 Adult depression scr eening assessment Xiomara Call RN PROGRESSIVE CARE UNIT.STUD DRIVER Work Phone: Start: 02-13-2021 Mammography Glenn wynn MD Work Phone: Start: 10-27-2018 Adult depression scr eening assessment Glenn Giordano MD Work Phone: Start: 04-09-2017 End: 04-09-2017 Pelvic & Breast Exam (Medicare) Graciela Bangura ELECTROCARDIOGRAPHIC TECHNICIAN Work Phone: Start: 12-18-2009 Teresita wynn MD Work Phone: Plan of Treatment Date Care Activity Detail Author Start: 08-01-2029 Lipid panel Lipid Screening [facility] Start: 06-09-2028 Lipid panel Lipid Screening [facility] Start: 08-01-2027 Diabetes Screening Diabetes Screening [facility] Start: 06-11-2027 Lipid 1996 panel - Serum or Plasma Lipid Screening [facility] Start: 06-11-2027 LIPID SCREEN LIPID SCREEN [facility] Start: 06-02-2027 LIPID SCREEN LIPID SCREEN [facility] Start: 08-19-2026 Diabetes Screening Diabetes Screening [facility] Start: 07-23-2026 Diabetes Screening Diabetes Screening [facility] Start: 06-15-2026 Diabetes Screening Diabetes Screening [facility] Start: 04-01-2026 LIPID SCREEN LIPID SCREEN [facility] Start: 11-22-2025 Annual PCP Team Chronic Disease Visit Annual PCP Team Chronic Disease Visit [facility] Start: 08-17-2025 End: 08-17-2025 Patient encounter procedure 08/17/2025 8:20 AM EST Appointment Radiology [address] [place] [id number] Osteoporosis, unspecified osteoporosis type, unspecified pathological fracture presence [M81.0] Radiology Comment on above: Osteoporosis, unspecified osteoporosis t ype, unspecified pathological fracture presence [M81.0] Start: 08-15-2025 Annual PCP Team Chronic Disease Visit Annual PCP Team Chronic Disease Visit [facility] Start: 08-14-2025 End: 12-22-2025 BD DXA TRABECULAR BONE SCORE (TBS) BD DXA TRABECULAR BONE SCORE (TBS) Radiology Routine Osteoporosis, unspecified osteoporosis type, unspecified pathological fracture presence Expected: 08/14/2025, Expires: 12/22/2025 [facility] Comment on above: Expected: 08/14/2025, Expires: Start: 08-14-2025 End: 12-22-2025 DXA Skeletal system.axial Views for bone density DXA-AXIAL SKELETON Radiology Routine Osteoporosis, unspecified osteoporosis type, unspecified pathological fracture presence Expected: 08/14/2025, Expires: 12/22/2025 [facility] Work Phone: Comment on above: Expected: 08/14/2025, Expires: Start: 08-11-2025 Annual PCP Team Chronic Disease Visit Annual PCP Team Chronic Disease Visit [facility] Start: 08-11-2025 Covid-19 Vaccine ( season) Covid-19 Vaccine ( season) [facility] Comment on above: Postponed from 02/28/2024 (Declined at t his time) Start: 08-11-2025 Depression Screening Depression Screening [facility] Start: 08-11-2025 RSV Vaccine (1 - 1-dose 75+ series) RSV Vaccine (1 - 1-dose 75+ series) [facility] Comment on above: Postponed from 2024 (Declined at t his time) Start: 08-11-2025 Screening for malignant neoplasm of colon Colorectal Cancer Screening [facility] Comment on above: Postponed from 1994 (Declined at t his time) Start: 08-11-2025 Shingrix Vaccine (1 of 2) Shingrix Vaccine (1 of 2) [facility] Comment on above: Postponed from 1999 (Declined at t his time) Start: 08-11-2025 Urine microalbumin profile DTaP,Tdap,Td Vaccine (2 - Td or Tdap) [facility] Comment on above: Postponed from 06/23/2023 (Declined at t his time) Start: 08-10-2025 Screening for osteoporosis Bone Density Screening [facility] Start: 06-11-2025 DIABETES SCREEN DIABETES SCREEN [facility] Start: 06-11-2025 Diabetes Screening Diabetes Screening [facility] Start: 05-26-2025 End: 05-26-2025 Patient encounter procedure 05/26/2025 8:40 AM EST Office Visit [facility] [address] [place] [address] Glenn Giordano MD [address] [place] [id number] 6 mo medicare well visit [facility] [place] Comment on above: 6 mo medicare well visit Start: 02-27-2025 Influenza vaccination Influenza Vaccine (Season Ended) [facility] Start: 02-13-2025 DIABETES SCREEN DIABETES SCREEN [facility] Start: 02-02-2025 Annual PCP Team Chronic Disease Visit Annual PCP Team Chronic Disease Visit [facility] Start: 12-26-2024 Influenza vaccination Influenza Vaccine (#1) [facility] Comment on above: Postponed from 02/28/2024 (Declined at t his time) Start: 11-22-2024 End: 11-22-2024 Patient encounter procedure 11/22/2024 9:00 AM EDT Office Visit [facility] [place] [address] [facility] [place] [address] Glenn [facility] [address] [facility] [place] [place] [address] 3 month f/u [facility] [place] Comment on above: 3 month f/u Start: 08-26-2024 End: 08-26-2024 Patient encounter procedure 08/26/2024 8:00 AM EST Office Visit [facility] [place] [address] [facility] [place] [address] Kiara Taylor APRN.STUD DRIVER [address] [place] [address] 2 week BP follow up [facility] [place] Comment on above: 2 week BP follow up Start: 08-15-2024 End: 08-15-2024 Patient encounter procedure 08/15/2024 11:00 AM EST Office Visit [facility] [place] [address] [facility] [place] [address] Glenn Giordano MD [address] [facility] [address] Abdominal Pain. See TE 08/13 [facility] [place] Comment on above: Abdominal Pain. See TE 08/13 Start: 08-11-2024 End: 08-11-2024 Patient encounter procedure 08/11/2024 8:00 AM EST Office Visit [facility] [place] [address] [place] [address] Kiara Taylor APRN.STUD DRIVER [address] [place] [address] Medicare Wellness [facility] [place] Comment on above: Medicare Wellness Start: 08-05-2024 Annual PCP Team Chronic Disease Visit Annual PCP Team Chronic Disease Visit [facility] Start: 08-05-2024 Urine microalbumin profile DTaP,Tdap,Td Vaccine (2 - Td or Tdap) [facility] Comment on above: Postponed from 06/23/2023 (Declined at t his time) Start: 08-05-2024 End: 08-05-2024 Patient encounter procedure 08/05/2024 8:00 AM EST Office Visit [facility] [address] [place] [address] OlderKiara APRN.STUD DRIVER [address], [place] [id number] Medicare Wellness [facility] Comment on above: Medicare Wellness Start: 07-30-2024 End: 10-29-2024 CBC panel - Blood by Automated count COMPLETE BLOOD COUNT Lab Routine Annual physical exam Expected: 07/30/2024 (Approximate), Expires: 10/29/2024 [facility] Comment on above: Expected: 07/30/2024 (Approximate), Expi res: 10/29/2024 Start: 07-30-2024 End: 10-29-2024 Comprehensive metabolic 2000 panel - Serum or Plasma COMPREHENSIVE METABOLIC PANEL Lab Routine Annual physical exam Expected: 07/30/2024 (Approximate), Expires: 10/29/2024 [facility] Comment on above: Expected: 07/30/2024 (Approximate), Expi res: 10/29/2024 Start: 07-30-2024 End: 10-29-2024 Lipid 1996 panel - Serum or Plasma LIPID PANEL BASIC Lab Routine Annual physical exam Expected: 07/30/2024 (Approximate), Expires: 10/29/2024 [facility] Work Phone: Comment on above: Expected: 07/30/2024 (Approximate), Expi res: 10/29/2024 Start: 06-29-2024 Advance Directive Discussion Advance Directive Discussion [facility] Start: 06-15-2024 Annual PCP Team Chronic Disease Visit Annual PCP Team Chronic Disease Visit [facility] Start: 06-15-2024 Covid-19 Vaccine (#1) Covid-19 Vaccine (#1) [facility] Comment on above: Postponed from 1950 (Declined at t his time) Start: 06-15-2024 Covid-19 Vaccine ( season) Covid-19 Vaccine ( season) [facility] Comment on above: Postponed from 02/27/2023 (Declined at t his time) Start: 06-15-2024 RSV Vaccine (1 - 1-dose 60+ series) RSV Vaccine (1 - 1-dose 60+ series) [facility] Comment on above: Postponed from 2009 (Declined at t his time) Start: 06-15-2024 RSV Vaccine (1 - 1-dose 75+ series) RSV Vaccine (1 - 1-dose 75+ series) [facility] Comment on above: Postponed from 2024 (Declined at t his time) Start: 06-15-2024 Shingrix Vaccine (1 of 2) Shingrix Vaccine (1 of 2) [facility] Comment on above: Postponed from 1999 (Declined at t his time) Start: 2024 RSV Vaccine (1 - 1-dose 75+ series) RSV Vaccine (1 - 1-dose 75+ series) [facility] Start: 05-01-2024 DIABETES SCREEN DIABETES SCREEN [facility] Start: 02-28-2024 Covid-19 Vaccine ( season) Covid-19 Vaccine ( season) [facility] Start: 02-28-2024 Covid-19 Vaccine ( season) Covid-19 Vaccine ( season) [facility] Start: 02-28-2024 Influenza vaccination Influenza Vaccine (#1) [facility] Start: 02-08-2024 Screening for malignant neoplasm of colon Colorectal Cancer Screening [facility] Comment on above: Postponed from 1994 (Declined at t his time) Start: 12-27-2023 Influenza vaccination Influenza Vaccine (#1) [facility] Comment on above: Postponed from 02/27/2023 (Declined at t his time) Start: 12-11-2023 ANNUAL PCP TEAM CHRONIC DISEASE VISIT ANNUAL PCP TEAM CHRONIC DISEASE VISIT [facility] Start: 09-04-2023 ANNUAL PCP TEAM CHRONIC DISEASE VISIT ANNUAL PCP TEAM CHRONIC DISEASE VISIT [facility] Start: 08-19-2023 End: 11-18-2023 25-hydroxyvitamin D3 [Mass/volume] in Serum or Plasma VITAMIN D 25 HYDROXY Lab Routine Osteopenia of multiple sites Expected: 08/19/2023 (Approximate), Expires: 11/18/2023 [facility] Work Phone: Comment on above: Expected: 08/19/2023 (Approximate), Expi res: 11/18/2023 Start: 08-19-2023 End: 11-18-2023 Basic metabolic 2000 panel - Serum or Plasma BASIC METABOLIC PNL Lab Routine Hypercalcemia Osteopenia of multiple sites Expected: 08/19/2023 (Approximate), Expires: 11/18/2023 [facility] Work Phone: Comment on above: Expected: 08/19/2023 (Approximate), Expi res: 11/18/2023 Start: 07-19-2023 End: 10-18-2023 Basic metabolic 2000 panel - Serum or Plasma BASIC METABOLIC PNL Lab Routine Hypercalcemia Expected: 07/19/2023 (Approximate), Expires: 10/18/2023 [facility] Work Phone: Comment on above: Expected: 07/19/2023 (Approximate), Expi res: 10/18/2023 Start: 07-19-2023 End: 10-18-2023 Calcium.ionized [Moles/volume] in Blood CALCIUM IONIZED BLOOD Lab Routine Hypercalcemia Expected: 07/19/2023 (Approximate), Expires: 10/18/2023 [facility] Work Phone: Comment on above: Expected: 07/19/2023 (Approximate), Expi res: 10/18/2023 Start: 06-24-2023 Colonoscopy COLONOSCOPY [facility] Start: 06-24-2023 COLORECTAL CANCER SCREENING COLORECTAL CANCER SCREENING [facility] Start: 06-24-2023 Screening for malignant neoplasm of colon [facility] Start: 06-23-2023 Urine microalbumin profile [facility] Start: 06-11-2023 ANNUAL PCP TEAM CHRONIC DISEASE VISIT ANNUAL PCP TEAM CHRONIC DISEASE VISIT [facility] Start: 06-02-2023 End: 09-01-2023 Basic metabolic 2000 panel - Serum or Plasma BASIC METABOLIC PNL Lab Routine Congestive heart failure, unspecified HF chronicity, unspecified heart failure type (HCC) Expected: 06/02/2023, Expires: 09/01/2023 [facility] Work Phone: Comment on above: Expected: 06/02/2023, Expires: 4 Start: 06-02-2023 End: 09-01-2023 Lipid 1996 panel - Serum or Plasma LIPID PANEL BASIC Lab Routine Mixed hyperlipidemia Expected: 06/02/2023, Expires: 09/01/2023 [facility] Work Phone: Comment on above: Expected: 06/02/2023, Expires: Start: 05-16-2023 Mammography [facility] Start: 05-16-2023 Screening for malignant neoplasm of breast Mammogram Screening [facility] Start: 02-27-2023 Influenza vaccination [facility] Start: 01-28-2023 ANNUAL PCP TEAM CHRONIC DISEASE VISIT ANNUAL PCP TEAM CHRONIC DISEASE VISIT [facility] Start: 01-28-2023 COVID-19 VACCINE (#1) COVID-19 VACCINE (#1) [facility] Comment on above: Postponed from 1954 (Declined at t his time) Postponed from 11/28 (Declined at this time) Start: 12-26-2022 Influenza vaccination INFLUENZA (#1) [facility] Comment on above: Postponed from 02/27/2022 (Declined at t his time) Start: 12-10-2022 End: 02-09-2023 25-hydroxyvitamin D3 [Mass/volume] in Serum or Plasma VITAMIN D 25 HYDROXY Lab Routine Age-related osteoporosis without current pathological fracture Expected: 12/10/2022, Expires: 02/09/2023 [facility] Work Phone: Comment on above: Expected: 12/10/2022, Expires: Start: 12-10-2022 End: 02-09-2023 CBC W Auto Differential panel - Blood CBC + DIFF Lab Routine Inflammatory polyarthropathy (HCC) Expected: 12/10/2022, Expires: 02/09/2023 [facility] Work Phone: Comment on above: Expected: 12/10/2022, Expires: 3 Start: 12-10-2022 End: 02-09-2023 Comprehensive metabolic 2000 panel - Serum or Plasma COMP METABOLIC PANEL Lab Routine Inflammatory polyarthropathy (HCC) Expected: 12/10/2022, Expires: 02/09/2023 [facility] Work Phone: Comment on above: Expected: 12/10/2022, Expires: 3 Start: 12-10-2022 End: 02-09-2023 Lipid 1996 panel - Serum or Plasma LIPID PANEL BASIC Lab Routine Mixed hyperlipidemia Expected: 12/10/2022, Expires: 02/09/2023 [facility] Work Phone: Comment on above: Expected: 12/10/2022, Expires: 3 Start: 11-28-2022 Adult depression screening assessment DEPRESSION SCREENING [facility] Start: 08-28-2022 [facility] Start: 06-29-2022 ADVANCE DIRECTIVE DISCUSSION ADVANCE DIRECTIVE DISCUSSION [facility] Start: 06-29-2022 DEPRESSION ASSESSMENT DEPRESSION ASSESSMENT [facility] Start: 06-25-2022 COLORECTAL CANCER SCREENING COLORECTAL CANCER SCREENING [facility] Start: 06-24-2022 Colonoscopy flx dx w/collj spec when pfrmd DIAGNOSTIC COLONOSCOPY [facility] Start: 06-24-2022 Patient discharge [facility] Start: 06-11-2022 End: 08-11-2022 Hepatitis C virus Ab [Presence] in Serum [facility] Work Phone: Comment on above: Expected: 06/11/2022, Expires: 3 Start: 05-27-2022 End: 07-27-2022 Lipid 1996 panel - Serum or Plasma LIPID PANEL BASIC Lab Routine Mixed hyperlipidemia Expected: 05/27/2022, Expires: 07/27/2022 [facility] Work Phone: Comment on above: Expected: 05/27/2022, Expires: 3 Start: 05-27-2022 End: 07-27-2022 SCHEDULE LAB TESTING SCHEDULE LAB TESTING Lab Routine Expected: 05/27/2022, Expires: 07/27/2022 [facility] Work Phone: Comment on above: Expected: 05/27/2022, Expires: 3 Start: 05-12-2022 Patient referral [facility] Work Phone: Start: 02-27-2022 Influenza vaccination [facility] Start: 02-13-2022 Mammography MAMMOGRAM [facility] Start: 02-03-2022 End: 02-17-2022 SARS-CoV-2 (COVID-19) RNA [Presence] in Respiratory specimen by MER with probe detection 2019 CORONAVIRUS Microbiology Routine Nausea vomiting and diarrhea Fatigue, unspecified type Expected: 02/03/2022, Expires: 02/17/2022 [facility] Work Phone: Comment on above: Expected: 02/03/2022, Expires: 2 Start: 01-28-2022 End: 03-30-2022 Basic metabolic 2000 panel - Serum or Plasma BASIC METABOLIC PNL Lab Routine Congestive heart failure, unspecified HF chronicity, unspecified heart failure type (HCC) Expected: 01/28/2022, Expires: 03/30/2022 [facility] Work Phone: Comment on above: Expected: 01/28/2022, Expires: 2 Start: 10-30-2021 End: 12-30-2021 Natriuretic peptide.B prohormone N-Terminal [Mass/volume] in Serum or Plasma [facility] Work Phone: Comment on above: Expected: 10/30/2021, Expires: 2 Start: 06-29-2021 ADVANCE DIRECTIVE DISCUSSION ADVANCE DIRECTIVE DISCUSSION [facility] Start: 06-29-2021 DEPRESSION ASSESSMENT DEPRESSION ASSESSMENT [facility] Start: 02-16-2021 COLORECTAL CANCER SCREENING COLORECTAL CANCER SCREENING [facility] Start: 02-16-2021 FECAL OCCULT BLOOD FECAL OCCULT BLOOD [facility] Start: 02-16-2021 Screening for malignant neoplasm of colon Fecal Occult Blood [facility] Start: 10-28-2019 Adult depression screening assessment DEPRESSION SCREENING [facility] Start: 04-30-2017 End: 04-30-2017 Us exam, breast(s) US Breast(s) [facility] Work Phone: Start: 04-09-2017 End: 04-09-2017 Dxa bone density study 1/> sites axial skel Dual-energy X-ray absorptiometry (DXA), bone density study, 1 or more sites; [facility] Start: 04-09-2017 End: 04-09-2017 Mammogram, screening Mammogram, Screening, both breasts [facility] Start: 04-09-2017 End: 04-09-2017 Appointment Appointment [facility] Start: 12-18-2010 Colonoscopy COLONOSCOPY [facility] Start: 2009 RSV Vaccine (1 - 1-dose 60+ series) RSV Vaccine (1 - 1-dose 60+ series) [facility] Start: 1999 SHINGRIX VACCINE (1 of 2) SHINGRIX VACCINE (1 of 2) [facility] Start: 1994 COLOGUARD (FIT-DNA) COLOGUARD (FIT-DNA) [facility] Start: [address] COLONOGRAPHY [facility] Start: 1994 Screening for malignant neoplasm of colon [facility] Start: 1994 SIGMOIDOSCOPY SIGMOIDOSCOPY [facility] Start: 1968 SHINGRIX VACCINE (1 of 2) SHINGRIX VACCINE (1 of 2) [facility] Start: 1967 Depression Screening Depression Screening [facility] Start: 1967 HEPATITIS C SCREENING HEPATITIS C SCREENING [facility] Start: 1961 COVID-19 VACCINE (1) COVID-19 VACCINE (1) [facility] Start: 1954 COVID-19 VACCINE (#1) COVID-19 VACCINE (#1) [facility] Start: 1949 Covid-19 Vaccine (#1) Covid-19 Vaccine (#1) [facility] 25-hydroxyvitamin D3 [Mass/volume] in Serum or Plasma VITAMIN D 25 HYDROXY Lab Routine Age-related osteoporosis without current pathological fracture 06/11/2022 9:[address] [facility] Work Phone: End: 09-03-2024 BD DXA TRABECULAR BONE SCORE (TBS) BD DXA TRABECULAR BONE SCORE (TBS) Radiology Routine Osteopenia of multiple sites Encounter for screening for osteoporosis Asymptomatic postmenopausal status 1 Occurrences starting 08/05/2023 until 09/03/2024 [facility] Work Phone: Comment on above: 1 Occurrences starting 08/05/2023 until 09/03/2024 CBC W Auto Different ial panel - Blood CBC + DIFF Lab Routine Inflammatory polyarthropathy (HCC) 06/11/2022 9:[address] [facility] Work Phone: Colonoscopy [facility] Work Phone: Colonoscopy [facility] Comprehensive metabo lic 2000 panel - Serum or Plasma COMP METABOLIC PANEL Lab Routine Inflammatory polyarthropathy (HCC) 06/11/2022 9:[address] [facility] Work Phone: End: 07-01-2025 DBT Breast - bilateral screening VLADIMIR SCREENING W MARIO Radiology Routine Encounter for screening mammogram for breast cancer 1 Occurrences starting 06/01/2024 until 07/01/2025 [facility] Work Phone: Comment on above: 1 Occurrences starting 06/01/2024 until 07/01/2025 End: 09-03-2024 DXA-AXIAL SKELETON DXA-AXIAL SKELETON Radiology Routine Osteopenia of multiple sites Encounter for screening for osteoporosis Asymptomatic postmenopausal status 1 Occurrences starting 08/05/2023 until 09/03/2024 [facility] Work Phone: Comment on above: 1 Occurrences starting 08/05/2023 until 09/03/2024 End: 01-28-2023 Echocardiography ECHO Cardiology Routine Congestive heart failure, unspecified HF chronicity, unspecified heart failure type (HCC) Shortness of breath 1 Occurrences starting 01/28/2022 until 01/28/2023 [facility] Work Phone: Comment on above: 1 Occurrences starting 01/28/2022 until 01/28/2023 Lipid 1996 panel - S saritha or Plasma LIPID PANEL BASIC Lab Routine Mixed hyperlipidemia 06/11/2022 9:[address] [facility] Work Phone: Patient Education ED Chest Pain, Noncardiac [facility] Work Phone: Patient referral [facility] Work Phone: PT PLAN OF CARE CERTIFICATION PT PLAN OF CARE CERTIFICATION Procedures Routine Lumbar spondylosis Sacroiliitis (HCC) Greater trochanteric bursitis of both hips Ordered: 12/12/2021 [facility] Work Phone: Comment on above: Ordered: 12/12/2021 End: 05-02-2023 Screening mammography bi 2-view breast inc cad VLADIMIR SCREENING Radiology Routine Encounter for screening mammogram for breast cancer 1 Occurrences starting 04/02/2022 until 05/02/2023 [facility] Work Phone: Comment on above: 1 Occurrences starting 04/02/2022 until 05/02/2023 US LEG VEIN DVT UNL VAS LAB US LEG VEIN DVT UNL VAS LAB Vascular Lab Routine Pain of left lower leg Swelling of limb Edema, unspecified type 10/30/2021 3:[address] [facility] Work Phone: End: 01-31-2023 XR HIP GENERAL 3V PELV/AP/LAT LEFT XR HIP GENERAL 3V PELV/AP/LAT LEFT Radiology Routine Bilateral hip pain 1 Occurrences starting 01/01/2022 until 01/31/2023 [facility] Work Phone: Comment on above: 1 Occurrences starting 01/01/2022 until 01/31/2023 End: 01-31-2023 XR HIP GENERAL 3V PELV/AP/LAT RIGHT XR HIP GENERAL 3V PELV/AP/LAT RIGHT Radiology Routine Bilateral hip pain 1 Occurrences starting 01/01/2022 until 01/31/2023 [facility] Work Phone: Comment on above: 1 Occurrences starting 01/01/2022 until 01/31/2023 [facility] Immunizations Immunization Date Immunization Notes Care Provider Fa [facility] 04-07-2018 influenza virus vacc ine, unspecified formulation Glenn Giordano MD Work Phone: [facility] 04-08-2016 pneumococcal polysaccharide vaccine, 23 valent Glenn Giordano MD Work Phone: [facility] Work Phone: 02-26-2015 pneumococcal conjuga te vaccine, 13 valent Glenn Giordano MD Work Phone: [facility] 06-23-2013 tetanus toxoid, redu nicole diphtheria toxoid, and acellular pertussis vaccine, adsorbed Glenn Giordano MD Work Phone: [facility] Payers Date Payer Category Payer Self-pay [id number] 2019 Private Health Insurance MMO MED ICARE SUPPLEMENT [id number] 2019 Unknown MMO MMO MEDICARE SUPPLEMENT [id number] 2019-Present [phone] [address] [place] [address] Indemnity [id number] 2019 Unknown [id number] 2014 Medicare MEDICARE MEDICAR E A AND B [id number] 2014-Present [phone] [address] [address] [place] [address] Medicare [id number] 2014 Medicare [id number] 2014 Medicare [id number] 2010 Government (not [facility] care or Medicaid) [facility] GENER[facility] [id number] 2010 Unknown [id number] Unknown [id number] Unknown [id number] Unknown [id number] Social History Date Type Detail Facility Start: 04-22-2021 End: 08-28-2022 Tobacco smoking status NHIS Unknown if ever smoked [facility] Start: 1950 Sex Assigned At Female [facility] Start: 04-07-2012 Tobacco smoking stat us NHIS Never smoked tobacco [facility] Work Phone: Start: 10-30-2021 End: 08-15-2024 Alcohol intake Current non-drinker of alcohol (finding) [facility] Start: 1950 Sex Assigned At Not on file [facility] Start: 10-20-2021 End: 02-03-2022 Exposure to SARS-CoV-2 (event) Not sure [facility] Work Phone: Start: 10-22-2021 End: 11-01-2021 Exposure to SARS-CoV-2 (event) Unable to assess [facility] Work Phone: Start: 04-07-2012 Tobacco use and exposure Smokeless tobacco non-user [facility] Work Phone: Start: 12-10-2022 End: 08-11-2024 History of Social function [facility] Work Phone: Start: 12-10-2022 End: 08-11-2024 Tobacco use panel [facility] Work Phone: Adult Depression Screening Assessment 2 [facility] Work Phone: NEGATED: Highlighted row [facility] Goals Date Patient Goal Desired Activity /State Functional Status Date Assessment Result Facility 11-30-2014 Are you deaf, or do you have serious difficulty hearing No 11/30/2014 3:04 PM Karol Hendricks MA No [facility] 11-30-2014 Are you blind, or do you have serious difficulty seeing, even when wearing glasses No 11/30/2014 3:04 PM Karol Hendricks MA No [facility] 11-30-2014 Do you have serious difficulty walking or climbing stairs No 11/30/2014 3:04 PM Karol Hendricks MA No [facility] 11-30-2014 Do you have difficul ty dressing or bathing No 11/30/2014 3:04 PM Karol Hendricks MA No [facility] 11-30-2014 Because of a physica l, mental, or emotional condition, do you have difficulty doing errands alone such as visiting a physician's office or shopping No 11/30/2014 3:04 PM Karol Hendricks MA No [facility] Mental Status Date Assessment Result Facility 08-28-2022 Cognitive function Level Of Cons ciousness Awake;Alert;Appropriate;Fol lows Commands [facility] Work Phone: 06-24-2022 Cognitive function Level Of Cons ciousness Sedated [facility] Work Phone: 06-24-2022 Cognitive function Voice/Name [facility] Work Phone: 11-30-2014 Because of a physica l, mental, or emotional condition, do you have serious difficulty concentrating, remembering, or making decisions No 11/30/2014 3:04 PM EDT Karol Oliver MA No [facility] Clinical Notes 02-17-2011 to 11-23-2024 Telephone Encounter - Basilia Garcia RN - 11/23/2024 9:53 AM EDTTelephone Encounter - Basilia Garcia RN - 11/23/2024 9:53 AM EDTTelephone Encounter - Varsha Boyd - 11/23/2024 9:15 AM EDT Note Date & Type Note Facility 11-23-2024 Telephone encounter Note Called and explained to pt that insurance companies usually require 2 years between BDS so her 2 year would not be up until 08/10/2025. Pt verbalizes understanding and will keep appt she has on 08/17/25 [facility] 11-23-2024 Miscellaneous Notes Called and explained to pt that insurance companies usually require 2 years between BDS so her 2 year would not be up until 08/10/2025. Pt verbalizes understanding and will keep appt she has on 08/17/25 Pt is asking if she can schedule her bone density test this year in April as she wants her copay to be for this year. If that is ok please change order as current order will not allow to schedule till Jul documented in this encounter [facility] 11-23-2024 Telephone encounter Note Pt is asking if she can schedule her bone density test this year in April as she wants her copay to be for this year. If that is ok please change order as current order will not allow to schedule till Jul [facility] 11-22-2024 Note HNO ID: [id number] Author: GLENN GIORDANO MD Service: ? Author Type: Physician Type: Progress Notes Filed: 11/22/2024 13:09 Note Text: Reason for Visit Follow up ZARIA Do is a 74-year-old female with a history of inflammatory polyarthropathy, fibromyalgia, and hypercholesterolemia, presenting for follow-up. Ernestina reports intermittent epigastric discomfort triggered by specific foods, such as puffed corn and spaghetti sauce. She completed a course of Protonix, which provided relief, but currently manages symptoms with Maalox as needed. She denies the need for ongoing Protonix therapy. 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 The pruritus has improved but persists in certain areas. She also notes a small pruritic spot in her ear. Ernestina has experienced an 8 lb weight loss since July, attributed to dietary changes. She denies significant meat consumption but occasionally eats hamburgers due to a history of anemia. She reports increased physical activity with the onset of summer and denies fatigue. She is currently taking Plaquenil 200 mg, 1/2 tablet in the morning and 1 tablet at night, for inflammatory polyarthropathy, and gabapentin 1 tablet at night for fibromyalgia. She also takes Lasix and potassium every other day. She reports improvement in joint symptoms with Plaquenil and undergoes regular ophthalmologic evaluations every 6 months. She mentions upcoming cataract surgery. Ernestina expresses feelings of depression related to recent dental extractions and ill-fitting dentures, which cause gagging after 5 hours of wear. She is awaiting a new pair of dentures. She has a family history of cardiovascular events, with her mother having had a stroke and both parents having heart problems. She declines cholesterol-lowering medication at this time. Social History Tobacco Use Smoking status: Never Smokeless tobacco: Never Vaping Use Vaping status: Never Used Substance Use Topics Alcohol use: No Drug use: No Past medical history, appointments, medications, allergies reviewed. Pertinent Lab/Diagnostic Studies are reviewed and discussed today Current Outpatient Medications: gabapentin (NEURONTIN) 100 mg capsule furosemide (LASIX) 20 mg tablet alendronate (FOSAMAX) 70 mg tablet potassium chloride ER (KLOR-CON M10) 10 mEq tablet hydroxychloroquine (PLAQUENIL) 200 mg tablet triamcinolone acetonide (KENALOG) 0.1 % cream Bifidobacterium infantis (ALIGN, B.INFANTIS,) 10.5 mg (10 million cell) chew Health Maintenance There are no preventive care reminders to display for this patient.@ Review Of Systems Constitutional: (+) weight loss Ears/Nose/Mouth/Throat: (+) gagging Gastrointestinal: (+) dyspepsia Skin: (+) pruritus Psychiatric: (+) depression Physical Exam BP 134/74 Pulse 75 Ht 149.9 cm (4' 11) Wt 65.6 kg (144 lb 10 oz) SpO2 98% BMI 29.21 kg/m? GENERAL: NAD, alert and oriented. SKIN: Mild dry patch lesions on the right knuckle area and the back. No rash or skin lesions. HEAD: Normocephalic. EYES: PERRLA, EOMI, conjunctiva clear. EARS: External ears normal, canals clear, TM's normal. NOSE/SINUSES: Nares normal. Septum midline. OROPHARYNX: Lips, mucosa, and tongue normal, good dentition. No oral lesions noted. NECK: Supple, no lymphadenopathy, normal thyroid, no carotid bruits. LUNGS: Clear to auscultation bilaterally, no wheezes/rhonchi/rales. HEART: Regular rate and rhythm, no murmurs. No ectopy. EXTREMITIES: Normal, no deformities, no skin discoloration, no edema. NEURO: Awake, alert and oriented x3, cranial nerves II-XII grossly intact, normal gait, no involuntary motions. Labs: - (July) Lipid Panel: - LDL: Slightly elevated - HDL: Elevated - Total Cholesterol: Slightly elevated - Triglycerides: Normal Imaging: - (Last year) DEXA Scan: Significant increase in bone density in the total right hip and left hip. Assessment and Plan 1. Osteoporosis, unspecified osteoporosis type, unspecified pathological fracture presence (M81.0) Bone density has significantly increased in both hips since last year. - Continue Alendronate therapy. - Ordered bone density test for 08/14/2025. 2. 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 Patient reports improvement in joint symptoms. - Continue Plaquenil therapy. - Ensure ophthalmologic evaluations every 6 months. 3. Mixed hyperlipidemia (E78.2) LDL slightly elevated, but HDL levels are high, providing a favorable lipid profile. Family history of cardiovascular disease, including maternal stroke. - Discussed potential benefits of statin therapy; patient declined. - Advised regular exercise and dietary modifications, including reduced intake of red meat and dairy products. (more content not included)... [facility] 11-22-2024 History of Present illness Narrative Reason for Visit Follow up ZARIA Do is a 74-year-old female with a history of inflammatory polyarthropathy, fibromyalgia, and hypercholesterolemia, presenting for follow-up. Ernestina reports intermittent epigastric discomfort triggered by specific foods, such as puffed corn and spaghetti sauce. She completed a course of Protonix, which provided relief, but currently manages symptoms with Maalox as needed. She denies the need for ongoing Protonix therapy. 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 The pruritus has improved but persists in certain areas. She also notes a small pruritic spot in her ear. Ernestina has experienced an 8 lb weight loss since July, attributed to dietary changes. She denies significant meat consumption but occasionally eats hamburgers due to a history of anemia. She reports increased physical activity with the onset of summer and denies fatigue. She is currently taking Plaquenil 200 mg, 1/2 tablet in the morning and 1 tablet at night, for inflammatory polyarthropathy, and gabapentin 1 tablet at night for fibromyalgia. She also takes Lasix and potassium every other day. She reports improvement in joint symptoms with Plaquenil and undergoes regular ophthalmologic evaluations every 6 months. She mentions upcoming cataract surgery. Ernestina expresses feelings of depression related to recent dental extractions and ill-fitting dentures, which cause gagging after 5 hours of wear. She is awaiting a new pair of dentures. She has a family history of cardiovascular events, with her mother having had a stroke and both parents having heart problems. She declines cholesterol-lowering medication at this time. Social History Tobacco Use Smoking status: Never Smokeless tobacco: Never Vaping Use Vaping status: Never Used Substance Use Topics Alcohol use: No Drug use: No Past medical history, appointments, medications, allergies reviewed. Pertinent Lab/Diagnostic Studies are reviewed and discussed today Current Outpatient Medications: gabapentin (NEURONTIN) 100 mg capsule furosemide (LASIX) 20 mg tablet alendronate (FOSAMAX) 70 mg tablet potassium chloride ER (KLOR-CON M10) 10 mEq tablet hydroxychloroquine (PLAQUENIL) 200 mg tablet triamcinolone acetonide (KENALOG) 0.1 % cream Bifidobacterium infantis (ALIGN, B.INFANTIS,) 10.5 mg (10 million cell) chew Health Maintenance There are no preventive care reminders to display for this patient.@ Review Of Systems Constitutional: (+) weight loss Ears/Nose/Mouth/Throat: (+) gagging Gastrointestinal: (+) dyspepsia Skin: (+) pruritus Psychiatric: (+) depression Physical Exam BP 134/74 Pulse 75 Ht 149.9 cm (4' 11) Wt 65.6 kg (144 lb 10 oz) SpO2 98% BMI 29.21 kg/m GENERAL: NAD, alert and oriented. SKIN: Mild dry patch lesions on the right knuckle area and the back. No rash or skin lesions. HEAD: Normocephalic. EYES: PERRLA, EOMI, conjunctiva clear. EARS: External ears normal, canals clear, TM's normal. NOSE/SINUSES: Nares normal. Septum midline. OROPHARYNX: Lips, mucosa, and tongue normal, good dentition. No oral lesions noted. NECK: Supple, no lymphadenopathy, normal thyroid, no carotid bruits. LUNGS: Clear to auscultation bilaterally, no wheezes/rhonchi/rales. HEART: Regular rate and rhythm, no murmurs. No ectopy. EXTREMITIES: Normal, no deformities, no skin discoloration, no edema. NEURO: Awake, alert and oriented x3, cranial nerves II-XII grossly intact, normal gait, no involuntary motions. Labs: - (July) Lipid Panel: - LDL: Slightly elevated - HDL: Elevated - Total Cholesterol: Slightly elevated - Triglycerides: Normal Imaging: - (Last year) DEXA Scan: Significant increase in bone density in the total right hip and left hip. Assessment and Plan 1. Osteoporosis, unspecified osteoporosis type, unspecified pathological fracture presence (M81.0) Bone density has significantly increased in both hips since last year. - Continue Alendronate therapy. - Ordered bone density test for 08/14/2025. 2. 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 Patient reports improvement in joint symptoms. - Continue Plaquenil therapy. - Ensure ophthalmologic evaluations every 6 months. 3. Mixed hyperlipidemia (E78.2) LDL slightly elevated, but HDL levels are high, providing a favorable lipid profile. Family history of cardiovascular disease, including maternal stroke. - Discussed potential benefits of statin therapy; patient declined. - Advised regular exercise and dietary modifications, including reduced intake of red meat and dairy products. - Monitor lipid levels periodically. 4. Weight loss (R63.4) Unintentional weight loss of 8 lbs since July, attributed to dietary changes and increased physical activity during a recent trip to [place]. - Monitor weight regularly. - Encourage balanced diet and maintain current level of physical activity. 5. Atopic dermatitis, unspecified type (L20.9) Pruritic lesions on the back and hands, possibly related to exposure to irritants. No visible lesions in the ear, but patient reports pruritus. - Prescribed Kenalog cream for topical application to affected areas. - Monitor for improvement and report any persistent or worsening symptoms. 6. Fibromyalgia (M79.7) Managed with Gabapentin, taking one tablet at night. Symptoms are stable. - Continue Gabapentin therapy. 7. Essential (primary) hypertension (I10) Blood pressure is well-controlled on current regimen, including Lasix every other day. - Continue current antihypertensive therapy. - Monitor blood pressure regularly. Voice recognition software was used to compose this office note. Please excuse any unintended typographical errors. Recording using [employer] software for draft documentation of the visit was discussed with the patient/authorized banking representative; all questions welcomed and answered. Patient/authorized banking representative agreed to proceed Glenn Giordano MD documented in this encounter [facility] 08-15-2024 Instructions Glenn Giordano MD - 08/15/2024 11:48 AM EST Take the protonix empty stomach first thing in the morning half before breakfast. Take the rest of the pills after breakfast Take the probiotic in the evening documented in this encounter [facility] 08-15-2024 Note HNO ID: [id number] Author: GLENN GIORDANO MD Service: ? Author Type: Physician Type: Progress Notes Filed: 08/15/2024 18:02 Note Text: Reason for Visit Ernestina Lemus is a 74 year oldfemale who presents here Patient presents with: Follow up for abdominal pain: OV 08/11/24 Health Maintenance There are no preventive care reminders to display for this patient. HPI Thursday patient got very very sick to the stomach, she had pain in the epigastric area and in lower abdomen. she was put on amox and metronidazole for 24 days by dentist for dental related issues, and since then she has been having these symptoms. She wakes up in the morning feeling sick, she does have some pain, she feels very gassy. Her Bms changed, she was doing a lot of light color stools. She still has a lot of gas The pain and discomfort changes a little with food. When she took the pepcid she was better. No problem-specific Assessment AND Plan notes found [...] Never Smokeless tobacco: Never Vaping Use Vaping status: Never Used Substance Use Topics Alcohol use: No Drug use: No Past medical history, appointments, medications, allergies reviewed. Pertinent Lab/Diagnostic Studies are reviewed and discussed today Current Outpatient Medications: gabapentin (NEURONTIN) 100 mg capsule furosemide (LASIX) 20 mg tablet alendronate (FOSAMAX) 70 mg tablet potassium chloride ER (KLOR-CON M10) 10 mEq tablet hydroxychloroquine (PLAQUENIL) [address] (PROTONIX) 20 mg tablet Bifidobacterium infantis (ALIGN, B.INFANTIS,) 10.5 mg (10 million cell) chew Review of Systems CONSTITUTIONAL: No fevers, chills [...] or numbness of concern. Physical Exam BP 158/77 Pulse 84 Resp 16 Wt 67.6 kg (149 lb) SpO2 97% BMI 30.09 kg/m? General appearance: Well appearing, alert, in no acute distress, well nourished. Skin: Skin color, texture, turgor normal, no suspicious rashes or lesions Head: Normocephalic, no masses, lesions, tenderness or abnormalities Eyes: Anicteric sclera. Pupils are equally round and reactive to light. Extraocular movements are intact. Lungs:Normal breathing efforts, Lungs clear to auscultation. No wheezing, rhonchi, rales Heart: RRR without murmur, gallop, or rubs. Abdomen: some tenderness in the epigastric area, and periumbilical, negative Bradford sign. ASSESSMENT/PLAN: 1. Acute gastritis, presence of bleeding unspecified, unspecified gastritis type - ICD9: 535.00, ICD10: K29.00 - symptoms are likely gastritis from abx, trial of ppi and probiotics, if not better then EGD. - ALIGN (B.INFANTIS) 10.5 MG (10 MILLION CELL) CHEWABLE TABLET Glenn Giordano MD Voice recognition software was used to compose this office note. Please excuse any unintended typographical errors. [facility] 08-15-2024 History of Present illness Narrative Reason for Visit Ernestina Lemus is a 74 year oldfemale who presents here Patient presents with: Follow up for abdominal pain: OV 08/11/24 Health Maintenance There are no preventive care reminders to display for this patient. HPI Thursday patient got very very sick to the stomach, she had pain in the epigastric area and in lower abdomen. she was put on amox and metronidazole for 24 days by dentist for dental related issues, and since then she has been having these symptoms. She wakes up in the morning feeling sick, she does have some pain, she feels very gassy. Her Bms changed, she was doing a lot of light color stools. She still has a lot of gas The pain and discomfort changes a little with food. When she took the pepcid she was better. No problem-specific Assessment & Plan notes found [...] Never Smokeless tobacco: Never Vaping Use Vaping status: Never Used Substance Use Topics Alcohol use: No Drug use: No Past medical history, appointments, medications, allergies reviewed. Pertinent Lab/Diagnostic Studies are reviewed and discussed today Current Outpatient Medications: gabapentin (NEURONTIN) 100 mg capsule furosemide (LASIX) 20 mg tablet alendronate (FOSAMAX) 70 mg tablet potassium chloride ER (KLOR-CON M10) 10 mEq tablet hydroxychloroquine (PLAQUENIL) [address] (PROTONIX) 20 mg tablet Bifidobacterium infantis (ALIGN, B.INFANTIS,) 10.5 mg (10 million cell) chew Review of Systems CONSTITUTIONAL: No fevers, chills [...] or numbness of concern. Physical Exam BP 158/77 Pulse 84 Resp 16 Wt 67.6 kg (149 lb) SpO2 97% BMI 30.09 kg/m General appearance: Well appearing, alert, in no acute distress, well nourished. Skin: Skin color, texture, turgor normal, no suspicious rashes or lesions Head: Normocephalic, no masses, lesions, tenderness or abnormalities Eyes: Anicteric sclera. Pupils are equally round and reactive to light. Extraocular movements are intact. Lungs:Normal breathing efforts, Lungs clear to auscultation. No wheezing, rhonchi, rales Heart: RRR without murmur, gallop, or rubs. Abdomen: some tenderness in the epigastric area, and periumbilical, negative Bradford sign. ASSESSMENT/PLAN: 1. Acute gastritis, presence of bleeding unspecified, unspecified gastritis type - ICD9: 535.00, ICD10: K29.00 - symptoms are likely gastritis from abx, trial of ppi and probiotics, if not better then EGD. - ALIGN (B.INFANTIS) 10.5 MG (10 MILLION CELL) CHEWABLE TABLET Glenn Giordano MD Voice recognition software was used to compose this office note. Please excuse any unintended typographical errors. documented in this encounter [facility] 08-13-2024 Telephone encounter Note Spouse (Chivo) calls back. Pain is not severe. Patient has been having it for several weeks and doesn't feel she needs to go to ER. Patient not available to triage. Appt scheduled for ThursdayAugust 15 and reviewed red flag symptoms to go to ER with prior to that appt with verbalized understanding. Chivo reports if patient changes her mind and goes to ER they will let us know to cancel appt. Sarah Goyal RN [facility] 08-13-2024 Miscellaneous Notes Spouse (Chivo) calls back. Pain is not severe. Patient has been having it for several weeks and doesn't feel she needs to go to ER. Patient not available to triage. Appt scheduled for ThursdayAugust 15 and reviewed red flag symptoms to go to ER with prior to that appt with verbalized understanding. Chivo reports if patient changes her mind and goes to ER they will let us know to cancel appt. Sarah Goyal RN Spouse (Jan) calls to report that patient is having upper abdominal pain not relieved by Mylanta or Maalox. Patient recently on an antibiotic for dental infection but was completed. Patient did have diarrhea but that seems to have subsided. Asked spouse patients level of pain and he reports it must be pretty severe if she is asking me to call the doctor. Notified spouse that if patient is having severe abdominal pain the recommendation would be to take her to the ER. Spouse verbalizes understanding. Sarah Goyal RN documented in this encounter [facility] 08-13-2024 Telephone encounter Note Spouse (Jan) calls to report that patient is having upper abdominal pain not relieved by Mylanta or Maalox. Patient recently on an antibiotic for dental infection but was completed. Patient did have diarrhea but that seems to have subsided. Asked spouse patients level of pain and he reports it must be pretty severe if she is asking me to call the doctor. Notified spouse that if patient is having severe abdominal pain the recommendation would be to take her to the ER. Spouse verbalizes understanding. Sarah Goyal RN [facility] 08-11-2024 Kiara Hidalgo APRN.STUD DRIVER - 08/11/2024 8:08 AM EST Screening schedule The following prevention plan is recommended: Depression Screening Never done Colorectal Cancer Screening due on 06/24/2023 Advance Directive Discussion due on 06/29/2024 WHAT YOU CAN DO TO PREVENT FALLS Many falls can be prevented. By making some changes, you can lower your chances of falling. Four things YOU can do to prevent falls for you* and your caregiver 1. Begin a regular exercise program Exercise is one of the most important ways to lower your chances of falling. It makes you stronger and helps you feel better. Exercises that improve balance and coordination (like Froy Chi) are the most helpful. Lack of exercise leads to weakness and increases your chances of falling. Ask your doctor or health care provider about the best type of exercise program for you. 2. Have your health care provider review your medicines Have your doctor or pharmacist review all the medicines you take, even [id number] medicines. As you get older, the way medicines work in your body can change. Some medicines, or combinations of medicines, can make you sleepy or dizzy and can cause you to fall. 3. Have your vision checked Have your eyes checked by an eye doctor at least once a year. You may be wearing the wrong glasses or have a condition like glaucoma or cataracts that limits your vision. Poor vision can increase your chances of falling. 4. Make your home safer About half of all falls happen at home. To make your home safer: Remove things you can trip over (like papers, books, clothes, and shoes) from stairs and places where you walk. Remove small throw rugs or use double-sided tape to keep the rugs from slipping. Keep items you use often in cabinets you can reach easily without using a step stool. Have grab bars put in next to your toilet and in the tub or shower. Use non-slip mats in the bathtub and on shower floors. Improve the lighting in your home. As you get older, you need brighter lights to see well. Hang light-weight curtains or shades to reduce glare. Have handrails and lights put in on all staircases. Wear shoes both inside and outside the house. Avoid going barefoot or wearing slippers. For more information, contact: Centers for Disease Control and Prevention www.cdc.gov/injury * This information may not apply if you have certain medical conditions. documented in this encounter [facility] 08-11-2024 Note HNO ID: [id number] Author: KIARA TAYLOR APRN.CNP Service: ? Author Type: Nurse Practitioner Type: Progress Notes Filed: 08/11/2024 08:44 Note Text: Ernestina Lemus is a 74 year old female here for a Medicare wellness visit. Medicare Health Risk Assessment General Health Good Exercise: Minutes/Day Currently not exercising Exercise: Days/Week Currently not exercising Alcohol: Daily Use Does not drink alcohol Alcohol: Drinks/Day Does not drink alcohol Alcohol: 6 or more drinks Does not drink alcohol Feel off balance denies Concerns: Teeth/Dentures Has difficulty getting used to top dentures and working with her dentist Concerns: Sexual function denies Troubled by feelings Denies - has large amount of stress with the paperwork caring for brother Frequency: Eating healthy diet 50% of the time ADLs requiring help denies Safety precautions in home/vehicle Always wears seat belt in car, no steps without a handrail, has grab bars in the bathroom, floors are clutter free Smoke, vape, chews tobacco never Difficulty hearing denies Difficulty seeing Wears glasses/needs cataract removal Current Providers Specialists: I have reviewed specialist-related care of the patient in the medical record. Ophthalmology Dr. Linda sees multiple times yearly Medical/Family history review Reviewed and updated problem list, medical/surgical/family/social history, medications, and allergies. Opioid use review Opioid Medications (last 90 days) No data to display Anxiety/Depression screening PHQ-2 Score: 2 (Lower risk for depression) ASHLEE - 2 Score: 2 Recommendation: no further intervention at this time Cognitive screening Cognitive screening reviewed and No further action needed (score 3-5). Functional Observation Was the patient's Timed Up AND Go test unsteady or >= 12 seconds? No Advance Care Planning Patient was not able to provide a surrogate decision maker or written advance directives Measurements BP 142/74 Pulse 77 Resp 16 Wt 68.9 kg (152 lb) SpO2 99% BMI 30.70 kg/m? Vision Screening: Follows with optometry/ophthalmology Assessment/Plan Medicare annual wellness visit, subsequent (Z00.00) - Counseled on healthy diet and regular exercise - Fall avoidance information provided - Personalized prevention plan provided - Discussed need for and benefit of weight loss. BMI 30.70 kg/(m2) CC: Patient presents with: Medicare Wellness Exam: Annual Medicare wellness HPI Ernestina Lemus is a 74 year old female who presents today for medicare wellness. Also with elevated blood pressure and HLD. Elevated Blood Pressure, CHF and HLD: Has had left leg swelling for years which she takes lasix every other day for. Will get some tingling to her feet as well. Elevating her legs will help with the tingling and the swelling. No increase in this or change in this.Denies chest pain, shortness of breath, fatigue or headaches. Took her lasix today. She does not check BP's generally. Last 3 Encounter BP Readings: Date: BP: 08/11/2024 152/90 - 142/74 02/03/2024 132/74 08/05/2023 130/70 REVIEW OF SYSTEMS See HPI PAST MEDICAL HISTORY Diagnosis Date Abdominal pain, [...] ALLERGIES Mri Dye [Contrast Dye] and Pneumococcal 23-Mike Ps Vaccine MEDICATIONS gabapentin (NEURONTIN) 100 mg capsule Take 1 capsule by mouth daily at bedtime. furosemide (LASIX) 20 mg tablet Take lasix 20 mgs, every other day alendronate (FOSAMAX) 70 mg tablet take 1 tablet by mouth every week ON AN EMPTY STOMACH WITH 6-8 OZ OF WATER. NO FOOD / MEDS FOR 30 MIN. REMAIN UPRIGHT potassium chloride ER (KLOR-CON M10) 10 mEq tablet Every other day. hydroxychloroquine (PLAQUENIL) 200 mg tablet Take 1 tablet by mouth twice daily. FAMILY HISTORY Problem Relation Age of Onset Cancer Mother 55 face Breast Cancer Maternal Aunt 52 Hypertension Mother Stroke Mother plaque Heart Father Diabetes Maternal Aunt with amputation Diabetes Maternal Aunt with amputation Social History Tobacco Use Smoking status: Never Smokeless tobacco: Never Vaping Use Vaping status: Never Used Substance Use Topics Alcohol use: No Drug use: No PHYSICAL EXAM BP 142/74 Pulse 77 Resp 16 Wt 68.9 kg (152 lb) SpO2 99% BMI 30.70 kg/m? General Appearance: well appearing, in no acute distress, alert Eyes: conjunctiva pink and moist, no icterus, sclera white, non-injected Lungs: Lungs clear to auscultation. No wheezing, rhonchi, rales. (more content not included)... [facility] 08-11-2024 History of Present illness Narrative Ernestina Lemus is a 74 year old female here for a Medicare wellness visit. Medicare Health Risk Assessment General Health Good Exercise: Minutes/Day Currently not exercising Exercise: Days/Week Currently not exercising Alcohol: Daily Use Does not drink alcohol Alcohol: Drinks/Day Does not drink alcohol Alcohol: 6 or more drinks Does not drink alcohol Feel off balance denies Concerns: Teeth/Dentures Has difficulty getting used to top dentures and working with her dentist Concerns: Sexual function denies Troubled by feelings Denies - has large amount of stress with the paperwork caring for brother Frequency: Eating healthy diet 50% of the time ADLs requiring help denies Safety precautions in home/vehicle Always wears seat belt in car, no steps without a handrail, has grab bars in the bathroom, floors are clutter free Smoke, vape, chews tobacco never Difficulty hearing denies Difficulty seeing Wears glasses/needs cataract removal Current Providers Specialists: I have reviewed specialist-related care of the patient in the medical record. Ophthalmology Dr. Linda sees multiple times yearly Medical/Family history review Reviewed and updated problem list, medical/surgical/family/social history, medications, and allergies. Opioid use review Opioid Medications (last 90 days) No data to display Anxiety/Depression screening PHQ-2 Score: 2 (Lower risk for depression) ASHLEE - 2 Score: 2 Recommendation: no further intervention at this time Cognitive screening Cognitive screening reviewed and No further action needed (score 3-5). Functional Observation Was the patient's Timed Up & Go test unsteady or >= 12 seconds? No Advance Care Planning Patient was not able to provide a surrogate decision maker or written advance directives Measurements BP 142/74 Pulse 77 Resp 16 Wt 68.9 kg (152 lb) SpO2 99% BMI 30.70 kg/m Vision Screening: Follows with optometry/ophthalmology Assessment/Plan Medicare annual wellness visit, subsequent (Z00.00) - Counseled on healthy diet and regular exercise - Fall avoidance information provided - Personalized prevention plan provided - Discussed need for and benefit of weight loss. BMI 30.70 kg/(m^2) CC: Patient presents with: Medicare Wellness Exam: Annual Medicare wellness HPI Ernestina Lemus is a 74 year old female who presents today for medicare wellness. Also with elevated blood pressure and HLD. Elevated Blood Pressure, CHF and HLD: Has had left leg swelling for years which she takes lasix every other day for. Will get some tingling to her feet as well. Elevating her legs will help with the tingling and the swelling. No increase in this or change in this.Denies chest pain, shortness of breath, fatigue or headaches. Took her lasix today. She does not check BP's generally. Last 3 Encounter BP Readings: Date: BP: 08/11/2024 152/90 - 142/74 02/03/2024 132/74 08/05/2023 130/70 REVIEW OF SYSTEMS See HPI PAST MEDICAL HISTORY Diagnosis Date Abdominal pain, [...] ALLERGIES Mri Dye [Contrast Dye] and Pneumococcal 23-Mike Ps Vaccine MEDICATIONS gabapentin (NEURONTIN) 100 mg capsule Take 1 capsule by mouth daily at bedtime. furosemide (LASIX) 20 mg tablet Take lasix 20 mgs, every other day alendronate (FOSAMAX) 70 mg tablet take 1 tablet by mouth every week ON AN EMPTY STOMACH WITH 6-8 OZ OF WATER. NO FOOD / MEDS FOR 30 MIN. REMAIN UPRIGHT potassium chloride ER (KLOR-CON M10) 10 mEq tablet Every other day. hydroxychloroquine (PLAQUENIL) 200 mg tablet Take 1 tablet by mouth twice daily. FAMILY HISTORY Problem Relation Age of Onset Cancer Mother 55 face Breast Cancer Maternal Aunt 52 Hypertension Mother Stroke Mother plaque Heart Father Diabetes Maternal Aunt with amputation Diabetes Maternal Aunt with amputation Social History Tobacco Use Smoking status: Never Smokeless tobacco: Never Vaping Use Vaping status: Never Used Substance Use Topics Alcohol use: No Drug use: No PHYSICAL EXAM BP 142/74 Pulse 77 Resp 16 Wt 68.9 kg (152 lb) SpO2 99% BMI 30.70 kg/m General Appearance: well appearing, in no acute distress, alert Eyes: conjunctiva pink and moist, no icterus, sclera white, non-injected Lungs: Lungs clear to auscultation. No wheezing, rhonchi, rales. Heart: RRR without murmur, gallop, or rubs. No ectopy Health maintenance reviewed with patient: Influenza Vaccine(1) due on 12/26/2024 DTaP,Tdap,Td Vaccine(2 - Td or Tdap) due on 08/11/2025 Colorectal Cancer Screening due on 08/11/2025 RSV Vaccine(1 - 1-dose 75+ series) due on 08/11/2025 Shingrix Vaccine(1 of 2) due on 08/11/2025 Covid-19 Vaccine( - season) due on 08/11/2025 Bone Density Screening due on 08/10/2025 Annual PCP Team Chronic Disease Visit due on 08/11/2025 Depression Screening due on 08/11/2025 Diabetes Screening due on 08/01/2027 Lipid Screening due on 08/01/2029 Advance Directive Discussion Completed Hepatitis C Screening Completed Pneumococcal Vaccine: 50+ Completed Mammogram Screening Discontinued DATA REVIEWED: Most recent labs ASSESSMENT/PLAN: 1. Medicare annual wellness visit, subsequent - ICD9: V70.0, ICD10: Z00.00 (primary diagnosis) - Counseled on healthy diet and regular exercise - Discussed need and benefit for weight loss. BMI 30.70 kg/(m^2) - Follow up for annual exam in one year 2. Elevated blood pressure reading - ICD9: 796.2, ICD10: R03.0 - patient to monitor at home and bring home readings to review at appointment in 2 weeks. - Encouraged dietary sodium restriction/DASH diet - Recommended regular aerobic exercise. - Recommend home blood pressure monitoring, to bring results in on next visit - Goal of BP <130/80 3. Chronic diastolic congestive heart failure (HCC) - ICD9: 428.32, 428.0, ICD10: I50.32 stable Continue current treatment 4. Mixed hyperlipidemia - ICD9: 272.2, ICD10: E78.2 - Uncontrolled - will need to discuss statin therapy. Will address BP and then HLD at upcoming F/U - Counseled on healthy diet and regular exercise - Discussed need for and benefit of weight loss. BMI 30.70 kg/(m^2) The 10-year ASCVD risk score (Najma PIZARRO, et al., 2019) is: 19.6% Values used to calculate the score: Age: 74 years Sex: Female Is Non- : No Diabetic: No Tobacco smoker: No Systolic Blood Pressure: 142 mmHg Is BP treated: No HDL Cholesterol: 92 mg/dL Total Cholesterol: 224 mg/dL 5. Screening for depression - ICD9: V79.0, ICD10: Z13.31 - DEPRESSION SCREENING Prescription instructions reviewed with patient as applicable. Potential red flag symptoms discussed with the patient. Reviewed appropriate action plan to take if red flag symptoms occur. Patient agreeable to treatment plan. Kiara Taylor APRN.JOSUÉ documented in this encounter [facility] 07-25-2024 Telephone encounter Note Patient has been identified by name and date of : Yes, Patient phones for refill(s): Requested Prescriptions Pending Prescriptions Disp Refills gabapentin (NEURONTIN) 100 mg capsule 90 capsule 3 Sig: Take 1 capsule by mouth daily at bedtime. furosemide (LASIX) 20 mg tablet 90 tablet 3 Sig: Take lasix 20 mgs, every other day alendronate (FOSAMAX) 70 mg tablet 12 tablet 3 Sig: take 1 tablet by mouth every week ON AN EMPTY STOMACH WITH 6-8 OZ OF WATER. NO FOOD / MEDS FOR 30 MIN. REMAIN UPRIGHT Date of last office visit in primary care: 02/03/2024 Date of next office visit in primary care: 08/11/2024 Please advise. Thank you. Vita Beverly. [facility] 07-25-2024 Miscellaneous Notes Patient has been identified by name and date of : Yes, Patient phones for refill(s): Requested Prescriptions Pending Prescriptions Disp Refills gabapentin (NEURONTIN) 100 mg capsule 90 capsule 3 Sig: Take 1 capsule by mouth daily at bedtime. furosemide (LASIX) 20 mg tablet 90 tablet 3 Sig: Take lasix 20 mgs, every other day alendronate (FOSAMAX) 70 mg tablet 12 tablet 3 Sig: take 1 tablet by mouth every week ON AN EMPTY STOMACH WITH 6-8 OZ OF WATER. NO FOOD / MEDS FOR 30 MIN. REMAIN UPRIGHT Date of last office visit in primary care: 02/03/2024 Date of next office visit in primary care: 08/11/2024 Please advise. Thank you. Vita Beverly. documented in this encounter [facility] 06-01-2024 Note Patient Outreach (IN [facility]) ERNESTINA LEMUS ([id number]) 1950 F Date Time Provider Department 06/01/24 GLENN GIORDANO During your visit today, we recorded the following information about you: Allergies As of Date: 06/01/2024 Noted Allergy Reaction MRI DYE (CONTRAST DYE) 08/21/2009 PNEUMOCOCCAL 23-MIKE PS VACCINE 10/30/2021 14 - Other: See Comments Comments: arm painful, felt like she going to have a heart attack Date Reviewed: 02/03/2024 Reviewed by: Rakel Choi MA - Fully Assessed Visit Diagnosis:Encounter for screening mammogram for breast cancer [Z12.31] Order(s):VLADIMIR SCREENING W MARIO [[id number]] Order #: [id number] FUTURE Prescriptions as of 06/06/2024 - potassium chloride ER (KLOR-CON M10) 10 [...] capsule by mouth daily at bedtime. - hydroxychloroquine (PLAQUENIL) 200 mg tablet Take 1 tablet by mouth twice daily. Problem List As Of Date 06/01/2024 Noted Resolved GERD (Gastroesophageal Reflux Disease) [K21.9] [...] level [M43.17] 01/28/2022 Hip arthritis [M16.10] 01/28/2022 Acute on chronic diastolic congestive heart edelmira*02/03/2024 Encounter Status:Closed by RICHIE PRODUSER on 06/06/24 [facility] 03-17-2024 Telephone encounter Note Prescription Refill Information The patient has been identified by name and date of : Yes Caregiver verified no other encounters exist for this prescription request: Yes Caregiver confirmed with patient/requestor that no other refills are due, in the near future, with this provider at this time: Yes The last office visit in the department: 02-03-24 Does the patient have a future office visit with this provider/department: Yes Requested Prescriptions Pending Prescriptions Disp Refills potassium chloride ER (KLOR-CON M10) 10 mEq tablet 90 tablet 3 Sig: Every other day. Khadijah Marc March 17, 2024 11:55 AM [facility] 03-17-2024 Miscellaneous Notes Prescription Refill Information The patient has been identified by name and date of : Yes Caregiver verified no other encounters exist for this prescription request: Yes Caregiver confirmed with patient/requestor that no other refills are due, in the near future, with this provider at this time: Yes The last office visit in the department: 02-03-24 Does the patient have a future office visit with this provider/department: Yes Requested Prescriptions Pending Prescriptions Disp Refills potassium chloride ER (KLOR-CON M10) 10 mEq tablet 90 tablet 3 Sig: Every other day. Khadijah Marc March 17, 2024 11:55 AM documented in this encounter [facility] 02-03-2024 Kiara Hidalgo APRN.[facility] - 02/03/2024 9:15 AM EDT Many foods contain potassium. All meats (red meat and chicken) and fish such as salmon, cod, flounder, and sardines are good sources of potassium. Soy products and veggie burgers are also good sources of potassium. Vegetables including broccoli, peas, morales beans, tomatoes, potatoes (especially their skins), sweet potatoes, and winter squashes are all good sources of potassium. Fruits that contain significant sources of potassium include citrus fruits, cantaloupe, bananas, kiwi, prunes, and apricots. Dried apricots contain more potassium than fresh apricots. Milk and yogurt, as well as nuts, are also excellent sources of potassium documented in this encounter [facility] 02-03-2024 Note HNO ID: [id number] Author: KIARA TAYLOR APRN.STUD DRIVER Service: ? Author Type: Nurse Practitioner Type: Progress Notes Filed: 02/03/2024 10:40 Note Text: CC: Patient presents with: Recheck: 6 month follow up HPI Ernestina Lemus is a 73 year old female who presents today for routine follow up. CHF: Takes lasix and potassium every other day as ordered. Denies any chest pain, shortness of breath, headaches, edema, or palpitations. She does not check BP's generally. Ernestina denies regular aerobic exercise but cares for her brother which is very physical. She watches her diet for sodium, low fat and low cholesterol most of the time. Last 3 Encounter BP Readings: Date: BP: 02/03/2024 132/74 08/05/2023 130/70 06/15/2023 140/72 Fibromyalgia: Symptoms controlled with gabapentin as ordered. Continues to follow with Dr. Merino for her inflammatory joint pain. REVIEW OF SYSTEMS See HPI PAST MEDICAL HISTORY No date: Abdominal pain, epigastric No date: Acute gastritis without mention of hemorrhage No date: Anemia 05/12/2012: Fibromyalgia No date: Gastritis 05/12/2012: Inflammatory polyarthropathy (HCC) No date: PMH - PAST MEDICAL HISTORY OF Comment: hx of dehydration 07/30/2009: Syncope PAST SURGICAL HISTORY No date: CHOLECYSTECTOMY Comment: Cholecystectomy 12/18/09: COLONOSCOPY FLX DX W/COLLJ SPEC WHEN PFRMD 12/18/09: EGD TRANSORAL BIOPSY SINGLE/MULTIPLE No date: SALPINGO-OOPHORECTOMY COMPL/PRTL UNI/BI SPX Comment: ??RIGHT - IN HER 30'S ALLERGIES Mri Dye [Contrast Dye] and Pneumococcal 23-Mike Ps Vaccine MEDICATIONS hydroxychloroquine (PLAQUENIL) 200 mg tablet Take 1 tablet by mouth twice daily. potassium chloride ER (KLOR-CON M10) 10 mEq [...] 1 capsule by mouth daily at bedtime. FAMILY HISTORY Problem Relation Age of Onset Cancer Mother 55 face Breast Cancer Maternal Aunt 52 Hypertension Mother Stroke Mother plaque Heart Father Diabetes Maternal Aunt with amputation Diabetes Maternal Aunt with amputation Social History Tobacco Use Smoking status: Never Smokeless tobacco: Never Vaping Use Vaping Use: Never used Substance Use Topics Alcohol use: No Drug use: No PHYSICAL EXAM BP 132/74 Pulse 72 Resp 16 Wt 63.5 kg (140 lb) SpO2 96% BMI 28.28 kg/m? General Appearance: well appearing, in no acute distress, alert Eyes: conjunctiva pink and moist, no icterus, sclera white, non-injected Lungs: Lungs clear to auscultation. No wheezing, rhonchi, rales. Heart: RRR without murmur, gallop, or rubs. No ectopy Health maintenance reviewed with patient: Depression Screening Never done Mammogram Screening due on 05/16/2023 Colorectal Cancer Screening due on 02/08/2024 RSV Vaccine(1 - 1-dose 60+ series) due on 06/15/2024 Shingrix Vaccine(1 of 2) due on 06/15/2024 Covid-19 Vaccine(2022- season) due on 06/15/2024 DTaP,Tdap,Td Vaccine(2 - Td or Tdap) due on 08/05/2024 Influenza Vaccine(1) due on 02/28/2024 Bone Density Screening due on 08/10/2025 Diabetes Screening due on 08/19/2026 Lipid Screening due on 06/09/2028 Advance Directive Discussion Completed Hepatitis C Screening Completed Pneumococcal Vaccine: 65+ Completed DATA REVIEWED: Most recent labs ASSESSMENT/PLAN: 1. Chronic diastolic congestive heart failure (HCC) - ICD9: 428.32, 428.0, ICD10: I50.32 (primary diagnosis) Stable and asymptomatic - Continue current medications - Encouraged daily weights - Recommend regular aerobic exercise 2. Fibromyalgia - ICD9: 729.1, ICD10: M79.7 Controlled with current treatment 3. Annual physical exam - ICD9: V70.0, ICD10: Z00.00 - not reviewed today. Blood work ordered to be reviewed at follow up appointment - LIPID PANEL BASIC - COMPLETE BLOOD COUNT - COMPREHENSIVE METABOLIC PANEL Prescription instructions reviewed with patient as applicable. Potential red flag symptoms discussed with the patient. Reviewed appropriate action plan to take if red flag symptoms occur. Patient agreeable to treatment plan. Kiara Taylor APRN.STUD DRIVER [facility] 02-03-2024 History of Present illness Narrative CC: Patient presents with: Recheck: 6 month follow up HPI Ernestina Lemus is a 73 year old female who presents today for routine follow up. CHF: Takes lasix and potassium every other day as ordered. Denies any chest pain, shortness of breath, headaches, edema, or palpitations. She does not check BP's generally. Ernestina denies regular aerobic exercise but cares for her brother which is very physical. She watches her diet for sodium, low fat and low cholesterol most of the time. Last 3 Encounter BP Readings: Date: BP: 02/03/2024 132/74 08/05/2023 130/70 06/15/2023 140/72 Fibromyalgia: Symptoms controlled with gabapentin as ordered. Continues to follow with Dr. Merino for her inflammatory joint pain. REVIEW OF SYSTEMS See HPI PAST MEDICAL HISTORY No date: Abdominal pain, epigastric No date: Acute gastritis without mention of hemorrhage No date: Anemia 05/12/2012: Fibromyalgia No date: Gastritis 05/12/2012: Inflammatory polyarthropathy (HCC) No date: PMH - PAST MEDICAL HISTORY OF Comment: hx of dehydration 07/30/2009: Syncope PAST SURGICAL HISTORY No date: CHOLECYSTECTOMY Comment: Cholecystectomy 12/18/09: COLONOSCOPY FLX DX W/COLLJ SPEC WHEN PFRMD 12/18/09: EGD TRANSORAL BIOPSY SINGLE/MULTIPLE No date: SALPINGO-OOPHORECTOMY COMPL/PRTL UNI/BI SPX Comment: ??RIGHT - IN HER 30'S ALLERGIES Mri Dye [Contrast Dye] and Pneumococcal 23-Mike Ps Vaccine MEDICATIONS hydroxychloroquine (PLAQUENIL) 200 mg tablet Take 1 tablet by mouth twice daily. potassium chloride ER (KLOR-CON M10) 10 mEq [...] 1 capsule by mouth daily at bedtime. FAMILY HISTORY Problem Relation Age of Onset Cancer Mother 55 face Breast Cancer Maternal Aunt 52 Hypertension Mother Stroke Mother plaque Heart Father Diabetes Maternal Aunt with amputation Diabetes Maternal Aunt with amputation Social History Tobacco Use Smoking status: Never Smokeless tobacco: Never Vaping Use Vaping Use: Never used Substance Use Topics Alcohol use: No Drug use: No PHYSICAL EXAM BP 132/74 Pulse 72 Resp 16 Wt 63.5 kg (140 lb) SpO2 96% BMI 28.28 kg/m General Appearance: well appearing, in no acute distress, alert Eyes: conjunctiva pink and moist, no icterus, sclera white, non-injected Lungs: Lungs clear to auscultation. No wheezing, rhonchi, rales. Heart: RRR without murmur, gallop, or rubs. No ectopy Health maintenance reviewed with patient: Depression Screening Never done Mammogram Screening due on 05/16/2023 Colorectal Cancer Screening due on 02/08/2024 RSV Vaccine(1 - 1-dose 60+ series) due on 06/15/2024 Shingrix Vaccine(1 of 2) due on 06/15/2024 Covid-19 Vaccine( - 2022-24 season) due on 06/15/2024 DTaP,Tdap,Td Vaccine(2 - Td or Tdap) due on 08/05/2024 Influenza Vaccine(1) due on 02/28/2024 Bone Density Screening due on 08/10/2025 Diabetes Screening due on 08/19/2026 Lipid Screening due on 06/09/2028 Advance Directive Discussion Completed Hepatitis C Screening Completed Pneumococcal Vaccine: 65+ Completed DATA REVIEWED: Most recent labs ASSESSMENT/PLAN: 1. Chronic diastolic congestive heart failure (HCC) - ICD9: 428.32, 428.0, ICD10: I50.32 (primary diagnosis) Stable and asymptomatic - Continue current medications - Encouraged daily weights - Recommend regular aerobic exercise 2. Fibromyalgia - ICD9: 729.1, ICD10: M79.7 Controlled with current treatment 3. Annual physical exam - ICD9: V70.0, ICD10: Z00.00 - not reviewed today. Blood work ordered to be reviewed at follow up appointment - LIPID PANEL BASIC - COMPLETE BLOOD COUNT - COMPREHENSIVE METABOLIC PANEL Prescription instructions reviewed with patient as applicable. Potential red flag symptoms discussed with the patient. Reviewed appropriate action plan to take if red flag symptoms occur. Patient agreeable to treatment plan. Kiara Taylor APRN.CNP documented in this encounter [facility] 08-12-2023 Miscellaneous Notes Patient notified. Still with osteopenia on bone density, but improvement with taking the fosamax. Continue at this time and we will recheck bone density in 2 years. Thank you Kiara Taylor APRN.CNP documented in this encounter [facility] 08-10-2023 History of Present illness Narrative Radiology Service Progress Note PATIENT NAME: Ernestina Lemus DATE OF SERVICE: August 10, 2023 TIME: [...] PATIENT PRESENTS WITH AN IMPLANTABLE OR ATTACHED MACHINE SPECIALIST: No RADIOLOGY DEPARTMENT: Bone Density PERIPHERAL IV DATA: Not applicable SIGNED BY: RT Tommy(R) August 10, 2023 8:57 AM documented in this encounter [facility] 08-05-2023 Kiara Hidalgo RN PROGRESSIVE CARE UNIT.JOSUÉ - 08/05/2023 8:31 AM EST BONE MINERAL [...] usual activities immediately. documented in this encounter [facility] 08-05-2023 History of Present illness Narrative CC: Patient presents with: Recheck: 3 month follow up HPI Ernestina Lemus is a 73 year old female who presents today for routine follow up and denies any complaints. CHF: Ms. Lemus indicates that she is feeling well and [...] womens multivitamin daily Inflammatory Polyarthropathy: Follows with fire equipment operator, Dr. Merino. Well controlled on current treatment [...] ALLERGIES Mri Dye [Contrast Dye] and Pneumococcal 23-Mike Ps Vaccine MEDICATIONS potassium chloride ER (KLOR-CON [...] occur. Patient agreeable to treatment plan. Kiara Taylor APRN.CNP documented in this encounter [facility] 06-18-2023 Miscellaneous Notes TC to patient who verbalized understanding of below. No further questions at this time. LIBORIO Rogers Continue to hold and we will recheck in 2-4 weeks Thank you Kiara Taylor APRN.CNP TC to patient who states she was taking 500 mg calcium daily at time of lab draw, but has stopped taking as instructed on 06/15 OV. LIBORIO Rogers ----- Message from Kiara Taylor APRN.CNP sent at 06/18/2023 6:24 AM EST ----- Calcium is still slightly elevated but stable. How much calcium was she taking when this was drawn? Thank you Kiara Taylor APRN.CNP documented in this encounter [facility] 12-15-2022 Miscellaneous Notes Noted. Kiara Taylor APRN.CNP Patient notified, states that PCP instructed patient to stop taking Vit D at last appointment. ----- Message from Kiara Taylor APRN.CNP sent at 12/12/2022 12:59 PM EDT ----- Lab work overall within acceptable ranges. Vit D still high. Can take 2000 units of Vit D daily verus the reported 5000 units daily. Thank you Kiara Taylor APRN.CNP documented in this encounter [facility] 12-10-2022 History of Present illness Narrative [...] ALLERGIES: Mri Dye [Contrast Dye] and Pneumococcal 23-Mike Ps Vaccine Medications reviewed: Yes FAMILY HISTORY [...] F) Resp 12 Ht 149.9 cm (4' 11) Wt 65.8 kg (145 lb) SpO2 100% BMI 29.29 kg/m Alert and oriented X 3: YES Body mass index is 29.29 kg/m . ASSESSMENT/PLAN: 72 year old female The following prevention plan was discussed during the office visit and provided to the patient: - Glaucoma screening Glenn Giordano MD Health Maintenance SHINGRIX VACCINE(1 of [...] F) Resp 12 Ht 149.9 cm (4' 11) Wt 65.8 kg (145 lb) SpO2 100% [...] diet of 1000 mg/day for under 50, 5190-3263 mg/day for 50+ 2. Inflammatory polyarthropathy (HCC) [...] 288.50, ICD10: D72.819 - CBC + DIFF Glenn Giordano MD documented in this encounter [facility] 10-06-2022 Miscellaneous Notes Patient has been [...] Treva Davila LPN documented in this encounter [facility] 09-03-2022 History of Present illness Narrative Reason for Visit Patient presents with: ED Follow-up: non cardiac chest pain per ER Ernestina Lemus is a 72 year old female who [...] Patient is stressed with paper work for [employer]. No problem-specific Assessment & Plan notes found [...] F) Resp 12 Ht 149.9 cm (4' 11) Wt 64.9 kg (143 lb) SpO2 99% [...] ICD10: M79.7 - GABAPENTIN 100 MG CAPSULE Glenn Giordano MD documented in this encounter [facility] 07-07-2022 History of Present illness Narrative POPULATION HEALTH NAVIGATION OUTREACH Action/BOAZ MUÑOZ Spoke with Ernestina, colonoscopy was completed on 06-24-22 Dr.R Acosta Mammogram updated in [facility] MEDICARE WELLNESS EXAM APPT 12-10-22 COLORECTAL CANCER SCREENING DONE AT [facility] uodated ADVANCE DIRECTIVE DISCUSSION Never done MYCHART [...] 2022 7:54 AM documented in this encounter [facility] 06-12-2022 Miscellaneous Notes Patient notified. ----- Message from Glenn Giordano MD sent at 06/12/2022 1:38 PM EST ----- Hold the vit d for 3 months it is too high. Regards, Glenn Giordano MD documented in this encounter [facility] 06-11-2022 History of Present illness Narrative Reason for Visit Patient presents with: Follow Up: 4 month follow up- discuss vitamin D Ernestina Lemus is a 72 year old female who [...] F) Resp 12 Ht 149.9 cm (4' 11) Wt 63.5 kg (140 lb) SpO2 98% [...] as tolerated - VITAMIN D 25 HYDROXY Glenn Giordano MD documented in this encounter [facility] 05-19-2022 History of Present illness Narrative [...] Message Sent to Practice: No Navigation Signature: eMlva Waters MA May 19, 2022 2:37 PM documented in this encounter [facility] 02-14-2022 Miscellaneous Notes Patient returned call and went over results, notes from Kiara Taylor Mica Machine Operator with understanding. Left message for return call. ----- Message from iKara Taylor APRN.STUD DRIVER sent at 02/14/2022 12:48 PM EDT ----- Please let patient know that lab work including kidney function and electrolyte levels were within acceptable ranges. Thank you Kiara Taylor APRN.STUD DRIVER documented in this encounter [facility] 02-13-2022 Miscellaneous Notes Refills remain at pharmacy. Pharmacy contacted and filling rx now. OYSTER SHELL CALCIUM 500 500 mg calcium (1,250 mg) tablet 90 tablet 3 07/31/2021 Sig: Take 1 tablet by mouth once daily. Patient would like this sent to [facility]. Cindy Hollis Pss documented in this encounter [facility] 02-04-2022 Miscellaneous Notes Phone call placed [...] worsen. Thank you documented in this encounter [facility] 02-03-2022 History of Present illness Narrative Phone call transferred to [facility] Care spoke to patients reported nausea/vomiting continued after taking Reglan one hour prior. Patients advised (see prior provider encounter, AVS advised report to local Emergency Room. Patients verbalized understanding, agreed with plan of care. Zoe Hollis LPN Subjective The history is provided by a relative and the spouse. HPI Ernestina Lemus is a 71 year old female who [...] have confirmed and edited as necessary, the [facility] Review of Systems Constitutional: Positive for malaise/fatigue. [...] Kacy Padron APRN.JOSUÉ documented in this encounter [facility] 02-03-2022 Miscellaneous Notes Addended by: CLARK WILDER on: 02/03/2022 07:46 PM Modules accepted: Orders documented in this encounter [facility] 02-03-2022 Instructions Kacy Padron APRN.CNP - 02/03/2022 4:16 PM EDT Reglan as needed for nausea vomiting 4 times a day prn covid test ordered You will be notified in 24 -48 hours, results available on [facility] Home isolation until covid results [...] dark tarry stools. documented in this encounter [facility] 02-03-2022 History of Present illness Narrative Patient notified. documented in this encounter [facility] 01-28-2022 History of Present illness Narrative Reason for Visit Patient presents with: Established Patient: 6 month follow up Ernestina Lemus is a 71 year old female who presents here today for Above Complaints.. Health Maintenance HEPATITIS C SCREENING SHINGRIX VACCINE(1 of 2) COLORECTAL CANCER SCREENING ADVANCE DIRECTIVE DISCUSSION MAMMOGRAM HPI Hip arthritis and spondylolisthesis: she was in to see the RN [facility] for the back and is seeing Dr [...] F) Resp 12 Ht 149.9 cm (4' 11) Wt 64 kg (141 lb) SpO2 99% [...] ICD10: M16.10 Much better after Physical Therapy Glenn Giordano MD documented in this encounter [facility] 01-06-2022 History of Present illness Narrative Radiology Service Progress Note PATIENT NAME: Ernestina Lemus DATE OF SERVICE: January 06, 2022 TIME: [...] 2022 9:19 AM documented in this encounter [facility] 12-26-2021 History of Present illness Narrative Episode Visit Count: 2 Therapist That Will Oversee The Plan Of Care: Catracho Murillo Start of Care Date: 12/12/21 Onset Date: 06/29/03 Plan of Care Certification Date: 12/12/21 Next Certification Due Date: 01/16/22 Patient Identified by Name and Date of : Yes REHABILITATION AND SPORTS THERAPY PHYSICAL THERAPY TREATMENT NOTE ASSESSMENT: Ernestina Lemus tolerated the session with some cramping in [...] Catracho Murillo PT documented in this encounter [facility] 12-20-2021 Miscellaneous Notes Patient has been [...] Rakel Choi Ma documented in this encounter [facility] 12-12-2021 History of Present illness Narrative Episode Visit Count: 1 Therapist That Will Oversee The Plan Of Care: Catracho Murillo Start of Care Date: 12/12/21 Onset Date: 06/29/03 Plan of Care Certification Date: 12/12/21 Next Certification Due Date: 01/16/22 Patient Identified by Name and Date of : Yes REHABILITATION AND SPORTS THERAPY PHYSICAL THERAPY EVALUATION PLAN OF CARE: Assessment: Ernestina Lemus presents with chief complaint of Lower back [...] or better in 8 weeks or less [facility] in home exercise program. Patient Goals: Wants to alleviate pain Planned Interventions, Frequency, and Duration: Current Frequency: 1x every other week Duration: 4 weeks Total Number of Visits Planned: 2 Planned Treatment Interventions: Therapeutic exercise (19340);Manual therapy (09361);Self-long-term management (43575);Patient/Family/Caregiver Education PLAN FOR NEXT VISIT: Assess reaction to HEP. Progress gluteal strengthening as tolerated Patient demonstrates good understanding of plan of care and treatment. The above goals and plan of care were discussed and agreed upon by patient/family. SUBJECTIVE: Ernestina Lemus is a 71 year old female seen today for Low back and hip pain bilat. Fell at [place] and that when all of this gradually kept going. Pain can travel into the calves bilat. Walking may put the pain into the legs. Pain goes up and down. Bending and getting down is painful Patient Goals: Wants to alleviate pain Functional Limitations: bending (gardening) Prior Level of Function: Independent without limitations Relevant History Preferred Language: Zambian Intake Information: Prescription present Previous Treatment: Pain [...] Catracho Murillo PT documented in this encounter [facility] 11-28-2021 Note HNO ID: [id number] Author: Xiomara Call APRN.STUD DRIVER Service: ? Author Type: Nurse Practitioner Type: Progress Notes Filed: 11/28/2021 9:48 AM Note Text: [facility] Today's Date: 11/28/2021 Last Visit: N/A Name: Ernestina Lemus : 1950 Purpose: New Patient Evaluation Chief complaint: Low Back and Leg Pain Interval History: N/A Initial HPI: (Obtained on 11/28/2021) Ernestina Lemus is a 71 year old year-old female; PMH significant for HPL, FM, GERD, Inflammatory polyarthropathy, osteopenia, anxiety and Vit D deficiency; who presents having been referred by Glenn Giordano, for evaluation and management of the above-mentioned chief complaint. - This has been present since 2003. The onset of symptoms was gradual onset and was without associated trauma. She does note she worked for [email or web address] and did have a fall in 2003 and after this she developed pain. She did have a [facility] consult, but this is not a [facility] claim. 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 Current Status: INTAKE PAIN [...] - Mri Dye [Contrast D* - Pneumococcal 23-Mike* Other: See Comments arm painful, felt like [...] No suspicious activity was identified. 11/28/2021 by Xiomara Call APRN.STUD DRIVER Last Drug screen: Not Applicable appropriate. Risk [...] Past Medical His (more content not included)... [facility] 11-28-2021 Note HNO ID: [id number] Author: Anjali Colon MA Service: ? Author Type: Knitting Machine Operator Automatic Type: Progress Notes Filed: 11/28/2021 9:48 AM [...] suicidal ideas. The patient is not nervous/anxious. [facility] 11-28-2021 Instructions Xiomara Call APRN.JOSUÉ - 11/28/2021 9:37 AM EDT Activity as tolerated Use Ice and/or heat as tolerated as needed documented in this encounter [facility] 11-28-2021 History of Present illness Narrative [facility] Today's Date: 11/28/2021 Last Visit: N/A Name: Ernestina Lemus : 1950 Purpose: New Patient Evaluation Chief complaint: Low Back and Leg Pain Interval History: N/A Initial HPI: (Obtained on 11/28/2021) Ernestina Lemus is a 71 year old year-old female; PMH significant for HPL, FM, GERD, Inflammatory polyarthropathy, osteopenia, anxiety and Vit D deficiency; who presents having been referred by Glenn Giordano, for evaluation and management of the above-mentioned chief complaint. This has been present since 2003. The onset of symptoms was gradual onset and was without associated trauma. She does note she worked for [email or web address] and did have a fall in 2003 and after this she developed pain. She did have a [facility] consult, but this is not a [facility] claim. 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 Current Status: INTAKE PAIN [...] Allergen Reactions Mri Dye [Contrast D* Pneumococcal 23-Mike* Other: See Comments arm painful, felt like [...] No suspicious activity was identified. 11/28/2021 by Xiomara Call APRN.STUD DRIVER Last Drug screen: Not Applicable appropriate. Risk [...] LEFT more so then the RIGHT Ernestina Lemus would benefit from the following to decrease pain, improve function and/or work participation, and improve quality of life: Interventional Procedure(s): None today Medications: Refill: Continue Gabapentin 100mg at HS and Meloxicam as needed (she typically only takes 1/2 tab prn, uses sparingly) No medications selected for refill. 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 I did note that [...] current medical decision making from today's date. Xiomara Call APRN.JOSUÉ Pain Management [facility] Review of Systems Constitutional: Negative for activity [...] is not nervous/anxious. documented in this encounter [facility] 11-04-2021 Miscellaneous Notes Patient calls and [...] to try Lasix please send to [facility] [place]. Pt was also asking about blood work that came back. Please call and advise. Pt was put through to scheduling to make an appointment with Ortho. Vira Bernal RN Left message for return call, please see other TE as well as this one. ----- Message from Glenn Giordano MD sent at 10/31/2021 3:13 PM EDT ----- Ernestina, Your pedal edema may get better with lasix. Regards, Glenn Giordano MD documented in this encounter [facility] 10-31-2021 Miscellaneous Notes Left message for return call. Please see other TE for patient as well as this one. ----- Message from Glenn Giordano MD sent at 10/31/2021 2:45 PM EDT ----- US leg is does not show any dvt Regards, Glenn Giordano MD documented in this encounter [facility] 10-30-2021 History of Present illness Narrative Reason for Visit Patient presents with: Established Patient: 3 month follow up Ernestina Lemus is a 71 year old female who [...] F) Resp 12 Ht 149.9 cm (4' 11) Wt 69.4 kg (153 lb) SpO2 100% [...] loved ones - CONSULT TO PAIN MGT Glenn Giordano MD documented in this encounter [facility] 02-17-2011 History of Past i llness Narrative Problem Noted Date Resolved Date Arthritis 02/17/2011 05/06/2013 Anemia 07/30/2009 05/06/2013 Epigastric pain 07/30/2009 05/12/2012 Syncope 07/30/2009 05/06/2013 documented as of this encounter (statuses as of 10/30/2021) [address]-2011 History of Past illness Narrative* Problem Noted Date Resolved Date Arthritis 02/17/2011 05/06/2013 Anemia 07/30/2009 05/06/2013 Epigastric pain 07/30/2009 05/12/2012 Syncope 07/30/2009 05/06/2013 documented as of this encounter (statuses as of 11/04/2021) [address] History of Past illness Narrative* Problem Noted Date Resolved Date Arthritis 02/17/2011 05/06/2013 Anemia 07/30/2009 05/06/2013 Epigastric pain 07/30/2009 05/12/2012 Syncope 07/30/2009 05/06/2013 documented as of this encounter (statuses as of 11/28/2021) [address]22-2011 History of Past illness Narrative* Problem Noted Date Resolved Date Arthritis 02/17/2011 05/06/2013 Anemia 07/30/2009 05/06/2013 Epigastric pain 07/30/2009 05/12/2012 Syncope 07/30/2009 05/06/2013 documented as of this encounter (statuses as of 12/12/2021) [address]22-2011 History of Past illness Narrative* Problem Noted Date Resolved Date Arthritis 02/17/2011 05/06/2013 Anemia 07/30/2009 05/06/2013 Epigastric pain 07/30/2009 05/12/2012 Syncope 07/30/2009 05/06/2013 documented as of this encounter (statuses as of 12/20/2021) [address]22-2011 History of Past illness Narrative* Problem Noted Date Resolved Date Arthritis 02/17/2011 05/06/2013 Anemia 07/30/2009 05/06/2013 Epigastric pain 07/30/2009 05/12/2012 Syncope 07/30/2009 05/06/2013 documented as of this encounter (statuses as of 12/26/2021) [address]22-2011 History of Past illness Narrative* Problem Noted Date Resolved Date Arthritis 02/17/2011 05/06/2013 Anemia 07/30/2009 05/06/2013 Epigastric pain 07/30/2009 05/12/2012 Syncope 07/30/2009 05/06/2013 documented as of this encounter (statuses as of 01/01/2022) [address]22-2011 History of Past illness Narrative* Problem Noted Date Resolved Date Arthritis 02/17/2011 05/06/2013 Anemia 07/30/2009 05/06/2013 Epigastric pain 07/30/2009 05/12/2012 Syncope 07/30/2009 05/06/2013 documented as of this encounter (statuses as of 01/07/2022) [address]-2011 History of Past illness Narrative* Problem Noted Date Resolved Date Arthritis 02/17/2011 05/06/2013 Anemia 07/30/2009 05/06/2013 Epigastric pain 07/30/2009 05/12/2012 Syncope 07/30/2009 05/06/2013 documented as of this encounter (statuses as of 01/28/2022) [address]22-2011 History of Past illness Narrative* Problem Noted Date Resolved Date Arthritis 02/17/2011 05/06/2013 Anemia 07/30/2009 05/06/2013 Epigastric pain 07/30/2009 05/12/2012 Syncope 07/30/2009 05/06/2013 documented as of this encounter (statuses as of 02/03/2022) [address]-2011 History of Past illness Narrative* Problem Noted Date Resolved Date Arthritis 02/17/2011 05/06/2013 Anemia 07/30/2009 05/06/2013 Epigastric pain 07/30/2009 05/12/2012 Syncope 07/30/2009 05/06/2013 documented as of this encounter (statuses as of 02/03/2022) [address]-2011 History of Past illness Narrative* Problem Noted Date Resolved Date Arthritis 02/17/2011 05/06/2013 Anemia 07/30/2009 05/06/2013 Epigastric pain 07/30/2009 05/12/2012 Syncope 07/30/2009 05/06/2013 documented as of this encounter (statuses as of 02/04/2022) [address]-2011 History of Past illness Narrative* Problem Noted Date Resolved Date Arthritis 02/17/2011 05/06/2013 Anemia 07/30/2009 05/06/2013 Epigastric pain 07/30/2009 05/12/2012 Syncope 07/30/2009 05/06/2013 documented as of this encounter (statuses as of 02/13/2022) [address]-2011 History of Past illness Narrative* Problem Noted Date Resolved Date Arthritis 02/17/2011 05/06/2013 Anemia 07/30/2009 05/06/2013 Epigastric pain 07/30/2009 05/12/2012 Syncope 07/30/2009 05/06/2013 documented as of this encounter (statuses as of 02/14/2022) [address]22-2011 History of Past illness Narrative* Problem Noted Date Resolved Date Arthritis 02/17/2011 05/06/2013 Anemia 07/30/2009 05/06/2013 Epigastric pain 07/30/2009 05/12/2012 Syncope 07/30/2009 05/06/2013 documented as of this encounter (statuses as of 04/07/2022) [address]-2011 History of Past illness Narrative* Problem Noted Date Resolved Date Arthritis 02/17/2011 05/06/2013 Anemia 07/30/2009 05/06/2013 Epigastric pain 07/30/2009 05/12/2012 Syncope 07/30/2009 05/06/2013 documented as of this encounter (statuses as of 05/19/2022) [address]22-2011 History of Past illness Narrative* Problem Noted Date Resolved Date Arthritis 02/17/2011 05/06/2013 Anemia 07/30/2009 05/06/2013 Epigastric pain 07/30/2009 05/12/2012 Syncope 07/30/2009 05/06/2013 documented as of this encounter (statuses as of 2022) [address]22-2011 History of Past illness Narrative* Problem Noted Date Resolved Date Arthritis 02/17/2011 05/06/2013 Anemia 07/30/2009 05/06/2013 Epigastric pain 07/30/2009 05/12/2012 Syncope 07/30/2009 05/06/2013 documented as of this encounter (statuses as of 06/11/2022) [address]-2011 History of Past illness Narrative* Problem Noted Date Resolved Date Arthritis 02/17/2011 05/06/2013 Anemia 07/30/2009 05/06/2013 Epigastric pain 07/30/2009 05/12/2012 Syncope 07/30/2009 05/06/2013 documented as of this encounter (statuses as of 06/12/2022) [address]-2011 History of Past illness Narrative* Problem Noted Date Resolved Date Arthritis 02/17/2011 05/06/2013 Anemia 07/30/2009 05/06/2013 Epigastric pain 07/30/2009 05/12/2012 Syncope 07/30/2009 05/06/2013 documented as of this encounter (statuses as of 07/07/2022) [address]22-2011 History of Past illness Narrative* Problem Noted Date Resolved Date Arthritis 02/17/2011 05/06/2013 Anemia 07/30/2009 05/06/2013 Epigastric pain 07/30/2009 05/12/2012 Syncope 07/30/2009 05/06/2013 documented as of this encounter (statuses as of 09/03/2022) [address]22-2011 History of Past illness Narrative* Problem Noted Date Resolved Date Arthritis 02/17/2011 05/06/2013 Anemia 07/30/2009 05/06/2013 Epigastric pain 07/30/2009 05/12/2012 Syncope 07/30/2009 05/06/2013 documented as of this encounter (statuses as of 10/07/2022) [address]22-2011 History of Past illness Narrative* Problem Noted Date Resolved Date Arthritis 02/17/2011 05/06/2013 Anemia 07/30/2009 05/06/2013 Epigastric pain 07/30/2009 05/12/2012 Syncope 07/30/2009 05/06/2013 documented as of this encounter (statuses as of 10/16/2022) [address]22-2011 History of Past illness Narrative* Problem Noted Date Resolved Date Arthritis 02/17/2011 05/06/2013 Anemia 07/30/2009 05/06/2013 Epigastric pain 07/30/2009 05/12/2012 Syncope 07/30/2009 05/06/2013 documented as of this encounter (statuses as of 12/10/2022) [address]22-2011 History of Past illness Narrative* Problem Noted Date Resolved Date Arthritis 02/17/2011 05/06/2013 Anemia 07/30/2009 05/06/2013 Epigastric pain 07/30/2009 05/12/2012 Syncope 07/30/2009 05/06/2013 documented as of this encounter (statuses as of 12/15/2022) [address]22-2011 History of Past illness Narrative* Problem Noted Date Diagnosed Date Resolved Date Arthritis 02/17/2011 05/06/2013 Anemia 07/30/2009 05/06/2013 Epigastric pain 07/30/2009 05/12/2012 Syncope 07/30/2009 05/06/2013 documented as of this encounter (statuses as of 06/05/2023) [address]-2011 History of Past illness Narrative* Problem Noted Date Diagnosed Date Resolved Date Arthritis 02/17/2011 05/06/2013 Anemia 07/30/2009 05/06/2013 Epigastric pain 07/30/2009 05/12/2012 Syncope 07/30/2009 05/06/2013 documented as of this encounter (statuses as of 06/19/2023) [address]22-2011 History of Past illness Narrative* Problem Noted Date Diagnosed Date Resolved Date Arthritis 02/17/2011 05/06/2013 Anemia 07/30/2009 05/06/2013 Epigastric pain 07/30/2009 05/12/2012 Syncope 07/30/2009 05/06/2013 documented as of this encounter (statuses as of 08/05/2023) [address]-2011 History of Past illness Narrative* Problem Noted Date Diagnosed Date Resolved Date Arthritis 02/17/2011 05/06/2013 Anemia 07/30/2009 05/06/2013 Epigastric pain 07/30/2009 05/12/2012 Syncope 07/30/2009 05/06/2013 documented as of this encounter (statuses as of 08/11/2023) [address]-2011 History of Past illness Narrative* Problem Noted Date Diagnosed Date Resolved Date Arthritis 02/17/2011 05/06/2013 Anemia 07/30/2009 05/06/2013 Epigastric pain 07/30/2009 05/12/2012 Syncope 07/30/2009 05/06/2013 documented as of this encounter (statuses as of 08/12/2023) [facility] Work Phone: Evaluation note* Diagnosis Acute on chronic diastolic congestive heart failure (HCC)- Primary Acute on chronic diastolic heart failure Pedal edema Edema Pain of left lower leg Pain in limb Swelling of limb Edema, unspecified type Spondylolisthesis at L4-L5 level [facility] Diagnosis Congestive heart failure, unspecified HF chronicity, unspecified heart failure type (HCC)- Primary documented in this encounter [facility] note* Diagnosis Lumbar spondylosis- Primary Lumbosacral spondylosis without myelopathy Other chronic pain Sacroiliitis (HCC) Sacroiliitis, not elsewhere classified Greater trochanteric bursitis of both hips Enthesopathy of hip region documented in this encounter [facility] note* Diagnosis Lumbar spondylosis Lumbosacral spondylosis without myelopathy Sacroiliitis (HCC) Sacroiliitis, not elsewhere classified Greater trochanteric bursitis of both hips Enthesopathy of hip region documented in this encounter [facility] note* Diagnosis Osteoporosis without current pathological fracture, unspecified osteoporosis type documented in this encounter [facility] note* Diagnosis Lumbar spondylosis- Primary Lumbosacral spondylosis without myelopathy Greater trochanteric bursitis of both hips Enthesopathy of hip region Chronic bilateral low back pain without sciatica documented in this encounter [facility] note* Diagnosis Bilateral hip pain- Primary Pain in joint, pelvic region and thigh documented in this encounter [facility] note* Diagnosis Bilateral hip pain Pain in joint, pelvic region and thigh documented in this encounter [facility] note* Diagnosis Inflammatory polyarthropathy (HCC)- Primary Unspecified inflammatory polyarthropathy Congestive heart failure, unspecified HF chronicity, unspecified heart failure type (HCC) Fibromyalgia Mylagia and myositis, unspecified Spondylolisthesis at L5-S1 level Congenital spondylolisthesis Age-related osteoporosis without current pathological fracture Senile osteoporosis Hip arthritis Unspecified arthropathy, pelvic region and thigh Shortness of breath documented in this encounter [facility] note* Diagnosis Congestive heart failure, unspecified HF chronicity, unspecified heart failure type (HCC) Shortness of breath documented in this encounter [facility] note* Diagnosis Nausea vomiting and diarrhea- Primary Diarrhea Fatigue, unspecified type documented in this encounter [facility] note* Diagnosis Encounter for screening mammogram for breast cancer documented in this encounter [facility] note* Diagnosis Onset Date Resolution Status Atrophic vaginitis acute Encounter for routine gynecological examination noneactive [facility] Work Phone: Evaluation note* Diagnosis Mixed [facility] Pedal edema- Primary Edema Special screening examination for viral disease Special screening examination for unspecified viral disease Mixed hyperlipidemia Inflammatory polyarthropathy (HCC) Unspecified inflammatory polyarthropathy Fibromyalgia Mylagia and myositis, unspecified Age-related osteoporosis without current pathological fracture Senile osteoporosis [facility] Diagnosis Onset Date Resolution Status Atrophic vaginitis acute Encounter for routine gynecological examination noneactive Encounter for screening for malignant neoplasm of colon acute [facility] Work Phone: Evaluation note* Diagnosis Follow-up exam- Primary Unspecified follow-up examination Inflammatory polyarthropathy (HCC) Unspecified inflammatory polyarthropathy Fibromyalgia Mylagia and myositis, unspecified [facility]* Diagnosis Osteoporosis without current pathological fracture, unspecified osteoporosis type [facility]* Diagnosis Medicare annual wellness visit, subsequent- [...] Leukopenia, unspecified type [facility] Diagnosis Congestive heart failure, unspecified HF chronicity, unspecified heart failure type (HCC) Mixed hyperlipidemia [facility] Diagnosis Hypercalcemia- Primary [facility] Diagnosis Inflammatory polyarthropathy (HCC)- Primary Unspecified inflammatory polyarthropathy Congestive heart failure, unspecified HF chronicity, unspecified heart failure type (HCC) Hypercalcemia Osteopenia of multiple sites Encounter for screening for osteoporosis Special screening for osteoporosis Asymptomatic postmenopausal status [facility] Diagnosis Osteopenia of multiple sites Encounter for screening for osteoporosis Special screening for osteoporosis Asymptomatic postmenopausal status [facility] Diagnosis Chronic diastolic congestive heart failure (HCC)- Primary Chronic diastolic heart failure Fibromyalgia Mylagia and myositis, unspecified Annual physical exam Routine general medical examination at a health care facility [facility] Diagnosis Osteopenia of multiple sites- Primary Fibromyalgia Mylagia and myositis, unspecified Gastroesophageal reflux disease without esophagitis Esophageal reflux Vitamin D deficiency Unspecified vitamin D deficiency Inflammatory polyarthropathy (HCC) Unspecified inflammatory polyarthropathy Breast cancer screening by mammogram- Primary Osteoporosis without current pathological fracture, unspecified osteoporosis type Vitamin D deficiency Unspecified vitamin D deficiency Hypertriglyceridemia Pure hyperglyceridemia Iron deficiency anemia, unspecified iron deficiency anemia type Congestive heart failure, unspecified HF chronicity, unspecified heart failure type (HCC) documented in this encounter [facility]* Diagnosis Osteopenia of multiple sites- Primary Fibromyalgia Mylagia and myositis, unspecified Gastroesophageal reflux disease without esophagitis Esophageal reflux Vitamin D deficiency Unspecified vitamin D deficiency Inflammatory polyarthropathy (HCC) Unspecified inflammatory polyarthropathy Breast cancer screening by mammogram- Primary Osteoporosis without current pathological fracture, unspecified osteoporosis type Vitamin D deficiency Unspecified vitamin D deficiency Hypertriglyceridemia Pure hyperglyceridemia Iron deficiency anemia, unspecified iron deficiency anemia type Encounter for screening mammogram for breast cancer documented in this encounter [facility] note* Diagnosis Osteopenia of multiple sites- Primary Fibromyalgia Mylagia and myositis, unspecified Gastroesophageal reflux disease without esophagitis Esophageal reflux Vitamin D deficiency Unspecified vitamin D deficiency Inflammatory polyarthropathy (HCC) Unspecified inflammatory polyarthropathy Breast cancer screening by mammogram- Primary Osteoporosis without current pathological fracture, unspecified osteoporosis type Vitamin D deficiency Unspecified vitamin D deficiency Hypertriglyceridemia Pure hyperglyceridemia Iron deficiency anemia, unspecified iron deficiency anemia type Inflammatory polyarthropathy (HCC) Unspecified inflammatory polyarthropathy Fibromyalgia Mylagia and myositis, unspecified Congestive heart failure, unspecified HF chronicity, unspecified heart failure type (HCC) Osteoporosis without current pathological fracture, unspecified osteoporosis type documented in this encounter [facility] note* Diagnosis Osteopenia of multiple sites- Primary Fibromyalgia Mylagia and myositis, unspecified Gastroesophageal reflux disease without esophagitis Esophageal reflux Vitamin D deficiency Unspecified vitamin D deficiency Inflammatory polyarthropathy (HCC) Unspecified inflammatory polyarthropathy Breast cancer screening by mammogram- Primary Osteoporosis without current pathological fracture, unspecified osteoporosis type Vitamin D deficiency Unspecified vitamin D deficiency Hypertriglyceridemia Pure hyperglyceridemia Iron deficiency anemia, unspecified iron deficiency anemia type Medicare annual wellness visit, subsequent- Primary Routine general medical examination at a health care facility Elevated blood pressure reading Elevated blood pressure reading without diagnosis of hypertension Chronic diastolic congestive heart failure (HCC) Chronic diastolic heart failure Mixed hyperlipidemia Screening for depression documented in this encounter [facility] note* Diagnosis Osteopenia of multiple sites- Primary Fibromyalgia Mylagia and myositis, unspecified Gastroesophageal reflux disease without esophagitis Esophageal reflux Vitamin D deficiency Unspecified vitamin D deficiency Inflammatory polyarthropathy (HCC) Unspecified inflammatory polyarthropathy Breast cancer screening by mammogram- Primary Osteoporosis without current pathological fracture, unspecified osteoporosis type Vitamin D deficiency Unspecified vitamin D deficiency Hypertriglyceridemia Pure hyperglyceridemia Iron deficiency anemia, unspecified iron deficiency anemia type Acute gastritis, presence of bleeding unspecified, unspecified gastritis type- Primary documented in this encounter [facility] note* Diagnosis Osteopenia of multiple sites- Primary Fibromyalgia Mylagia and myositis, unspecified Gastroesophageal reflux disease without esophagitis Esophageal reflux Vitamin D deficiency Unspecified vitamin D deficiency Inflammatory polyarthropathy (HCC) Unspecified inflammatory polyarthropathy Breast cancer screening by mammogram- Primary Osteoporosis without current pathological fracture, unspecified osteoporosis type Vitamin D deficiency Unspecified vitamin D deficiency Hypertriglyceridemia Pure hyperglyceridemia Iron deficiency anemia, unspecified iron deficiency anemia type Osteoporosis, unspecified osteoporosis type, unspecified pathological fracture presence- Primary Inflammatory polyarthropathy (HCC) Unspecified inflammatory polyarthropathy Mixed hyperlipidemia Weight loss Loss of weight Atopic dermatitis, unspecified type Fibromyalgia Mylagia and myositis, unspecified Essential (primary) hypertension Unspecified essential hypertension documented in this encounter [facility] for referral (narrative)* - Authorized Specialty Diagnoses / Procedures Referred By Won t Referred To Contact Physical Therapy Diagnoses Lumbar spondylosis Sacroiliitis (HCC) Greater trochanteric bursitis of both hips Procedures CONSULT TO PHYSICAL THERAPY Xiomara Call APRN.[employer] [address] [place] [address] Referral ID Status Reason Start Date Expiration Date V isits Requested Visits Authorized [id number] Authorized 11/28/2021 02/26/2022 99 99 [facility] for referral (narrative)* Diagnostic Procedure Only (Routine) - Pending Review Specialty Diagnoses / Procedures Referred By Contac t Referred To Contact XR IMAGING Diagnoses Bilateral hip pain Procedures XR HIP GENERAL 3V PELV/AP/LAT RIGHT RADEX HIP UNILATERAL WITH PELVIS 2-3 VIEWS Chio Adler PA-C [address] [place] [address] Xr Imaging Referral ID Status Reason Start Date Expiration Date Visits Requested Visits Authorized [id number] Pending Review Auto-Generat ed Referral 01/01/2022 01/31/2023 1 1 * Diagnostic Procedure Only (Routine) - Pending Review Specialty Diagnoses / Procedures Referred By Contac t Referred To Contact XR IMAGING Diagnoses Bilateral hip pain Procedures XR HIP GENERAL 3V PELV/AP/LAT LEFT RADEX HIP UNILATERAL WITH PELVIS 2-3 VIEWS Chio Adler PA-C [address] [place] [address] Xr Imaging Referral ID Status Reason Start Date Expiration Date Visits Requested Visits Authorized [id number] Pending Review Auto-Generat ed Referral 01/01/2022 01/31/2023 1 1 [facility] for referral (narrative)* Diagnostic Procedure Only (Routine) - Closed Specialty Diagnoses / Procedures Referred By Contac t Referred To Contact XR IMAGING Diagnoses Bilateral hip pain Procedures XR HIP GENERAL 3V PELV/AP/LAT RIGHT RADEX HIP UNILATERAL WITH PELVIS 2-3 VIEWS Chio Adler PA-C [address] [place] [address] Xr Imaging Referral ID Status Reason Start Date Expiration Date V isits Requested Visits Authorized [id number] Closed Auto-Generate d Referral 01/01/2022 01/31/2023 1 1 * Diagnostic Procedure Only (Routine) - Closed Specialty Diagnoses / Procedures Referred By Contac t Referred To Contact XR IMAGING Diagnoses Bilateral hip pain Procedures XR HIP GENERAL 3V PELV/AP/LAT LEFT RADEX HIP UNILATERAL WITH PELVIS 2-3 VIEWS Chio Adler PA-C [address] [place] [address] Xr Imaging Referral ID Status Reason Start Date Expiration Date V isits Requested Visits Authorized [id number] Closed Auto-Generate d Referral 01/01/2022 01/31/2023 1 1 [facility] for referral (narrative)* Outpatient Procedure (Routine) - Authorized Specialty Diagnoses / Procedures Referred By Won t Referred To Contact [facility] Diagnoses Congestive heart failure, unspecified HF chronicity, unspecified heart failure type (HCC) Shortness of breath Procedures ECHO ECHO TTHRC R-T 2D W/WOM-MODE COMPL SPEC&COLR D Glenn Giordano MD [facility] [place] [address] [facility] [address] [place] [address] Referral ID Status Reason Start Date Expiration Date Visits Requested Visits Authorized [id number] Authorized Auto-Generat ed Referral 01/28/2022 01/28/2023 1 1 T [facility] for referral (narrative)* Diagnostic Procedure Only (Routine) - Pending Review Specialty Diagnoses / Procedures Referred By Won mares Referred To Contact BR IMAGING Diagnoses Encounter for screening mammogram for breast cancer Procedures VLADIMIR SCREENING SCREENING MAMMOGRAPHY BI 2-VIEW BREAST INC CAD Glenn Giordano MD [address] [place] [address] [facility] [address] [place] [id number] Referral ID Status Reason Start Date Expiration Date Visits Requested Visits Authorized [id number] Pending Review Auto-Generat ed Referral 04/02/2022 05/02/2023 1 1 [facility] for referral (narrative)* Diagnostic Procedure Only (Routine) - New Request Specialty Diagnoses / Procedures Referred By Won mares Referred To Contact BR IMAGING Diagnoses Encounter for screening mammogram for breast cancer Procedures VLADIMIR SCREENING W MARIO SCREENING DIGITAL BREAST TOMOSYNTHESIS BI SCREENING MAMMOGRAPHY BI 2-VIEW BREAST INC CAD Glenn Giordano MD [address] [place] [address] [facility] [address] [place] [address] Referral ID Status Reason Start Date Expiration Date Visits Requested Visits Authorized [id number] New Request Auto-Generat ed Referral 06/01/2024 07/01/2025 1 1 [facility] for visit Narrative* Diagnostic Procedure Only (Routine) - Closed Specialty Diagnoses / Procedures Referred By Won mares Referred To Contact XR IMAGING Diagnoses Bilateral hip pain Procedures XR HIP GENERAL 3V PELV/AP/LAT RIGHT RADEX HIP UNILATERAL WITH PELVIS 2-3 VIEWS Chio Adler PA-C [address] [place] [address] Xr Imaging Referral ID Status Reason Start Date Expiration Date V isits Requested Visits Authorized [id number] Closed Auto-Generate d Referral 01/01/2022 01/31/2023 1 1 [facility] for visit Narrative* Outpatient Procedure (Routine) - Closed Specialty Diagnoses / Procedures Referred By Won mares Referred To Contact [facility] Diagnoses Congestive heart failure, unspecified HF chronicity, unspecified heart failure type (HCC) Shortness of breath Procedures ECHO ECHO TTHRC R-T 2D W/WOM-MODE COMPL SPEC&COLR D Glenn Giordano MD [address] [place] [address] [facility] [address] [place] [address] Referral ID Status Reason Start Date Expiration Date V isits Requested Visits Authorized [id number] Closed Auto-Generate d Referral 01/28/2022 01/28/2023 1 1 [facility] Chief Complaint and Reason for Visit Chief Complaint PAIN- COPY PCP Chief 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 Reason for Visit Atrophic vaginitis Encounter for routine gynecological examination Chief 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 Amb Documentation Reason for Visit Atrophic vaginitis Encounter for routine gynecological examination Encounter for screening for malignant neoplasm of colon Chief 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 Amb Documentation PAIN- COPY PCP Reason for Visit Atrophic vaginitis Encounter for routine gynecological examination Encounter for screening for malignant neoplasm of colon Chief 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 60-74 MINUTES Glenn Giordano MD [address] [place] [id number] Referral ID Status Reason Start Date Expiration Date Visits Requested Visits Authorized [id number] Authorized PCP Requested Referral 10/30/2021 01/28/2022 1 1 Specialty Diagnoses / Procedures Referred By Contac t Referred To Contact Orthopedics Diagnoses Swelling of limb Procedures CONSULT TO ORTHOPAEDICS OFFICE/OUTPATIENT [facility] 60-74 MINUTES Glenn Giordano MD [address] [place] [address] Referral ID Status Reason Start Date Expiration Date Visits Requested Visits Authorized [id number] Authorized PCP Requested Referral 10/30/2021 10/30/2022 1 1 Specialty Diagnoses / Procedures Referred By Contac t Referred To Contact [facility] Diagnoses Pain of left lower leg Swelling of limb Edema, unspecified type Procedures US LEG VEIN DVT UNL VAS LAB DUP-SCAN XTR VEINS UNILATERAL/LIMITED STUDY Glenn Giordano MD [address] [place] [address] [facility] [address] [place] [address] Referral ID Status Reason Start Date Expiration Date V isits Requested Visits Authorized [id number] Closed Auto-Generate d Referral 10/30/2021 10/30/2022 1 1 Summary Purpose Family History No Family History Records Found Relationship Condition Age at Onset Recorded Date/T darlyn sister Polyp of colon Unknown Advance Directives No Advanced Directives Records Found Advance Directive Response Recorded Date/ Time Living Will Yes June 20, 022 10:37am Power of Laboratory Asst No June 20, 2022 10:37am Advance Directive Response Recorded Date/ Time Living Will Yes August 28, 2022 4:21pm Power of Laboratory Asst No August 28 4:21pm Advance Directive Response Recorded Date/ Time Living Will Yes August 28, 2022 5:21pm Power of Laboratory Asst No August 28 5:21pm Health Concerns Infection Onset Date Last Indicated [...] 02/03/2022 8:53 PM EDT Additional Source Comments Goals (unrecognized section and content) Goals may be documented in a n alternate sectionGoals may be documented in an alternate sectionGoals may be documented in an alternate sectionGoals may be documented in an alternate sectionGoals may be documented in an alternate section Source Comments (unrecognize d section and content) In the event this informatio n is protected by the Federal Confidentiality of Alcohol and Drug Abuse Patient Records regulations: The Federal rules restrict any use of the information to criminally investigate or prosecute any alcohol or drug abuse patient.[facility] the event this information is protected by the Federal Confidentiality of Alcohol and Drug Abuse Patient Records regulations: The Federal rules restrict any use of the information to criminally investigate or prosecute any alcohol or drug abuse patient.[facility] the event this information is protected by the Federal Confidentiality of Alcohol and Drug Abuse Patient Records regulations: The Federal rules restrict any use of the information to criminally investigate or prosecute any alcohol or drug abuse patient.[facility] the event this information is protected by the Federal Confidentiality of Alcohol and Drug Abuse Patient Records regulations: The Federal rules restrict any use of the information to criminally investigate or prosecute any alcohol or drug abuse patient.[facility] the event this information is protected by the Federal Confidentiality of Alcohol and Drug Abuse Patient Records regulations: The Federal rules restrict any use of the information to criminally investigate or prosecute any alcohol or drug abuse patient.[facility] the event this information is protected by the Federal Confidentiality of Alcohol and Drug Abuse Patient Records regulations: The Federal rules restrict any use of the information to criminally investigate or prosecute any alcohol or drug abuse patient.[facility] the event this information is protected by the Federal Confidentiality of Alcohol and Drug Abuse Patient Records regulations: The Federal rules restrict any use of the information to criminally investigate or prosecute any alcohol or drug abuse patient.[facility] the event this information is protected by the Federal Confidentiality of Alcohol and Drug Abuse Patient Records regulations: The Federal rules restrict any use of the information to criminally investigate or prosecute any alcohol or drug abuse patient.[facility] the event this information is protected by the Federal Confidentiality of Alcohol and Drug Abuse Patient Records regulations: The Federal rules restrict any use of the information to criminally investigate or prosecute any alcohol or drug abuse patient.[facility] the event this information is protected by the Federal Confidentiality of Alcohol and Drug Abuse Patient Records regulations: The Federal rules restrict any use of the information to criminally investigate or prosecute any alcohol or drug abuse patient.[facility]In the event this information is protected by the Federal Confidentiality of Alcohol and Drug Abuse Patient Records regulations: The Federal rules restrict any use of the information to criminally investigate or prosecute any alcohol or drug abuse patient.[facility] the event this information is protected by the Federal Confidentiality of Alcohol and Drug Abuse Patient Records regulations: The Federal rules restrict any use of the information to criminally investigate or prosecute any alcohol or drug abuse patient.[facility] the event this information is protected by the Federal Confidentiality of Alcohol and Drug Abuse Patient Records regulations: The Federal rules restrict any use of the information to criminally investigate or prosecute any alcohol or drug abuse patient.[facility]In the event this information is protected by the Federal Confidentiality of Alcohol and Drug Abuse Patient Records regulations: The Federal rules restrict any use of the information to criminally investigate or prosecute any alcohol or drug abuse patient.[facility] the event this information is protected by the Federal Confidentiality of Alcohol and Drug Abuse Patient Records regulations: The Federal rules restrict any use of the information to criminally investigate or prosecute any alcohol or drug abuse patient.[facility] HospitalIn the event this information is protected by the Federal Confidentiality of Alcohol and Drug Abuse Patient Records regulations: The Federal rules restrict any use of the information to criminally investigate or prosecute any alcohol or drug abuse patient.[facility] HospitalIn the event this information is protected by the Federal Confidentiality of Alcohol and Drug Abuse Patient Records regulations: The Federal rules restrict any use of the information to criminally investigate or prosecute any alcohol or drug abuse patient.[facility] HospitalIn the event this information is protected by the Federal Confidentiality of Alcohol and Drug Abuse Patient Records regulations: The Federal rules restrict any use of the information to criminally investigate or prosecute any alcohol or drug abuse patient.[facility] HospitalIn the event this information is protected by the Federal Confidentiality of Alcohol and Drug Abuse Patient Records regulations: The Federal rules restrict any use of the information to criminally investigate or prosecute any alcohol or drug abuse patient.[facility] HospitalIn the event this information is protected by the Federal Confidentiality of Alcohol and Drug Abuse Patient Records regulations: The Federal rules restrict any use of the information to criminally investigate or prosecute any alcohol or drug abuse patient.[facility] HospitalIn the event this information is protected by the Federal Confidentiality of Alcohol and Drug Abuse Patient Records regulations: The Federal rules restrict any use of the information to criminally investigate or prosecute any alcohol or drug abuse patient.[facility] HospitalIn the event this information is protected by the Federal Confidentiality of Alcohol and Drug Abuse Patient Records regulations: The Federal rules restrict any use of the information to criminally investigate or prosecute any alcohol or drug abuse patient.[facility] HospitalIn the event this information is protected by the Federal Confidentiality of Alcohol and Drug Abuse Patient Records regulations: The Federal rules restrict any use of the information to criminally investigate or prosecute any alcohol or drug abuse patient.[facility] HospitalIn the event this information is protected by the Federal Confidentiality of Alcohol and Drug Abuse Patient Records regulations: The Federal rules restrict any use of the information to criminally investigate or prosecute any alcohol or drug abuse patient.[facility]In the event this information is protected by the Federal Confidentiality of Alcohol and Drug Abuse Patient Records regulations: The Federal rules restrict any use of the information to criminally investigate or prosecute any alcohol or drug abuse patient.[facility] HospitalIn the event this information is protected by the Federal Confidentiality of Alcohol and Drug Abuse Patient Records regulations: The Federal rules restrict any use of the information to criminally investigate or prosecute any alcohol or drug abuse patient.[facility] HospitalIn the event this information is protected by the Federal Confidentiality of Alcohol and Drug Abuse Patient Records regulations: The Federal rules restrict any use of the information to criminally investigate or prosecute any alcohol or drug abuse patient.[facility] HospitalIn the event this information is protected by the Federal Confidentiality of Alcohol and Drug Abuse Patient Records regulations: The Federal rules restrict any use of the information to criminally investigate or prosecute any alcohol or drug abuse patient.[facility] HospitalIn the event this information is protected by the Federal Confidentiality of Alcohol and Drug Abuse Patient Records regulations: The Federal rules restrict any use of the information to criminally investigate or prosecute any alcohol or drug abuse patient.[facility] HospitalIn the event this information is protected by the Federal Confidentiality of Alcohol and Drug Abuse Patient Records regulations: The Federal rules restrict any use of the information to criminally investigate or prosecute any alcohol or drug abuse patient.[facility] HospitalIn the event this information is protected by the Federal Confidentiality of Alcohol and Drug Abuse Patient Records regulations: The Federal rules restrict any use of the information to criminally investigate or prosecute any alcohol or drug abuse patient.[facility] HospitalIn the event this information is protected by the Federal Confidentiality of Alcohol and Drug Abuse Patient Records regulations: The Federal rules restrict any use of the information to criminally investigate or prosecute any alcohol or drug abuse patient.[facility] HospitalIn the event this information is protected by the Federal Confidentiality of Alcohol and Drug Abuse Patient Records regulations: The Federal rules restrict any use of the information to criminally investigate or prosecute any alcohol or drug abuse patient.[facility] HospitalIn the event this information is protected by the Federal Confidentiality of Alcohol and Drug Abuse Patient Records regulations: The Federal rules restrict any use of the information to criminally investigate or prosecute any alcohol or drug abuse patient.[facility] HospitalIn the event this information is protected by the Federal Confidentiality of Alcohol and Drug Abuse Patient Records regulations: The Federal rules restrict any use of the information to criminally investigate or prosecute any alcohol or drug abuse patient.[facility] HospitalIn the event this information is protected by the Federal Confidentiality of Alcohol and Drug Abuse Patient Records regulations: The Federal rules restrict any use of the information to criminally investigate or prosecute any alcohol or drug abuse patient.[facility] HospitalIn the event this information is protected by the Federal Confidentiality of Alcohol and Drug Abuse Patient Records regulations: The Federal rules restrict any use of the information to criminally investigate or prosecute any alcohol or drug abuse patient.[facility] HospitalIn the event this information is protected by the Federal Confidentiality of Alcohol and Drug Abuse Patient Records regulations: The Federal rules restrict any use of the information to criminally investigate or prosecute any alcohol or drug abuse patient.[facility] HospitalIn the event this information is protected by the Federal Confidentiality of Alcohol and Drug Abuse Patient Records regulations: The Federal rules restrict any use of the information to criminally investigate or prosecute any alcohol or drug abuse patient.[facility] HospitalIn the event this information is protected by the Federal Confidentiality of Alcohol and Drug Abuse Patient Records regulations: The Federal rules restrict any use of the information to criminally investigate or prosecute any alcohol or drug abuse patient.[facility] Reason for Visit (unrecogniz ed section and content) Reason Comments Physical Therapy Specialty Diagnoses / Procedures Referred By Won t Referred To Contact Physical Therapy Diagnoses Lumbar spondylosis Sacroiliitis (HCC) Greater trochanteric bursitis of both hips Procedures CONSULT TO PHYSICAL THERAPY Xiomara Call, RN PROGRESSIVE CARE UNIT.STUD DRIVER [address] [place] [address] Referral ID Status Reason Start Date Expiration Date V isits Requested Visits Authorized [id number] Authorized 11/28/2021 02/26/2022 99 99 Reason Comments Established Patient 3 month follow up Reason Comments Results Reason Comments New Patient Evaluation Reason Comments PT Eval Reason Comments Refill Request Reason Comments Established Patient 6 month follow up Reason Comments Nausea & Vomiting Pt reported +Covid e xposure, c/o fever, fatigue, N/V, fatigue Reason Onset Date Comments Population Health Navigation Outreach 05/19/2022 [facility] Reason Comments Follow Up 4 month follow up- d iscuss vitamin D Reason Onset Date Comments Population Health Navigation Outreach 07/07/2022 [facility] Reason Comments ED Follow-up non cardiac chest pa in per ER Reason Comments Medicare Wellness Exam Reason Comments Recheck 3 month follow up Reason Comments Recheck 6 month follow up Reason Onset Date Comments Refill Request 03/17/2024 Reason Onset Date Comments Refill Request 07/25/2024 Reason Comments Medicare Wellness Exam Annual Medicare w [facility] Reason Comments Patient Update Reason Comments Follow up for abdominal pain OV 08/11/24 Reason Comments Recheck Reason Comments Orders Care Teams (unrecognized sec tion and content) Wildlife Policy Professional Relationship Specialty Start Date End Date Glenn Giordano MD [address] [place] [address] PCP - General Internal Medicine 08/11/16 [place] [phone] Chiropractor 03/04/16 Suzi Merino Rheumatology 03/04/16 Wildlife Policy Professional Relationship Specialty Start Date End Date Glenn Giordano MD [address] [place] [address] PCP - General Internal Medicine 08/11/16 [place] [phone] Chiropractor 03/04/16 Suzi Merino L Rheumatology 03/04/16 Wildlife Policy Professional Relationship Specialty Start Date End Date Glenn Giordano MD [address] [place] [address] PCP - General Internal Medicine 08/11/16 [place] [phone] Chiropractor 03/04/16 Suzi Merino L Rheumatology 03/04/16 Wildlife Policy Professional Relationship Specialty Start Date End Date Glenn Giordano MD [address] [place] [address] PCP - General Internal Medicine 08/11/16 [place] [phone] Chiropractor 03/04/16 Celia Merinoma L Rheumatology 03/04/16 Wildlife Policy Professional Relationship Specialty Start Date End Date Glenn Giordano MD [address] [place] [address] PCP - General Internal Medicine 08/11/16 [place] [phone] Chiropractor 03/04/16 Suzi Merino L Rheumatology 03/04/16 Wildlife Policy Professional Relationship Specialty Start Date End Date Glenn Giordano MD [address] [place] [address] PCP - General Internal Medicine 08/11/16 [place] [address] Chiropractor 03/04/16 Suzi Merino L Rheumatology 03/04/16 Wildlife Policy Professional Relationship Specialty Start Date End Date Glenn Giordano MD [address] [place] [address] PCP - General Internal Medicine 08/11/16 [place] [phone] Chiropractor 03/04/16 Suzi Merino Rheumatology 03/04/16 Wildlife Policy Professional Relationship Specialty Start Date End Date Glenn Giordano MD [address] [place] [address] PCP - General Internal Medicine 08/11/16 [place] [phone] Chiropractor 03/04/16 Suzi Merino Rheumatology 03/04/16 Wildlife Policy Professional Relationship Specialty Start Date End Date Glenn Giordano MD [address] [place], [place] [address]041 PCP - General Internal Medicine 08/11/16 [place] [phone] Chiropractor 03/04/16 Suzi Merino L Rheumatology 03/04/16 Wildlife Policy Professional Relationship Specialty Start Date End Date Glenn Giordano MD [address] [place], [place] [phone] PCP - General Internal Medicine 08/11/16 [place] [phone] Chiropractor 03/04/16 Suzi Merino L Rheumatology 03/04/16 Wildlife Policy Professional Relationship Specialty Start Date End Date Glenn Giordano MD [address] [place], [place] [phone] PCP - General Internal Medicine 08/11/16 [place] [phone] Chiropractor 03/04/16 Celia Merinoma L Rheumatology 03/04/16 Wildlife Policy Professional Relationship Specialty Start Date End Date Glenn Giordano MD [address] [place], [place] [id number] PCP - General Internal Medicine 08/11/16 [place] [phone] Chiropractor 03/04/16 Suzi Merino Rheumatology 03/04/16 Wildlife Policy Professional Relationship Specialty Start Date End Date Glenn Giordano MD [address] [place] [address] PCP - General Internal Medicine 08/11/16 [address] [place] [phone] Chiropractor 03/04/16 Suzi Merino L [address] [place] [phone] Rheumatology 03/04/16 Wildlife Policy Professional Relationship Specialty Start Date End Date Glenn Giordano MD [address] [place] [address] PCP - General Internal Medicine 08/11/16 [address] [place] [phone] Chiropractor 03/04/16 Suzi Merino [address] [place] [phone] Rheumatology 03/04/16 Wildlife Policy Professional Relationship Specialty Start Date End Date Glenn Giordano MD [address] [place] [address] PCP - General Internal Medicine 08/11/16 [place] [phone] Chiropractor 03/04/16 Suzi Merino L [address] [place] [address] Rheumatology 03/04/16 Wildlife Policy Professional Relationship Specialty Start Date End Date Glenn Giordano MD [address] [place] [address] PCP - General Internal Medicine 08/11/16 HatfieldKasin Duc [facility] [place] [phone] Chiropractor 03/04/16 Celia Merinoma L [address] [place] [address] Rheumatology 03/04/16 Wildlife Policy Professional Relationship Specialty Start Date End Date Glenn Giordano MD [address] [place] [address] PCP - General Internal Medicine 08/11/16 HatfieldKasin Duc [facility] [place] [address] Chiropractor 03/04/16 Celia Merinoma L [address] [place] [address] Rheumatology 03/04/16 Team Status: Active Member Role Status Dates Dr. Glenn Giordano MD Family Provider Active Dr. Glenn Giordano MD Primary Care Provider Active Team Status: Inactive Member Role Status Dates Dr. Glenn Giordano MD Primary Care Provider, Referring Provider Active Graciela Bangura ELECTROCARDIOGRAPHIC TECHNICIAN, ELECTROCARDIOGRAPHIC TECHNICIAN-C Attending Provider Active Team Status: Active Member Role Status Dates Dr. Glenn Giordano MD Primary Care Provider Active Khadijahjudah Camacho Attending Provider Active Team Status: Active Member Role Status Dates Dr. Glenn Giordano MD Primary Care Provider Active Dr. Hiro Acosta MD Attending Provid er, Referring Provider, Other Provider Active Team Status: Inactive Member Role Status Dates Dr. Glenn Giordano MD Primary Care Provider Active Graciela Bangura ELECTROCARDIOGRAPHIC TECHNICIAN, ELECTROCARDIOGRAPHIC TECHNICIAN-C Attending Provider Active Team Status: Inactive Member Role Status Dates Dr. Glenn Giordano MD Primary Care Provider Active Dr. Hiro Acosta MD Attending Provider, Referring Provider Active Team Status: Inactive Member Role Status Dates Dr. Glenn Giordano MD Primary Care Provider Active Dr. Suzi Merino MD Attending Provider, Referring Provider Active Team Status: Inactive Member Role Status Dates Dr. Glenn Giordano MD Primary Care Provider Active Dr. Alex Benoit DO Emergency Provider Active Wildlife Policy Professional Relationship Specialty Start Date End Date Glenn Giordano MD [address] [place] [address] PCP - General Internal Medicine 08/11/16 [address] [place] [phone] Chiropractor 03/04/16 Suzi Merino [address] [place] [address] Rheumatology 03/04/16 Wildlife Policy Professional Relationship Specialty Start Date End Date Glenn Giordano MD [address] [place] [address] PCP - General Internal Medicine 08/11/16 [address] [place] [phone] Chiropractor 03/04/16 Suzi Merino [address] [place] [address] Rheumatology 03/04/16 Wildlife Policy Professional Relationship Specialty Start Date End Date Glenn Giordano MD [address] [place] [address] PCP - General Internal Medicine 08/11/[address] [place] [phone] Chiropractor 03/04/16 Suzi Merino [address] [place] [phone] Rheumatology 03/04/16 Wildlife Policy Professional Relationship Specialty Start Date End Date Glenn Giordano MD [address] [place] [address] PCP - General Internal Medicine 08/11/16 Bladimir Wilkins [address] [place] [phone] Chiropractor 03/04/16 Suzi Merino [address] [place] [phone] Rheumatology 03/04/16 Wildlife Policy Professional Relationship Specialty Start Date End Date Glenn Giordano MD [address] [place] [address] PCP - General Internal Medicine 08/11/16 [address] [place] [address] Chiropractor 03/04/16 Suzi Merino [address] [place] [address] Rheumatology 03/04/16 Wildlife Policy Professional Relationship Specialty Start Date End Date Glenn Giordano MD [address] [place], [place] 613651 PCP - General Internal Medicine 08/11/16 Bladimir Wilkins [address] [place] [address] Chiropractor 03/04/16 Suzi Merino [address] [place] [address] Rheumatology 03/04/16 Wildlife Policy Professional Relationship Specialty Start Date End Date Glenn Giordano MD [address] [place] [address] PCP - General Internal Medicine 08/11/16 Bladimir Wilkins [address] [place] [phone] Chiropractor 03/04/16 Suzi Merino [address] [place] [address] Rheumatology 03/04/16 Wildlife Policy Professional Relationship Specialty Start Date End Date Glenn Giordano MD [address] [place], [place] [id number] PCP - General Internal Medicine 08/11/16 Bladimir Wilkins [address] [place] [address] Chiropractor 03/04/16 Suzi Merino [address] [place] [address] Rheumatology 03/04/16 Wildlife Policy Professional Relationship Specialty Start Date End Date Glenn Giordano MD [address] [place], [place] 179171 PCP - General Internal Medicine 08/11/16 Bladimir Wilkins [address] [place] [address] Chiropractor 03/04/16 Suzi Merino [address] [place] [phone] Rheumatology 03/04/16 Wildlife Policy Professional Relationship Specialty Start Date End Date Glenn Giordano MD [address] [place] [address] PCP - General Internal Medicine 08/11/16 [address] [facility] [phone] Chiropractor 03/04/[address] [facility] [phone] Rheumatology 03/04/16 Wildlife Policy Professional Relationship Specialty Start Date End Date Glenn Giordano MD [address] [place], [place] 345841 PCP - General Internal Medicine 08/11/16 [address] [facility] [phone] Chiropractor 03/04/[address] [facility] [phone] Rheumatology 03/04/16 Wildlife Policy Professional Relationship Specialty Start Date End Date Glenn Giordano MD [address] [place] [address] PCP - General Internal Medicine 08/11/16 [address] [facility] [phone] Chiropractor 03/04/16 Suzi Merino [address] [place] [phone] Rheumatology 03/04/16 Janene Mora PA-C [address] [place] [address] Foot Orthopedist Family Medicine 06/05/24 Kiara Taylor APRN.STUD DRIVER [address] [place], [place] 385691 Foot Orthopedist Internal Medicine 06/05/24 Amrita Quiroga PA-C [address] [place] [address] Foot Orthopedist Family Medicine 06/05/24 Wildlife Policy Professional Relationship Specialty Start Date End Date Glenn Giordano MD [address] [place], [place] 667301 PCP - General Internal Medicine 08/11/16 Bladimir Wilkins [address] [place] [phone] Chiropractor 03/04/16 Suzi Merino [address] [place] [phone] Rheumatology 03/04/16 Janene Mora PA-C [address] [place], [place] [address] 8[address] Foot Orthopedist Family [facility] 06/05/24 Kiara Taylor APRN.STUD DRIVER [address] [place], [place] [phone] Foot Orthopedist Internal Medicine 06/05/24 Amrita Quiroga PA-C [address] [place] [address] Foot Orthopedist Family Medicine 06/05/24 Wildlife Policy Professional Relationship Specialty Start Date End Date Glenn Giordano MD [address] [place], [place] [address]79321 PCP - General Internal Medicine 08/11/16 Bladimir Wilkins [address] [place] [address] Chiropractor 03/04/16 Suzi Merino [address] [place] [address] Rheumatology 03/04/16 Janene Mora PA-C [address] [place] [address] Foot Orthopedist Family Medicine 06/05/24 Kiara Taylor APRN.CNP [address] [place] [address] Foot Orthopedist Internal Medicine 06/05/24 Amrita Quiroga PA-C [address] [place] [address] Foot Orthopedist Family Medicine 06/05/24 Wildlife Policy Professional Relationship Specialty Start Date End Date Glenn Giordano MD [address] [place] [address] PCP - General Internal Medicine 08/11/16 Bladimir Wilkins [address] [place] [phone] Chiropractor 03/04/16 Suzi Merino [address] [place] [phone] Rheumatology 03/04/16 Janene Mora PA-C [address] [place] [address] Foot Orthopedist Family Medicine 06/05/24 Kiara Taylor APRN.STUD DRIVER [address] [place] [address] Foot Orthopedist Internal Medicine 06/05/24 Amrita Quiroga PA-C [address] [place] [address] Foot Orthopedist Family Medicine 06/05/24 Wildlife Policy Professional Relationship Specialty Start Date End Date Glenn Giordano MD [address] [place], [place] [phone] PCP - General Internal Medicine 08/11/16 Bladimir Wilkins [address] [place] [address] Chiropractor 03/04/16 Suzi Merino [address] [place] [phone] Rheumatology 03/04/16 Janene Mora PA-C [address] [place] [address] Foot Orthopedist Family Medicine 06/05/24 Kiara Taylor APRN.STUD DRIVER [address] [place] [address] Foot Orthopedist Internal Medicine 06/05/24 Amrita Quiroga PA-C [address] [place] [address] Foot Orthopedist Family Medicine 06/05/24 Wildlife Policy Professional Relationship Specialty Start Date End Date Glenn Giordano MD [address] [place], [place] 008921 PCP - General Internal Medicine 08/11/16 Bladimir Wilkins [address] [place] [phone] Chiropractor 03/04/16 Suzi Merino [address] [place] [phone] Rheumatology 03/04/16 Janene Mora PA-C [address] [place] [address] Foot Orthopedist Family Medicine 06/05/24 09/18/24 Kiara Taylor APRN.STUD DRIVER [address] [place] [address] Foot Orthopedist Internal Medicine 06/05/24 Amrita Quiroga PA-C [address] [place] [address] Foot Orthopedist Family Medicine 06/05/24 09/18/24 Wildlife Policy Professional Relationship Specialty Start Date End Date Glenn Giordano MD [address] [place] [address] PCP - General Internal Medicine 08/11/16 [address] [facility] [phone] Chiropractor 03/04/[address] [facility] [phone] Rheumatology 03/04/16 Kiara Taylor APRN.STUD DRIVER [address] [place], [place] [address]3621 Foot Orthopedist Internal Medicine 06/05/24 Wildlife Policy Professional Relationship Specialty Start Date End Date Glenn Giordano MD [address] [place], [place] [address]6591 PCP - General Internal Medicine 08/11/16 [address] [facility] [phone] Chiropractor 03/04/[address] [place] [phone] Rheumatology 03/04/16 Kiara Taylor APRN.STUD DRIVER [address] [place], [place] 145311 Foot Orthopedist Internal Medicine 06/05/24 INFORMATION SOURCE (unrecogn ized section and content) DATE CREATED AUTHOR 11/28/2021 [facility] DATE CREATED AUTHOR AUTHOR'S ORGANIZ ATION 08/15/2024 [facility] DATE CREATED AUTHOR AUTHOR'S ORGANIZ ATION 11/25/2024 [facility] FOR RECORDS PERTAINING TO PATIENTS WHO [...] BE BASED ON THE PRIMARY CLINICAL RECORDS. [facility] [employer] [facility]. provides no warranty or guarantee of the accuracy or completeness of information in this document.
[2025-01-16 10:38] LABS: Hematocrit 35.1 % (37-47); Hemoglobin 11.3 g/dL (12.0-15.0); Immature Granulocytes Count 0.010 X10^3/uL (0.0-0.0); Mean Corp Hgb Conc 32.2 g/dL (32-36); Mean Corpuscular Volume 97.2 fL (81-99); Mean Platelet Vol. 10.4 fl (6.2-12.0); NRBC Flagged by Analyzer 0 % (0-5); Platelet Count 280 K/mm3 (150-450); RBC Distribution Width CV 13.4 % (11.6-14.6); RBC Distribution Width SD 47.9 fl (35.1-43.9); Red Blood Count 3.61 M/mm3 (4.2-5.4); White Blood Count 4.1 K/mm3 (4.4-11.0)
[2025-01-16 11:58] LABS: AST(SGOT) 33 U/L (<=31); Alanine Aminotransfer ALT/SGPT 25 U/L (<=34); Albumin, Serum 4.2 g/dL (3.4-4.8); Alkaline Phosphatase 71 U/L (35-104); Anion Gap 12 (5-15); BUN 22 mg/dL (4-19); BUN/Creat Ratio 24.0 RATIO (10-20); Calcium,Total 9.7 mg/dL (7.6-11.0); Carbon Dioxide 23.4 mmol/L (21.0-32.0); Chloride 103 mmol/L (98-108); Globulin 2.6 g/dL (2.2-4.2); Glucose 98 mg/dL (70-99); Potassium 4.0 mmol/L (3.3-5.1)
== END | disposition home or self-care (01) ==
LOC: MTLAB 07:02
PROVIDERS: PCP Nurse Practitioner; Referring Provider Internal Medicine Rheumatology; Visit Provider Internal Medicine Rheumatology
DX: M06.4 Inflammatory polyarthropathy (principal); M79.7 Fibromyalgia
CPT/HCPCS: 36415; 80053; 85025